=== PATIENT | male | born 1945 | race Caucasian/White ===

== ENCOUNTER 2021-02-10 11:20 | Emergency (ER) | payer MEDICARE, SELFPAY ==
--- NOTE | ~2021-02-10 | XR_ITS ---
XR chest 1V portable DATE: 02/10/2021 12:01 INDICATION: Weakness TECHNIQUE: Portable AP chest on 02/10/2021 at 1157 hours COMPARISON: None FINDINGS: 2 thoracic electrodes overlie the mid thoracic spinal canal. Normal heart size. No hilar or mediastinal enlargement. No pulmonary infiltrate or consolidation, ple ural effusion or pulmonary vascular congestion or pneumothorax is detected. There are bilateral Asif B-lines, likely due to chronic interstitial changes. Surgical clips, right upper quadrant, consistent with cholecystectomy. Osteopenia. IMPRESSION: Likely mild chronic interstitial changes in the lower lung zones No active cardiac pulmonary disease is evident Status post cholecystectomy Thoracic spinal canal electrodes Reviewed, dictated and finalized at location A. [employer]
[2021-02-10 11:27] VITALS: BP 99/57; PULSE 88; RESP 20; TEMP 37.2; O2SAT 95
--- NOTE | 2021-02-10 11:49 | ECG_ITS ---
Measurements Intervals [place] Rate: 85 P: 66 MS: 161 QRS: -34 QRSD: 77 T: 82 QT: 334 QTc: 399 Interpretive Statements SINUS RHYTHM WITH SINUS ARRHYTHMIA ATRIAL PREMATURE COMPLEX POSSIBLE LEFT ATRIAL ENLARGEMENT LEFT AXIS DEVIATION INCOMPLETE RIGHT BUNDLE BRANCH BLOCK DELAYED PRECORDIAL R/S TRANSITION LEFT VENTRICULAR HYPERTROPHY AND ST-T CHANGE BORDERLINE ECG Electronically Signed On 02-10-2021 15:09:22 [employer] by Alok Chino D.O.
--- NOTE | 2021-02-10 11:53 | ED.WEAKNESS ---
HPI - Weakness General Chief complaint: Weakness Stated complaint: weakness Time Seen by Provider: 02/10/21 11:35 Source: patient Mode of arrival: ambulatory Limitations: no limitations History of Present Illness HPI Narrative: Patient presents with general weakness, gradually getting worse over the last 7 days. Patient lives alone, not feeling well. Have long hours of sleep, have trouble to get off the bed or of the toilet because of the general weakness. 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 Patient does take medicine at home and he does not know why. Patient does not smoke or drink, fully vaccinated for COVID-19, never been to our hospital before. Patient usually go to [facility]. Denying any fever, chills, nausea, vomiting, abdominal pain or chest pain or shortness of breath or headache. Patient unable to eat lately because of the general weakness unable to manage to take care of himself. Related Data Allergies Allergy/AdvReac Type Severity Reaction Status Date / Time No Known Allergies Allergy Unverified 09/22/20 08:22 Review of Systems Review of Systems: CONSTITUTIONAL: Denies fever, chills, or sweats. EYES: Denies visual changes, redness, or discharge. ENT: Denies rhinorrhea, congestion, sore throat, or otalgia. CARDIOVASCULAR: Denies chest pain, palpitations, or edema. RESPIRATORY: Denies cough or dyspnea. GASTROINTESTINAL: Denies abdominal pain, nausea, vomiting, or diarrhea. GENITOURINARY: Denies dysuria or hematuria. SKIN: Denies rash or itching. MUSCULOSKELETAL: Denies back pain, joint pain, or myalgia. NEUROLOGIC: Denies headache, numbness, or weakness. PSYCHIATRIC: Denies anxiety or depression. Exam Narrative: General appearance: Well-developed, well-nourished, looks weak and ill Skin: Normal color Head: Normocephalic, nontraumatic Eyes: Clear conjunctiva ENT: Oropharynx normal, ears normal, nose normal Neck: Supple, nontender Chest and respiratory: Airway patent, no respiratory distress, no accessory muscle use Heart: Regular rate/rhythm Abdomen: Soft, nontender, no organomegaly, quiet bowel sounds Vascular: Normal peripheral pulses, normal capillary refill. 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 Differential diagnosis as below. Labs, chest x-ray, UA, IV fluid ordered. Work-up showed no significant findings to explain patient weakness. My understanding that patient lives alone, board, depressed. Does not do any physical activity. Not motivated to eat over the last 36 hours. All his symptoms are resolved after eating and having IV fluid in the emergency room. Patient was able to get out of bed using a cane and walker around the emergency room without security assistant or any complaint. Patient feels okay to go home, declined to be hospitalized for rehab or [facility] placement, patient granddaughter at the bedside who agreed with the plan.
[2021-02-10 12:19] LABS: Basophils Percent Auto 0.3 % (0.2-1.2); Eosinophils Absolute Auto 0.1 K/mm3 (0-0.3); Eosinophils Percent Auto 2.2 % (0-4.4); Hematocrit 33.6 % (42.0-52.0); Hemoglobin 10.9 g/dL (14.0-18.0); Immature Granulocyte Absolute 0.03 K/mm3 (0.00-0.031); Immature Granulocyte Percent A 0.5 % (0-0.5); Lymphocytes Absolute Auto 0.83 K/mm3 (0.9-3.2); Mean Corpuscular HGB Conc 32.4 g/dl (32-36); Mean Corpuscular Hemoglobin 29.7 pg (26-34); Mean Corpuscular Volume 91.6 fl (80-100); Mean Platelet Volume 8.8 fl (7.4-10.4); Monocytes Absolute Auto 0.7 K/mm3 (0.1-0.6); Monocytes Percent Auto 11.3 % (2.6-8.5); Neutrophils Absolute Auto 4.7 K/mm3 (1.3-6.7); Neutrophils Percent Auto 72.7 % (45.5-73.1); Platelet Count Result 202 k/mm3 (150-375); Red Blood Count 3.67 M/mm3 (4.6-6.20); Red Cell Distribution Width 12.8 % (11.5-14.5); White Blood Count 6.4 K/mm3 (4.5-10.0)
[2021-02-10] MEDS: SODIUM CHLORIDE 0.9% IV 1,000 ML 999 ML IV CONT (12:26)
[2021-02-10 12:31] LABS: Alanine Aminotransferase 30 U/L (4-50); Albumin Level 3.7 g/dL (3.5-5.1); Alkaline Phosphatase 238 U/L (38-126); Anion Gap 7 mmol/L (8-16); Aspartate Amino Transferase 51 U/L (17-59); Bilirubin,Total 0.8 mg/dL (0.2-1.3); Blood Urea Nitrogen 24 mg/dL (9-20); Calcium 8.6 mg/dL (8.4-10.2); Carbon Dioxide 27 mmol/L (22-30); Chloride 98 mmol/L (98-107); Estimated CRCL calculation 45 ml/min; Estimated Glomerular Filt Rate 54; Glucose 167 mg/dL (65-110); Lactic Acid Reflex 1.1 mmol/L (0.7-2.1); Lipase 92 U/L (23-300); Potassium 3.6 mmol/L (3.4-5.0); Sodium 132 mmol/L (137-145)
[2021-02-10 12:39] LABS: NT Pro B Type Natriuretic Pept 909 pg/mL (5-100)
[2021-02-10 12:40] LABS: INR 1.1
[2021-02-10 12:41] LABS: Partial Thromboplastin Time 31.7 SECONDS (22.3-36.8)
[2021-02-10 12:43] LABS: CRP 7.2 mg/dL (<1.0)
[2021-02-10 12:49] LABS: Troponin I < 0.012 ng/mL (0.000-0.034)
[2021-02-10 12:50] LABS: Creatine Kinase 220 U/L (55-170)
[2021-02-10 13:31] VITALS: BP 107/59; PULSE 72; RESP 14; O2SAT 99
[2021-02-10 14:40] LABS: Add Urine Microscopic? YES; Appearance Urine Cloudy (Clear); Bilirubin Urine Negative (Negative); Blood Urine Negative (Negative); Color Urine Amber (Yellow); Glucose Urine UA Negative (Negative); Hyaline Casts Urine 20-29 /lpf; Ketones Urine Trace mg/dL (Negative); Leukocyte Esterase Ur Negative LEU/UL (Negative); Mucus Urine Few /lpf; Nitrate Urine Negative (Negative); Protein Urine 1+ mg/dL (Negative); Specific Grav Ur 1.023 (1.001-1.035); Squamous Epithelial Cell Urine Rare /hpf (Few)
[2021-02-10 15:26] VITALS: BP 125/66; PULSE 72; RESP 14; O2SAT 98
[2021-02-10 15:40] LABS: Troponin I < 0.012 ng/mL (0.000-0.034)
== END 2021-02-10 15:28 | disposition home or self-care (01) ==
PROVIDERS: Emergency Provider Emergency Medicine; PCP Internal Medicine
DX: R53.1 Weakness (principal); I49.1 Atrial premature depolarization; R94.31 Abnormal electrocardiogram [ECG] [EKG]; I45.10 Unspecified right bundle-branch block; R91.8 Other nonspecific abnormal finding of lung field
CPT/HCPCS: 36415; 71045; 80053; 81001; 82550; 83605; 83690; 83880; 84484; 85025; 85610; 85730; 86140; 87040; 93005; 96360; 96361; 99284; J7030

== ENCOUNTER 2024-03-12 17:46 | Emergency (ER) | payer MEDICARE, SELFPAY ==
[2024-03-12 18:14] VITALS: BP 107/61; PULSE 69; RESP 16; TEMP 36.6; O2SAT 98
[2024-03-12 20:08] VITALS: BP 104/77; PULSE 61; RESP 20; TEMP 36.4; O2SAT 100
== END 2024-03-12 22:14 | disposition left against medical advice (07) ==
LOC: ANHED 21:51
PROVIDERS: PCP Internal Medicine
DX: R06.02 Shortness of breath (principal)
CPT/HCPCS: 99199

== ENCOUNTER 2024-07-25 15:44 | Outpatient (CLI) | payer MEDICARE, SELFPAY ==
--- NOTE | ~2024-07-25 | XR_ITS ---
[id number] Ordering provider: Jose Daniel Santos, History: . Radciulopathy . Comparison: None. FINDINGS: VERTEBRAL BODIES: Fusion at the level of C6 and C7. Normal height and alignment. No visible fracture or subluxation. The dens is intact. Degenerative changes of the spine. DISK SPACES: Narrowing of the disc C5-C6 and C6-C7. Multilevel facet joint disease. Multilevel uncove rtebral joint osteoarthritic changes. PARASPINOUS SOFT TISSUES: No prevertebral soft tissue swelling. IMPRESSION: No acute osseous abnormality cervical spine. Multilevel degenerative disc disease.. Reviewed, dictated and finalized at location A.
--- NOTE | ~2024-07-25 | XR_ITS ---
3 VIEWS LUMBAR SPINE Ordering provider: Jose Daniel Santos, History: . Radciulopathy . Comparison: None. FINDINGS: VERTEBRAL BODIES: No visible fracture or subluxation. Degenerative changes of the spine. DISK SPACES: Narrowing of the disc L3-L4 and L5-S1. SOFT TISSUES: Normal. Spinal stimulator is noted. IMPRESSION: No acute osseous abnormality lumbar spine. Multilevel degenerative disc disease. Reviewed, dictated and finalized at location A.
--- OUTSIDE RECORDS SUMMARY | 2024-07-25 15:53 | XMS_ITS | CONTINUITY OF CARE DOCUMENT ---
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 active Jose Arteaga MD Hypertriglyceridemia active Jose Delgadillo BACK PAIN, CHRONIC;ON NARCOTICS active Jose Arteaga MD Diastolic dysfunction active Jose Arteaga MD Shortness of breath completed - Jose Arteaga MD Long-term (current) use of other medications completed - Jose Arteaga MD Pre-procedural laboratory examination completed - Jose Arteaga MD Neuropathy active Jose Arteaga MD Microvascular angina active Jose Delgadillo Pulmonary hypertension active Jose Arteaga MD Tobacco use, quit active Jose Arteaga MD t oo emote to screen Exposure to SARS-associated coronavirus;had vaccine active Jose Arteaga MD Renal cyst active Jose Arteaga MD Screening active Jose Arteaga MD Hyperlipidemia;NEG CRP active Jose Arteaga MD DYSPEPSIA&OTHER SPEC DISORDE RS FUNCTION STOMACH;CHRONIC active Jose Arteaga MD LOW BLOOD PRESSURE active Jose Arteaga MD CAD;NEG ECHO, HOLTER AND NUC 07 completed - Nahomi Beasley SCRAP DROP ENGINEER CHEST PAIN active - Jose Arteaga MD SHORTNESS OF BREATH active - Jose Arteaga MD PALPITATIONS completed - Nahomi Beasley SCRAP DROP ENGINEER ENCOUNTERS Date Type Provider Location Encounter Diag nosis - In-person encounter Office Visit Jose Arteaga MD [facility] - In-person encounter Office Visit Jose Arteaga MD [facility] Pre-procedural laboratory examinationLong-term (current) use of other medicationsShortness of breath - In-person encounter Office Visit Jose Arteaga MD [facility] ScreeningMicrovascular anginaNeuropathy - In-person encounter Office Visit Jose Arteaga MD [facility] Renal cystDiastolic dysfunctionExposure to SARS-associated coronavirus;had vaccineTobacco use, quitPulmonary hypertension - In-person encounter Office Visit Jose Arteaga MD [facility] PALPITATIONSCAD;NEG ECHO, HOLTER AND NUC 07Hyperlipidemia;NEG CRP - In-person encounter Office Visit Jose Arteaga MD [facility] SHORTNESS OF BREATHCHEST PAINLOW BLOOD PRESSUREBACK PAIN, CHRONIC;ON NARCOTICSDYSPEPSIA&OTHER SPEC DISORDERS FUNCTION STOMACH;CHRONICHyperlipidemi a;NEG CRP VITAL SIGNS Date Observation Value Provider blood pressure, diastolic 61 mm[Hg] Ri adry [place] blood pressure, systolic 100 mm[Hg] Simon chong [place] blood pressure, cuff size regular Ri adry [place] oxygen saturation, oximetry 96 % Ginette [place] respiratory rate E&M 16 /min Kendra [place] pulse rate 66 /min Ginette thompson Body Mass Index (Ratio) 21.37 kg/m2 Nuno [place] weight in kilograms E&M 73.48 kg Nuno [place] weight E&M 162 [lb_av] Ginette thompson height E&M 73 [in_i] Ginette thompson height in centimeters E&M 185.42 cm Ace [place] Body Mass Index (Ratio) 21.90 kg/m2 Paul Arteaga MD blood pressure, cuff size large Tr trevin Lorenzo blood pressure, diastolic 50 mm[Hg] Tr trevin Lorenzo blood pressure, systolic 120 mm[Hg] Jorge Lorenzo oxygen saturation, oximetry 98 % Huseyin Lorenzo respiratory rate E&M 16 /min Huseyin Lorenzo pulse rate 68 /min Huseyin Lorenzo weight E&M 166 [lb_av] Huseyin Lorenzo height E&M 73 [in_i] Huseyin Lorenzo Body Mass Index (Ratio) 21.77 kg/m2 Paul Arteaga MD blood pressure, diastolic 60 mm[Hg] Li [facility] blood pressure, systolic 90 mm[Hg] Darline kLog blood pressure, cuff size regular Cy bhargavi Delgado blood pressure, diastolic 60 mm[Hg] Cy ntkate Delgado blood pressure, systolic 90 mm[Hg] Duyen tran Delgado oxygen saturation, oximetry 96 % Francisca Delgado respiratory rate E&M 16 /min Francisca Danny pulse rate 77 /min Francisca Missaelbel l weight E&M 165 [lb_av] Francisca Missaelbel l height E&M 73 [in_i] Francisca Campbel l Body Mass Index (Ratio) 21.77 kg/m2 Paul Arteaga MD blood pressure, diastolic 60 mm[Hg] Rh onda Yadira blood pressure, systolic 99 mm[Hg] Rho ndemile Yadira oxygen saturation, oximetry 96 % Lizbet Yadira pulse rate 82 /min Lizbet Yadira respiratory rate E&M 16 /min Lizbet Yadira weight E&M 165 [lb_av] Lizbet Yadira blood pressure, resting No Rhon da Yadira blood pressure, cuff size regular Rh ontessy Yadira height E&M 73 [in_i] Lizbet Yadira Body Mass Index (Ratio) 22.16 kg/m2 Paul Arteaga MD blood pressure, cuff size regular Cy bhargavi Danny blood pressure, diastolic 60 mm[Hg] Cy bhargavi Delgado blood pressure, systolic 104 mm[Hg] Duyen tran Delgado oxygen saturation, oximetry 96 % Francisca Delgado respiratory rate E&M 16 /min Francisca Delgado pulse rate 62 /min Francisca maria height E&M 73 [in_i] Francisca Canasbel crow weight E&M 168 [lb_av] Francisca Missaelbel l blood pressure, diastolic 66 mm[Hg] Hattie Castillo'Jm blood pressure, systolic 105 mm[Hg] Elizabeth soria O'Jm pulse rate 81 /min Nancy O'Jm oxygen saturation, oximetry 97 % Nancy O'Jm respiratory rate E&M 19 /min Nancy O'Jm weight E&M 150 [lb_av] Nancy O'Jm ALLERGIES Allergy Name Onset Date Reaction Criticality Status ZOCOR stomacah issues Low Criticality acti ve RESULTS Date Observation Value Provider Reference Range Interpretation Location 8 D-dimer quantitative mcg/mL 0.41 MG/L FEU [facility] 0.00-0.49 8 ferritin, serum 107 ng/mL [facility] 30-400 8 iron saturation percent, serum 26 % [facility] 15-55 8 iron, serum 86 ug/dL [facility] 38-169 8 iron binding capacity, unsaturated 247 ug/dL [facility] 359-021 3973/10/0 8 iron binding capacity, total 333 ug/dL [facility] 123-463 1605/09/2 3 c-reactive protein, quantitative, serum 0.78 mg/L [facility] 0.00-3.00 3 B-12, serum 1256 pg/mL [facility] 232-1245 High 3 pro brain natriuretic peptide 309 pg/mL [facility] 0-486 3 prothrombin time (patient) 9.8 s [facility] 9.1-12.0 3 international normalized ratio (INR) 0.9 [facility] 0.9-1.2 3 lipoprotein, beta, serum, point, quantitative, calculated 86 mg/dL [facility] 0-99 3 HDL cholesterol, serum 47 mg/dL [facility] >39 3 triglyceride, serum, random 234 mg/dL [facility] 0-149 High 3 cholesterol, serum 172 mg/dL [facility] 101-584 2109/09/2 3 calcium, serum 8.9 mg/dL [facility] 8.6-10.2 3 carbon dioxide, venous blood 27 mmol/L [facility] 20-29 3 chloride, serum 101 mmol/L [facility] 96-106 3 potassium, serum 4.1 mmol/L [facility] 3.5-5.2 3 sodium, serum 141 mmol/L [facility] 151-489 7479/09/2 3 urea nitrogen/creatinin e ratio, serum 15 [facility] 10-24 3 eGFR if 91 mL/min/{1. 73_m2} [facility] >59 3 eGFR if not 79 mL/min/{1. 73_m2} [facility] >59 3 creatinine, serum 0.93 mg/dL [facility] 0.76-1.27 3 urea nitrogen, blood 14 mg/dL [facility] 8-27 3 blood glucose, random 107 mg/dL [facility] 65-99 High 3 basophil count, absolute 0.0 x10E3/uL [facility] 0.0-0.2 3 Eosinophil Absolute Count 0.2 X10E3/UL [facility] 0.0-0.4 3 monocyte count, blood, automated 0.3 X10E3/UL [facility] 0.1-0.9 3 lymphocyte count, blood, automated 1.0 X10E3/UL [facility] 0.7-3.1 3 Absolute Neutrophils 3.4 X10E3/UL [facility] 1.4-7.0 3 basophils as percent of blood leukocytes 0 % [facility] Not Estab. 3 eosinophils as percent of blood leukocytes 3 % [facility] Not Estab. 3 monocytes as percent of blood leukocytes 7 % [facility] Not Estab. 3 lymphocytes as percent of blood leukocytes 20 % [facility] Not Estab. 3 neutrophils as percent of blood leukocytes 70 % [facility] Not Estab. 3 platelet count 242 X10E3/UL [facility] 177-276 6436/09/2 3 red blood cell distribution width 12.4 % [facility] 11.6-15.4 3 mean corpuscular hemoglobin concentration, RBC 32.4 G/DL [facility] 31.5-35.7 3 mean corpuscular hemoglobin, RBC 29.5 pg [facility] 26.6-33.0 3 mean corpuscular volume, RBC 91 fL [facility] 79-97 3 hematocrit, blood 39.8 % [facility] 37.5-51.0 3 hemoglobin, blood 12.9 g/dL [facility] 13.0-17.7 Low 3 erythrocyte (RBC) count 4.37 X10E6/UL [facility] 4.14-5.80 3 leukocyte count, blood 4.9 X10E3/UL [facility] 3.4-10.8 HISTORY OF MEDICATION USE Medication Status Instructions Dates Provider Indications Com ments Protonix 40 mg tablet,delayed release (DR/EC) active Take 1 tablet by mouth once a day Kristi Ruvalcaba Protonix 40 mg tablet,delayed release (DR/EC) completed - Kristi Ruvalcaba gabapentin 600 mg tablet completed Take 1 tablet by mouth four times a day - Jose Arteaga MD pantoprazole 40 mg tablet,delayed release (DR/EC) completed 1 tablet by mouth once a day - Jose Arteaga MD Repathemile Pushtronex 420 mg/3.5 mL wearable injector completed Inject 3.5 ml subcutaneously every four weeks - Jose Arteaga MD ezetimibe 10 mg tablet completed Take 1 tablet by mouth once a day - Jose Arteaga MD Nexletol 180 mg tablet completed Take 1 tablet by mouth once a day - Jose Arteaga MD Adult Low Dose Aspirin 81 mg tablet,delayed release (DR/EC) completed Take 1 tablet once a day - Jose Arteaga MD Vascepa 1 gram capsule completed Take 2 capsule by mouth twice a day - Jose Arteaga MD ezetimibe 10 mg tablet completed - Nahomi Beasley NP pantoprazole 40 mg tablet,delayed release (DR/EC) completed - Nahomi Ramos SCRAP DROP ENGINEER oxycodone 30 mg tablet active Nahomi Beasley NP lorazepam 0.5 mg tablet [facility] ibuprofen 800 mg tablet active as needed Jose Arteaga MD methocarbamol 750 mg tablet active as needed Jose Arteaga MD albuterol sulfate 90 mcg/actuation HFA aerosol inhaler active as needed Jose Arteaga MD methadone 10 mg tablet active Jose Arteaga MD gabapentin 600 mg tablet completed - Nahomi Beasley NP ASPIRIN 81 MG ORAL TABLET completed 1 tablet once a day - Jose Arteaga MD Lovaza 1 gram capsule completed 1 once a day - Jose Arteaga MD OXYCONTIN [id number] completed 1 tablet once a day - Lane Gonsalves RN SOCIAL HISTORY Date Observation Value Provider caffeine use, averag e drinks per day yes Ginette [place] passive cigarette sm venkat exposure yes Ginette [place] oral tobacco use per day vape Simon chong [place] chewing tobacco use Current Ginette Cuba smoking status Never smoker Ginette harrison social history E&M Marital Statu s: L tommy with family/friends E thnicity: Smoking History: P eitan has never smoked. Jose Arteaga MD social history reviewed E&M revi ewed - no changes required Jose Arteaga MD oral tobacco use per day vape Try oscar Lorenzo chewing tobacco use Current Huseyin Lorenzo passive cigarette sm venkat exposure yes Huseyin Lorenzo smoking status Never smoker Huseyin ng social history E&M Marital Statu s: L tommy with family/friends E thnicity: Smoking History: U nknown if patient has ever smoked. Jose Arteaga MD social history reviewed E&M revi ewed - no changes required Jose Arteaga MD caffeine use, averag e drinks per day yes Francisca Delgado smoking status Unknown if ever smoked Duyen tran Delgado quit smoking, stage quit Jose white MD social history E&M Marital Statu s: Crow sanders with family/friends E thnicity: Smoking History: U nknown if patient has ever smoked. Jose Arteaga MD social history reviewed E&M revi ewed - no changes required Jose Aretaga MD smoking status Unknown if ever smoked Osmel yasmin May caffeine use, averag e drinks per day yes Francisca Delgado smoking status Non-Smoker Francisca wolff social history E&M Marital Statu s: Crow sanders with family/friends E thnicity: Jose Arteaga MD smoking status Non-Smoker Lane Gonsalves RN social history reviewed E&M reviewed Lane Gonsalves RN caffeine use, averag e drinks per day yes [facility] alcohol use, average drinks per day none [facility] number of years as a smoker 10 years or m ore [facility] FUNCTIONAL STATUS Date Observation Value Provider HRA, CV Assess/Plan, Angina (inactive) Management Plan continue current therapy Jose Arteaga MD HRA, CV Assess/Plan, Angina (inactive) Management Plan continue current therapy Jose Arteaga MD HRA, CV Assess/Plan, Angina (inactive) Management Plan continue current therapy Jose Arteaga MD HRA, CV Assess/Plan, Angina (inactive) Management Plan schedule PCI Nahomi Beasley NP MENTAL STATUS Date Observation Value Provider assessment of judgme nt and insight E&M Alert and oriented to time, place and person. Mood and affect are normal. Lane Gonsalves RN INSURANCE PROVIDERS Payer name Policy type / Coverage type Shanae red republican ID [employer] MEDICARE SMARTFIT (PPO) Medicare 10 [id number] ADVANCE DIRECTIVES Name Date DISCUSSED - NO DECISION MADE TREATMENT PLAN Date Name Performer [id number],S, T he following medications were removed from the medication list: Ezetimibe 10 Mg Tablet (Ezetimibe) ..... Take 1 tablet by mouth once a day His updated medication list for this problem includes: Repatha Pushtronex 420 Mg/3.5 Ml Wearable Injector (Evolocumab) ..... Inject 3.5 ml subcutaneously every four weeks Jose Arteaga MD [id number],S, Jose baptiste MD [id number],S, n eg iron and dd and pft n eg belly ct and gall stone n eg vit d e ng b12 eng jeanine Jose Arteaga MD [id number],S, Jose baptiste MD [id number],S, Jose baptiste MD [id number],B, Jose baptiste MD [id number],S,mild to mod H melinda Arteaga MD [id number],S, 4 6 Jose Arteaga MD [id number],S, n ml pro and lvedop Jose Arteaga MD [id number],S, 2 0% and 30% RCA, WITH POS NUC Jose Arteaga MD [id number],B, Jose baptiste MD [id number],S, n eg b12 Jose Arteaga MD [id number],S,neg b12 Monique Arteaga MD [id number],S,T his patient?s angina is disabling and in my opinion is not readily amenable to surgical intervention by PTCA or cardiac bypass because the patient's condition is inoperable, or at high risk of operative complications or post-operative failure. T his patient?s angina is disabling and in my opinion is not readily amenable to surgical intervention by PTCA or cardiac bypass because the patient's coronary anatomy is not readily amenable to such procedures. Jose Arteaga MD [id number],S, Jose Serota [id number],S, Jose Serot a [id number],S, Jose Serot a [id number],S, Jose Serot a [id number],S, Jose Serot a [id number],S, Jose Serot a [id number],S, n ml pro and lvedop Jose Serota [id number],S, 2 0% and 30% RCA, WITH POS NUC Jose Serota [id number],S, 4 6 Jose Serota [id number],S, m ild to mod Jose Serota [id number],S,n eg iron and dd and pft n eg belly ct and gall stone n eg vit d e ng b12 eng jeanine Jose Serota [id number],C,mild to mod H arvey Serotemile MONREO [id number],C,46 Jose Ser rotational moulding operator [id number],S, Jose Serot a [id number],S, Jose Serot a [id number],S, Jose Serot a [id number],S,nml pro and l vedop Jose Serota [id number],S,n eg belly ct and gall stone n eg vit d e ng b12 eng jeanine Jose Serota [id number],S, Jose Serot a [id number],S,vascepa not c ovred Jose Serotemile MONROE [id number],S, 2 0% and 30% RCA, WITH POS NUC Jose Arteaga MD [id number],C,20% and 30% R CA, WITH POS NUC Jose Arteaga MD [id number],C,neg vit d Ambrose Arteaga MD [id number],S,on Protonix S александр Beasley SCRAP DROP ENGINEER [id number],S, Nahomi brooks SCRAP DROP ENGINEER [id number],S,stable Nahomi Beasley SCRAP DROP ENGINEER [id number],C,recheck lipid panel today Nahomi Beasley SCRAP DROP ENGINEER [id number],W,Plan for Card [facility]. Nahomi Beasley NP :38 Jose Arteaga MD :ef 63, neg pro and levedp Monique Arteaga MD Cardiology;: T he following medications were removed from the medication list: Ezetimibe 10 Mg Tablet (Ezetimibe) ..... Take 1 tablet by mouth once a day His updated medication list for this problem includes: Repatha Pushtronex 420 Mg/3.5 Ml Wearable Injector (Evolocumab) ..... Inject 3.5 ml subcutaneously every four weeks Jose Arteaga MD Cardiology; Jose Arteaga MD Cardiology;: n eg iron and dd and pft n eg belly ct and gall stone n eg vit d e ng b12 eng jeanine Jose Arteaga MD Cardiology; Jose Arteaga MD Cardiology; Jose Arteaga MD Cardiology; Jose Arteaga MD Cardiology;:mild to mod Jose white MD Cardiology;: 4 6 Jose Arteaga MD Cardiology;: n ml pro and lvedop Jose Arteaga MD Cardiology;: 2 0% and 30% RCA, WITH POS NUC Jose Arteaga MD Cardiology; Jose Arteaga MD Cardiology;: n eg b12 Jose Arteaga MD Cardiology follow up :neg b12 Mir angela Arteaga MD Cardiology follow up :This patient?s angina is disabling and in my opinion is not readily amenable to surgical intervention by PTCA or cardiac bypass because the patient's condition is inoperable, or at high risk of operative complications or post-operative failure. T his patient?s angina is disabling and in my opinion is not readily amenable to surgical intervention by PTCA or cardiac bypass because the patient's coronary anatomy is not readily amenable to such procedures. Jose Arteaga MD Cardiology follow up Jose chambers MD Cardiology follow up Jose chambers MD Cardiology follow up Jose chambers MD Cardiology follow up Jose chambers MD Cardiology follow up Jose chambers MD Cardiology follow up Jose chambers MD Cardiology follow up : n ml pro and lvedop Jose Arteaga MD Cardiology follow up : 2 0% and 30% RCA, WITH POS NUC Jose Arteaga MD Cardiology follow up : 4 6 Jose Arteaga MD Cardiology follow up : m ild to mod Jose Arteaga MD Cardiology follow up :neg iron and dd and pft n eg belly ct and gall stone n eg vit d e ng b12 eng jeanine Jose Arteaga MD Cardiology:mild to mod Jose corrales MD Cardiology:46 Jose Arteaga MD Cardiology Jose Arteaga MD Cardiology Jose Arteaga MD Cardiology Jose Arteaga MD Cardiology:nml pro and lvedop Mir angela Arteaga MD Cardiology:neg belly ct and gall stone n eg vit d e ng b12 eng jeanine Jose Arteaga MD Cardiology Jose Arteaga MD Cardiology:vascepa not covred Mir angela Arteaga MD Cardiology: 2 0% and 30% RCA, WITH POS NUC Jose Arteaga MD :20% and 30% RCA, WITH POS NUC H melinda Arteaga MD strigt left haret cath;first:neg vit d Jose Arteaga MD Cardiology follow up :on Protoni x Nahomi Ramos SCRAP DROP ENGINEER Cardiology follow up Nahomi Priteshanjum mccollum SCRAP DROP ENGINEER Cardiology follow up :stable She rogers Beasley SCRAP DROP ENGINEER Cardiology follow up :recheck li pid panel today Nahomi Ramos SCRAP DROP ENGINEER Cardiology follow up :Plan for C ardiac cath. Nahomi Ramos LOMELI follow up: H is updated medication list for this problem includes: Lovaza 1 Gm Caps ([id number]-mtpw ethyl esters) ..... Onne a day dispense as written Orders: S tress Test - Adenosine (78347) A MYLASE (243) Jose Arteaga MD follow up: O rders: G allbaladder Ultrasound (CPT-16724) C OMPREHENSIVE METABOLIC PANEL W/EGFR (66056) L IPID PANEL (7600) C BC (INCLUDES DIFF/PLT) (6399) T HYROID PANEL WITH TSH, 3RD GENERATION (7444) S tress Test - Adenosine (29211) A MYLASE (243) Jose Arteaga MD follow up: O rders: C omplete Echo (CPT-30638) A rterial Duplex Lower Extremity Bilateral (CPT-04495) E KG (CPT-54802) G allbaladder Ultrasound (CPT-80229) C OMPREHENSIVE METABOLIC PANEL W/EGFR (91411) L IPID PANEL (7600) C BC (INCLUDES DIFF/PLT) (6399) T HYROID PANEL WITH TSH, 3RD GENERATION (7444) S tress Test - Adenosine (91615) Jose Arteaga MD follow up: B P today: 105/66 Prior BP: / () Orders: C omplete Echo (CPT-81474) A rterial Duplex Lower Extremity Bilateral (CPT-72265) E KG (CPT-65475) G allbaladder Ultrasound (CPT-97377) C OMPREHENSIVE METABOLIC PANEL W/EGFR (32931) L IPID PANEL (7600) C BC (INCLUDES DIFF/PLT) (6399) T HYROID PANEL WITH TSH, 3RD GENERATION (7444) S tress Test - Adenosine (51132) His updated medication list for this problem includes: Aspirin 81 Mg Tabs (Aspirin) ..... One tab. daily Jose Arteaga MD follow up: B P today: 105/66 Prior BP: / () Orders: C omplete Echo (CPT-54912) A rterial Duplex Lower Extremity Bilateral (CPT-03938) E KG (CPT-58312) G allbaladder Ultrasound (CPT-68234) C OMPREHENSIVE METABOLIC PANEL W/EGFR (80932) L IPID PANEL (7600) C BC (INCLUDES DIFF/PLT) (6399) T HYROID PANEL WITH TSH, 3RD GENERATION (7444) S tress Test - Adenosine (56495) A MYLASE (243) His updated medication list for this problem includes: Lovaza 1 Gm Caps (Qrnkw-6-ulyu ethyl esters) ..... Onne a day dispense as written Aspirin 81 Mg Tabs (Aspirin) ..... One tab. daily Jose Arteaga MD follow up: B P today: 105/66 Prior BP: / () Orders: C omplete Echo (CPT-72129) A rterial Duplex Lower Extremity Bilateral (CPT-19215) G allbaladder Ultrasound (CPT-12636) C OMPREHENSIVE METABOLIC PANEL W/EGFR (39554) L IPID PANEL (7600) C BC (INCLUDES DIFF/PLT) (6399) T HYROID PANEL WITH TSH, 3RD GENERATION (7444) S tress Test - Adenosine (13244) A MYLASE (243) Jose Arteaga MD Date Name Complete Echo ECP - Medicare IRON AND TOTAL IRON BINDING CAPACITY FERRITIN D-DIMER, QUANTITATIV E Carotid Duplex Bilat eral Complete Echo Vitamin D, 25-Hydrox y VITAMIN B12/FOLATE, SERUM PANEL C-REACTIVE PROTEIN PROBNP, N TERMINAL LIPID PANEL PROTHROMBIN TIME WIT H INR CBC (INCLUDES DIFF/P LT) BASIC METABOLIC PANE L W/EGFR Cardiac Cath - Left - [facility] Stress Regadenoson AMYLASE Stress Test - Adenos ine THYROID PANEL WITH T SH, 3RD GENERATION CBC (INCLUDES DIFF/P LT) LIPID PANEL COMPREHENSIVE METABO LIC PANEL W/EGFR Gallbaladder Ultraso und Arterial Duplex Lowe r Extremity Bilateral Complete Echo HISTORY OF PROCEDURES Procedure Date Procedure Name Provider Procedure Notes S tatus EKG Jose Arteaga MD complete d EKG Jose Arteaga MD complete d EKG Jose Arteaga MD complete d
--- OUTSIDE RECORDS SUMMARY | 2024-07-25 15:53 | XMS_ITS | Clinical Summary ---
Author Organization [facility] Address [address] [place] [address] Care Team Providers Care Collections Officer Name Role Phone Tom Mart MD Primary Care Provider [phone] Ricarda Peterson MD Unavailable Julian Yates MD Unavailable Allergies No known active allergies Medications gabapentin (NEURONTIN) 400 mg capsuleIndicati ons:Neuropathic Pain Take 600 mg by mouth 4 (four) times a day Active pantoprazole DR (PROTONIX) 40 mg EC tabletIndicatio ns:Treatment of Non-Bleeding Gastric Disorder Take 40 mg by mouth every morning Active ibuprofen (ADVIL,MOTRIN) 800 mg tablet Take 800 mg by mouth every 8 (eight) hours as needed for pain 0 Active melatonin 10 mg capsuleIndicati ons:SLEEP Take 1 capsule by mouth nightly Active LORazepam (ATIVAN) 0.5 mg tabletIndicatio ns:SLEEP Take 1 mg by mouth nightly 0 Active methadone (DOLOPHINE) 10 mg tabletIndicatio ns:severe chronic pain requiring long-term opioid treatment Take 10 mg by mouth 2 (two) times a day Indications: severe chronic pain requiring long-term opioid treatment 0 Active methocarbamoL (ROBAXIN) 750 mg tablet Take 750 mg by mouth NOT TAKING 0 Active gemfibroziL (LOPID) 600 mg tabletIndicatio ns:hypertriglyc eridemia Take 600 mg by mouth every morning Active oxyCODONE (ROXICODONE) 30 mg immediate release tabletIndicatio ns:Pain Take 30 mg by mouth every 4 (four) hours as needed for pain Active omega 7-ghx-ohn-fish oil 300 mg (120 mg- 180mg)-1,000 mg capsule,delayed release(DR/EC)I ndications:SUPP LEMENT Take 1 capsule by mouth nightly Active UNABLE TO FINDIndications :HEALTH Take 500 each by mouth nightly Med Name: CJ HUNTER MUSHROOMS Active ASHLANDONA ROOT EXTRACT ORALIndications :SUPPLEMENT Take 450 mg by mouth nightly Active TURMERIC ORALIndications :FOR JOINTS Take 750 mg by mouth nightly Active garlic 1,000 mg capsuleIndicati ons:HEALTH Take 1,000 mg by mouth every morning Active magnesium oxide (MAG-OX) 250 mg (150.8 mg elemental) tabletIndicatio ns:hypomagnesem ia Take 250 mg by mouth every morning Active UNABLE TO FINDIndications :supplement Take 600 each by mouth nightly Med Name: Nitric Oxide Sanguenol Active cholecalciferol (VITAMIN D-3) 45667 unit capsuleIndicati ons:Prevention of Vitamin D Deficiency Take 10,000 Units by mouth every morning Active coenzyme Q10 100 mg capsuleIndicati ons:supplement Take 100 mg by mouth every morning Active HERBAL DRUGS ORAL Take 1 capsule by mouth every morning MERISTEM Active UNABLE TO FINDIndications :FOR MEMORY Take 1 each by mouth every morning Med Name: CEREBRA Active vitamin A-vitamin C-vit E-min (Vision) tabletIndicatio ns:Vitamin Deficiency Prevention Take 1 tablet by mouth every morning Active oxyCODONE (ROXICODONE) 5 mg immediate release tabletIndicatio ns:Pain Take 1 tablet (5 mg total) by mouth every 4 (four) hours as needed for pain Take 1-2 tablets every 4 hours for breakthrough pain after surgery 10 tablet 3 Active gabapentin (NEURONTIN) 600 mg tablet 3 Active atorvastatin (LIPITOR) 10 mg tablet 3 Active Active Problems Problem Noted Date Diagnosed Date Basal cell carcinoma (BCC) of skin of left ear 0 05/06/2022 Overview (05/06/2022): Added automatically from request for surgery [id number] Basal cell carcinoma (BCC) of face 08/23/2016 Skin neoplasm 07/07/2016 Seborrheic eczema 07/07/2016 Keratosis, senilis 07/07/2016 Surgical History Surgery Date Site/Laterality Comments INSERTION / PLACEMENT / REVISION NEUROSTIMULATOR 03/27/2002 - 03/26/2003 SPINALCORD STIMULATOR PROSTATE BIOPSY 03/27/2002 - 03/26/2003 HERNIA REPAIR 03/27/1985 - 03/26/1986 LUMBAR DISC SURGERY 03/27/1985 - 03/26/1986 fusion Medical History Medical History Date Comments Arthritis Depression Dizziness HL (hearing loss) Family History Medical History Relation Name Comments Cancer Brother Diabetes Father Cancer Mother Anesthesia problems Neg Hx Relation Name Status Comments Brother Father Mother Social History Tobacco Use Types Packs/Day Years Used Date Smoking Tobacco: Every Day Cigarettes Last attempted to quit: 1979 Vaping Smokeless Tobacco: Never Tobacco Cessation:Ready to Q uit: Not Asked; Counseling Given: Not Answered AUDIT-C Answer Date Recorded Q1: How often do you have a drink containing alcohol? Never 06/02/2022 Q2: How many drinks containi ng alcohol do you have on a typical day when you are drinking? Patient does not drink Q3: How often do you have si x or more drinks on one occasion? Never 06/02/2022 Personal Safety Answer Date Recorded Getting School Help Needed Denies 05/16 Sex and Gender Information Value Date Recorded Sex Assigned at Not on file Legal Sex Male 9:23 AM CERTIFIED LEGAL INVESTIGATOR Gender Identity Not on file Sexual Orientation Not on file Obstetrics History Last Filed Vital Signs Vital Sign Reading Time Taken Comments Blood Pressure 96/60 06/02/2022 4:40 PM CERTIFIED LEGAL INVESTIGATOR Pulse 86 06/02/2022 4:40 PM CERTIFIED LEGAL INVESTIGATOR Temperature 36 C (96.8 F) 06/02/2022 1:31 PM CERTIFIED LEGAL INVESTIGATOR Respiratory Rate 14 06/02/2022 4:40 PM CERTIFIED LEGAL INVESTIGATOR Oxygen Saturation 98% 06/02/2022 4:40 PM CERTIFIED LEGAL INVESTIGATOR Inhaled Oxygen Concentration - - Weight 74 kg (163 lb 3.2 oz) 06/14/2022 1:34 PM CDT Height 185.4 cm (6' 1 ) 05/12/2022 1:25 PM CERTIFIED LEGAL INVESTIGATOR Body Mass Index 21.53 05/12/2022 1:25 PM CERTIFIED LEGAL INVESTIGATOR Plan of Treatment Health Maintenance Due Date Last Done Comments Depression Screening 1945 DTaP/Tdap/Td Vaccine (1 - Tdap) 11/30/1954 Hepatitis B Screening 11/30/1961 Zoster Vaccine (1 of 2) 11/30/1993 Well Visit 65+ 11/30/2008 Pneumococcal vaccine 65+ (2 of 2 - PCV) 02/02/2021 02/03/2020 Fall Risk Assessment 06/03/2023 06/02/2022 Covid-19 Vaccine (4 - 2023-2 5 season) 2023 03/31/2021, 06/17/2020, 05/20/2020 Influenza Vaccine (Season Ended) 2024 01/06/2021, 02/03/2020, 03/09/2019, Additional history exists Medical Devices Implanted Type Area Senior Relationship Manager Device Identifier Shelf Expiration Date Model / Serial / Lot Spinal Cord Stimulator Spinal Cord Stimulator Back Insurance [facility] MEDICARE ADVANTAGE [facility] MEDICARE Address: [address] [address] [facility] MEDICARE ADVANTAGE [facility] MEDICARE Address: [facility] [address] [place] [address] Care Teams Collections Officer Relationship Specialty Start Date End Date Tom Mart MD PCP - General 07/15/16 Ricarda Peterson MD Consulting Physician Internal Medicine 05/03/22 Julian Yates MD [address] [place] [address] Referring Physician Otolaryngology 05/07/22
--- OUTSIDE RECORDS SUMMARY | 2024-07-25 15:53 | XMS_ITS | Continuity of Care Document ---
Author Organization [facility] Address [address] [place] [address] [address] [place] [address] Phone Care Team Providers Care Sql Ssrs Developer Name Role Phone Luo OD, Serge Unavailable Unavailable Procedures Procedure Date Eye Exam & Treatment Refraction Counseling For Antioxidant Supplements A Advance Directives Directive Yes / No Effective Date File Name No Information Encounters Encounter Description Practice Location Reason(s) For Visit Diagnoses Date Provider Providers Copied on Encounter [facility], [address] [place] [address] [address], [place], [place], [id number], [place] tel:[phone] [facility] [place] No Information [address] Luo OD Serge. [address] [facility] [address] , [address], [place], [address], [place]. tel:[phone] Family History Family Member Type Diagnosis Age At Onset No Information Payers Payer name Insurance type Covered republican ID Authoriza tion(s) Medicare [facility] [id number] Social History Type Description Quantity Date Captured Comments Sex Male Smoking Status No Information Chief Complaint And Reason For Visit No Information Reason For Referral Reason For Referral No Information History Of Present Illness Encounter Date Complaint History Of Prese nt Illness No Information Functional Status Date Functional Assessmen t No Information Instructions Date Instruction Additional Infor mation No Information Assessments Type Assessment Date No Information Patient Care Teams Name Effective Dates (start - stop) Status Members No Information
--- OUTSIDE RECORDS SUMMARY | 2024-07-25 15:53 | XMS_ITS | Referral Summary ---
Author Organization [facility] Address [address] [place] [address] Care Team Providers Care Fashion Journalist Name Role Phone Tom Mart MD Primary Care Provider [phone] Ricarda Peterson MD Unavailable Julian Yates MD [...] hours as needed for pain Active omega 2-swa-afn-fish oil 300 mg (120 mg- 180mg)-1,000 mg [...] Nitric Oxide Sanguenol Active cholecalciferol (VITAMIN D-3) 49443 unit capsuleIndicati ons:Prevention of Vitamin D Deficiency [...] (05/06/2022): Added automatically from request for surgery [id number] Basal cell carcinoma (BCC) of face 08/23/2016 Skin neoplasm 07/07/2016 Seborrheic eczema 07/07/2016 Keratosis, senilis 07/07/2016 Social History Tobacco Use Types Packs/Day Years [...] on file Legal Sex Male 9:23 AM TRAIN MASTER Gender Identity Not on file Sexual Orientation Not on file Last Filed Vital Signs Vital Sign Reading Time Taken Comments Blood Pressure 96/60 06/02/2022 4:40 PM TRAIN MASTER Pulse 86 06/02/2022 4:40 PM TRAIN MASTER Temperature 36 C (96.8 F) 06/02/2022 1:31 PM TRAIN MASTER Respiratory Rate 14 06/02/2022 4:40 PM TRAIN MASTER Oxygen Saturation 98% 06/02/2022 4:40 PM TRAIN MASTER Inhaled Oxygen Concentration - - Weight 74 kg (163 lb 3.2 oz) 06/14/2022 1:34 PM CDT Height 185.4 cm (6' 1 ) 05/12/2022 1:25 PM TRAIN MASTER Body Mass Index 21.53 05/12/2022 1:25 PM TRAIN MASTER Plan of Treatment Not on file Medical Devices Implanted Type Area Split Leather Mosser Device Identifier Shelf Expiration Date Model / Serial / Lot Spinal Cord Stimulator Spinal Cord Stimulator Back Insurance [facility] MEDICARE ADVANTAGE [facility] MEDICARE ADVANTAGE Care Teams Fashion Journalist Relationship Specialty Start Date End Date Tom Mart MD PCP - General 07/15/16 Ricarda Peterson MD Consulting Physician Internal Medicine 05/03/22 Julian Yates MD [address] [facility] [place] [address] Referring Physician Otolaryngology 05/07/22
--- OUTSIDE RECORDS SUMMARY | 2024-07-25 15:53 | XMS_ITS | Continuity of Care Document ---
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 Location Location Details Encounter Type Encounter Number Reason For Visit Attending Provider ADM Date DC Date Status Disposition Source [facility] Outpatient Encounter [id number]
--- OUTSIDE RECORDS SUMMARY | 2024-07-25 15:53 | XMS_ITS ---
Author Organization [facility] Address [address] [place] [address] Care Team Providers Care Catering Server Name Role Phone Tom Mart MD Primary Care Provider Ricarda Peterson MD Unavailable Julian Yates MD Unavailable Active Problems Problem Noted Date Diagnosed Date Basal cell carcinoma (BCC) of skin of left ear 0 05/06/2022 Overview (05/06/2022): Added automatically from request for surgery [id number] Basal cell carcinoma (BCC) of face 08/23/2016 Skin neoplasm 07/07/2016 Seborrheic eczema 07/07/2016 Keratosis, senilis 07/07/2016 Current Treatment and Therapy Plans No current plan information found. Past Treatment and Therapy Plans No past plan information found. Lifetime Dose Tracking * Chemical Lifetime Dose Automatic Entry Manual Entr y DLP 370 mGycm 370 mGycm 0 mGycm
--- OUTSIDE RECORDS SUMMARY | 2024-07-25 15:53 | XMS_ITS | Clinical Summary ---
Author Organization [facility] Address [facility] [place] [address] Care Team Providers Care Nurse Assistant Name Role Phone Unavailable Primary Care Provider Unavailabl e Social History Tobacco Use Types Packs/Day Years Used Date Smoking Tobacco: Never Assessed Sex and Gender Information Value Date Recorded Sex Assigned at Not on file Legal Sex Male 6:11 PM CDT Gender Identity Not on file Sexual Orientation Not on file Plan of Treatment Health Maintenance Due Date Last Done Comments DTaP, Tdap and Td Vaccines ( 1 - Tdap) 11/30/1962 Pneumococcal Vaccine: 50+ Ye ars (1 of 1 - PCV) 11/30/1993 Zoster Vaccines (1 of 2) 11/30/1993 RSV Immunization or 60+ Years (1 - 1-dose 75+ series) 11/30/2018 COVID-19 Vaccine ( - 2023-2 5 season) 2023 Meningococcal B Vaccine Aged Out No l onger eligible based on patient's age to complete this topic Meningococcal Vaccine Aged Out No jose d jean eligible based on patient's age to complete this topic RSV Immunizations Under 20 Months Aged Out No longer eligible based on patient's age to complete this topic
--- OUTSIDE RECORDS SUMMARY | 2024-07-25 15:53 | XMS_ITS | Data Portability ---
Author Organization [facility] Address [address] [place] [address] Care Team Providers Care Jackscrew Man Name Role Phone NORMA MART Primary Care Provider [phone] Assessment Encounter Date Assessment Date Assessment LastModified by Organization Details LastModified Time 09/27/2023 09/27/2023 explained to Maxi and family that he is on several medications that can mess with his memory nonetheless he is going to need to be seen by a neurologist he needs a CBC CMP T3-T4 TSH B12 folic acid RPR urinary drug screen neurology appointment see me in 4-[address] head with and without contrast as I do not believe he is MRI compatible because of the device in his back [email or web address] Not available 11/05/2023 16:14:40 10/25/2023 10/25/2023 he has actually gained a few lb for his GERD pantoprazole we will refill that we will get him set up with Neurology because of his memory issues we may need to have Psychiatry involved as well. Discussed with his family member in conjunction with the patient today. Referral to neurology Not available 10/27/2023 20:16:07 11/22/2023 11/22/2023 I think he needs to see Neurology and Psychiatry discussed with him in his daughter today there maybe some dementia but he is on medications that can impair his short term memory as well. There are guns in the house this was discussed with the patient and with the daughter the patient is agreeable to surrender all those the daughter for safe keeping . I will get RPR ESR CRP start donepezil 5 mg daily side effects discussed see me in 2 months and refer to neuro and Psychiatry GERD is stable anxiety appears to be stable to [email or web address] Not available 12/02/2023 14:17:55 01/24/2024 01/24/2024 I would like for him to try the Atrovent nasal spray for a good 3-4 weeks before we decide on efficacy. Repeat echocardiogram for mitral valve regurgitation to see where we are. I do not want to order a transesophageal echo we will see what the surface echo shows 1st. Ophthalmology evaluation for his eyes. Dermatology evaluation for his ongoing skin issues. Continue current medication for his anxiety and GERD. Follow up with me in 3 months. We will continue medications for his cognitive impairment. He has voluntarily agreed to not drive at previous appointment [email or web address] Not available 01/24/2024 21:58:14 04/23/2024 04/23/2024 in with his daughter today. Plan eating healthy food care instruction PFTs chest x-ray Singulair 10 mg a day for the rhinitis Prevnar 20 chest x-ray. Had large cardiac workup before that was negative may need to see them again follow up 3 months [email or web address] Not available 04/23/2024 21:12:10 Plan of Treatment Reminders Order Date Submit Date Provider Last Modified By Organization Details Last Modified Time Details Appointments ANY 15 2024 03:00P Claude Mart MD Not available Not available Not available Lab RPR (rapid plasma reagin), serum 2023 024 YOHAN Walker, [address], [place], [address], 12/30/2023 10:14:09 ESR (erythroc yte sedimenta tion rate), blood 2023 024 YOHAN Walker, [address], [place], [address], 12/30/2023 10:14:08 C reactive protein, QN, serum or plasma 2023 024 YOHAN Walker, [address], [place], [address], 12/30/2023 10:14:11 CBC w/ auto diff 2023 024 YOHAN Walker, [address], [place], [address], 09/28/2023 15:08:45 CMP, serum or plasma 2023 024 [facility], [address], [place], [address], 09/28/2023 15:08:43 TSH + free T4, serum 2023 024 [facility], [address], [place], [address], 09/28/2023 15:08:43 T3, free, serum or plasma 2023 024 [facility], [address], [place], [address], 09/28/2023 15:08:45 vitamin B12 + folate, serum or blood 2023 024 [facility], [address], [place], [address], 09/28/2023 15:08:44 drug screen, urine 2023 024 [facility], [address], [place], [address], 07/04/2024 13:44:29 Referral dermatolo gist referral 2023 024 [place], [address], [address], [place], [address], 07/03/2024 17:03:31 ophthalmo logist referral 2023 024 YOHAN [facility], [address], [place], [address], 04/05/2024 14:39:[address] referral 2023 024 CHRISSY Machado MD, [address], [address], [address], [place], [address], 01/08/2024 15:05:56 Procedures None recorded. Surgeries None recorded. Imaging PFT, complete - PFT with DLCO 2024 025 [facility], [address], [place], [address], 07/16/2024 11:40:32 XR, chest 2024 025 [facility] (Outpatient Orders), [address] [place], [address], 07/23/2024 15:06:43 US, echocardi ogram, transthor acic, complete, w/ color flow 2023 024 [facility], [address], [address], [place], [address], 04/22/2024 16:27:36 CT, head + brain, w/wo contrast - Please call mobile number to schedule. auth # [id number] 2 exps 03/30/[address] Salas. 2023 024 [facility] ([facility] Sched[facility]), [address] [place], [address], 10/20/2023 19:12:41 Medication Orders Singulair 10 mg tablet [address] , [address], [place], [place], [id number], 04/23/2024 18:31:59 ipratropi um bromide 21 mcg (0.03 %) nasal spray [email or web address] , [address], [place], [place], [id number], 01/24/2024 16:52:58 donepezil 5 mg tablet 2023 024 [email or web address] [facility], [address] [place] [address] , [address], [place], [place], [id number], 01/24/2024 16:08:25 pantopraz ole 40 mg tablet,de layed release 2023 024 [email or web address] [facility], [address] [place] [address] , [address], [place], [place], [id number], 04/11/2024 12:08:16 Patient TargetsNo targets recorded. Patient Instructions Encounter Date Encounter Id Patient Instructions Last Modified By Organization Details Last Modified Time 10/25/2023 [id number] eating healthy foods: care instructions [email or web address] Not available 10/25/2023 17:50:07 04/23/2024 [id number] eating healthy foods: care instructions [email or web address] Not available 04/23/2024 18:31:59 Reason for Referral Neurologist Referral for Mem ory impairment Referring Physician: Norma Mart, Internal Medicine, Encounter Date: 09/27/2023 Maxillofacial Pathology Referral for Pain of bilateral eyes Referring Physician: Norma Mart, Internal Medicine, Encounter Date: 01/24/2024 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 Referring Physician: Norma Mart, Internal Medicine, Encounter Date: 01/24/2024 Results Created Date Observation Date Name Description Value Unit Range Abnormal Flag Note LastModifiedBy Organization Detail LastModifiedTime 09/27/1909/28/2023 TSH+F REE T4 TSH 1.530 uIU/m L 0.450- 4.500 Not Available [facility] ([facility]) [address], [place], [address], 09/28/2023 15:08:43 09/27/1909/28/2023 TSH+F REE T4 T4,free(dire ct) 1.39 NG/dL 0.82-1 .77 Not Available [facility] ([facility]) [address], [place], [address], 09/28/2023 15:08:43 09/27/19 24 09/28/2023 COMP. METAB OLIC PANEL (14) glucose 102 mg/dL 70-99 above high normal Not Available [facility] ([facility]) [address] [place], [address], 09/28/2023 15:08:43 09/27/19 24 09/28/2023 COMP. METAB OLIC PANEL (14) BUN 18 mg/dL 8-27 Not Available [facility] ([facility]) [address] [place], [address], 09/28/2023 15:08:43 09/27/19 24 09/28/2023 COMP. METAB OLIC PANEL (14) creatinine 1.03 mg/dL 0.76-1 .27 Not Available [facility] ([facility]) [address] [place], [address], 09/28/2023 15:08:43 09/27/19 24 09/28/2023 COMP. METAB OLIC PANEL (14) eGFR 74 mL/mi n/1.7 3 >59 Not Available [facility] ([facility]) [address] [place], [address], 09/28/2023 15:08:43 09/27/19 24 09/28/2023 COMP. METAB OLIC PANEL (14) BUN/creatini ne ratio 17 10-24 Not Available [facility] ([facility]) [address] [place], [address], 09/28/2023 15:08:43 09/27/19 24 09/28/2023 COMP. METAB OLIC PANEL (14) sodium 140 mmol/ L 134-14 4 Not Available [facility] ([facility]) [address] [place], [address], 09/28/2023 15:08:43 09/27/19 24 09/28/2023 COMP. METAB OLIC PANEL (14) potassium 4.7 mmol/ L 3.5-5. 2 Not Available [facility] ([facility]) [address] [place], [address], 09/28/2023 15:08:43 09/27/19 24 09/28/2023 COMP. METAB OLIC PANEL (14) chloride 100 mmol/ L 96-106 Not Available [facility] ([facility]) [address] [place], [address], 09/28/2023 15:08:43 09/27/19 24 09/28/2023 COMP. METAB OLIC PANEL (14) carbon dioxide, total 23 mmol/ L 20-29 Not Available [facility] ([facility]) [address], [place], [address], 09/28/2023 15:08:43 09/27/19 24 09/28/2023 COMP. METAB OLIC PANEL (14) calcium 9.8 mg/dL 8.6-10 .2 Not Available [facility] ([facility]) [address], [place], [address], 09/28/2023 15:08:43 09/27/19 24 09/28/2023 COMP. METAB OLIC PANEL (14) protein, total 7.3 g/dL 6.0-8. 5 Not Available [facility] ([facility]) [address], [place], [address], 09/28/2023 15:08:43 09/27/19 24 09/28/2023 COMP. METAB OLIC PANEL (14) albumin 4.5 g/dL 3.8-4. 8 Not Available [facility] ([facility]) [address] [place], [address], 09/28/2023 15:08:43 09/27/19 24 09/28/2023 COMP. METAB OLIC PANEL (14) globulin, total 2.8 g/dL 1.5-4. 5 Not Available [facility] ([facility]) [address] [place], [address], 09/28/2023 15:08:43 09/27/19 24 09/28/2023 COMP. METAB OLIC PANEL (14) bilirubin, total 0.9 mg/dL 0.0-1. 2 Not Available [facility] ([facility]) [address] [place], [address], 09/28/2023 15:08:43 09/27/19 24 09/28/2023 COMP. METAB OLIC PANEL (14) alkaline phosphatase 119 IU/L 44-121 Not Available [facility]) [address] [place], [address], 09/28/2023 15:08:43 09/27/19 24 09/28/2023 COMP. METAB OLIC PANEL (14) AST (SGOT) 20 IU/L 0-40 Not Available [facility] ([facility]) [address] [place], [address], 09/28/2023 15:08:43 09/27/19 24 09/28/2023 COMP. METAB OLIC PANEL (14) ALT (SGPT) 12 IU/L 0-44 Not Available [facility] ([facility]) [address] [place], [address], 09/28/2023 15:08:43 09/27/19 24 09/28/2023 VITAM IN B12 AND FOLAT E vitamin B12 1309 pg/mL 232-12 45 above high normal Not Available [facility] ([facility]) [address] [place], [address], 09/28/2023 15:08:44 09/27/19 24 09/28/2023 VITAM IN B12 AND FOLAT E folate (folic acid), serum 11.1 NG/mL >3.0 A serum folat e toshia ntrat ion of less than 3.1 ng/mL is consi dered to repre sent clini marina defic iency . Not Available [facility] ([facility]) [address], [place], [address], 09/28/2023 15:08:44 09/27/19 24 09/28/2023 CBC WITH DIFFE RENTI AL/PL ATELE T WBC 5.0 x10e3 /uL 3.4-10 .8 Not Available [facility] ([facility]) [address], [place], [address], 09/28/2023 15:08:45 09/27/19 24 09/28/2023 CBC WITH DIFFE RENTI AL/PL ATELE T RBC 4.93 x10e6 /uL 4.14-5 .80 Not Available [facility] ([facility]) [address], [place], [address], 09/28/2023 15:08:45 09/27/19 24 09/28/2023 CBC WITH DIFFE RENTI AL/PL ATELE T hemoglobin 14.5 g/dL 13.0-1 7.7 Not Available [facility] ([facility]) [address], [place], [address], 09/28/2023 15:08:45 09/27/19 24 09/28/2023 CBC WITH DIFFE RENTI AL/PL ATELE T hematocrit 44.2 % 37.5-5 1.0 Not Available [facility] ([facility]) [address], [place], [address], 09/28/2023 15:08:45 09/27/19 24 09/28/2023 CBC WITH DIFFE RENTI AL/PL ATELE T MCV 90 fL 79-97 Not Available [facility] ([facility]) [address], [place], [address], 09/28/2023 15:08:45 09/27/19 24 09/28/2023 CBC WITH DIFFE RENTI AL/PL ATELE T MCH 29.4 pg 26.6-3 3.0 Not Available [facility] ([facility]) [address], [place], [address], 09/28/2023 15:08:45 09/27/19 24 09/28/2023 CBC WITH DIFFE RENTI AL/PL ATELE T MCHC 32.8 g/dL 31.5-3 5.7 Not Available [facility] ([facility]) [address], [place], [address], 09/28/2023 15:08:45 09/27/19 24 09/28/2023 CBC WITH DIFFE RENTI AL/PL ATELE T RDW 12.4 % 11.6-1 5.4 Not Available [facility] ([facility]) [address], [place], [address], 09/28/2023 15:08:45 09/27/19 24 09/28/2023 CBC WITH DIFFE RENTI AL/PL ATELE T platelets 297 x10e3 /uL 150-45 0 Not Available [facility] ([facility]) [address], [place], [address], 09/28/2023 15:08:45 09/27/19 24 09/28/2023 CBC WITH DIFFE RENTI AL/PL ATELE T neutrophils 79 % notest ab. Not Available [facility] ([facility]) [address], [place], [address], 09/28/2023 15:08:45 09/27/19 24 09/28/2023 CBC WITH DIFFE RENTI AL/PL ATELE T lymphs 13 % notest ab. Not Available [facility] ([facility]) [address] [place], [address], 09/28/2023 15:08:45 09/27/19 24 09/28/2023 CBC WITH DIFFE RENTI AL/PL ATELE T monocytes 6 % notest ab. Not Available [facility] ([facility]) [address], [place], [address], 09/28/2023 15:08:45 09/27/19 24 09/28/2023 CBC WITH DIFFE RENTI AL/PL ATELE T eos 2 % notest ab. Not Available [facility] ([facility]) [address], [place], [address], 09/28/2023 15:08:45 09/27/19 24 09/28/2023 CBC WITH DIFFE RENTI AL/PL ATELE T basos 0 % notest ab. Not Available [facility] ([facility]) [address], [place], [address], 09/28/2023 15:08:45 09/27/19 24 09/28/2023 CBC WITH DIFFE RENTI AL/PL ATELE T neutrophils (absolute) 3.9 x10e3 /uL 1.4-7. 0 Not Available [facility] ([facility]) [address], [place], [address], 09/28/2023 15:08:45 09/27/19 24 09/28/2023 CBC WITH DIFFE RENTI AL/PL ATELE T lymphs (absolute) 0.6 x10e3 /uL 0.7-3. 1 below low normal Not Available [facility] ([facility]) [address], [place], [address], 09/28/2023 15:08:45 09/27/19 24 09/28/2023 CBC WITH DIFFE RENTI AL/PL ATELE T monocytes(ab solute) 0.3 x10e3 /uL 0.1-0. 9 Not Available [facility] ([facility]) [address], [place], [address], 09/28/2023 15:08:45 09/27/19 24 09/28/2023 CBC WITH DIFFE RENTI AL/PL ATELE T eos (absolute) 0.1 x10e3 /uL 0.0-0. 4 Not Available [facility] ([facility]) [address] [place], [address], 09/28/2023 15:08:45 09/27/19 24 09/28/2023 CBC WITH DIFFE RENTI AL/PL ATELE T baso (absolute) 0.0 x10e3 /uL 0.0-0. 2 Not Available [facility] ([facility]) [address], [place], [address], 09/28/2023 15:08:45 09/27/19 24 09/28/2023 CBC WITH DIFFE RENTI AL/PL ATELE T immature granulocytes 0 % notest ab. Not Available [facility] ([facility]) [address], [place], [address], 09/28/2023 15:08:45 09/27/19 24 09/28/2023 CBC WITH DIFFE RENTI AL/PL ATELE T immature grans (abs) 0.0 x10e3 /uL 0.0-0. 1 Not Available [facility] ([facility]) [address] [place], [address], 09/28/2023 15:08:45 09/27/19 24 09/28/2023 TRIIO DOTHY KAYLYN E (T3), FREE triiodothyro nine (T3), free 2.9 pg/mL 2.0-4. 4 Not Available [facility] ([facility]) [address] [place], [address], 09/28/2023 15:08:45 12/29/19 24 12/30/2023 SEDIM ENTAT ION RATE- ERNESTINEE RGREN sedimentatio n rate-nikita latisha 8 mm/HR 0-30 Not Available [facility] ([facility]) [address] [place], [address], 12/30/2023 10:14:08 12/29/19 24 12/30/2023 RPR RPR NON REACTI VE nonrea ctive Not Available [facility] ([facility]) [address], [place], [address], 12/30/2023 10:14:09 12/29/19 24 12/30/2023 C-USMAN CTIVE PROTE IN, QUANT C-reactive protein, quant 3 mg/L 0-10 Not Available [facility] ([facility]) [address], [place], [address], 12/30/2023 10:14:10 10/20/19 24 10/20/2023 CT, head + brain , w/wo contr ast No observ ation record ed. [facility] [address] [place], [address], 10/25/2023 23:17:43 04/22/19 25 04/19/2024 US, echoc ardio gram, trans thora cic, compl ete, w/ color flow No observ ation record ed. [facility] [address], [place], [address], 04/23/2024 14:05:55 Result Notes None recorded. Problems Name Problem SNOMED Code Status Onset Date Resolution Date Notes Provider Name and Address Organization Details Recorded Time Memory impairment 945672892 Active 2023 SERAFIN [place], [place] - [facility] 4 16:50:53 Headache 81625763 Active 2023 Risa Rodriguez [place] null, [place] - [facility] 4 16:50:54 Gastroesophage al reflux disease without esophagitis 560985903 Active 2023 SERAFIN [place], [place] - [facility] 4 17:06:12 Problem Notes None recorded. Procedures Surgical History Date Name Laterality Status Provider Name and Address Organization Details Recorded Time Back Surgery completed SERAFIN Mccann 08/09/2023 15:43:57 Hernia Repair completed SERAFIN MccannF 08/09/2023 15:44:02 Prostate Biopsy completed Tia Orellana MA [facility] 08/09/2023 15:44:06 Imaging Results Imaging Date Name Status LastModified by Organiz ation Details LastModified Time 10/20/2023 CT, head + brain, w/wo contrast completed [facility] [address], [place], [address], 10/25/2023 23:17:43 04/19/2024 US, echocardiogra m, transthoracic , complete, w/ color flow completed [facility] [address], [place], [address], 04/23/2024 14:05:55 Procedure Notes None recorded. Medical Equipment None Reported. Allergies No known drug allergies Medications Name Sig Start Date Stop Date Status Note LastModified by Organization Details LastModified Time Singulair 10 mg tablet Take 1 tablet(s) every day by oral route. 2024 active Not Available Not Available Not Avai lable donepezil 5 mg tablet Take 1 tablet every day by oral route. 01/23 completed Not Available Not Available Not Available methadone 10 mg tablet active Not Available Not Available Not Available donepezil 10 mg tablet active Not Available Not Available Not Available lorazepam 0.5 mg tablet TAKE 1 TABLET BY MOUTH TWICE A DAY NEEDED MUST LAST 30 DAYS 2024 active Not Available Not Available Not Avai lable gabapentin 800 mg tablet active Not Available Not Available Not Available pantoprazol e 40 mg tablet,joleen yed release Take 1 tablet every day by oral route. 04/11 completed N&V per dtr Not Available Not Available Not Available omeprazole 20 mg capsule,del ayed release Take 1 capsule every day by oral route. 2024 active Not Available Not Available Not Avai lable oxycodone 30 mg tablet active Not Available Not Available Not Available fluticasone propionate 50 mcg/actuati on nasal spray,suspe nsion 2 sprays each nostril daily 2024 active Not Available Not Available Not Avai lable sertraline 50 mg tablet Take 1 tablet(s) every day by oral route. 2024 active Not Available Not Available Not Avai lable ipratropium bromide 21 mcg (0.03 %) nasal spray Comfrey 2 sprays every day by intranasa l route. 2023 active Not Available Not Available Not Avai lable memantine 5 mg tablet Take 1 tablet twice a day by oral route. active Not Available Not Available No t Available Vitals Date Recorded Body weight Body mass index (BMI) Body height Heart rate Oxygen saturation Oxygen saturation in Arterial blood by Pulse oximetry Systolic blood pressure Diastolic blood pressure Provider Name and Address Organization Details Last Updated DateTime 4 05740.6 4 g 20.7 kg/m2 185.42 cm 80 /min 98 % 98 % 107 mm[Hg] 71 mm[Hg] Joanna Yoon MA [facility] 4 15:48:28 Date Recorded Body height Body mass index (BMI) Body weight Heart rate Oxygen saturation Oxygen saturation in Arterial blood by Pulse oximetry Systolic blood pressure Diastolic blood pressure Provider Name and Address Organization Details Last Updated DateTime 4 185.42 cm 21.4 kg/m2 85604.0 4 g 61 /min 97 % 97 % 110 mm[Hg] 62 mm[Hg] Dara Mcgowan MA [facility] 4 16:33:20 Date Recorded Body height Body mass index (BMI) Body weight Heart rate Oxygen saturation Oxygen saturation in Arterial blood by Pulse oximetry Systolic blood pressure Diastolic blood pressure Provider Name and Address Organization Details Last Updated DateTime 4 185.42 cm 20.7 kg/m2 17644.3 6 g 74 /min 97 % 97 % 116 mm[Hg] 64 mm[Hg] Dara Mcgowan MA [facility] 4 16:51:41 Date Recorded Body height Body mass index (BMI) Body weight Heart rate Oxygen saturation Oxygen saturation in Arterial blood by Pulse oximetry Systolic blood pressure Diastolic blood pressure Provider Name and Address Organization Details Last Updated DateTime 4 185.42 cm 20.4 kg/m2 63368.4 6 g 90 /min 97 % 97 % 110 mm[Hg] 70 mm[Hg] Gracia Tubbs MA [facility] 4 16:07:56 Date Recorded Body height Body mass index (BMI) Body weight Heart rate Oxygen saturation Oxygen saturation in Arterial blood by Pulse oximetry Systolic blood pressure Diastolic blood pressure Provider Name and Address Organization Details Last Updated DateTime 185.42 cm 19.5 kg/m2 13181.0 3 g 60 /min 97 % 97 % 124 mm[Hg] 62 mm[Hg] Dara Mcgowan [place] - [facility] 16:42:11 Social History Question Answer Notes LastModified by Organizat ion Details LastModified Time Tobacco Smoking Status Former Smoker Tia Orellana [place] null, [place] - [facility] 08/09/2023 15:46:28 Do You Have An Advance Directive? No Medical POA Information not available 09/27/2023 What Is Your Level Of Alcohol Consumption? None Information not available 08/09/2023 Are You Blind Or Do You Have Difficulty Seeing? No Information not available 08/09/2023 What Is Your Level Of Caffeine Consumption? Moderate Information not available 09/27/2023 In The 14 Days Before Symptom Onset, Have You Had Close Contact With A Laboratory-confir med COVID-19 While That Case Was Ill? No Information not available 10/25/2023 In The 14 Days Before Symptom Onset, Have You Had Close Contact With A Person Who Is Under Investigation For COVID-19 While That Person Was Ill? No Information not available 10/25/2023 Have You Been To An Area Known To Be High Risk For COVID-19? No Information not available 10/25/2023 Are You Currently Employed? No Information not available 10/25/2023 Are You Deaf Or Do You Have Serious Difficulty Hearing? No Information not available 08/09/2023 What Type Of Diet Are You Following? REGULAR Information not available 10/25/2023 Are There Any Guns Present In Your Home? No Information not available 10/25/2023 What Was The Date Of Your Most Recent Tobacco Screening? 04/23/2024 Information not available 04/23/2024 What Is Your Relationship Status? Information not available 08/09/2023 Do You Use Your Seat Belt Or Car Seat Routinely? Yes Information not available 08/09/2023 Do You Have Smoke And Carbon Monoxide Detectors In Your Home? Yes Information not available 10/25/2023 How Much Tobacco Do You Smoke? 1 PPD Information not available 08/09/2023 Do You Feel Stressed (tense, Restless, Nervous, Or Anxious, Or Unable To Sleep At Night)? [id number] Information not available 08/09/2023 Do You Use Any Illicit Or Recreational Drugs? No Information not available 09/27/2023 Do You Use Sunscreen Routinely? Yes Information not available 10/25/2023 Has Tobacco Cessation Counseling Been Provided? No Information not available 09/27/2023 How Many Years Have You Smoked Tobacco? 20 Information not available 08/09/2023 Do You Or Have You Ever Used Any Other Forms Of Tobacco Or Nicotine? No Information not available 09/27/2023 Sex: Male Functional Status Question Answer Note LastModified by Organization D etails LastModified Time Are you able to care for yourself? Yes Information n ot available 08/09/2023 What is your exercise level? None Information not available 10/25/2023 Mental Status None recorded. Family History Relationship Description Onset Age of this Age Resolved Age Notes LastModified by Organization Details LastModified Time Mother Malignant tumor of breast [email or web address] Not available 2023 15:45:24 Mother Heart disease apaytonma Not available 2023 15:45:29 Notes:No family history yadav ge, me/rma Medical History Condition Response Coronary Artery Disease N Other N High Blood Pressure N Atrial Fibrillation N Kidney or Bladder Problems N Thyroid Problems N GI Problems N Depression N COPD N Blood Clots N Skin Problems N Anemia N Heart Attack ([place]) N Anxiety Disorder N Diabetes N Muscle, Joint, or Bone Problems N Seizures/Epilepsy N Acid Reflux (GERD) Y Cancer N Stroke N Asthma N Allergies N High Cholesterol N Hepatitis N Liver Disease N Headaches Y Heart Failure N Osteoporosis N Immunizations Vaccine Type Date Status Note Provider Nam e and Address Organization Details Recorded Time Influenza, high-dose, quadrivalent, PF completed BrasSERAFIN [place], [place] - [facility] 09/27/2023 15:31:14 Influenza, high-dose, quadrivalent, PF 0 completed SERAFIN [place], [place] [facility] 09/27/2023 15:31:14 COVID-19, mRNA, LNP-S, PF, 100 mcg/0.5mL dose or 50 mcg/0.25mL dose 2 completed SERAFIN [place] [facility] 09/27/2023 15:31:14 COVID-19, mRNA, LNP-S, PF, 100 mcg/0.5mL dose or 50 mcg/0.25mL dose 1 completed SERAFIN [place] [facility] 09/27/2023 15:31:14 COVID-19, mRNA, LNP-S, PF, 100 mcg/0.5mL dose or 50 mcg/0.25mL dose 1 [place] SERAFIN [place] [facility] 09/27/2023 15:31:14 pneumococcal polysaccharide PPV23 0 [place] SERAFIN [place] [facility] 09/27/2023 15:31:14 Influenza, high-dose, trivalent, PF 8 completed SERAFIN [place] [facility] 09/27/2023 15:31:14 Influenza, high-dose, trivalent, PF 8 [place]AFIN [place] [facility] 09/27/2023 15:31:14 Influenza, high-dose, trivalent, PF 7 [place]AFIN [place] [facility] 09/27/2023 15:31:14 Influenza, high-dose, trivalent, PF 9 [place]AF[place] [facility] 09/27/2023 15:31:14 Influenza, split virus, trivalent, preservative 3 completed SERAFIN [place] [facility] 09/27/2023 15:31:14 Influenza, split virus, trivalent, PF 4 completed Joanna Yoon [place] null, [place] [facility] 09/27/2023 15:31:14 Influenza, high-dose, trivalent, PF 4 completed Norma Mart MD Attn: Accounting,[address] [facility], [place], [address], [place] [facility] 01/24/2024 21:55:05 Pneumococcal conjugate PCV20, polysaccharide [id number] conjugate, adjuvant, PF 5 completed Norma Mart MD Attn: Accounting,[address] [facility], [place], [address], [place] [facility] 04/23/2024 21:10:05 Past Encounters Encounter ID Performer Location Encounter Start Date Encounter Closed Date Diagnosis/Indication Diagnosis SNOMED-CT Code Diagnosis ICD10 Code Diagnosis Note [id number] Norma Mart MD [facility] (Adult Med) [address] [place] [id number] 09/27/2023 15:23:02 09/27/2023 17:03:34 Memory impairment 097914963 R41.3 Headache 46752324 R51.9 [id number] Norma Mart MD [facility] (Adult Med) [address] [place] [address] [id number] 10/25/2023 16:18:45 10/25/2023 17:07:55 Underweight 958023566 R63.6 Memory impairment 744440 006 R41.3 Gastroesop hageal reflux disease without esophagitis 115203124 K21.9 [id number] Norma Mart MD [facility] (Adult Med) [address] [place] [address] [id number] 0 11/22/2023 16:20:13 11/22/2023 17:49:56 Memory impairment 145087188 R41.3 Gastroesop hageal reflux disease without esophagitis 350508049 K21.9 [id number] MD [facility] (Adult Med) [address] [place] [id number] 0 01/24/2024 15:52:58 01/24/2024 16:53:51 Body mass index 20-24 - normal 934424469 Z68.20 Rhinitis 17805858 J00 Mitral barber ve regurgitation 02030542 I34.0 Pain of bi lateral eyes 8443720378 76469 H57.13 Administra tion of influenza vaccine 95428296 Z23 Basal cell carcinoma of skin 475992983 C44.91 [id number] Norma Mart MD [facility] (Adult Med) [address] [place] [address] [id number] 0 04/23/2024 16:13:24 04/23/2024 17:36:50 Underweight 170128554 R63.6 Dyspnea 961660418 R06.00 Administra tion of pneumococcal vaccine 25091888 Z23 Gastroesop hageal reflux disease without esophagitis 699452920 K21.9 Memory impairment 899250 006 R41.3 Health Concerns Section Related Observation LastModified by Organization Detai ls LastModified Time None Recorded Concern Status LastModified by Organization Details LastModified Time None Recorded Advance Directives Directive N: Medical POA Payers Encounter Date Sequence Insurance Name Policy Number Policy Mehta Covered Member ID Mehta Member ID Guarantor Name 09/27/2023 1 [facility] [id number] Maxi Elie Gum [id number] Maxi Gum 09/27/2023 1 [employer] (MEDICARE REPLACEMENT/ ADVANTAGE - HMO) [id number] Maxi Delgadillo Gum [id number] Maxi Gum 10/25/2023 1 [employer] (MEDICARE REPLACEMENT/ ADVANTAGE - HMO) [id number] L Maxi Delgadillo Gum [id number] Maxi Gum 11/22/2023 1 [employer] (MEDICARE REPLACEMENT/ ADVANTAGE - HMO) [id number] Maxi Delgadillo Gum [id number] Maxi Gum 01/24/2024 1 [employer] (MEDICARE REPLACEMENT/ ADVANTAGE - HMO) [id number] L Maxi Delgadillo Gum [id number] Maxi Gum 04/23/2024 1 [employer] (MEDICARE REPLACEMENT/ ADVANTAGE - HMO) [id number] L Maxi Delgadillo Gum [id number] Maxi Gum Notes Date Note Type Note Provider Name and Address Organization Details Recorded Time 09/27/2023 text/html Comes in with family today he has had some dull headaches in the past but family says that he is having some memory impairment anxiety has been somewhat high of blurred vision or double vision. GERD has been stable Norma Mart MD Attn: Accounting,[address], [place], [address], [place] [facility] 11/05/2023 16:15:07 10/25/2023 text/html follow up of mem ory CT scan was unremarkable GERD flared up a little bit chronic pain about the same Norma Mart MD Attn: Accounting,[address], [place], [address], [place] [facility] 10/27/2023 20:16:23 11/22/2023 text/html patient is in office with daughter she thinks he has a little bit more forgetful he says that he does recognize that there probably is some slippage of memory. Norma Mart MD Attn: Accounting,[address] [facility], [place], [address], [facility] - [facility] 12/02/2023 14:18:11 01/24/2024 text/html 1. Rhinitis he started the Atrovent just a few days ago nasal spray he has not noticed a big improvement yet. 2. Mitral valve regurgitation thinks he is a little bit more short of breath than he was several months ago but no chest pain no pressure and chest no peripheral edema. 3. He has been having some problems with some pain in his eyes bilaterally and burning when he uses artificial tears. vision has remained unaffected 4. 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 5. Memory disorder they have not nail the diagnosis down yet he is going to be seeing a neuro psychologist for advanced testing his neurologist is arranging for all of this. 6. His GERD has been doing fine. 7. Chronic pain stable. Eight anxiety stable on current medications. There was no SI or HI he is in with his daughter today Norma Mart MD Attn: Accounting,[address], [place], [address], [place] [facility] 01/24/2024 21:58:53 04/23/2024 text/html he has been experiencing some shortness of breath no chest pain or chest tightness with this a few years back maybe 5 or 6 large workup at that time was unrevealing feeling maybe has a little bit of rhinitis. With regards to the dyspnea no hemoptysis maybe little bit dry cough no peripheral edema no PND no. Anxiety stable neuropathy really bothers him quite a bit despite the fact that he is on pain medication. Memory disorder being followed by Neurology they stopped donepezil secondary to nausea placed him on memantine GERD stable on omeprazole has chronic rhinitis with little help with qaae-pgk-nwnseys meds and nasal sprays Norma Mart MD Attn: Accounting,[address] [place], [address], [facility] - [facility] 04/23/2024 21:12:32
== END 2024-07-25 15:45 | disposition home or self-care (01) ==
PROVIDERS: PCP Internal Medicine; Visit Provider Pain Medicine Interventional Pain Medicine
DX: M50.322 Other cervical disc degeneration at C5-C6 level (principal); M50.323 Other cervical disc degeneration at C6-C7 level
CPT/HCPCS: 72040; 72100

== ENCOUNTER 2024-08-01 15:10 | Outpatient (CLI) | payer MEDICARE, SELFPAY ==
--- OUTSIDE RECORDS SUMMARY | 2024-08-01 14:59 | XMS_ITS | Clinical Summary ---
Author Organization [facility] Address [address] [place] [address] Care Team Providers Care Rn Forensic Name Role Phone Tom Mart MD Primary Care Provider [phone] Ricarda Peterson MD Unavailable Julian Yates MD [...] hours as needed for pain Active omega 0-uia-piu-fish oil 300 mg (120 mg- 180mg)-1,000 mg [...] Nitric Oxide Sanguenol Active cholecalciferol (VITAMIN D-3) 76115 unit capsuleIndicati ons:Prevention of Vitamin D Deficiency [...] (05/06/2022): Added automatically from request for surgery [id number] Basal cell carcinoma (BCC) of face 08/23/2016 [...] on file 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 Gender Identity Not on file Sexual Orientation Not on file Obstetrics History Last Filed Vital Signs Vital Sign Reading Time Taken Comments Blood Pressure 96/60 06/02/2022 4:40 PM GOLD AND SILVER ASSAYER Pulse 86 06/02/2022 4:40 PM GOLD AND SILVER ASSAYER Temperature 36 C (96.8 F) 06/02/2022 1:31 PM GOLD AND SILVER ASSAYER Respiratory Rate 14 06/02/2022 4:40 PM GOLD AND SILVER ASSAYER Oxygen Saturation 98% 06/02/2022 4:40 PM GOLD AND SILVER ASSAYER Inhaled Oxygen Concentration - - Weight 74 kg (163 lb 3.2 oz) 06/14/2022 1:34 PM CDT Height 185.4 cm (6' 1 ) 05/12/2022 1:25 PM GOLD AND SILVER ASSAYER Body Mass Index 21.53 05/12/2022 1:25 PM GOLD AND SILVER ASSAYER Plan of Treatment Health Maintenance Due Date [...] history exists Medical Devices Implanted Type Area Bunch Breaker Device Identifier Shelf Expiration Date Model / Serial / Lot Spinal Cord Stimulator Spinal Cord Stimulator Back Insurance [employer] [address] Care Teams Rn Forensic Relationship Specialty Start Date End Date Tom Mart MD PCP - General 07/15/16 Ricarda Peterson MD Consulting Physician Internal Medicine 05/03/22 Julian Yates MD [address] [place] [address] Referring Physician Otolaryngology 05/07/22
--- OUTSIDE RECORDS SUMMARY | 2024-08-01 15:00 | XMS_ITS | Continuity of Care Document ---
Author Organization [facility] Address [address] [place] [address] [address] [place] [address] Phone Care Team Providers Care Adult Protective Caseworker Name Role Phone Luo OD, Serge Unavailable Unavailable Procedures Procedure Date Eye Exam & Treatment Refraction Counseling For Antioxidant Supplements A Advance Directives Directive Yes / No Effective Date File Name No Information Encounters Encounter Description Practice Location Reason(s) For Visit Diagnoses Date Provider Providers Copied on Encounter [facility], [address] [place] [address] [address], [place], [place], [id number], [place] tel:[phone] Information [address] Luo OD Serge. [address] [facility] [address] , [address], [place], [address], [place]. tel:[phone] Family History Family Member Type Diagnosis Age At Onset No Information Payers Payer name Insurance type Covered green party ID Authoriza tion(s) Medicare [facility] [id number] Social History Type Description Quantity Date Captured [...]
--- OUTSIDE RECORDS SUMMARY | 2024-08-01 15:00 | XMS_ITS | Referral Summary ---
Author Organization [facility] Address [address] [place] [address] Care Team Providers Care Turfgrass Management Professor Name Role Phone Tom Mart MD Primary Care Provider [phone] Ricarda Peterson MD Unavailable Julian Yates MD [...] hours as needed for pain Active omega 1-wwb-bxw-fish oil 300 mg (120 mg- 180mg)-1,000 mg [...] Nitric Oxide Sanguenol Active cholecalciferol (VITAMIN D-3) 67555 unit capsuleIndicati ons:Prevention of Vitamin D Deficiency [...] (05/06/2022): Added automatically from request for surgery [id number] Basal cell carcinoma (BCC) of face 08/23/2016 [...] on file Legal 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 Gender Identity Not on file Sexual Orientation Not on file Last Filed Vital Signs Vital Sign Reading Time Taken Comments Blood Pressure 96/60 06/02/2022 4:40 PM WET MIX OPERATOR Pulse 86 06/02/2022 4:40 PM WET MIX OPERATOR Temperature 36 C (96.8 F) 06/02/2022 1:31 PM WET MIX OPERATOR Respiratory Rate 14 06/02/2022 4:40 PM WET MIX OPERATOR Oxygen Saturation 98% 06/02/2022 4:40 PM WET MIX OPERATOR Inhaled Oxygen Concentration - - Weight 74 kg (163 lb 3.2 oz) 06/14/2022 1:34 PM CDT Height 185.4 cm (6' 1 ) 05/12/2022 1:25 PM WET MIX OPERATOR Body Mass Index 21.53 05/12/2022 1:25 PM WET MIX OPERATOR Plan of Treatment Not on file Medical Devices Implanted Type Area Continuous Towel Roller Device Identifier Shelf Expiration Date Model / Serial / Lot Spinal Cord Stimulator Spinal Cord Stimulator Back Insurance [facility] MEDICARE ADVANTAGE [facility] Address: [address] [address] [place] [address] [facility] MEDICARE ADVANTAGE [facility] Address: [address] [address] [place] [address] Care Teams Turfgrass Management Professor Relationship Specialty Start Date End Date Tom Mart MD PCP - General 07/15/16 Ricarda Peterson MD Consulting Physician Internal Medicine 05/03/22 Julian Yates MD [address] [facility] [place] [address] Referring Physician Otolaryngology 05/07/22
--- OUTSIDE RECORDS SUMMARY | 2024-08-01 15:00 | XMS_ITS | Continuity of Care Document ---
Author Name [facility] Organization [facility] Care Team Providers Care Charging Manipulator Name Role Phone [facility] Unavailable Unavailable Encounters [...] ADM Date DC Date Status Disposition Source [facility] Out[facility] Encounter [id number] 05[facility]14 [facility] En[facility] [id number] 07[facility] [id number] [facility]
--- OUTSIDE RECORDS SUMMARY | 2024-08-01 15:00 | XMS_ITS ---
Author Organization [facility] Address [address] [place] [address] Care Team Providers Care Gravel Weigher Name Role Phone Tom Mart MD Primary Care Provider [phone] Ricarda Peterson MD Unavailable Julian aYtes MD Unavailable Active Problems Problem Noted Date Diagnosed Date Basal cell carcinoma (BCC) of skin of left ear 0 05/06/2022 Overview (05/06/2022): Added automatically from request for surgery [id number] Basal cell carcinoma (BCC) of face 08/23/2016 Skin neoplasm 07/07/2016 Seborrheic eczema 07/07/2016 Keratosis, senilis 07/07/2016 Current Treatment and Therapy Plans No current plan information found. Past Treatment and Therapy Plans No past plan information found. Lifetime Dose Tracking * Chemical Lifetime Dose Automatic Entry Manual Entr y DLP 370 mGycm 370 mGycm 0 mGycm
--- OUTSIDE RECORDS SUMMARY | 2024-08-01 15:00 | XMS_ITS | Clinical Summary ---
Author Organization [facility] Address [facility] [place] [address] Care Team Providers Care Transferrer Name Role Phone Unavailable Primary Care Provider [...]
--- OUTSIDE RECORDS SUMMARY | 2024-08-01 15:00 | XMS_ITS | Data Portability ---
Author Organization [facility] Address [address] [place] [address] Care Team Providers Care Substitute Teacher Name Role Phone NORMA MART Primary Care Provider Assessment Encounter Date Assessment Date Assessment LastModified [...] because of the device in his back [email or web address] Not available 11/05/2023 16:14:40 10/25/2023 10/25/2023 he [...] stable anxiety appears to be stable to [email or web address] Not available 12/02/2023 14:17:55 01/24/2024 01/24/2024 I [...] agreed to not drive at previous appointment [email or web address] Not available 01/24/2024 21:58:14 04/23/2024 04/23/2024 in with his daughter today. Plan eating healthy food care instruction PFTs chest x-ray Singulair 10 mg a day for the rhinitis Prevnar 20 chest x-ray. Had large cardiac workup before that was negative may need to see them again follow up 3 months [email or web address] Not available 04/23/2024 21:12:10 Plan of Treatment Reminders Order Date Submit Date Provider Last Modified By Organization Details Last Modified Time Details Appointments ANY 15 2024 03:00P Claude Mart MD Not available Not available Not available Lab RPR (rapid plasma reagin), serum 2023 024 YOHAN aWlker, [address], [place], [address], 12/30/2023 10:14:09 ESR (erythroc yte sedimenta tion rate), blood 2023 024 YOHAN Walker, [address], [place], [address], 12/30/2023 10:14:08 C reactive protein, QN, serum or plasma 2023 024 YOHAN Walker, [address], [place], [address], 12/30/2023 10:14:11 CBC w/ auto diff 2023 024 YOHAN Walker, [address], [place], [address], 09/28/2023 15:08:45 CMP, serum or plasma [address] [facility], [address], [place], [address], 09/28/2023 15:08:43 TSH + free T4, serum [address] [facility], [address], [place], [address], 09/28/2023 15:08:43 T3, free, serum or plasma [address] [facility], [address], [place], [address], 09/28/2023 15:08:45 vitamin B12 + folate, serum or blood [address] [facility], [address], [place], [address], 09/28/2023 15:08:44 drug screen, urine 2023 024 [facility], [address], [place], [address], 07/04/2024 13:44:29 Referral dermatolo gist referral 2023 024 [place], [address], [address], [place], [address], 07/03/2024 17:03:31 ophthalmo logist referral 2023 024 YOHAN [facility], [address], [place], [address], 04/05/2024 14:39:[address] referral 2023 024 CHRISSY Machado MD, [address], [address], [address], [place], [address], 01/08/2024 15:05:56 Procedures None recorded. Surgeries None recorded. Imaging PFT, complete - PFT with DLCO 2024 025 [facility], [address], [place], [address], 07/16/2024 11:40:32 XR, chest 2024 025 [facility] (Outpatient Orders), [address] [place], [address], 07/23/2024 15:06:43 US, echocardi ogram, transthor acic, complete, w/ color flow 2023 024 [facility], [address] [facility], [address], [place], [address], 04/22/2024 16:27:36 CT, head + brain, w/wo contrast - Please call mobile number to schedule. auth # [id number] 2 exps 03/30/[address] Salas. 2023 024 [facility] [[email or web address] (One Call Scheduling), [address] [place], [address], 10/20/2023 19:12:41 Medication Orders Singulair 10 mg tablet [address] , [address], [place], [place], [id number], 04/23/2024 18:31:59 ipratropi um bromide 21 mcg (0.03 %) nasal spray [email or web address] , [address], [place], [place], [id number], 01/24/2024 16:52:58 donepezil 5 mg tablet 2023 024 gwardma [facility], [address] [place] [address] , [address], [place], [place], [id number], 01/24/2024 16:08:25 pantopraz ole 40 mg tablet,de layed release 2023 024 [email or web address] [facility], [address] [place] [address] , [address], [place], [place], [id number], 04/11/2024 12:08:16 Patient TargetsNo targets recorded. Patient Instructions Encounter Date Encounter Id Patient Instructions Last Modified By Organization Details Last Modified Time 10/25/2023 [id number] eating healthy foods: care instructions [email or web address] Not available 10/25/2023 17:50:07 04/23/2024 [id number] eating healthy foods: care instructions [email or web address] Not available 04/23/2024 18:31:59 Reason for Referral Neurologist Referral for Mem ory impairment Referring Physician: Norma Mart, Internal Medicine, Encounter Date: 09/27/2023 Chiller Hand Referral for Pain of bilateral eyes Referring Physician: Norma Mart, Internal Medicine, Encounter Date: 01/24/2024 Chiropractic Assistant 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 Referring Physician: Norma Mart, Internal Medicine, Encounter Date: 01/24/2024 Results Created Date Observation Date Name Description Value Unit Range Abnormal Flag Note LastModifiedBy Organization Detail LastModifiedTime 09/27/1909/28/2023 TSH+F REE T4 TSH 1.530 uIU/m L 0.450- 4.500 Not Available [facility] ([facility]) [address] [facility], [place], [address], 09/28/2023 15:08:43 09/27/1909/28/2023 TSH+F REE T4 T4,free(dire ct) 1.39 NG/dL 0.82-1 .77 Not Available [facility] ([facility]) [address] [facility], [place], [address], 09/28/2023 15:08:43 09/27/19 24 09/28/2023 COMP. METAB OLIC PANEL (14) glucose 102 mg/dL 70-99 above high normal Not Available [facility] ([facility]) [address] [place], [address], 09/28/2023 15:08:43 09/27/19 24 09/28/2023 COMP. METAB OLIC PANEL (14) BUN 18 mg/dL 8-27 Not Available [facility] ([facility]) [address] [place], [address], 09/28/2023 15:08:43 09/27/19 24 09/28/2023 COMP. METAB OLIC PANEL (14) creatinine 1.03 mg/dL 0.76-1 .27 Not Available [facility] ([facility]) [address] [place], [address], 09/28/2023 15:08:43 09/27/19 24 09/28/2023 COMP. METAB OLIC PANEL (14) eGFR 74 mL/mi n/1.7 3 >59 Not Available [facility] ([facility]) [address] [place], [address], 09/28/2023 15:08:43 09/27/19 24 09/28/2023 COMP. METAB OLIC PANEL (14) BUN/creatini ne ratio 17 10-24 Not Available [facility] ([facility]) [address] [place], [address], 09/28/2023 15:08:43 09/27/19 24 09/28/2023 COMP. METAB OLIC PANEL (14) sodium 140 mmol/ L 134-14 4 Not Available [facility] ([facility]) [address] [place], [address], 09/28/2023 15:08:43 09/27/19 24 09/28/2023 COMP. METAB OLIC PANEL (14) potassium 4.7 mmol/ L 3.5-5. 2 Not Available [facility] ([facility]) [address] [facility] [place], [address], 09/28/2023 15:08:43 09/27/19 24 09/28/2023 COMP. METAB OLIC PANEL (14) chloride 100 mmol/ L 96-106 Not Available [facility] ([facility]) [address] [facility] [place], [address], 09/28/2023 15:08:43 09/27/19 24 09/28/2023 COMP. METAB OLIC PANEL (14) carbon dioxide, total 23 mmol/ L 20-29 Not Available [facility] ([facility]) [address] [facility], [place], [address], 09/28/2023 15:08:43 09/27/19 24 09/28/2023 COMP. METAB OLIC PANEL (14) calcium 9.8 mg/dL 8.6-10 .2 Not Available [facility] ([facility]) [address] [facility], [place], [address], 09/28/2023 15:08:43 09/27/19 24 09/28/2023 COMP. METAB OLIC PANEL (14) protein, total 7.3 g/dL 6.0-8. 5 Not Available [facility] ([facility]) [address] [facility], [place], [address], 09/28/2023 15:08:43 09/27/19 24 09/28/2023 COMP. METAB OLIC PANEL (14) albumin 4.5 g/dL 3.8-4. 8 Not Available [facility] ([facility]) [address] [place], [address], 09/28/2023 15:08:43 09/27/19 24 09/28/2023 COMP. METAB OLIC PANEL (14) globulin, total 2.8 g/dL 1.5-4. 5 Not Available [facility] ([facility]) [address] [facility] [place], [address], 09/28/2023 15:08:43 09/27/19 24 09/28/2023 COMP. METAB OLIC PANEL (14) bilirubin, total 0.9 mg/dL 0.0-1. 2 Not Available [facility] ([facility]) [address] [facility] [place], [address], 09/28/2023 15:08:43 09/27/19 24 09/28/2023 COMP. METAB OLIC PANEL (14) alkaline phosphatase 119 IU/L 44-121 Not Available [facility] ([facility]) [address] [facility] [place], [address], 09/28/2023 15:08:43 09/27/19 24 09/28/2023 COMP. METAB OLIC PANEL (14) AST (SGOT) 20 IU/L 0-40 Not Available [facility] ([facility]) [address] [facility] [place], [address], 09/28/2023 15:08:43 09/27/19 24 09/28/2023 COMP. METAB OLIC PANEL (14) ALT (SGPT) 12 IU/L 0-44 Not Available [facility] ([facility]) [address] [facility] [place], [address], 09/28/2023 15:08:43 09/27/19 24 09/28/2023 VITAM IN B12 AND FOLAT E vitamin B12 1309 pg/mL 232-12 45 above high normal Not Available [facility] ([facility]) [address] [facility] [place], [address], 09/28/2023 15:08:44 09/27/19 24 09/28/2023 VITAM IN B12 AND FOLAT E folate (folic acid), serum 11.1 NG/mL >3.0 A serum folat e tohsia ntrat ion of less than 3.1 ng/mL is consi dered to repre sent clini marina defic iency . Not Available [facility] ([facility]) [address] [facility], [place], [address], 09/28/2023 15:08:44 09/27/19 24 09/28/2023 CBC WITH DIFFE RENTI AL/PL ATELE T WBC 5.0 x10e3 /uL 3.4-10 .8 Not Available [facility] ([facility]) [address] [facility], [place], [address], 09/28/2023 15:08:45 09/27/19 24 09/28/2023 CBC WITH DIFFE RENTI AL/PL ATELE T RBC 4.93 x10e6 /uL 4.14-5 .80 Not Available [facility] ([facility]) [address] [facility], [place], [address], 09/28/2023 15:08:45 09/27/19 24 09/28/2023 CBC WITH DIFFE RENTI AL/PL ATELE T hemoglobin 14.5 g/dL 13.0-1 7.7 Not Available [facility] ([facility]) [address] [facility], [place], [address], 09/28/2023 15:08:45 09/27/19 24 09/28/2023 CBC WITH DIFFE RENTI AL/PL ATELE T hematocrit 44.2 % 37.5-5 1.0 Not Available [facility] ([facility]) [address] [facility], [place], [address], 09/28/2023 15:08:45 09/27/19 24 09/28/2023 CBC WITH DIFFE RENTI AL/PL ATELE T MCV 90 fL 79-97 Not Available [facility] ([facility]) [address] [facility], [place], [address], 09/28/2023 15:08:45 09/27/19 24 09/28/2023 CBC WITH DIFFE RENTI AL/PL ATELE T MCH 29.4 pg 26.6-3 3.0 Not Available [facility] ([facility]) [address] [facility], [place], [address], 09/28/2023 15:08:45 09/27/19 24 09/28/2023 CBC WITH DIFFE RENTI AL/PL ATELE T MCHC 32.8 g/dL 31.5-3 5.7 Not Available [facility] ([facility]) [address] [facility], [place], [address], 09/28/2023 15:08:45 09/27/19 24 09/28/2023 CBC WITH DIFFE RENTI AL/PL ATELE T RDW 12.4 % 11.6-1 5.4 Not Available [facility] ([facility]) [address] [facility], [place], [address], 09/28/2023 15:08:45 09/27/19 24 09/28/2023 CBC WITH DIFFE RENTI AL/PL ATELE T platelets 297 x10e3 /uL 150-45 0 Not Available [facility] ([facility]) [address] [facility], [place], [address], 09/28/2023 15:08:45 09/27/19 24 09/28/2023 CBC WITH DIFFE RENTI AL/PL ATELE T neutrophils 79 % notest ab. Not Available [facility] ([facility]) [address] [facility], [place], [address], 09/28/2023 15:08:45 09/27/19 24 09/28/2023 CBC WITH DIFFE RENTI AL/PL ATELE T lymphs 13 % notest ab. Not Available [facility] ([facility]) [address] [place], [address], 09/28/2023 15:08:45 09/27/19 24 09/28/2023 CBC WITH DIFFE RENTI AL/PL ATELE T monocytes 6 % notest ab. Not Available [facility] ([facility]) [address] [facility], [place], [address], 09/28/2023 15:08:45 09/27/19 24 09/28/2023 CBC WITH DIFFE RENTI AL/PL ATELE T eos 2 % notest ab. Not Available [facility] ([facility]) [address] [facility], [place], [address], 09/28/2023 15:08:45 09/27/19 24 09/28/2023 CBC WITH DIFFE RENTI AL/PL ATELE T basos 0 % notest ab. Not Available [facility] ([facility]) [address] [facility], [place], [address], 09/28/2023 15:08:45 09/27/19 24 09/28/2023 CBC WITH DIFFE RENTI AL/PL ATELE T neutrophils (absolute) 3.9 x10e3 /uL 1.4-7. 0 Not Available [facility] ([facility]) [address] [facility], [place], [address], 09/28/2023 15:08:45 09/27/19 24 09/28/2023 CBC WITH DIFFE RENTI AL/PL ATELE T lymphs (absolute) 0.6 x10e3 /uL 0.7-3. 1 below low normal Not Available [facility] ([facility]) [address] [facility], [place], [address], 09/28/2023 15:08:45 09/27/19 24 09/28/2023 CBC WITH DIFFE RENTI AL/PL ATELE T monocytes(ab solute) 0.3 x10e3 /uL 0.1-0. 9 Not Available [facility] ([facility]) [address] [facility], [place], [address], 09/28/2023 15:08:45 09/27/19 24 09/28/2023 CBC WITH DIFFE RENTI AL/PL ATELE T eos (absolute) 0.1 x10e3 /uL 0.0-0. 4 Not Available [facility] ([facility]) [address] [place], [address], 09/28/2023 15:08:45 09/27/19 24 09/28/2023 CBC WITH DIFFE RENTI AL/PL ATELE T baso (absolute) 0.0 x10e3 /uL 0.0-0. 2 Not Available [facility] ([facility]) [address] [facility], [place], [address], 09/28/2023 15:08:45 09/27/19 24 09/28/2023 CBC WITH DIFFE RENTI AL/PL ATELE T immature granulocytes 0 % notest ab. Not Available [facility] ([facility]) [address] [facility], [place], [address], 09/28/2023 15:08:45 09/27/19 24 09/28/2023 CBC WITH DIFFE RENTI AL/PL ATELE T immature grans (abs) 0.0 x10e3 /uL 0.0-0. 1 Not Available [facility] ([facility]) [address] [place], [address], 09/28/2023 15:08:45 09/27/19 24 09/28/2023 TRIIO DOTHY KAYLYN E (T3), FREE triiodothyro nine (T3), free 2.9 pg/mL 2.0-4. 4 Not Available [facility] ([facility]) [address] [place], [address], 09/28/2023 15:08:45 12/29/19 24 12/30/2023 SEDIM ENTAT ION RATE- ERNESTINEE RGREN sedimentatio n rate-nikita latisha 8 mm/HR 0-30 Not Available [facility] ([facility]) [address] [place], [address], 12/30/2023 10:14:08 12/29/19 24 12/30/2023 RPR RPR NON REACTI VE nonrea ctive Not Available [facility] ([facility]) [address] [facility], [place], [address], 12/30/2023 10:14:09 12/29/19 24 12/30/2023 C-USMAN CTIVE PROTE IN, QUANT C-reactive protein, quant 3 mg/L 0-10 Not Available [facility] ([facility]) [address] [facility], [place], [address], 12/30/2023 10:14:10 10/20/19 24 10/20/2023 CT, head + brain , w/wo contr ast No observ ation record ed. [facility] [address] [place], [address], 10/25/2023 23:17:43 04/22/19 25 04/19/2024 US, echoc ardio gram, trans thora cic, compl ete, w/ color flow No observ ation record ed. [facility] [address], [place], [address], 04/23/2024 14:05:55 07/27/19 25 07/25/2024 XR, cervi marina spine No observ ation record ed. [address], [place], [address], 07/31/2024 16:42:09 07/27/19 25 07/25/2024 XR, lumba r spine No observ ation record ed. [place] [id number] [facility] [address], [place], [address], 07/31/2024 16:42:09 Result Notes None recorded. Problems Name Problem SNOMED Code Status Onset Date Resolution Date Notes Provider Name and Address Organization Details Recorded Time Memory impairment 957636122 Active 2023 Risa Rodriguez MA [facility], [place] - [facility] 16:50:53 Headache 28629598 Active 2023 Risa Rodriguez MA null, [facility] 16:50:54 Gastroesophage al reflux disease without esophagitis 208942465 Active 2023 Risa Rodriguez MA null, [facility] 17:06:12 Problem Notes None recorded. Procedures Surgical History Date Name Laterality Status Provider Name and Address Organization Details Recorded Time Back Surgery completed Tia Orellana MA [facility] 08/09/2023 15:43:57 Hernia Repair completed Tia Orellana MA [facility] 08/09/2023 15:44:02 Prostate Biopsy completed Tia Orellana MA [facility] 08/09/2023 15:44:06 Imaging Results Imaging Date Name Status LastModified by Organiz ation Details LastModified Time 10/20/2023 CT, head + brain, w/wo contrast completed [facility] [address] [place], [address], 10/25/2023 23:17:43 04/19/2024 US, echocardiogra m, transthoracic , complete, w/ color flow completed [facility] [address], [place], [address], 04/23/2024 14:05:55 07/25/2024 XR, cervical spine active [address], [address], 07/31/2024 16:42:09 07/25/2024 XR, lumbar spine active [address], [address], 07/31/2024 16:42:09 Procedure Notes None recorded. Medical Equipment None Reported. Allergies No known drug allergies Medications Name Sig Start Date Stop Date Status Note LastModified by Organization Details LastModified Time Singulair 10 mg tablet Take 1 tablet(s) every day by oral route. 2024 active Not Available Not Available Not [facility] donepezil 5 mg tablet Take 1 tablet [...] bromide 21 mcg (0.03 %) nasal spray [place] 2 sprays every day by intranasa l [...] Address Organization Details Last Updated DateTime 4 13272.6 4 g 20.7 kg/m2 185.42 cm 80 /min 98 % 98 % 107 mm[Hg] 71 mm[Hg] Joanna Yoon MA [place] - [facility] 4 15:48:28 Date Recorded Body height Body mass index (BMI) Body weight Heart rate Oxygen saturation Oxygen saturation in Arterial blood by Pulse oximetry Systolic blood pressure Diastolic blood pressure Provider Name and Address Organization Details Last Updated DateTime 4 185.42 cm 21.4 kg/m2 52718.0 4 g 61 /min 97 % 97 % 110 mm[Hg] 62 mm[Hg] Dara Mcgowan MA [facility] 4 16:33:20 Date Recorded Body height Body mass index (BMI) Body weight Heart rate Oxygen saturation Oxygen saturation in Arterial blood by Pulse oximetry Systolic blood pressure Diastolic blood pressure Provider Name and Address Organization Details Last Updated DateTime 4 185.42 cm 20.7 kg/m2 95399.3 6 g 74 /min 97 % 97 % 116 mm[Hg] 64 mm[Hg] Dara Mcgowan MA [facility] 4 16:51:41 Date Recorded Body height Body mass index (BMI) Body weight Heart rate Oxygen saturation Oxygen saturation in Arterial blood by Pulse oximetry Systolic blood pressure Diastolic blood pressure Provider Name and Address Organization Details Last Updated DateTime 4 185.42 cm 20.4 kg/m2 49928.4 6 g 90 /min 97 % 97 % 110 mm[Hg] 70 mm[Hg] Gracia Tubbs MA [facility] 4 16:07:56 Date Recorded Body height Body mass index (BMI) Body weight Heart rate Oxygen saturation Oxygen saturation in Arterial blood by Pulse oximetry Systolic blood pressure Diastolic blood pressure Provider Name and Address Organization Details Last Updated DateTime 5 185.42 cm 19.5 kg/m2 32122.0 3 g 60 /min 97 % 97 % 124 mm[Hg] 62 mm[Hg] Dara Mcgowan MA [facility] 5 16:42:11 Social History Question Answer Notes LastModified by Organizat ion Details LastModified Time Tobacco Smoking Status Former Smoker Tia Orellana MA [facility] 08/09/2023 15:46:28 Do You Have An Advance [...] Anxious, Or Unable To Sleep At Night)? [id number] Information not available 08/09/2023 Do You Use [...] Response Coronary Artery Disease N Other N Atrial Fibrillation N High Blood Pressure N Thyroid Problems N Kidney or Bladder Problems N Depression N COPD N Blood Clots N GI Problems N Skin Problems N Anemia N Heart Attack ([place]) N Diabetes N Anxiety Disorder N Muscle, Joint, or Bone Problems N Seizures/Epilepsy N Acid Reflux (GERD) Y Cancer N Stroke N Allergies N Asthma N High Cholesterol N Hepatitis N Liver Disease N Headaches Y Osteoporosis N Heart Failure N Immunizations Vaccine Type Date Status Note Provider Nam e and Address Organization Details Recorded Time Influenza, high-dose, quadrivalent, PF 1 completed SERAFIN [place], [place] - [facility] [...] or 50 mcg/0.25mL dose 1 completed SERAFIN [place], [place] [facility] 09/27/2023 15:31:14 pneumococcal polysaccharide PPV23 0 completed SERAFIN [place] [facility] 09/27/2023 15:31:14 Influenza, high-dose, trivalent, PF 8 completed Joanna Yoon [place] null, [place] [facility] 09/27/2023 15:31:14 Influenza, high-dose, trivalent, PF 8 completed Joanna Y[place], [place] [facility] 09/27/2023 15:31:14 Influenza, high-dose, trivalent, PF 7 completed Joanna [place] [facility] 09/27/2023 15:31:14 Influenza, high-dose, trivalent, PF 9 completed Joanna Car SERAFIN [place] [facility] 09/27/2023 15:31:14 Influenza, split virus, trivalent, preservative 3 completed Felicityisacc Car SERAFIN smart, [place] [facility] 09/27/2023 15:31:14 Influenza, split virus, trivalent, PF 4 completed Joanna Y[place], [place] [facility] 09/27/2023 15:31:14 Influenza, high-dose, trivalent, PF 4 completed Norma Mart MD Attn: Accounting,[address] [place], [address], [facility] - [facility] 01/24/2024 21:55:05 Pneumococcal conjugate PCV20, polysaccharide [id number] conjugate, adjuvant, PF 5 completed Norma Mart MD Attn: Accounting[address] [place], [address], [place] [facility] 04/23/2024 21:10:05 Past Encounters Encounter ID Performer Location Encounter Start Date Encounter Closed Date Diagnosis/Indication Diagnosis SNOMED-CT Code Diagnosis ICD10 Code Diagnosis Note [id number] Norma Mart MD [facility] (Adult Med) [address] [place] [phone] 09/27/2023 15:23:02 09/27/2023 17:03:34 Memory impairment 683803997 R41.3 Headache 83673909 R51.9 [id number] Norma Mart MD [facility] (Adult Med) [address] [place] [phone] 10/25/2023 16:18:45 10/25/2023 17:07:55 Underweight 335301904 R63.6 Memory impairment 419152 006 R41.3 Gastroesop hageal reflux disease without esophagitis 480063265 K21.9 [id number] Norma Mart MD [facility] (Adult Med) [address] [place] [phone] 11/22/2023 16:20:13 11/22/2023 17:49:56 Memory impairment 378509339 R41.3 Gastroesop hageal reflux disease without esophagitis 567942371 K21.9 [id number] Norma Mart MD [facility] (Adult Med) [address] [place] [address] [phone] 01/24/2024 15:52:58 01/24/2024 16:53:51 Body mass index 20-24 - normal 521046469 Z68.20 Rhinitis 02745883 J00 Mitral barber ve regurgitation 61977026 I34.0 Pain of bi lateral eyes 1545233581 20033 H57.13 Administra tion of influenza vaccine 19466787 Z23 Basal cell carcinoma of skin 141279951 C44.91 [id number] Norma Mart MD [facility] (Adult Med) [address] [place] [phone] 04/23/2024 16:13:24 04/23/2024 17:36:50 Underweight 636249518 R63.6 Dyspnea 718672052 R06.00 Administra tion of pneumococcal vaccine 36274222 Z23 Gastroesop hageal reflux disease without esophagitis 455172193 K21.9 Memory impairment 711505 006 R41.3 Health Concerns Section Related Observation LastModified by Organization Detai ls LastModified Time None Recorded Concern Status LastModified by Organization Details LastModified Time None Recorded Advance Directives Directive N: Medical POA Payers Encounter Date Sequence Insurance Name Policy Number Policy Mehta Covered Member ID Mehta Member ID Guarantor Name 09/27/2023 1 [facility] [id number] Maxi Allred [id number] Maxi Gum 09/27/2023 1 [employer] - PRIME (MEDICARE REPLACEMENT/ ADVANTAGE - HMO) [id number] Maxi D Gum [id number] Maxi Gum 10/25/2023 1 [employer] - PRIME (MEDICARE REPLACEMENT/ ADVANTAGE - HMO) [id number] Maxi D Gum [id number] Maxi Gum 11/22/2023 1 [employer] - PRIME (MEDICARE REPLACEMENT/ ADVANTAGE - HMO) [id number] Maxi D Gum [id number] Maxi Gum 01/24/2024 1 [employer] - PRIME (MEDICARE REPLACEMENT/ ADVANTAGE - HMO) [id number] Maxi D Gum [id number] Maxi Gum 04/23/2024 1 [employer] - PRIME (MEDICARE REPLACEMENT/ ADVANTAGE - HMO) [id number] Maxi D Gum [id number] Maxi Gum Notes Date Note Type Note Provider Name and Address Organization Details Recorded Time 09/27/2023 text/html Comes in with family today he has had some dull headaches in the past but family says that he is having some memory impairment anxiety has been somewhat high of blurred vision or double vision. GERD has been stable Norma Mart MD Attn: Accounting,[address] [facility], [place], [address], [facility] 11/05/2023 16:15:07 10/25/2023 text/html follow up of mem ory CT scan was unremarkable GERD flared up a little bit chronic pain about the same Norma Mart MD Attn: Accounting, [address] [facility], [place], [address], [facility] 10/27/2023 20:16:23 11/22/2023 text/html patient is in office with daughter she thinks he has a little bit more forgetful he says that he does recognize that there probably is some slippage of memory. Norma Mart MD Attn: Accounting,[address] [facility], [place], [address], [facility] 12/02/2023 14:18:11 01/24/2024 text/html 1. 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
--- OUTSIDE RECORDS SUMMARY | 2024-08-01 15:01 | XMS_ITS ---
Author Name [facility] [place] Organization [facility] [place] [facility] [place] Address [address] [place] [address] Support Name Relationship Address Phone MAYUR MALAVE Emergency Contact Unknown Insurance Providers: All historical and current Section Date Range: From patient's date of to the date document was created. This section includes the names of all active insurance providers for the patient. Insurance Provider Type of Coverage Plan Name Start of Policy Coverage End of Policy Coverage Group Number Member ID Insurance Provider's Telephone Number Policy Mehta's Name Patient's Relationship to Policy Mehta [employer] MCR (WNR) MEDICARE ADVANTAGE MCR (WNR) Dec 26, 2023 [id number] PATIENT Selected Encounter This section includes the information on record at [place] for the Encounter. Date/Time Encounter Type Encounter Description Reason Pro vider Source August 01, 2024 01:14 PM Outpatient Encounter ADMIN PAT ACTIVTIES (MASNONCT) IHE Encounter Template Text not used by [place] Encounter Notes: All associated encounter notes This section contains the clinical notes associated to the Encounter. Date/Time Encounter Note(s) Provider Source August 01, 2024 01:14 PM PRIMARY CARE LETTE RS: LOCAL TITLE: PC NEW PATIENT NO CONTACT LETTER STL STANDARD TITLE: PRIMARY CARE LETTERS DATE OF NOTE: AUGUST 01, 2024@13:14 ENTRY DATE: AUGUST 01, 2024@13:14:06 AUTHOR: VALENTIN BUTTERFIELD COSIGNER: URGENCY: STATUS: COMPLETED [facility] [address] [place] [address] AUGUST 01, 2024 SHILA RIVERA [address] [facility] [place], [place] [address] Dear Shila Rivera, Thank you for your interest in establishing care with a Primary Care Provider at the [facility]. Your Primary Care Provider is the clinical leader of your Patient Aligned Care Team (PACT). Your PACT Team manages and coordinates your comprehensive health care services. Primary Care includes, but is not limited to: diagnosis and management of acute and chronic health conditions, health promotion, disease prevention, overall care management, post-deployment care, and patient and caregiver education. If you would like more information, please visit [email or web address] We have been unsuccessful in our attempts to contact you to schedule your initial appointment. Based on your current residence, the clinic recommended for your [facility] needs [facility] [address] [place] [address] We are happy to accommodate your request with another clinic, if needed. Please call to schedule your initial appointment. Thank you for your service, and we look forward to hearing from you. Sincerely, VALENTIN BUTTERFIELD LEAD SEARCH ENGINE MARKETING SPECIALIST SHILA RIVERA [facility]
--- OUTSIDE RECORDS SUMMARY | 2024-08-01 15:13 | XMS_ITS | Continuity of Care Document ---
Author Organization [facility] Address [address] [place] [address] [address] [place] [address] Phone Care Team Providers Care Solid Waste Engineer Name Role Phone Luo OD, Serge Unavailable Unavailable Procedures Procedure Date Eye Exam & Treatment Refraction Counseling For Antioxidant Supplements A Advance Directives Directive Yes / No Effective Date File Name No Information Encounters Encounter Description Practice Location Reason(s) For Visit Diagnoses Date Provider Providers Copied on Encounter [facility], [address] [place] [address] [address], [place], [place], [id number], [place] tel:[phone] [facility] [place] No Information [address] Luo OD Serge. [address] [facility] [place] , [address], [place], [address], [place]. tel:[phone] Family History Family Member Type Diagnosis Age At Onset No Information Payers Payer name Insurance type Covered democrat ID Authoriza tion(s) Medicare [facility] [id number] Social History Type Description Quantity Date Captured [...]
--- OUTSIDE RECORDS SUMMARY | 2024-08-01 15:13 | XMS_ITS | Continuity of Care Document ---
Author Name [facility] Organization [facility] Care Team Providers Care Homicide Detective Name Role Phone [facility]OD-[facility] Unavailable Unavailable Encounters [...] Date DC Date Status Disposition Source [facility] Outpatient Encounter [id number] 05/14 [facility] Outpatient Encounter [id number] 07/30 [facility] Outpatient Encounter [id number] 08/01 [facility]
--- OUTSIDE RECORDS SUMMARY | 2024-08-01 15:13 | XMS_ITS | CONTINUITY OF CARE DOCUMENT ---
Author Name azeem gann Address Unknown Organization [facility] Address [address] [place] [address] [address] [place] [address] Phone [phone] Care Team Providers Care Hoof Trimmer Name Role Phone Jenni MONROE, Jose Unavailable ZAY AGUIRRE MD Unavailable NORMA HYMAN MD Unavailable PROBLEMS Condition Status Date Provider Notes CAD;NEG CAROTID active Jose Arteaga MD Hypertriglyceridemia active Jose Delgadillo PALPITATIONS completed - Nahomi Beasley NP SHORTNESS OF BREATH active - Jose Arteaga MD CHEST PAIN active - Jose Arteaga MD CAD;NEG ECHO, HOLTER AND NUC 07 completed - Nahomi Beasley NP LOW BLOOD PRESSURE active Jose Arteaga MD BACK PAIN, CHRONIC;ON NARCOTICS active Jose Arteaga MD DYSPEPSIA&OTHER SPEC DISORDE RS FUNCTION STOMACH;CHRONIC active Jose Arteaga MD Hyperlipidemia;NEG CRP active Jose Arteaga MD Screening active Jose Arteaga MD Renal cyst active Jose Arteaga MD Diastolic dysfunction active Jose Arteaga MD Exposure to SARS-associated coronavirus;had vaccine active Jose Arteaga MD Tobacco use, quit active Jose Arteaga MD t oo emote to screen Pulmonary hypertension active Jose Arteaga MD Microvascular angina active Jose Delgadillo Neuropathy active Jose Arteaga MD Pre-procedural laboratory examination completed - Jose Arteaga MD Long-term (current) use of other medications completed - Jose Arteaga MD Shortness of breath completed - Jose Arteaga MD ENCOUNTERS Date Type Provider Location Encounter Diag nosis - In-person encounter Office Visit Jose Arteaga MD [facility] - In-person encounter Office Visit Jose Arteaga MD [facility] Pre-procedural laboratory examinationLong-term (current) use of other medicationsShortness of breath - In-person encounter Office Visit Jose Arteaga MD [facility] ScreeningMicrovascular anginaNeuropathy - In-person encounter Office Visit Jose Arteaga MD [facility] Renal cystDiastolic dysfunctionExposure to SARS-associated coronavirus;had vaccineTobacco use, quitPulmonary hypertension - In-person encounter Office Visit Jose Arteaga MD [facility] PALPITATIONSCAD;NEG ECHO, HOLTER AND NUC 07Hyperlipidemia;NEG CRP - In-person encounter Office Visit Jose Arteaga MD [facility] SHORTNESS OF BREATHCHEST PAINLOW BLOOD PRESSUREBACK [...] Huseyin Lorenzo respiratory rate E&M 16 /min Husyein Lorenzo pulse rate 68 /min Huseyin Lorenzo [...] Francisca maria height E&M 73 [in_i] Francisca Caansbel crow weight E&M 168 [lb_av] Francisca Missaelbel [...] iron binding capacity, unsaturated 247 ug/dL [employer] 406-219 4170/10/0 8 iron binding capacity, total 333 ug/dL [employer] 108-529 3538/09/2 3 c-reactive protein, quantitative, serum 0.78 mg/L [...] High 3 cholesterol, serum 172 mg/dL [facility] [phone]/09/2 3 calcium, serum 8.9 mg/dL [facility] 8.6-10.2 3 carbon dioxide, venous blood 27 mmol/L [employer] 20-29 3 chloride, serum 101 mmol/L [employer] 96-106 3 potassium, serum 4.1 mmol/L [employer] 3.5-5.2 3 sodium, serum 141 mmol/L [employer] 078-788 2532/09/2 3 urea nitrogen/creatinin e ratio, serum 15 [...] Estab. 3 platelet count 242 X10E3/UL [employer] 524-675 3662/09/2 3 red blood cell distribution width 12.4 [...] tablet,delayed release (DR/EC) completed - Nahomi Ramos THERAPEUTIC SUPPORT STAFF oxycodone 30 mg tablet active Nahomi Beasley NP lorazepam 0.5 mg tablet [facility] ibuprofen 800 mg tablet active as [...] a day - Jose Arteaga MD OXYCONTIN [id number] completed 1 tablet once a day - [...] - no changes required Jose Arteaga MD smoking status Unknown if ever smoked [...] Policy type / Coverage type Shanae red libertarian ID AETNA MEDICARE SMARTFIT (PPO) Medicare 10 [id number] ADVANCE DIRECTIVES Name Date DISCUSSED - NO DECISION MADE TREATMENT PLAN Date Name Performer [id number],S, T he following medications were removed from the medication list: Ezetimibe 10 Mg Tablet (Ezetimibe) ..... Take 1 tablet by mouth once a day His updated medication list for this problem includes: Repatha Pushtronex 420 Mg/3.5 Ml Wearable Injector (Evolocumab) ..... Inject 3.5 ml subcutaneously every four weeks Jose Arteaga MD [id number],S, Jose baptiste MD [id number],S, n eg iron and dd and pft n eg belly ct and gall stone n eg vit d e ng b12 eng jeanine Jose Arteaga MD [id number],S, Jose baptiste MD [id number],S, Jose baptiste MD [id number],B, Jose baptiste MD [id number],S,mild to mod H melinda Arteaga MD [id number],S, 4 6 Jose Arteaga MD [id number],S, n ml pro and lvedop Jose Arteaga MD [id number],S, 2 0% and 30% RCA, WITH POS NUC Jose Arteaga MD [id number],B, Jose baptiste MD [id number],S, n eg b12 Jose Arteaga MD [id number],S,neg b12 Monique Arteaga MD [id number],S,T his patient?s angina is disabling and in [...] is not readily amenable to such procedures. Jsoe Arteaga MD [id number],S, Jose Serota [id number],S, Jose Serot a [id number],S, Jose Serot a [id number],S, Jose Serot a [id number],S, Jose Serot a [id number],S, Jose Serot a [id number],S, n ml pro and lvedop Jose Serota [id number],S, 2 0% and 30% RCA, WITH POS NUC Jose Serota [id number],S, 4 6 Jose Serota [id number],S, m ild to mod Jose Serota [id number],S,n eg iron and dd and pft n eg belly ct and gall stone n eg vit d e ng b12 eng jeanine Jose Serota [id number],C,mild to mod H arvey Serotemile MONROE [id number],C,46 Jose Ser brick and tile making machine operator [id number],S, Jose Serot a [id number],S, Jose Serot a [id number],S, Jose Serot a [id number],S,nml pro and l vedop Jose Serota [id number],S,n eg belly ct and gall stone n eg vit d e ng b12 eng jeanine Jose Serota [id number],S, Jose Serot a [id number],S,vascepa not c ovred Jose Serotemile MONROE [id number],S, 2 0% and 30% RCA, WITH POS NUC Jose Arteaga MD [id number],C,20% and 30% R CA, WITH POS NUC Jose Arteaga MD [id number],C,neg vit d Ambrose Arteaga MD [id number],S,on Protonix S александр Beasley THERAPEUTIC SUPPORT STAFF [id number],S, Nahomi brooks THERAPEUTIC SUPPORT STAFF [id number],S,stable Nahomi Beasley THERAPEUTIC SUPPORT STAFF [id number],C,recheck lipid panel today Nahomi Beasley THERAPEUTIC SUPPORT STAFF [id number],W,Plan for Card [facility]. Nahomi Beasley NP :38 Jose Arteaga MD [...] follow up :on Protoni x Nahomi Ramos THERAPEUTIC SUPPORT STAFF Cardiology follow up Nahomi Priteshanjum mccollum THERAPEUTIC SUPPORT STAFF Cardiology follow up :stable She rogers Beasley THERAPEUTIC SUPPORT STAFF Cardiology follow up :recheck li pid panel today Nahomi Ramos THERAPEUTIC SUPPORT STAFF Cardiology follow up :Plan for C ardiac cath. Nahomi Ramos LOMELI follow up: H is updated medication list for this problem includes: Lovaza 1 Gm Caps (Ponvb-1-pbva ethyl esters) ..... Onne a day dispense as written Orders: S tress Test - Adenosine (69304) A MYLASE (243) Jose Arteaga MD follow up: O rders: G allbaladder Ultrasound (CPT-90797) C OMPREHENSIVE METABOLIC PANEL W/EGFR (09878) L IPID PANEL (7600) C BC (INCLUDES DIFF/PLT) (6399) T HYROID PANEL WITH TSH, 3RD GENERATION (7444) S tress Test - Adenosine (22250) A MYLASE (243) Jose Arteaga MD follow up: O rders: C omplete Echo (CPT-48627) A rterial Duplex Lower Extremity Bilateral (CPT-61460) E KG (CPT-17183) G allbaladder Ultrasound (CPT-68412) C OMPREHENSIVE METABOLIC PANEL W/EGFR (84480) L IPID PANEL (7600) C BC (INCLUDES DIFF/PLT) (6399) T HYROID PANEL WITH TSH, 3RD GENERATION (7444) S tress Test - Adenosine (29192) Jose Arteaga MD follow up: B P today: 105/66 Prior BP: / () Orders: C omplete Echo (CPT-19818) A rterial Duplex Lower Extremity Bilateral (CPT-72180) E KG (CPT-12914) G allbaladder Ultrasound (CPT-60444) C OMPREHENSIVE METABOLIC PANEL W/EGFR (54679) L IPID PANEL (7600) C BC (INCLUDES DIFF/PLT) (6399) T HYROID PANEL WITH TSH, 3RD GENERATION (7444) S tress Test - Adenosine (02933) His updated medication list for this problem includes: Aspirin 81 Mg Tabs (Aspirin) ..... One tab. daily Jose Arteaga MD follow up: B P today: 105/66 Prior BP: / () Orders: C omplete Echo (CPT-08047) A rterial Duplex Lower Extremity Bilateral (CPT-44704) E KG (CPT-16055) G allbaladder Ultrasound (CPT-25533) C OMPREHENSIVE METABOLIC PANEL W/EGFR (14069) L IPID PANEL (7600) C BC (INCLUDES DIFF/PLT) (6399) T HYROID PANEL WITH TSH, 3RD GENERATION (7444) S tress Test - Adenosine (86767) A MYLASE (243) His updated medication list for this problem includes: Lovaza 1 Gm Caps (Wuywt-2-atyx ethyl esters) ..... Onne a day dispense as written Aspirin 81 Mg Tabs (Aspirin) ..... One tab. daily Joes Arteaga MD follow up: B P today: 105/66 Prior BP: / () Orders: C omplete Echo (CPT-85809) A rterial Duplex Lower Extremity Bilateral (CPT-01643) G allbaladder Ultrasound (CPT-03846) C OMPREHENSIVE METABOLIC PANEL W/EGFR (19574) L IPID PANEL (7600) C BC (INCLUDES DIFF/PLT) (6399) T HYROID PANEL WITH TSH, 3RD GENERATION (7444) S tress Test - Adenosine (17508) A MYLASE (243) Jose Arteaga MD Date [...]
--- NOTE | 2024-08-01 16:09 | WPDPFTINT ---
PFT Procedure Performed PFT Procedure Performed Plethysmography (Lung Vol) Diffusing Cap (DLCO) Flow Vol Loop Spirometry w/o Bronchodil PFT Interpretation This is a pulmonary function test with spirometry, plethysmography and diffusing capacity. The test was performed and results interpreted in accordance with the 2019 and 2005 ATS/ERS Task Force guidelines respectively using the Global Lung Function Initiative-2012 reference equations. Patient demonstrated good effort and cooperation. Reproducibility criteria were met. The quality of the spirometry maneuver was Grade A. Findings: Spirometry: The contour the inspiratory and expiratory flow tracing are normal. The FVC is 4.06 L, 97% predicted. The FEV1 is 2.87 L, 93% predicted. The FEV1: FVC ratio 71%. Plethysmography: The total lung capacity 7.62 L, 102% predicted. The functional residual capacity is 4.96 L, 122% predicted. The residual volume is 3.33 L, 120% predicted. Diffusing capacity: The diffusing capacity unadjusted for hemoglobin and carboxyhemoglobin is 16.3, 66% predicted. The diffusing capacity adjusted for alveolar volume is 2.88, 82% predicted. Impression: The spirometry is normal without evidence of an obstructive abnormality. The lung volumes are normal. The diffusing capacity unadjusted for hemoglobin and carboxyhemoglobin is mildly decreased and normalizes when adjusted for alveolar volume. There are no prior studies for comparison
== END 2024-08-01 15:11 | disposition home or self-care (01) ==
PROVIDERS: PCP Internal Medicine; Visit Provider Internal Medicine
DX: R60.0 Localized edema (principal)
CPT/HCPCS: 94375; 94726; 94729

== ENCOUNTER 2024-08-22 16:00 | Outpatient (CLI) | payer MEDICARE, SELFPAY ==
--- NOTE | ~2024-08-22 | XR_ITS ---
CHEST RADIOGRAPH, PA AND LATERAL CLINICAL HISTORY: Dyspnea . COMPARISON: 02/10/2021 TECHNIQUE: PA and lateral views of the chest. FINDINGS Dorsal column stimulator device is noted. The remainder of the cardiomediastinal silhouette is otherwise unremarkable. Anterior lucency detected bilaterally, a finding of uncertain clinical significance. The lungs are otherwise clear. IMPRESSION: No focal infiltrate or effusion. Reviewed, dictated and finalized at location A.
--- OUTSIDE RECORDS SUMMARY | 2024-08-22 16:04 | XMS_ITS | Referral Summary ---
Author Organization [facility] Address [address] [place] [address] Care Team Providers Care Pathology Secretary Name Role Phone Tom Mart MD Primary Care Provider [phone] Ricarda Peterson MD Unavailable Julian Yates MD [...] hours as needed for pain Active omega 7-ali-ahp-fish oil 300 mg (120 mg- 180mg)-1,000 mg [...] Nitric Oxide Sanguenol Active cholecalciferol (VITAMIN D-3) 10684 unit capsuleIndicati ons:Prevention of Vitamin D Deficiency [...] (05/06/2022): Added automatically from request for surgery [id number] Basal cell carcinoma (BCC) of face 08/23/2016 [...] on file Legal Sex Male 9:23 AM CHEMICAL MANAGER Gender Identity Not on file Sexual Orientation Not on file Last Filed Vital Signs Vital Sign Reading Time Taken Comments Blood Pressure 96/60 06/02/2022 4:40 PM CHEMICAL MANAGER Pulse 86 06/02/2022 4:40 PM CHEMICAL MANAGER Temperature 36 C (96.8 F) 06/02/2022 1:31 PM CHEMICAL MANAGER Respiratory Rate 14 06/02/2022 4:40 PM CHEMICAL MANAGER Oxygen Saturation 98% 06/02/2022 4:40 PM CHEMICAL MANAGER Inhaled Oxygen Concentration - - Weight 74 kg (163 lb 3.2 oz) 06/14/2022 1:34 PM CDT Height 185.4 cm (6' 1) 05/12/2022 1:25 PM CHEMICAL MANAGER Body Mass Index 21.53 05/12/2022 1:25 PM CHEMICAL MANAGER Plan of Treatment Not on file Medical Devices Implanted Type Area Cardio Clinician Device Identifier Shelf Expiration Date Model / Serial / Lot Spinal Cord Stimulator Spinal Cord Stimulator Back Insurance [facility] MEDICARE ADVANTAGE [facility] Address: [address] [address] [place] [address] [facility] MEDICARE ADVANTAGE [facility] Address: [address] [address] [place] [address] Care Teams Pathology Secretary Relationship Specialty Start Date End Date Tom Mart MD PCP - General 07/15/16 Ricarda Peterson MD Consulting Physician Internal Medicine 05/03/22 Julian Yates MD Referring Physician Otolaryngology 05/07/22
--- OUTSIDE RECORDS SUMMARY | 2024-08-22 16:04 | XMS_ITS | Encounter Summary ---
Author Name [facility] [place] [facility] [place] Address [address] [place] [address] Support Name Relationship Address Phone MAYUR MALAVE [...] MEDICARE ADVANTAGE MCR (WNR) Dec 26, 2023 [id number] PATIENT Selected Encounter This section includes the information on record at [place] for the Encounter. Date/Time Encounter Type Encounter Description Reason Provider Source August 22, 2024 01:06 PM PH1 ASSMT&MGMT NQHP TELEPHONE/MAGNO TALBOT ICD-10-CM Z65.9 Problem related to unspecified psychosocial circumstances DONN GAVIRIA Dafne Encounter Template Text not used by [place] Assessments - Encounter Diagnoses This section includes the primary and secondary diagnoses documented for the Encounter. Date/Time Primary/Secondary Diagnosis Diagnosis Name Provider Source August 22, 2024 01:06 PM PRIMARY Problem related to unspecified psychosocial circumstances [facility] Plan of Treatment: Future Appointments (+ 6 months) and Future Tests (+/- 45 days) The Plan of Treatment section includes future care activities for the patient from all [place] treatmentfacilities. This section includes future appointments and future orders which are active, pending or scheduled. Future Appointments This section includes appointments that were scheduled to occur 6 months from the date of the Encounter, up to a maximum of 20 appointments. The data comes from all [place] treatment facilities. Appointment Date/Time Appointment Type Appointme nt Facility Name Sep 11, 2024 01:00 PM AMBULATORY - MEDICINE [facility]
--- OUTSIDE RECORDS SUMMARY | 2024-08-22 16:04 | XMS_ITS | Continuity of Care Document ---
Author Name [facility] Organization [facility] Care Team Providers Care Head Of Music Name Role Phone [facility] Unavailable Unavailable Problems Combined list of problems from Department of [facility] and [facility] facilities. It does not include entries that were removed or entered in error. Problem Status Onset Date Problem Type Date of Resolution Comments Source Diagnosis: ICD-10-CM Z65.9 Problem related to unspecified psychosocial circumstances Active Diagnosis [facility] Encounters Combined list of: 1) Encounters from [facility] facilities going backup to the last 18 months, not all [place] inpatient encounters are included; 2) Encounters from the [facility] facilities going backup to 280 months. Location Location Details Encounter Type Encounter Number Reason For Visit Attending Provider ADM Date DC Date Status Disposition Source [facility] Outpatient Encounter [id number] 05/14 [facility] Outpatient Encounter [id number] 07/30 [facility] Outpatient Encounter [id number] 08/01 [facility] Outpatient [facility]counter [id number] 08/15 [facility] PH1 ASSMT&MGMT NQHP 21-30 [id number] Diagnos is: ICD-10- CM Z65.9 Problem related to unspeci fied psychos ocial circums JOSE Jha 08/22 [facility] Plan of Care List of future care activities from [facility] facilities. Additional future care activities may be listed in the Assessment and Plan section. Date/Time Care Activity Care Activity Detail Rosettai seema 09/11/2024 AMBULATORY - MEDICINE AMBULATORY - MEDICI [facility]
--- OUTSIDE RECORDS SUMMARY | 2024-08-22 16:04 | XMS_ITS | Continuity of Care Document ---
Author Organization [facility] Address [address] [place] [address] [address] [place] [address] Phone Care Team Providers Care Motor Vehicle Technician Name Role Phone Luo OD, Serge Unavailable Unavailable Procedures Procedure Date Eye Exam & Treatment Refraction Counseling For Antioxidant Supplements A Advance Directives Directive Yes / No Effective Date File Name No Information Encounters Encounter Description Practice Location Reason(s) For Visit Diagnoses Date Provider Providers Copied on Encounter [facility], [address] [place] [address] [address], [place], [place], [id number], [place] tel:[phone] [facility] [place] No Information [address] Luo OD Serge. [address] [facility] [place] , [address], [place], [address], [place]. tel:[phone] Family History Family Member Type Diagnosis Age At Onset No Information Payers Payer name Insurance type Covered libertarian ID Authoriza tion(s) Medicare [facility] [id number] Social History Type Description Quantity Date Captured [...]
--- OUTSIDE RECORDS SUMMARY | 2024-08-22 16:04 | XMS_ITS | Data Portability ---
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 Discussed with his family member in conjunction with the patient today. Referral to neurology elizabeth Not available 10/27/2023 20:16:07 11/22/2023 11/22/2023 I [...] stable anxiety appears to be stable to elizabeth Not available 12/02/2023 14:17:55 01/24/2024 01/24/2024 I [...] agreed to not drive at previous appointment [email or web address] Not available 01/24/2024 21:58:14 04/23/2024 04/23/2024 in with his daughter today. Plan eating healthy food care instruction PFTs chest x-ray Singulair 10 mg a day for the rhinitis Prevnar 20 chest x-ray. Had large cardiac workup before that was negative may need to see them again follow up 3 months Not available 04/23/2024 21:12:10 08/14/2024 08/14/2024 For his rhinitis we will try to add some Flonase he continues to follow up with pain management I will obtain blood work I will see him in 2 months I am trying to get records from Neurology and Psychiatry I did speak with his daughter Gisela during the visit and I asked her to bring up to Neurology that if they felt he might be a candidate for some of the newer dementia drugs [email or web address] Not available 08/14/2024 21:25:33 Plan of Treatment Reminders Order Date Submit Date Provider Last Modified By Organization Details Last Modified Time Details Appointments ANY 15 2024 03:00P Claude Mart MD Not available Not available Not available Lab PSA, total, serum or plasma 2024 025 [email or web address] [facility], [address], [place], [address], 08/14/2024 17:59:44 urinalysi s, complete 2024 025 [email or web address] [facility], [address], [place], [address], 08/14/2024 17:59:44 JOVANI (antinucl ear antibodie s) screen, ifa, serum 2024 025 [email or web address] [facility], [address], [place], [address], 08/14/2024 17:59:44 CMP, serum or plasma 2024 025 [email or web address] [facility], [address], [place], [address], 08/14/2024 17:59:44 CBC w/ auto diff 2024 025 [facility], [address], [place], [address], 08/14/2024 17:59:44 TSH + free T4, serum 2024 025 [facility], [address], [place], [address], 08/14/2024 17:59:44 T3, free, serum or plasma 2024 025 [email or web address] Walker, [address], [place], [address], 08/14/2024 17:59:44 cortisol, serum or plasma 2024 025 [email or web address] [facility], [address], [place], [address], 08/14/2024 17:59:44 RPR (rapid plasma reagin), serum 2023 024 [email or web address] Walker, [address], [place], [address], 12/30/2023 10:14:09 ESR (erythroc yte sedimenta tion rate), blood 2023 024 YOHAN Walker, [address], [place], [address], 12/30/2023 10:14:08 C reactive protein, QN, serum or plasma 2023 024 YOHAN Walker, [address], [place], [address], 12/30/2023 10:14:11 Referral dermatolo gist referral [id number] [place], [address], [place], [address], 07/03/2024 17:03:31 ophthalmo logist referral 2023 [facility], [address] , [place], [address], 04/05/2024 14:39:18 Procedures None recorded. Surgeries None recorded. Imaging PFT, complete - PFT with DLCO 2024 [facility], [address], [place], [address], 08/01/2024 17:14:35 XR, chest [address] (Imaging), [address] [facility] [address], [place], [address], 08/21/2024 17:11:09 US, echocardi ogram, transthor acic, complete, w/ color flow 2023 [facility], [address], [address], [place], [address], 04/22/2024 16:27:36 Medication Orders Flonase Allergy Relief 50 mcg/actua tion nasal spray,tanya pension [address], [address] [place] [address] , [address], [place], [place], [id number], 08/14/2024 17:59:44 Singulair 10 mg tablet [address], [address] [place] [address] , [address], [place], [place], [id number], 04/23/2024 18:31:59 ipratropi um bromide 21 mcg (0.03 %) nasal spray 2023 024 [facility], [address] [place] [address] , [address], [place], [place], [id number], 01/24/2024 16:52:58 donepezil 5 mg tablet 2023 024 [email or web address] [facility], [address] [place] [address] , [address], [place], [place], [id number], 01/24/2024 16:08:25 pantopraz ole 40 mg tablet,de layed release 2023 024 [email or web address] [facility], [address] [place] [address] , [address], [place], [place], [id number], 04/11/2024 12:08:16 Patient TargetsNo targets recorded. Patient Instructions Encounter Date Encounter Id Patient Instructions Last Modified By Organization Details Last Modified Time 10/25/2023 [id number] eating healthy foods: care instructions [email or web address] Not available 10/25/2023 17:50:07 04/23/2024 [id number] eating healthy foods: care instructions [email or web address] Not available 04/23/2024 18:31:59 08/14/2024 [id number] eating healthy foods: care instructions [email or web address] Not available 08/14/2024 17:59:44 Reason for Referral Branch Specialist Referral for Pain of bilateral eyes Referring Physician: Norma Mart, Internal Medicine, Encounter Date: 01/24/2024 Campus Rep 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 Referring Physician: Norma Mart, Internal Medicine, Encounter Date: 01/24/2024 Results Created Date Observation Date Name Description Value Unit Range Abnormal Flag Note LastModifiedBy Organization Detail LastModifiedTime 09/27/19 24 09/28/2023 TSH+F REE T4 TSH 1.530 uIU/m L 0.450- 4.500 Not Available [facility] ([facility]) [address] [facility], [place], [address], 09/28/2023 15:08:43 09/27/19 24 09/28/2023 TSH+F REE T4 T4,free(dire ct) 1.39 NG/dL 0.82-1 .77 Not Available [facility] ([facility]) [address] [facility], [place], [address], 09/28/2023 15:08:43 09/27/19 24 09/28/2023 COMP. METAB OLIC PANEL (14) glucose 102 mg/dL 70-99 above high normal Not Available [facility] ([facility]) [address] [facility], [place], [address], 09/28/2023 15:08:43 09/27/19 24 09/28/2023 COMP. METAB OLIC PANEL (14) BUN 18 mg/dL 8-27 Not Available [facility] ([facility]) [address] [place], [address], 09/28/2023 15:08:43 09/27/19 24 09/28/2023 COMP. METAB OLIC PANEL (14) creatinine 1.03 mg/dL 0.76-1 .27 Not Available [facility] ([facility]) [address] [place], [address], 09/28/2023 15:08:43 09/27/19 24 09/28/2023 COMP. METAB OLIC PANEL (14) eGFR 74 mL/mi n/1.7 3 >59 Not Available [facility] ([facility]) [address] [place], [address], 09/28/2023 15:08:43 09/27/19 24 09/28/2023 COMP. METAB OLIC PANEL (14) BUN/creatini ne ratio 17 10-24 Not Available [facility] ([facility]) [address] [place], [address], 09/28/2023 15:08:43 09/27/19 24 09/28/2023 COMP. METAB OLIC PANEL (14) sodium 140 mmol/ L 134-14 4 Not Available [facility] ([facility]) [address] [facility] [place], [address], 09/28/2023 15:08:43 09/27/19 24 09/28/2023 COMP. METAB OLIC PANEL (14) potassium 4.7 mmol/ L 3.5-5. 2 Not Available [facility] ([facility]) [address] [facility] [place], [address], 09/28/2023 15:08:43 09/27/19 24 09/28/2023 COMP. METAB OLIC PANEL (14) chloride 100 mmol/ L 96-106 Not Available [facility] ([facility]) [address] [facility], [place], [address], 09/28/2023 15:08:43 09/27/19 24 09/28/2023 COMP. METAB OLIC PANEL (14) carbon dioxide, total 23 mmol/ L 20-29 Not Available [facility] ([facility]) [address] [facility] [place], [address], 09/28/2023 15:08:43 09/27/19 24 09/28/2023 COMP. METAB OLIC PANEL (14) calcium 9.8 mg/dL 8.6-10 .2 Not Available [facility] ([facility]) [address] [facility] [place], [address], 09/28/2023 15:08:43 09/27/19 24 09/28/2023 COMP. METAB OLIC PANEL (14) protein, total 7.3 g/dL 6.0-8. 5 Not Available [facility] ([facility]) [address] [facility] [place], [address], 09/28/2023 15:08:43 09/27/19 24 09/28/2023 COMP. METAB OLIC PANEL (14) albumin 4.5 g/dL 3.8-4. 8 Not Available [facility] ([facility]) [address], [address], 09/28/2023 15:08:43 09/27/19 24 09/28/2023 COMP. METAB OLIC PANEL (14) globulin, total 2.8 g/dL 1.5-4. 5 Not Available [facility] ([facility]) [address], [address], 09/28/2023 15:08:43 09/27/19 24 09/28/2023 COMP. METAB OLIC PANEL (14) bilirubin, total 0.9 mg/dL 0.0-1. 2 Not Available [facility] ([facility]) [address] [place], [address], 09/28/2023 15:08:43 09/27/19 24 09/28/2023 COMP. METAB OLIC PANEL (14) alkaline phosphatase 119 IU/L 44-121 Not Available [facility]) [address] [place], [address], 09/28/2023 15:08:43 09/27/19 24 09/28/2023 COMP. METAB OLIC PANEL (14) AST (SGOT) 20 IU/L 0-40 Not Available [facility] ([facility]) [address] [facility] [place], [address], 09/28/2023 15:08:43 09/27/19 24 09/28/2023 COMP. METAB OLIC PANEL (14) ALT (SGPT) 12 IU/L 0-44 Not Available [facility] ([facility]) [address] [facility] [place], [address], 09/28/2023 15:08:43 09/27/19 24 09/28/2023 VITAM IN B12 AND FOLAT E vitamin B12 1309 pg/mL 232-12 45 above high normal Not Available [facility] ([facility]) [address] [facility] [place], [address], 09/28/2023 15:08:44 09/27/19 24 09/28/2023 VITAM IN B12 AND FOLAT E folate (folic acid), serum 11.1 NG/mL >3.0 A serum folat e toshia ntrat ion of less than 3.1 ng/mL is consi dered to repre sent clini marina defic iency . Not Available [facility] ([facility]) [address] [facility], [place], [address], 09/28/2023 15:08:44 09/27/19 24 09/28/2023 CBC WITH DIFFE RENTI AL/PL ATELE T WBC 5.0 x10e3 /uL 3.4-10 .8 Not Available [facility] ([facility]) [address] [facility], [place], [address], 09/28/2023 15:08:45 09/27/19 24 09/28/2023 CBC WITH DIFFE RENTI AL/PL ATELE T RBC 4.93 x10e6 /uL 4.14-5 .80 Not Available [facility] ([facility]) [address] [facility], [place], [address], 09/28/2023 15:08:45 09/27/19 24 09/28/2023 CBC WITH DIFFE RENTI AL/PL ATELE T hemoglobin 14.5 g/dL 13.0-1 7.7 Not Available [facility] ([facility]) [address] [facility], [place], [address], 09/28/2023 15:08:45 09/27/19 24 09/28/2023 CBC WITH DIFFE RENTI AL/PL ATELE T hematocrit 44.2 % 37.5-5 1.0 Not Available [facility] ([facility]) [address] [facility], [place], [address], 09/28/2023 15:08:45 09/27/19 24 09/28/2023 CBC WITH DIFFE RENTI AL/PL ATELE T MCV 90 fL 79-97 Not Available [facility] ([facility]) [address] [facility], [place], [address], 09/28/2023 15:08:45 09/27/19 24 09/28/2023 CBC WITH DIFFE RENTI AL/PL ATELE T MCH 29.4 pg 26.6-3 3.0 Not Available [facility] ([facility]) [address] [facility], [place], [address], 09/28/2023 15:08:45 09/27/19 24 09/28/2023 CBC WITH DIFFE RENTI AL/PL ATELE T MCHC 32.8 g/dL 31.5-3 5.7 Not Available [facility] ([facility]) [address] [facility], [place], [address], 09/28/2023 15:08:45 09/27/19 24 09/28/2023 CBC WITH DIFFE RENTI AL/PL ATELE T RDW 12.4 % 11.6-1 5.4 Not Available [facility] ([facility]) [address] [facility], [place], [address], 09/28/2023 15:08:45 09/27/19 24 09/28/2023 CBC WITH DIFFE RENTI AL/PL ATELE T platelets 297 x10e3 /uL 150-45 0 Not Available [facility] ([facility]) [address] [facility], [place], [address], 09/28/2023 15:08:45 09/27/19 24 09/28/2023 CBC WITH DIFFE RENTI AL/PL ATELE T neutrophils 79 % notest ab. Not Available [facility] ([facility]) [address] [facility], [place], [address], 09/28/2023 15:08:45 09/27/19 24 09/28/2023 CBC WITH DIFFE RENTI AL/PL ATELE T lymphs 13 % notest ab. Not Available [facility] ([facility]) [address] [facility], [place], [address], 09/28/2023 15:08:45 09/27/19 24 09/28/2023 CBC WITH DIFFE RENTI AL/PL ATELE T monocytes 6 % notest ab. Not Available [facility] ([facility]) [address] [facility], [place], [address], 09/28/2023 15:08:45 09/27/19 24 09/28/2023 CBC WITH DIFFE RENTI AL/PL ATELE T eos 2 % notest ab. Not Available [facility] ([facility]) [address] [facility], [place], [address], 09/28/2023 15:08:45 09/27/19 24 09/28/2023 CBC WITH DIFFE RENTI AL/PL ATELE T basos 0 % notest ab. Not Available [facility] ([facility]) [address] [facility], [place], [address], 09/28/2023 15:08:45 09/27/19 24 09/28/2023 CBC WITH DIFFE RENTI AL/PL ATELE T neutrophils (absolute) 3.9 x10e3 /uL 1.4-7. 0 Not Available [facility] ([facility]) [address] [facility], [place], [address], 09/28/2023 15:08:45 09/27/19 24 09/28/2023 CBC WITH DIFFE RENTI AL/PL ATELE T lymphs (absolute) 0.6 x10e3 /uL 0.7-3. 1 below low normal Not Available [facility] ([facility]) [address] [facility], [place], [address], 09/28/2023 15:08:45 09/27/19 24 09/28/2023 CBC WITH DIFFE RENTI AL/PL ATELE T monocytes(ab solute) 0.3 x10e3 /uL 0.1-0. 9 Not Available [facility] ([facility]) [address] [place], [address], 09/28/2023 15:08:45 09/27/19 24 09/28/2023 CBC WITH DIFFE RENTI AL/PL ATELE T eos (absolute) 0.1 x10e3 /uL 0.0-0. 4 Not Available [facility] ([facility]) [address] [facility], [place], [address], 09/28/2023 15:08:45 09/27/19 24 09/28/2023 CBC WITH DIFFE RENTI AL/PL ATELE T baso (absolute) 0.0 x10e3 /uL 0.0-0. 2 Not Available [facility] ([facility]) [address] [facility], [place], [address], 09/28/2023 15:08:45 09/27/19 24 09/28/2023 CBC WITH DIFFE RENTI AL/PL ATELE T immature granulocytes 0 % notest ab. Not Available [facility] ([facility]) [address] [facility], [place], [address], 09/28/2023 15:08:45 09/27/19 24 09/28/2023 CBC WITH DIFFE RENTI AL/PL ATELE T immature grans (abs) 0.0 x10e3 /uL 0.0-0. 1 Not Available [facility] ([facility]) [address] [place], [address], 09/28/2023 15:08:45 09/27/19 24 09/28/2023 TRIIO DOTHY KAYLYN E (T3), FREE triiodothyro nine (T3), free 2.9 pg/mL 2.0-4. 4 Not Available [facility] ([facility]) [address] [place], [address], 09/28/2023 15:08:45 12/29/19 24 12/30/2023 SEDIM ENTAT ION RATE- WESTE RGREN sedimentatio n rate-westerg latisha 8 mm/HR 0-30 Not Available [facility] ([facility]) [address] [facility], [place], [address], 12/30/2023 10:14:08 12/29/19 24 12/30/2023 RPR RPR NON REACTI VE nonrea ctive Not Available [facility] ([facility]) [address] [facility], [place], [address], 12/30/2023 10:14:09 12/29/19 24 12/30/2023 C-USMAN CTIVE PROTE IN, QUANT C-reactive protein, quant 3 mg/L 0-10 Not Available [facility] ([facility]) [address] [facility], [place], [address], 12/30/2023 10:14:10 10/20/19 24 10/20/2023 CT, head + brain , w/wo contr ast No observ ation record ed. [facility] [address] [place], [address], 10/25/2023 23:17:43 04/22/19 25 04/19/2024 US, echoc ardio gram, trans thora cic, compl ete, w/ color flow No observ ation record ed. [facility] [address], [place], [address], 04/23/2024 14:05:55 07/27/19 25 07/25/2024 XR, cervi marina spine No observ ation record ed. [email or web address] [facility] [address] [facility] [address] [place] [address], [address], 08/06/2024 22:40:34 07/27/19 25 07/25/2024 XR, lumba r spine No observ ation record ed. [address] [facility] [address], [place], [address], 08/06/2024 22:40:35 08/02/19 25 08/01/2024 PFT, compl ete No observ ation record ed. [facility] [address], [place], [address], 08/06/2024 22:40:35 Result Notes None recorded. Problems Name Problem SNOMED Code Status Onset Date Resolution Date Notes Provider Name and Address Organization Details Recorded Time Memory impairment 958506890 Active 2023 Risa Rodriguez MA null, [place] - [facility] 4 16:50:53 Headache 64690189 Active 2023 SERAFIN Tracy, [facility] 4 16:50:54 Gastroesophage al reflux disease without esophagitis 531210035 Active 2023 Risa Rodriguez MA null, [facility] 4 17:06:12 Weight decreased 661181634 Active 2024 SERAFIN Tracy, [facility] 5 17:31:50 Screening for malignant neoplasm of prostate Active 2024 SERAFIN Tracy, [facility] 5 17:31:51 Problem Notes None recorded. Procedures Surgical History Date Name Laterality Status Provider Name and Address Organization Details Recorded Time Back Surgery completed Tia Orellana MA [facility] 08/09/2023 15:43:57 Hernia Repair completed Tia Orellana MA [facility] 08/09/2023 15:44:02 Prostate Biopsy completed Tia Orellana MA [facility] 08/09/2023 15:44:06 Imaging Results None recorded. Procedure Notes None recorded. Medical Equipment None [...] active Not Available Not Available Not Available sertraline 50 mg tablet Take 1 tablet(s) every day by oral route. 2024 active Not Available Not Available Not Avai lable ipratropium bromide 21 mcg (0.03 %) nasal spray [place] 2 sprays every day by intranasa l route. 2023 active Not Available Not Available Not Avai lable memantine 5 mg tablet Take 1 tablet twice a day by oral route. active Not Available Not Available No t Available Flonase Allergy Relief 50 mcg/actuati on nasal spray,suspe nsion 2 sprays each nostril daily 2024 active Not Available Not Available Not Avai lable Vitals Date Recorded Body height Body mass index (BMI) Body weight Heart rate Oxygen saturation Oxygen saturation in Arterial blood by Pulse oximetry Systolic blood pressure Diastolic blood pressure Provider Name and Address Organization Details Last Updated DateTime 5 185.42 cm 19.5 kg/m2 82066.0 3 g 60 /min 97 % 97 % 124 mm[Hg] 62 mm[Hg] Dara Mcgowan [place] - [facility] 5 16:42:11 Date Recorded Body height Body mass index (BMI) Body weight Heart rate Oxygen saturation Oxygen saturation in Arterial blood by Pulse oximetry Systolic blood pressure Diastolic blood pressure Provider Name and Address Organization Details Last Updated DateTime 5 185.42 cm 18.2 kg/m2 44164.1 1 g 82 /min 98 % 98 % 114 mm[Hg] 62 mm[Hg] Dara Mcgowan [place] - [facility] 5 16:34:12 Date Recorded Body height Body mass index (BMI) Body weight Heart rate Oxygen saturation Oxygen saturation in Arterial blood by Pulse oximetry Systolic blood pressure Diastolic blood pressure Provider Name and Address Organization Details Last Updated DateTime 4 185.42 cm 21.4 kg/m2 38643.0 4 g 61 /min 97 % 97 % 110 mm[Hg] 62 mm[Hg] Dara Mcgowan MA [facility] 4 16:33:20 Date Recorded Body height Body mass index (BMI) Body weight Heart rate Oxygen saturation Oxygen saturation in Arterial blood by Pulse oximetry Systolic blood pressure Diastolic blood pressure Provider Name and Address Organization Details Last Updated DateTime 4 185.42 cm 20.7 kg/m2 67495.3 6 g 74 /min 97 % 97 % 116 mm[Hg] 64 mm[Hg] Dara Mcgowan MA [facility] 4 16:51:41 Date Recorded Body height Body mass index (BMI) Body weight Heart rate Oxygen saturation Oxygen saturation in Arterial blood by Pulse oximetry Systolic blood pressure Diastolic blood pressure Provider Name and Address Organization Details Last Updated DateTime 4 185.42 cm 20.4 kg/m2 24543.4 6 g 90 /min 97 % 97 % 110 mm[Hg] 70 mm[Hg] Gracia Tubbs MA [facility] 4 16:07:56 Social History Question Answer Notes LastModified by Organizat ion Details LastModified Time Tobacco Smoking Status Former Smoker Tia Orellana MA [facility] 08/09/2023 15:46:28 Do You Have An Advance Directive? No Medical POA Information not available 09/27/2023 Are You Blind Or Do You Have [...] Date Of Your Most Recent Tobacco Screening? 08/14/2024 Information not available 08/14/2024 What Is Your Relationship Status? Information not available 08/09/2023 Do You Use Your Seat Belt Or Car Seat Routinely? Yes Information not available 08/09/2023 Do You Have Smoke And Carbon Monoxide Detectors In Your Home? Yes Information not available 10/25/2023 How Much Tobacco Do You Smoke? 1 PPD Information not available 08/09/2023 Do You Use Sunscreen Routinely? Yes Information not available 10/25/2023 Has Tobacco Cessation Counseling Been Provided? No Information not available 09/27/2023 How Many Years Have You Smoked Tobacco? 20 Information not available 08/09/2023 Sex: Male Functional Status Question Answer Note LastModified by Organizat ion Details LastModified Time Do you use any illicit or recreational drugs? No Information not available 09/27/2023 Do you or have you ever used any other forms of tobacco or nicotine? No Information not available 09/27/2023 What is your level of alcohol consumption? None Information not available 08/09/2023 Are you currently employed? No Information not available 10/25/2023 Are you able to care for yourself? Yes Information not available 08/09/2023 What is your exercise level? None Information not available 10/25/2023 Mental Status Question Answer Note LastModified by Organization D etails LastModified Time Do you feel stressed (tense, restless, nervous, or anxious, or unable to sleep at night)? [id number] Information not available 08/09/2023 Family History Relationship Description Onset Age of [...] Skin Problems N Anemia N Heart Attack ([place]) N Anxiety Disorder N Diabetes N Muscle, [...] [facility] 09/27/2023 15:31:14 pneumococcal polysaccharide PPV23 0 SERAFIN Araya, [place] - [facility] 09/27/2023 15:31:14 Influenza, high-dose, trivalent, PF 8 completed Joanna Yoon [place] null, [place] - [facility] 09/27/2023 15:31:14 Influenza, high-dose, trivalent, PF 8 completed [place] [facility] 09/27/2023 15:31:14 Influenza, high-dose, trivalent, PF 7 completed [place] [facility] 09/27/2023 15:31:14 Influenza, high-dose, trivalent, PF 9 completed Joanna [place] [facility] 09/27/2023 15:31:14 Influenza, split virus, trivalent, preservative 3 completed Joanna Y[place], [place] [facility] 09/27/2023 15:31:14 Influenza, split virus, trivalent, PF 4 completed Joanna Yoon [place] null, [place] - [facility] 09/27/2023 15:31:14 Influenza, high-dose, trivalent, PF 4 completed Norma Mart MD Attn: Accounting,[address] [place], [address], [facility] - [facility] 01/24/2024 21:55:05 Pneumococcal conjugate PCV20, polysaccharide TPT083 conjugate, adjuvant, PF 5 completed Norma Mart MD Attn: Accounting,[address] [place], [address], [facility] - [facility] 04/23/2024 21:10:05 Past Encounters Encounter ID Performer Location Encounter Start Date Encounter Closed Date Diagnosis/Indication Diagnosis SNOMED-CT Code Diagnosis ICD10 Code Diagnosis Note [id number] MD Charline Peng (Adult Med) [address] [place] [phone] 09/27/2023 15:23:02 09/27/2023 17:03:34 Memory impairment 173139551 R41.3 Headache 99877238 R51.9 [id number] MD Charline Peng (Adult Med) [address] [place] [phone] 10/25/2023 16:18:45 10/25/2023 17:07:55 Underweight 731069832 R63.6 Memory impairment 789319 006 R41.3 Gastroesop hageal reflux disease without esophagitis 426145981 K21.9 [id number] MD Charline Peng (Adult Med) [address] [place] [phone] 11/22/2023 16:20:13 11/22/2023 17:49:56 Memory impairment 480401767 R41.3 Gastroesop hageal reflux disease without esophagitis 303308092 K21.9 [id number] MD Charline Peng (Adult Med) [address] [place] [address] [phone] 01/24/2024 15:52:58 01/24/2024 16:53:51 Body mass index 20-24 - normal 308557204 Z68.20 Rhinitis 27223991 J00 Mitral barber ve regurgitation 37497053 I34.0 Pain of bi lateral eyes 6637832314 23302 H57.13 Administra tion of influenza vaccine 30228667 Z23 Basal cell carcinoma of skin 164974794 C44.91 [id number] MD Charline Peng (Adult Med) [address] [place] [address] [id number] 04/23/2024 16:13:24 04/23/2024 17:36:50 Underweight 050399152 R63.6 Dyspnea 951027946 R06.00 Administra tion of pneumococcal vaccine 84714504 Z23 Gastroesop hageal reflux disease without esophagitis 667532185 K21.9 Memory impairment 772033 006 R41.3 [id number] MD Charline Peng (Adult Med) [address] [place] [phone] 08/14/2024 15:57:55 08/14/2024 17:30:20 Underweight 973636087 R63.6 Z68.1 Weight decreased 9196761 01 R63.4 Screening for malignant neoplasm of prostate 807466538 Z12.5 Fatigue 38312702 R53.83 Chronic rhinitis 0742038 6 J31.0 Gastroesop hageal reflux disease without esophagitis 151882570 K21.9 Health Concerns Section Related Observation LastModified by Organization Detai ls LastModified Time None Recorded Concern Status LastModified by Organization Details LastModified Time None Recorded Advance Directives Directive N: Medical POA Payers Encounter Date Sequence Insurance Name Policy Number Policy Mehta Covered Member ID Mehta Member ID Guarantor Name 10/25/2023 1 [employer] (MEDICARE REPLACEMENT/A DVANTAGE - HMO) [id number] Maxi D Gum [id number] Maxi Gum 11/22/2023 1 [employer] (MEDICARE REPLACEMENT/A DVANTAGE - HMO) [id number] Maxi D Gum [id number] Maxi Gum 01/24/2024 1 [employer] (MEDICARE REPLACEMENT/A DVANTAGE - HMO) [id number] Maxi D Gum [id number] Maxi Gum 04/23/2024 1 [employer] (MEDICARE REPLACEMENT/A DVANTAGE - HMO) [id number] Maxi D Gum [id number] Maxi Gum 08/14/2024 1 [facility] (MEDICARE REPLACEMENT/A DVANTAGE - HMO) [id number] Maxi D Gum [id number] Maxi Gum Notes Date Note Type Note Provider Name and Address Organization Details Recorded Time 10/25/2023 text/html follow up of [facility] CT scan was unremarkable GERD flared up a little bit chronic pain about the same Norma Mart MD Attn: [address]ing[address] [place], [address], [facility] 10/27/2023 20:16:23 11/22/2023 text/html patient is in office with daughter she thinks he has a little bit more forgetful he says that he does recognize that there probably is some slippage of memory. Norma Mart MD Attn: [address] [place], [address], [facility] 12/02/2023 14:18:11 01/24/2024 text/html 1. 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 and [...] his daughter today Norma Mart MD Attn: Accounting[address] [place], [address], [facility] 01/24/2024 21:58:53 04/23/2024 text/html he has been [...] has chronic rhinitis with little help with lwty-xjq-kmwhxqw meds and nasal sprays Norma Mart MD Attn: [address]ing[address] , [place], [address], [facility] 04/23/2024 21:12:32 08/14/2024 text/html Comes in for fol low up of his medical problems continues to lose weight without any abdominal pain just never good appetite continues to have the chronic rhinitis would like to try something to help with that without anything suggestion of infection he has fatigue that is nonspecific he is brought in by his daughter Gisela. He has been treated for anxiety and dementia and GERD which at this time appears to be stable but with they are working with Neurology and Psychiatry with the patient as well Norma Mart MD Attn: [address]ing[address] [facility], [place], [address], [facility] 08/14/2024 21:26:07
--- OUTSIDE RECORDS SUMMARY | 2024-08-22 16:04 | XMS_ITS | Clinical Summary ---
Author Organization [facility] Address [address] [place] [address] Care Team Providers Care Hplc Chemist Name Role Phone Tom Mart MD Primary Care Provider [phone] Ricarda Peterson MD Unavailable Julian Yates MD [...] hours as needed for pain Active omega 0-znl-xyg-fish oil 300 mg (120 mg- 180mg)-1,000 mg [...] Nitric Oxide Sanguenol Active cholecalciferol (VITAMIN D-3) 60383 unit capsuleIndicati ons:Prevention of Vitamin D Deficiency [...] (05/06/2022): Added automatically from request for surgery [id number] Basal cell carcinoma (BCC) of face 08/23/2016 [...] on file 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 Gender Identity Not on file Sexual Orientation Not on file Obstetrics History Last Filed Vital Signs Vital Sign Reading Time Taken Comments Blood Pressure 96/60 06/02/2022 4:40 PM DESIGN LEADER Pulse 86 06/02/2022 4:40 PM DESIGN LEADER Temperature 36 C (96.8 F) 06/02/2022 1:31 PM DESIGN LEADER Respiratory Rate 14 06/02/2022 4:40 PM DESIGN LEADER Oxygen Saturation 98% 06/02/2022 4:40 PM DESIGN LEADER Inhaled Oxygen Concentration - - Weight 74 kg (163 lb 3.2 oz) 06/14/2022 1:34 PM CDT Height 185.4 cm (6' 1) 05/12/2022 1:25 PM DESIGN LEADER Body Mass Index 21.53 05/12/2022 1:25 PM DESIGN LEADER Plan of Treatment Health Maintenance Due Date [...] history exists Medical Devices Implanted Type Area Geological Drafter Device Identifier Shelf Expiration Date Model / Serial / Lot Spinal Cord Stimulator Spinal Cord Stimulator Back Insurance [facility] MEDICARE ADVANTAGE [facility] MEDICARE Address: [address] [address] [facility] MEDICARE ADVANTAGE [facility] MEDICARE Address: [facility] [address] [place] [address] Care Teams Hplc Chemist Relationship Specialty Start Date End Date Tom Mart MD PCP - General 07/15/16 Ricarda Peterson MD Consulting Physician Internal Medicine 05/03/22 Julian Yates MD Referring Physician Otolaryngology 05/07/22
--- OUTSIDE RECORDS SUMMARY | 2024-08-22 16:04 | XMS_ITS ---
Author Organization [facility] Address [address] [place] [address] Care Team Providers Care Market Developer Name Role Phone Tom Mart MD Primary Care Provider Ricarda Peterson MD Unavailable Julian Yates MD Unavailable Active Problems Problem Noted Date Diagnosed Date Basal cell carcinoma (BCC) of skin of left ear 0 05/06/2022 Overview (05/06/2022): Added automatically from request for surgery [id number] Basal cell carcinoma (BCC) of face 08/23/2016 Skin neoplasm 07/07/2016 Seborrheic eczema 07/07/2016 Keratosis, senilis 07/07/2016 Current Treatment and Therapy Plans No current plan information found. Past Treatment and Therapy Plans No past plan information found. Lifetime Dose Tracking * Chemical Lifetime Dose Automatic Entry Manual Entr y DLP 370 mGycm 370 mGycm 0 mGycm
== END 2024-08-22 16:01 | disposition home or self-care (01) ==
PROVIDERS: PCP Internal Medicine; Visit Provider Internal Medicine
DX: R06.00 Dyspnea, unspecified (principal)
CPT/HCPCS: 71046

== ENCOUNTER 2024-08-29 05:52 | Emergency (ER) | payer MEDICARE, SELFPAY ==
--- NOTE | ~2024-08-29 | XR_ITS ---
Supine and upright views of the abdomen Clinical history: Constipation Findings: Bowel gas pattern is nonspecific. Moderate stool present. No evidence for obstruction or fr ee air. No abnormal mass lesion or calcification is seen. Probable old, healed fracture deformity of the intertrochanteric region of the left femur. Neurostimulator device present. Impression: Moderate stool burden. Reviewed, dictated and finalized at [facility]. Impression: Moderate stool burden.
[2024-08-29 05:55] VITALS: BP 112/68; PULSE 94; RESP 17; TEMP 37; O2SAT 97
[2024-08-29 05:56] VITALS: BP 112/68; O2SAT 100
[2024-08-29 06:01] VITALS: BP 107/63; O2SAT 100
--- OUTSIDE RECORDS SUMMARY | 2024-08-29 06:03 | XMS_ITS | Continuity of Care Document ---
Author Name [facility] Organization [facility] Care Team Providers Care Community Recreation Programmer Name Role Phone [facility] Unavailable Unavailable Problems Combined list of problems from Department of Defense and Veterans Affairs facilities. It does not include entries that were removed or entered in error. Problem Status Onset Date Problem Type Date of Resolution Comments Source Diagnosis: ICD-10-CM Z65.9 Problem related to unspecified psychosocial circumstances Active Diagnosis [facility] Immunizations Combined list of available immunizations from the Department of Defense and Veterans Affairs facilities. Immunization Series Date Given Administered By Site Reaction Lot Number CVX Code Drug Extension Forester Status Comments Source INFLUENZA, UNSPECIFIED FORMULATION 2024 88 complet ed HISTORICA L INFORMATI ON - FROM PATIENT'S RECALL, Daughter states that received [facility] Encounters Combined list of: 1) Encounters from Department of Veterans Affairs facilities going backup to the last 18 months, not all [place] inpatient encounters are included; 2) Encounters from the Department of [facility] facilities going backup to 280 months. Location Location Details Encounter Type Encounter Number Reason For Visit Attending Provider ADM Date DC Date Status Disposition Source [facility] Outpatient Encounter [id number] 03/27 [facility] Outpatient Encounter [id number] 05/14 [facility] Outpatient Encounter [id number] 07/30 [facility] Outpatient [facility]counter [id number] 08/01 [facility] Outpatient Encounter [id number] 08/15 [facility] PH1 ASSMT&MGMT NQHP 21-30 [id number] Diagnos is: ICD-10- CM Z65.9 Problem related to unspeci fied psychos ocial circums amaurices JOSE GAVIRIA A L 08/22 [facility] PH1 ASSMT&MGMT NQHP 11-20 [id number] Diagnos is: ICD-10- CM Z65.9 Problem related to unspeci fied psychos ocial circums tanJOSE Lagos A L 08/23 [facility] Outpatient Encounter [id number] JOSE GAVIRIA A L 08/23 [facility] Outpatient Encounter [id number] ALIREZA,NID [place] 08/28 [facility] Social History Combined list of available smoking, tobacco, and other social history from Department of Defense and Veterans Affairs facilities. Social History Type Response Date Comment Sourc e Tobacco smoking status NHIS VA-TOBACCO USE FORMER CIGARETTES 08/28/2024 [facility] History of tobacco use VA-TOBACCO USE EVERY DAY OTHER TYPE 08/28/2024 [facility] Plan of Care List of future care activities from Department of [facility] Affairs facilities. Additional future care activities may be listed in the Assessment and Plan section. Date/Time Care Activity Care Activity Detail Facili ty 09/02/2024 AMBULATORY - MEDICINE AMBULATORY - MEDICI [facility]
--- OUTSIDE RECORDS SUMMARY | 2024-08-29 06:03 | XMS_ITS | Encounter Summary ---
Author Name [facility] Organization [facility] Address [address] [place] [address] Support Name Relationship Address Phone MAYUR BARROW Emergency Contact Unknown Insurance Providers: All historical [...] MEDICARE ADVANTAGE MCR (WNR) Dec 26, 2023 [id number] PATIENT Selected Encounter This section includes the information on record at [place] for the Encounter. Date/Time Encounter Type Encounter Description Reason Provider Source Aug 28, 2024 09:36 AM Outpatient Encounter TELEPHONE PRIMARY CARE MADDIE DEL RIO Encounter Template Text not used by [place] Plan of Treatment: Future Appointments (+ 6 months) and Future Tests (+/- 45 days) The Plan of Treatment section includes future care activities for the patient from all [place] treatmentfacilities. This section includes future appointments and future orders which are active, pending or scheduled. Future Appointments This section includes appointments that were scheduled to occur 6 months from the date of the Encounter, up to a maximum of 20 appointments. The data comes from all [place] treatment facilities. Appointment Date/Time Appointment Type Appointme nt Facility Name Sep 02, 2024 01:45 PM AMBULATORY - MEDICINE [facility] Sep 11, 2024 01:00 PM AMBULATORY - MEDICINE [facility] Sep 18, 2024 01:00 PM AMBULATORY - MEDICINE [facility] Active, Pending, and Scheduled Orders This section includes a listing of several types of active, pending, and scheduled orders, including clinic medications orders, diagnostic test orders, procedure orders and consult orders; where the start date of the order is 45 days before the date of the Encounter or 45 days after the date of theEncounter. The data comes from all [facility]. Test Date/Time Test Type Test Details Facility Name Sep 02, 2024 12:00 AM Laboratory - Chemistry Order [id number] BLOOD [facility] Sep 02, 2024 12:00 AM Laboratory - Chemistry Order CBC BLOOD [facility] Sep 02, 2024 12:00 AM Laboratory - Chemistry Order COMPREHENSIVE METABOLIC PANEL GREEN LI/HEP BLD/PLAS PLASMA [facility] Sep 02, 2024 12:00 AM Laboratory - Chemistry Order LIPID PANEL (STL) GREEN LI/HEP BLD/PLAS PLASMA [facility] Sep 02, 2024 12:00 AM Laboratory - Chemistry Order MICRAL/CREAT PROFILE (STL) URINE YELLOW [facility] Sep 02, 2024 12:00 AM Laboratory - Chemistry Order LIPID PANEL (STL) GREEN LI/HEP BLD/PLAS PLASMA [facility] Sep 02, 2024 12:00 AM Laboratory - Chemistry Order TSH (MA-PB) GOLD/RED SST SERUM [facility] Social History: Smoking Status (Most current) and Tobacco Use (All prior to encounter date) This section includes the most current, and the historical, smoking and tobacco- related health factors from the [place] facility where the Encounter took place. Current Smoking Status This section includes the most current smoking, or tobacco-related health factor, from the [place] facility where the Encounter took place. Date/Time Current Smoking Status Comment Facil ity Aug 28, 2024 09:36 AM VA-TOBACCO USE FOR BRITTANY CIGARETTES [facility] Tobacco Use History This section includes a history of the smoking, or tobacco-related health factors, that were collected on or before the date of the Encounter. The data comes from the [place] facility where the Encounter took place. Date/Time Smoking Status/Tobacco Use Comment F acility Aug 28, 2024 09:36 AM VA-TOBACCO USE [facility] DAY OTHER TYPE [facility] Aug 28, 2024 09:36 AM VA-TOBACCO USE FOR BRITTANY CIGARETTES [facility] Encounter Notes: All associated encounter notes This section contains the clinical notes associated to the Encounter. Date/Time Encounter Note(s) Provider Source Aug 28, 2024 01:08 PM ADDENDUM: LOCAL TITLE: Addendum STANDARD TITLE: ADDENDUM DATE OF NOTE: AUG 28, 2024@13:08:15 ENTRY DATE: AUG 28, 2024@13:08:17 AUTHOR: KRYSTAL BRICE EXP COSIGNER: URGENCY: STATUS: COMPLETED Daughter agreed to intake appt 09/02 @ 130pm. RTC placed. /es/ Krystal Brice, PharmD CLINICAL DURABILITY TECHNICIAN Signed: 08/28/2024 13:14 Receipt Acknowledged By: 08/28/2024 15:59 /es/ ELIEZER MIX ADVANCED SCREENER OPERATOR === --- Original Document --- 08/28/24 V15 PACT TELEPHONE CONTACT NOTE STL: Patient/Other contacted: If other, name: Karthik Barrow [phone] Patient Identifiers : Full Name Date of Appointment Reminder: Outbound call to patient to remind of upcoming: Provider in-person with Dr Del Rio Appointment is scheduled for: Aug@13:00 Appointment type: In-person, instructed to: Write down any questions you may have to discuss with your provider at your appointment. Bring any forms or non-VA records if needed. Arrive 15 mins early to check-in allowing time for traffic and parking. Take your medicine as you normally would that morning, and bring all your medicine with you to the appointment: this includes any purchased over the counter that you are using. Clinical reminders: Applicable nurse reminders due at the time of this encounter will be completed at the end of note. Encouraged to contact PC Team with questions/concerns or if need to reschedule/cancel appointment. Provided/reviewed the nurse advice line (ext [phone]) for medical needs after hours. Contact understanding verified by teach back: Yes Total time spent on phone: 10 minutes Influenza Immunization - L,N,P,PH,U: The patient has received the seasonal influenza vaccine for the current season at another location. Documented: INFLUENZA, UNSPECIFIED FORMULATION Historical Date Administered: 2024 Exact date unknown Information Source: FROM PATIENT'S RECALL Comment: Daughter states that received Learning Assessment: - * This patient's learning ABILITIES, BARRIERS to learning, CULTURAL and SCIENTOLOGY beliefs, and learning PREFERENCES were assessed. Following are findings of note: Patient reads well. Comment: with glasses Patient has the following hearing/auditory barrier(s) to consider when teaching: Hard of hearing. Patient has the following speech barrier to consider when teaching: No speech barrier identified. LANGUAGE Patient reports that Spanish is preferred language for healthcare. Patient reports learning preference is to refer to handouts. Patient reports learning preference is attending one-to-one or group demonstrations. Patient reports learning preference is looking at pictures or viewing videos. Alcohol Use Screen (AUDIT-C) - V: Alcohol Screen: SCREEN FOR ALCOHOL (AUDIT-C) An alcohol screening test (AUDIT-C) was negative (score=0). 1. How often did you have a drink containing alcohol in the past year? Consider a drink to be a 12 ounce can or bottle of regular beer, 8 ounces of malt liquor, a 5 ounce glass of table wine, or a 1.5 ounce shot of liquor (like scotch, gin, or vodka). Never 2. How many drinks containing alcohol did you have on a typical day when you were drinking in the past year? Response not required due to responses to other questions. 3. How often did you have six or more drinks on one occasion in the past year? Response not required due to responses to other questions. VVC DIGITAL DIVIDE CAPABILITY REMINDER: Patient is interested in [facility] Health Care appointments. VVC requirements have been communicated to the [place]. The confirms understanding of those requirements and indicates the following VVC needs: has completed previous VVC appointments and confirms they are STILL VVC CAPABLE. Future VVC appointments can be scheduled. 'S RIGHT TO DECLINE STATEMENT understands they have the right to decline the use of Telehealth Technology at any time without adverse affects on their continued access to healthcare. Daughter states that the takes numerous medications. She states has no known drug allergies. Wants to establish care as will be needing assistance in the home Tobacco Use Screening - AT,DE,L,M,N,P,PH,PS,RT,S, U: The patient is a former cigarette smoker. Quit smoking GREATER THAN OR EQUAL to 15 years. The patient uses other type(s) of tobacco every day. Other Tobacco Type(s) used: Electronic Nicotine Delivery System (ENDS) (e.g., e-cigarettes/vape pens) Daughter states has vaped for past 8 or 9 years. /patsy MCKEE LPN LICENSED PRACTICAL NURSE Signed: 08/28/2024 09:55 08/28/2024 ADDENDUM STATUS: COMPLETED Dr Del Rio requests that pharmacist speak to (daughter)to verify medications prior to his visit with her on 09/11/24 at 1300. Pharmacist notified. /patsy MCKEE LPN LICENSED PRACTICAL NURSE Signed: 08/28/2024 10:03 Receipt Acknowledged By: 08/28/2024 13:08 /patsy Brice PharmD CLINICAL DURABILITY TECHNICIAN KRYSTAL BRICE [facility] Aug 28, 2024 10:01 AM ADDENDUM: LOCAL TITLE: Addendum STANDARD TITLE: ADDENDUM DATE OF NOTE: AUG 28, 2024@10:01:49 ENTRY DATE: AUG 28, 2024@10:01:50 AUTHOR: EWA MCKEE EXP COSIGNER: URGENCY: STATUS: COMPLETED Dr Del Rio requests that pharmacist speak to (daughter)to verify medications prior to his visit with her on 09/11/24 at 1300. Pharmacist notified. /patsy MCKEE LPN LICENSED PRACTICAL NURSE Signed: 08/28/2024 10:03 Receipt Acknowledged By: 08/28/2024 13:08 /patsy Brice PharmD CLINICAL DURABILITY TECHNICIAN === --- Original Document --- 08/28/24 V15 PACT TELEPHONE CONTACT NOTE STL: Patient/Other contacted: If other, name: Daughter Mayur Barrow [phone] Patient Identifiers : Full Name Date of Appointment Reminder: Outbound call to patient to remind of upcoming: Provider in-person with Dr Del Rio Appointment is scheduled for: Aug@13:00 Appointment type: In-person, instructed to: Write down any questions you may have to discuss with your provider at your appointment. Bring any forms or non-VA records if needed. Arrive 15 mins early to check-in allowing time for traffic and parking. Take your medicine as you normally would that morning, and bring all your medicine with you to the appointment: this includes any purchased over the counter that you are using. Clinical reminders: Applicable nurse reminders due at the time of this encounter will be completed at the end of note. Encouraged to contact PC Team with questions/concerns or if need to reschedule/cancel appointment. Provided/reviewed the nurse advice line (ext [phone]) for medical needs after hours. Contact understanding verified by teach back: Yes Total time spent on phone: 10 minutes Influenza Immunization - L,N,P,PH,U: The patient has received the seasonal influenza vaccine for the current season at another location. Documented: INFLUENZA, UNSPECIFIED FORMULATION Historical Date Administered: 2024 Exact date unknown Information Source: FROM PATIENT'S RECALL Comment: Daughter states that received Learning Assessment: - * This patient's learning ABILITIES, BARRIERS to learning, CULTURAL and SCIENTOLOGY beliefs, and learning PREFERENCES were assessed. Following are findings of note: Patient reads well. Comment: with glasses Patient has the following hearing/auditory barrier(s) to consider when teaching: Hard of hearing. Patient has the following speech barrier to consider when teaching: No speech barrier identified. LANGUAGE Patient reports that Spanish is preferred language for healthcare. Patient reports learning preference is to refer to handouts. Patient reports learning preference is attending one-to-one or group demonstrations. Patient reports learning preference is looking at pictures or viewing videos. Alcohol Use Screen (AUDIT-C) - V: Alcohol Screen: SCREEN FOR ALCOHOL (AUDIT-C) An alcohol screening test (AUDIT-C) was negative (score=0). 1. How often did you have a drink containing alcohol in the past year? Consider a drink to be a 12 ounce can or bottle of regular beer, 8 ounces of malt liquor, a 5 ounce glass of table wine, or a 1.5 ounce shot of liquor (like scotch, gin, or vodka). Never 2. How many drinks containing alcohol did you have on a typical day when you were drinking in the past year? Response not required due to responses to other questions. 3. How often did you have six or more drinks on one occasion in the past year? Response not required due to responses to other questions. VVC DIGITAL DIVIDE CAPABILITY REMINDER: Patient is interested in [facility] Health Care appointments. VVC requirements have been communicated to the [place]. The [place] confirms understanding of those requirements and indicates the following VVC needs: [place] has completed previous [facility] appointments and confirms they are STILL VVC CAPABLE. Future [facility] appointments can be scheduled. 'S RIGHT TO DECLINE STATEMENT understands they have the right to decline the use of Telehealth Technology at any time without adverse affects on their continued access to healthcare. Daughter states that the takes numerous medications. She states has no known drug allergies. Wants to establish care as will be needing assistance in the home Tobacco Use Screening - AT,DE,L,M,N,P,PH,PS,RT,S, U: The patient is a former cigarette smoker. Quit smoking GREATER THAN OR EQUAL to 15 years. The patient uses other type(s) of tobacco every day. Other Tobacco Type(s) used: Electronic Nicotine Delivery System (ENDS) (e.g., e-cigarettes/vape pens) Daughter states has vaped for past 8 or 9 years. /loc/ EWA MCKEE LPN LICENSED PRACTICAL NURSE Signed: 08/28/2024 09:55 08/28/2024 ADDENDUM STATUS: UNSIGNED You may not VIEW this UNSIGNED Addendum. EWA MCKEE [facility] Aug 28, 2024 09:36 AM NURSING NOTE: LOCAL TITLE: V15 PACT TELEPHONE CONTACT NOTE ST STANDARD TITLE: NURSING NOTE DATE OF NOTE: AUG 28, 2024@09:36 ENTRY DATE: AUG 28, 2024@09:36:17 AUTHOR: EWA MCKEE EXP COSIGNER: URGENCY: STATUS: COMPLETED V15 PACT TELEPHONE CONTACT NOTE STL Has ADDENDA Patient/Other contacted: If other, name: Daughter Mayur Barrow [phone] Patient Identifiers : Full Name Date of Appointment Reminder: Outbound call to patient to remind of upcoming: Provider in-person with Dr Del Rio Appointment is scheduled for: Aug@13:00 Appointment type: In-person, instructed to: Write down any questions you may have to discuss with your provider at your appointment. Bring any forms or non-VA records if needed. Arrive 15 mins early to check-in allowing time for traffic and parking. Take your medicine as you normally would that morning, and bring all your medicine with you to the appointment: this includes any purchased over the counter that you are using. Clinical reminders: Applicable nurse reminders due at the time of this encounter will be completed at the end of note. Encouraged to contact PC Team with questions/concerns or if need to reschedule/cancel appointment. Provided/reviewed the nurse advice line (ext [phone]) for medical needs after hours. Contact understanding verified by teach back: Yes Total time spent on phone: 10 minutes Influenza Immunization - L,N,P,PH,U: The patient has received the seasonal influenza vaccine for the current season at another location. Documented: INFLUENZA, UNSPECIFIED FORMULATION Historical Date Administered: 2024 Exact date unknown Information Source: FROM PATIENT'S RECALL Comment: Daughter states that received Learning Assessment: - * This patient's learning ABILITIES, BARRIERS to learning, CULTURAL and SCIENTOLOGY beliefs, and learning PREFERENCES were assessed. Following are findings of note: Patient reads well. Comment: with glasses Patient has the following hearing/auditory barrier(s) to consider when teaching: Hard of hearing. Patient has the following speech barrier to consider when teaching: No speech barrier identified. LANGUAGE Patient reports that Spanish is preferred language for healthcare. Patient reports learning preference is to refer to handouts. Patient reports learning preference is attending one-to-one or group demonstrations. Patient reports learning preference is looking at pictures or viewing videos. Alcohol Use Screen (AUDIT-C) - V: Alcohol Screen: SCREEN FOR ALCOHOL (AUDIT-C) An alcohol screening test (AUDIT-C) was negative (score=0). 1. How often did you have a drink containing alcohol in the past year? Consider a drink to be a 12 ounce can or bottle of regular beer, 8 ounces of malt liquor, a 5 ounce glass of table wine, or a 1.5 ounce shot of liquor (like scotch, gin, or vodka). Never 2. How many drinks containing alcohol did you have on a typical day when you were drinking in the past year? Response not required due to responses to other questions. 3. How often did you have six or more drinks on one occasion in the past year? Response not required due to responses to other questions. VVC DIGITAL DIVIDE CAPABILITY REMINDER: Patient is interested in [facility]VC Health Care appointments. VVC requirements have been communicated to the . The [place] confirms understanding of those requirements and indicates the following VVC needs: has completed previous VVC appointments and confirms they are STILL VVC CAPABLE. Future VVC appointments can be scheduled. 'S RIGHT TO DECLINE STATEMENT [place] understands they have the right to decline the use of Telehealth Technology at any time without adverse affects on their continued access to healthcare. Daughter states that the takes numerous medications. She states has no known drug allergies. Wants to establish care as will be needing assistance in the home Tobacco Use Screening - AT,DE,L,M,N,P,PH,PS,RT,S, U: The patient is a former cigarette smoker. Quit smoking GREATER THAN OR EQUAL to 15 years. The patient uses other type(s) of tobacco every day. Other Tobacco Type(s) used: Electronic Nicotine Delivery System (ENDS) (e.g., e-cigarettes/vape pens) Daughter states has vaped for past 8 or 9 years. /patsy MCKEE LPN LICENSED PRACTICAL NURSE Signed: 08/28/2024 09:55 08/28/2024 ADDENDUM STATUS: COMPLETED Dr Del Rio requests that pharmacist speak to (daughter)to verify medications prior to his visit with her on 09/11/24 at 1300. Pharmacist notified. /patsy MCKEE LPN LICENSED PRACTICAL NURSE Signed: 08/28/2024 10:03 Receipt Acknowledged By: 08/28/2024 13:08 /loc/ Krystal Brice PharmD CLINICAL DURABILITY TECHNICIAN 08/28/2024 ADDENDUM STATUS: COMPLETED Daughter agreed to intake appt 09/02 @ 130pm. RTC placed. /patsy Brice PharmD CLINICAL DURABILITY TECHNICIAN Signed: 08/28/2024 13:14 Receipt Acknowledged By: * AWAITING SIGNATURE * ELIEZER MIX LEIGH A [facility]
--- OUTSIDE RECORDS SUMMARY | 2024-08-29 06:03 | XMS_ITS | Continuity of Care Document ---
Author Organization [facility] Address [address] [place] [address] [address] [place] [address] Phone Care Team Providers Care Sr. Vendor Management Associate Name Role Phone Luo OD, Serge Unavailable Unavailable Procedures Procedure Date Eye Exam & Treatment Refraction Counseling For Antioxidant Supplements A Advance Directives Directive Yes / No Effective Date File Name No Information Encounters Encounter Description Practice Location Reason(s) For Visit Diagnoses Date Provider Providers Copied on Encounter [facility], [address] [place] [address] [address], [place], [place], [id number], [place] tel:[phone] [facility] [place] No Information [address] Luo OD Serge. [address] [facility] [place] , [address], [place], [address], [place]. tel:[phone] Family History Family Member Type Diagnosis Age At Onset No Information Payers Payer name Insurance type Covered alliance party ID Authoriza tion(s) Medicare [facility] [id number] Social History Type Description Quantity Date Captured [...]
--- OUTSIDE RECORDS SUMMARY | 2024-08-29 06:03 | XMS_ITS | CONTINUITY OF CARE DOCUMENT ---
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 Name Role Phone Jenni MONROE, Jose Unavailable ZAY AGUIRRE MD Unavailable [phone] NORMA HYMAN MD Unavailable PROBLEMS Condition Status [...] In-person encounter Office Visit Jose Arteaga MD [facility] - In-person encounter Office Visit Jose Arteaga MD [facility] Pre-procedural laboratory examinationLong-term (current) use of other medicationsShortness of breath - In-person encounter Office Visit Jose Arteaga MD [facility] ScreeningMicrovascular anginaNeuropathy - In-person encounter Office Visit Jose Arteaga MD [facility] Renal cystDiastolic dysfunctionExposure to SARS-associated coronavirus;had vaccineTobacco use, quitPulmonary hypertension - In-person encounter Office Visit Jose Arteaga MD [facility] PALPITATIONSCAD;NEG ECHO, HOLTER AND NUC 07Hyperlipidemia;NEG CRP - In-person encounter Office Visit Jose Arteaga MD [facility] SHORTNESS OF BREATHCHEST PAINLOW BLOOD PRESSUREBACK [...] Lorenzo blood pressure, systolic 120 mm[Hg] Jorge Lornezo oxygen saturation, oximetry 98 % Huseyin Lorenzo [...] iron binding capacity, unsaturated 247 ug/dL [facility] 029-617 7767/10/0 8 iron binding capacity, total 333 ug/dL [facility] 509-120 8828/09/2 3 c-reactive protein, quantitative, serum 0.78 mg/L [...] High 3 cholesterol, serum 172 mg/dL [facility] 060-089 3806/09/2 3 calcium, serum 8.9 mg/dL [facility] 8.6-10.2 3 carbon dioxide, venous blood 27 mmol/L [facility] 20-29 3 chloride, serum 101 mmol/L [facility] 96-106 3 potassium, serum 4.1 mmol/L [facility] 3.5-5.2 3 sodium, serum 141 mmol/L [facility] 721-718 0623/09/2 3 urea nitrogen/creatinin e ratio, serum 15 [...] Estab. 3 platelet count 242 X10E3/UL [facility] 562-934 9615/09/2 3 red blood cell distribution width 12.4 [...] tablet,delayed release (DR/EC) completed - Nahomi Ramos LEAVE MANAGER oxycodone 30 mg tablet active Nahomi Beasley NP lorazepam 0.5 mg tablet [facility] ibuprofen 800 mg tablet active as [...] a day - Jose Arteaga MD OXYCONTIN [id number] completed 1 tablet once a day - [...] ID [employer] MEDICARE SMARTFIT (PPO) Medicare 10 [id number] ADVANCE DIRECTIVES Name Date DISCUSSED - NO DECISION MADE TREATMENT PLAN Date Name Performer [id number],S, T he following medications were removed from the medication list: Ezetimibe 10 Mg Tablet (Ezetimibe) ..... Take 1 tablet by mouth once a day His updated medication list for this problem includes: Repatha Pushtronex 420 Mg/3.5 Ml Wearable Injector (Evolocumab) ..... Inject 3.5 ml subcutaneously every four weeks Jose Arteaga MD [id number],S, Jose baptiste MD [id number],S, n eg iron and dd and pft n eg belly ct and gall stone n eg vit d e ng b12 eng jeanine Jose Arteaga MD [id number],S, Jose baptiste MD [id number],S, Jose baptiste MD [id number],B, Jose baptiste MD [id number],S,mild to mod H melinda Arteaga MD [id number],S, 4 6 Jose Arteaga MD [id number],S, n ml pro and lvedop Jose Arteaga MD [id number],S, 2 0% and 30% RCA, WITH POS NUC Jose Arteaga MD [id number],B, Jose baptiste MD [id number],S, n eg b12 Jose Arteaga MD [id number],S,neg b12 Monique Arteaga MD [id number],S,T his patient?s angina is disabling and in [...] amenable to such procedures. Jose Arteaga MD [id number],S, Jose Serota [id number],S, Jose Serot a [id number],S, Jose Serot a [id number],S, Jose Serot a [id number],S, Jose Serot a [id number],S, Jose Serot a [id number],S, n ml pro and lvedop Jose Serota [id number],S, 2 0% and 30% RCA, WITH POS NUC Jose Serota [id number],S, 4 6 Jose Serota [id number],S, m ild to mod Jose Serota [id number],S,n eg iron and dd and pft n eg belly ct and gall stone n eg vit d e ng b12 eng jeanine Jose Serota [id number],C,mild to mod H arvey Serotemile MONROE [id number],C,46 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 [id number],S, Jose Serot a [id number],S, Jose Serot a [id number],S, Jose Serot a [id number],S,nml pro and l vedop Jose Serota [id number],S,n eg belly ct and gall stone n eg vit d e ng b12 eng jeanine Jose Serota [id number],S, Jose Serot a [id number],S,vascepa not c ovred Jose Serotemile MONROE [id number],S, 2 0% and 30% RCA, WITH POS NUC Jose Arteaga MD [id number],C,20% and 30% R CA, WITH POS NUC Jose Arteaga MD [id number],C,neg vit d Ambrose Arteaga MD [id number],S,on Protonix S александр Beasley LEAVE MANAGER [id number],S, Nahomi brooks LEAVE MANAGER [id number],S,stable Nahomi Beasley LEAVE MANAGER [id number],C,recheck lipid panel today Nahomi Beasley LEAVE MANAGER [id number],W,Plan for Card [facility]. Nahomi Beasley NP :38 Jose Arteaga MD [...] follow up :on Protoni x Nahomi Ramos LEAVE MANAGER Cardiology follow up Nahomi Priteshanjum mccollum LEAVE MANAGER Cardiology follow up :stable She rogers Beasley LEAVE MANAGER Cardiology follow up :recheck li pid panel today Nahomi Ramos LEAVE MANAGER Cardiology follow up :Plan for C ardiac cath. Nahomi Ramos LOMELI follow up: H is updated medication list for this problem includes: Lovaza 1 Gm Caps (Duuly-7-tftb ethyl esters) ..... Onne a day dispense as written Orders: S tress Test - Adenosine (29324) A MYLASE (243) Jose Arteaga MD follow up: O rders: G allbaladder Ultrasound (CPT-44167) C OMPREHENSIVE METABOLIC PANEL W/EGFR (63411) L IPID PANEL (7600) C BC (INCLUDES DIFF/PLT) (6399) T HYROID PANEL WITH TSH, 3RD GENERATION (7444) S tress Test - Adenosine (81728) A MYLASE (243) Jose Arteaga MD follow up: O rders: C omplete Echo (CPT-63307) A rterial Duplex Lower Extremity Bilateral (CPT-75864) E KG (CPT-75722) G allbaladder Ultrasound (CPT-45158) C OMPREHENSIVE METABOLIC PANEL W/EGFR (75897) L IPID PANEL (7600) C BC (INCLUDES DIFF/PLT) (6399) T HYROID PANEL WITH TSH, 3RD GENERATION (7444) S tress Test - Adenosine (23402) Jose Arteaga MD follow up: B P today: 105/66 Prior BP: / () Orders: C omplete Echo (CPT-55924) A rterial Duplex Lower Extremity Bilateral (CPT-78813) E KG (CPT-57241) G allbaladder Ultrasound (CPT-48595) C OMPREHENSIVE METABOLIC PANEL W/EGFR (94766) L IPID PANEL (7600) C BC (INCLUDES DIFF/PLT) (6399) T HYROID PANEL WITH TSH, 3RD GENERATION (7444) S tress Test - Adenosine (84652) His updated medication list for this problem includes: Aspirin 81 Mg Tabs (Aspirin) ..... One tab. daily Jose Arteaga MD follow up: B P today: 105/66 Prior BP: / () Orders: C omplete Echo (CPT-80829) A rterial Duplex Lower Extremity Bilateral (CPT-78770) E KG (CPT-88994) G allbaladder Ultrasound (CPT-85189) C OMPREHENSIVE METABOLIC PANEL W/EGFR (90463) L IPID PANEL (7600) C BC (INCLUDES DIFF/PLT) (6399) T HYROID PANEL WITH TSH, 3RD GENERATION (7444) S tress Test - Adenosine (39186) A MYLASE (243) His updated medication list for this problem includes: Lovaza 1 Gm Caps (Qezni-2-saqg ethyl esters) ..... Onne a day dispense as written Aspirin 81 Mg Tabs (Aspirin) ..... One tab. daily Jose Arteaga MD follow up: B P today: 105/66 Prior BP: / () Orders: C omplete Echo (CPT-72020) A rterial Duplex Lower Extremity Bilateral (CPT-00076) G allbaladder Ultrasound (CPT-64977) C OMPREHENSIVE METABOLIC PANEL W/EGFR (97611) L IPID PANEL (7600) C BC (INCLUDES DIFF/PLT) (6399) T HYROID PANEL WITH TSH, 3RD GENERATION (7444) S tress Test - Adenosine (81578) A MYLASE (243) Jose Arteaga MD Date [...]
--- OUTSIDE RECORDS SUMMARY | 2024-08-29 06:03 | XMS_ITS | Data Portability ---
Author Organization [facility] Address [address] [facility] [place] [address] Care Team Providers Care Body Design Checker Name Role Phone NORMA MART Primary Care [...] agreed to not drive at previous appointment Not available 01/24/2024 21:58:14 04/23/2024 04/23/2024 in with his daughter today. Plan eating healthy food care instruction PFTs chest x-ray Singulair 10 mg a day for the rhinitis Prevnar 20 chest x-ray. Had large cardiac workup before that was negative may need to see them again follow up 3 months [email or web address] Not available 04/23/2024 21:12:10 08/14/2024 08/14/2024 For [...] for some of the newer dementia drugs [email or web address] Not available 08/14/2024 21:25:33 Plan of Treatment Reminders Order Date Submit Date Provider Last Modified By Organization Details Last Modified Time Details Appointments ANY 15 2024 03:00P Claude Mart MD Not available Not available Not available Lab PSA, total, serum or plasma 2024 025 [facility], [address], [place], [address], 08/26/2024 15:10:17 urinalysi s, complete 2024 025 [facility], [address], [place], [address], 08/26/2024 15:10:14 JOVANI (antinucl ear antibodie s) screen, ifa, serum 2024 025 [facility], [address], [place], [address], 08/26/2024 15:10:11 CMP, serum or plasma 2024 025 [facility] Annmarie, [address], [place], [address], 08/26/2024 15:10:13 CBC w/ auto diff 2024 025 YOHAN Walker, [address], [place], [address], 08/26/2024 15:10:16 TSH + free T4, serum 2024 025 YOHAN Walker, [address], [place], [address], 08/26/2024 15:10:12 T3, free, serum or plasma 2024 025 YOHAN Walker, [address], [place], [address], 08/26/2024 15:10:18 cortisol, serum or plasma 2024 025 YOHAN Walker, [address], [place], [address], 08/26/2024 15:10:15 RPR (rapid plasma reagin), serum 2023 024 YOHAN Walker, [address], [place], [address], 12/30/2023 10:14:09 ESR (erythroc yte sedimenta tion rate), blood 2023 024 YOHAN Walker, [address], [place], [address], 12/30/2023 10:14:08 C reactive protein, QN, serum or plasma 2023 024 YOHAN Walker, [address], [place], [address], 12/30/2023 10:14:11 Referral dermatolo gist referral 2023 024 [place], [address], [address], [place], [address], 07/03/2024 17:03:31 ophthalmo logist referral 2023 [facility], [address], [place], [address], 04/05/2024 14:39:18 Procedures None recorded. Surgeries None recorded. Imaging PFT, complete - PFT with DLCO 2024 [facility], [address] [place] [address] [address], [place], [address], 08/01/2024 17:14:35 XR, chest 2024 [facility] ([facility]), [address] [place] [address] [address], [place], [address], 08/23/2024 16:53:06 US, martha ogram, transthor acic, complete, w/ color flow 2023 [facility], [address], [address], [place], [address], 04/22/2024 16:27:36 Medication Orders Flonase Allergy Relief 50 mcg/actua tion nasal spray,tanya pension [email or web address] , [address], [place], [place], [id number], 08/14/2024 17:59:44 Singulair 10 mg tablet [email or web address] , [address], [place], [place], [id number], 04/23/2024 18:31:59 ipratropi um bromide 21 mcg (0.03 %) nasal spray 2023 [email or web address] , [address], [place], [place], [id number], 01/24/2024 16:52:58 donepezil 5 mg tablet 2023 024 brock [facility], [address] [place] [address] , [address], [place], [place], [id number], 01/24/2024 16:08:25 pantopraz ole 40 mg tablet,de layed release 2023 024 [email or web address] [facility], [address] [place] [address] , [address], [place], [place], [id number], 04/11/2024 12:08:16 Patient TargetsNo targets recorded. 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 Referring Physician: Norma Mart, Internal Medicine, Encounter Date: 01/24/2024 Results Created Date Observation Date Name Description Value Unit Range Abnormal Flag Note LastModifiedBy Organization Detail LastModifiedTime 09/27/1909/28/2023 TSH+F REE T4 TSH 1.530 uIU/m L 0.450- 4.500 Not Available [facility] ([facility]) [address] [facility], [place], [address], 09/28/2023 15:08:43 09/27/1909/2709/28/2023 TSH+F REE T4 T4,free(dire ct) 1.39 NG/dL 0.82-1 .77 Not Available [facility] ([facility]) [address] [place], [address], 09/28/2023 15:08:43 09/27/19 24 09/28/2023 COMP. METAB OLIC PANEL (14) glucose 102 mg/dL 70-99 above high normal Not Available [facility] ([facility]) [address] [place], [address], 09/28/2023 15:08:43 09/27/19 24 09/28/2023 COMP. METAB OLIC PANEL (14) BUN 18 mg/dL 8-27 Not Available [facility] ([facility]) [address] [place], [address], 09/28/2023 15:08:43 09/27/19 24 09/28/2023 COMP. METAB OLIC PANEL (14) creatinine 1.03 mg/dL 0.76-1 .27 Not Available [facility] ([facility]) [address] [place], [address], 09/28/2023 15:08:43 09/27/19 24 09/28/2023 COMP. METAB OLIC PANEL (14) eGFR 74 mL/mi n/1.7 3 >59 Not Available [facility] ([facility]) [address] [place], [address], 09/28/2023 15:08:43 09/27/19 24 09/28/2023 COMP. METAB OLIC PANEL (14) BUN/creatini ne ratio 17 10-24 Not Available [facility] ([facility]) [address] [place], [address], 09/28/2023 15:08:43 09/27/19 24 09/28/2023 COMP. METAB OLIC PANEL (14) sodium 140 mmol/ L 134-14 4 Not Available [facility] ([facility]) [address] [place], [address], 09/28/2023 15:08:43 09/27/19 24 09/28/2023 COMP. METAB OLIC PANEL (14) potassium 4.7 mmol/ L 3.5-5. 2 Not Available [facility] ([facility]) [address] [place], [address], 09/28/2023 15:08:43 09/27/19 24 09/28/2023 COMP. METAB OLIC PANEL (14) chloride 100 mmol/ L 96-106 Not Available [facility] ([facility] [address] [facility] [place], [address], 09/28/2023 15:08:43 09/27/19 24 09/28/2023 COMP. METAB OLIC PANEL (14) carbon dioxide, total 23 mmol/ L 20-29 Not Available [facility] ([facility]) [address] [facility] [place], [address], 09/28/2023 15:08:43 09/27/19 24 09/28/2023 COMP. METAB OLIC PANEL (14) calcium 9.8 mg/dL 8.6-10 .2 Not Available [facility] ([facility]) [address] [facility] [place], [address], 09/28/2023 15:08:43 09/27/19 24 09/28/2023 COMP. METAB OLIC PANEL (14) protein, total 7.3 g/dL 6.0-8. 5 Not Available [facility] ([facility]) [address] [facility] [place], [address], 09/28/2023 15:08:43 09/27/19 24 09/28/2023 COMP. METAB OLIC PANEL (14) albumin 4.5 g/dL 3.8-4. 8 Not Available [facility] ([facility]) [address] [facility] [place], [address], 09/28/2023 15:08:43 09/27/19 24 09/28/2023 COMP. METAB OLIC PANEL (14) globulin, total 2.8 g/dL 1.5-4. 5 Not Available [facility] ([facility]) [address] [facility] [place], [address], 09/28/2023 15:08:43 09/27/19 24 09/28/2023 COMP. METAB OLIC PANEL (14) bilirubin, total 0.9 mg/dL 0.0-1. 2 Not Available [facility] ([facility]) [address] [facility] [place], [address], 09/28/2023 15:08:43 09/27/19 24 09/28/2023 COMP. METAB OLIC PANEL (14) alkaline phosphatase 119 IU/L 44-121 Not Available [facility] ([facility]) [address] [facility] [place], [address], 09/28/2023 15:08:43 09/27/19 24 09/28/2023 COMP. METAB OLIC PANEL (14) AST (SGOT) 20 IU/L 0-40 Not Available [facility] ([facility]) [address] [facility] [place], [address], 09/28/2023 15:08:43 09/27/19 24 09/28/2023 COMP. METAB OLIC PANEL (14) ALT (SGPT) 12 IU/L 0-44 Not Available [facility] ([facility]) [address] [facility] [place], [address], 09/28/2023 15:08:43 09/27/19 24 09/28/2023 VITAM IN B12 AND FOLAT E vitamin B12 1309 pg/mL 232-12 45 above high normal Not Available [facility] ([facility]) [address] [facility] [place], [address], 09/28/2023 15:08:44 09/27/19 24 09/28/2023 VITAM IN B12 AND FOLAT E folate (folic acid), serum 11.1 NG/mL >3.0 A serum folat e toshia ntrat ion of less than 3.1 ng/mL is consi dered to repre sent clini marina defic iency . Not Available [facility] ([facility]) [address] [facility], [place], [address], 09/28/2023 15:08:44 09/27/19 24 09/28/2023 CBC WITH DIFFE RENTI AL/PL ATELE T WBC 5.0 x10e3 /uL 3.4-10 .8 Not Available [facility] ([facility]) [address] [facility], [place], [address], 09/28/2023 15:08:45 09/27/19 24 09/28/2023 CBC WITH DIFFE RENTI AL/PL ATELE T RBC 4.93 x10e6 /uL 4.14-5 .80 Not Available [facility] ([facility]) [address] [facility], [place], [address], 09/28/2023 15:08:45 09/27/19 24 09/28/2023 CBC WITH DIFFE RENTI AL/PL ATELE T hemoglobin 14.5 g/dL 13.0-1 7.7 Not Available [facility] ([facility]) [address] [facility], [place], [address], 09/28/2023 15:08:45 09/27/19 24 09/28/2023 CBC WITH DIFFE RENTI AL/PL ATELE T hematocrit 44.2 % 37.5-5 1.0 Not Available [facility] ([facility]) [address] [facility], [place], [address], 09/28/2023 15:08:45 09/27/19 24 09/28/2023 CBC WITH DIFFE RENTI AL/PL ATELE T MCV 90 fL 79-97 Not Available [facility] ([facility]) [address] [facility], [place], [address], 09/28/2023 15:08:45 09/27/19 24 09/28/2023 CBC WITH DIFFE RENTI AL/PL ATELE T MCH 29.4 pg 26.6-3 3.0 Not Available [facility] ([facility]) [address] [facility], [place], [address], 09/28/2023 15:08:45 09/27/19 24 09/28/2023 CBC WITH DIFFE RENTI AL/PL ATELE T MCHC 32.8 g/dL 31.5-3 5.7 Not Available [facility] ([facility]) [address] [facility], [place], [address], 09/28/2023 15:08:45 09/27/19 24 09/28/2023 CBC WITH DIFFE RENTI AL/PL ATELE T RDW 12.4 % 11.6-1 5.4 Not Available [facility] ([facility]) [address] [facility], [place], [address], 09/28/2023 15:08:45 09/27/19 24 09/28/2023 CBC WITH DIFFE RENTI AL/PL ATELE T platelets 297 x10e3 /uL 150-45 0 Not Available [facility] ([facility]) [address] [place], [address], 09/28/2023 15:08:45 09/27/19 24 09/28/2023 CBC WITH DIFFE RENTI AL/PL ATELE T neutrophils 79 % notest ab. Not Available [facility] ([facility]) [address] [place], [address], 09/28/2023 15:08:45 09/27/19 24 09/28/2023 CBC WITH DIFFE RENTI AL/PL ATELE T lymphs 13 % notest ab. Not Available [facility] ([facility]) [address] [facility], [address], 09/28/2023 15:08:45 09/27/19 24 09/28/2023 CBC WITH DIFFE RENTI AL/PL ATELE T monocytes 6 % notest ab. Not Available [facility] ([facility]) [address] [facility], [place], [address], 09/28/2023 15:08:45 09/27/19 24 09/28/2023 CBC WITH DIFFE RENTI AL/PL ATELE T eos 2 % notest ab. Not Available [facility] ([facility]) [address] [facility], [place], [address], 09/28/2023 15:08:45 09/27/19 24 09/28/2023 CBC WITH DIFFE RENTI AL/PL ATELE T basos 0 % notest ab. Not Available [facility] ([facility]) [address] [facility], [place], [address], 09/28/2023 15:08:45 09/27/19 24 09/28/2023 CBC WITH DIFFE RENTI AL/PL ATELE T neutrophils (absolute) 3.9 x10e3 /uL 1.4-7. 0 Not Available [facility] ([facility]) [address] [facility], [place], [address], 09/28/2023 15:08:45 09/27/19 24 09/28/2023 CBC WITH DIFFE RENTI AL/PL ATELE T lymphs (absolute) 0.6 x10e3 /uL 0.7-3. 1 below low normal Not Available [facility] ([facility]) [address] [facility], [place], [address], 09/28/2023 15:08:45 09/27/19 24 09/28/2023 CBC WITH DIFFE RENTI AL/PL ATELE T monocytes(ab solute) 0.3 x10e3 /uL 0.1-0. 9 Not Available [facility] ([facility]) [address] [place], [address], 09/28/2023 15:08:45 09/27/19 24 09/28/2023 CBC WITH DIFFE RENTI AL/PL ATELE T eos (absolute) 0.1 x10e3 /uL 0.0-0. 4 Not Available [facility] ([facility]) [address] [facility], [place], [address], 09/28/2023 15:08:45 09/27/19 24 09/28/2023 CBC WITH DIFFE RENTI AL/PL ATELE T baso (absolute) 0.0 x10e3 /uL 0.0-0. 2 Not Available [facility] ([facility]) [address] [facility], [place], [address], 09/28/2023 15:08:45 09/27/19 24 09/28/2023 CBC WITH DIFFE RENTI AL/PL ATELE T immature granulocytes 0 % notest ab. Not Available [facility] ([facility]) [address] [facility], [place], [address], 09/28/2023 15:08:45 09/27/19 24 09/28/2023 CBC WITH DIFFE RENTI AL/PL ATELE T immature grans (abs) 0.0 x10e3 /uL 0.0-0. 1 Not Available [facility] ([facility]) [address] [place], [address], 09/28/2023 15:08:45 09/27/19 24 09/28/2023 TRIIO DOTHY KAYLYN E (T3), FREE triiodothyro nine (T3), free 2.9 pg/mL 2.0-4. 4 Not Available [facility] ([facility]) [address] [place], [address], 09/28/2023 15:08:45 12/29/19 24 12/30/2023 SEDIM ENTAT ION RATE- WESTE RGREN sedimentatio n rate-westerg latisha 8 mm/HR 0-30 Not Available [facility] ([facility]) [address] [facility], [place], [address], 12/30/2023 10:14:08 12/29/19 24 12/30/2023 RPR RPR NON REACTI VE nonrea ctive Not Available [facility] ([facility]) [address] [facility], [place], [address], 12/30/2023 10:14:09 12/29/19 24 12/30/2023 C-USMAN CTIVE PROTE IN, QUANT C-reactive protein, quant 3 mg/L 0-10 Not Available [facility] ([facility]) [address] [facility], [place], [address], 12/30/2023 10:14:10 08/23/19 25 08/23/2024 SPECI MEN STATU S REPOR T specimen status report TNP Test not perfo rmed. No urine speci men recei raúl. TEST: [id number] Urina lysis , Compl ete Not Available [facility] ([facility]) [address] [facility], [place], [address], 08/26/2024 15:10:10 08/23/19 25 08/26/2024 JOVANI BY IFA RFX TITER /SANDHYA POLLY JOVANI by ifa rfx titer/patter n NEGATI VE Negat zain <1:80 Borde rline 1:80 Posit zain >1:80 ICAP nomen clatu re: AC-0 For more infor matio n about Hep-2 cell patte rns use ANApa ttern s.org , the offic ial websi te for the Inter natio nal Conse nsus on Antin uclea r Antib jason (JOVANI) Patte rns (ICAP ). Not Available [facility] ([facility]) [address] [facility], [place], [address], 08/26/2024 15:10:11 08/23/19 08/23/2024 TSH+F REE T4 TSH 1.770 uIU/m L 0.450- 4.500 Not Available [facility] ([facility]) [address] [place], [address], 08/26/2024 15:10:12 08/23/19 25 08/23/2024 TSH+F REE T4 T4,free(dire ct) 1.19 NG/dL 0.82-1 .77 Not Available [facility] ([facility]) [address] [place], [address], 08/26/2024 15:10:12 08/23/1908/23/2024 COMP. METAB OLIC PANEL (14) glucose 164 mg/dL 70-99 above high normal Not Available [facility] ([facility]) [address] [place], [address], 08/26/2024 15:10:13 08/23/19 25 08/23/2024 COMP. METAB OLIC PANEL (14) BUN 16 mg/dL 8-27 Not Available [facility] ([facility]) [address] [place], [address], 08/26/2024 15:10:13 08/23/19 25 08/23/2024 COMP. METAB OLIC PANEL (14) creatinine 1.04 mg/dL 0.76-1 .27 Not Available [facility] ([facility]) [address] [place], [address], 08/26/2024 15:10:13 08/23/19 25 08/23/2024 COMP. METAB OLIC PANEL (14) eGFR 73 mL/mi n/1.7 3 >59 Not Available [facility] ([facility]) [address] [place], [address], 08/26/2024 15:10:13 08/23/19 25 08/23/2024 COMP. METAB OLIC PANEL (14) BUN/creatini ne ratio 15 10-24 Not Available [facility] ([facility]) [address] [facility], [place], [address], 08/26/2024 15:10:13 08/23/19 25 08/23/2024 COMP. METAB OLIC PANEL (14) sodium 140 mmol/ L 134-14 4 Not Available [facility] ([facility]) [address] [facility], [place], [address], 08/26/2024 15:10:13 08/23/19 25 08/23/2024 COMP. METAB OLIC PANEL (14) potassium 4.0 mmol/ L 3.5-5. 2 Not Available [facility] ([facility]) [address] [facility] [place], [address], 08/26/2024 15:10:13 08/23/19 25 08/23/2024 COMP. METAB OLIC PANEL (14) chloride 100 mmol/ L 96-106 Not Available [facility] ([facility]) [address] [facility], [place], [address], 08/26/2024 15:10:13 08/23/19 25 08/23/2024 COMP. METAB OLIC PANEL (14) carbon dioxide, total 24 mmol/ L 20- Not Available [facility] ([facility]) [address] [facility] [place], [address], 08/26/2024 15:10:13 08/23/19 25 08/23/2024 COMP. METAB OLIC PANEL (14) calcium 9.6 mg/dL 8.6-10 .2 Not Available [facility] ([facility]) [address] [facility] [place], [address], 08/26/2024 15:10:13 08/23/19 25 08/23/2024 COMP. METAB OLIC PANEL (14) protein, total 6.4 g/dL 6.0-8. 5 Not Available [facility] ([facility]) [address] [facility], [place], [address], 08/26/2024 15:10:13 08/23/19 25 08/23/2024 COMP. METAB OLIC PANEL (14) albumin 4.1 g/dL 3.8-4. 8 Not Available [facility] ([facility]) [address] [facility], [place], [address], 08/26/2024 15:10:13 08/23/19 25 08/23/2024 COMP. METAB OLIC PANEL (14) globulin, total 2.3 g/dL 1.5-4. 5 Not Available [facility] ([facility]) [address] [facility], [place], [address], 08/26/2024 15:10:13 08/23/19 25 08/23/2024 COMP. METAB OLIC PANEL (14) bilirubin, total 1.0 mg/dL 0.0-1. 2 Not Available [facility] ([facility]) [address] [facility], [place], [address], 08/26/2024 15:10:13 08/23/19 25 08/23/2024 COMP. METAB OLIC PANEL (14) alkaline phosphatase 101 IU/L 44-121 Not Available [facility] ([facility]) [address] [facility], [place], [address], 08/26/2024 15:10:13 08/23/19 25 08/23/2024 COMP. METAB OLIC PANEL (14) AST (SGOT) 19 IU/L 0-40 Not Available [facility] ([facility]) [address] [facility], [place], [address], 08/26/2024 15:10:13 08/23/19 25 08/23/2024 COMP. METAB OLIC PANEL (14) ALT (SGPT) 10 IU/L 0-44 Not Available [facility] ([facility]) [address] [facility], [place], [address], 08/26/2024 15:10:13 08/23/19 25 08/23/2024 URINA LYSIS , COMPL ETE specific gravity - Test not perfo rmed. No urine speci men recei raúl. Not Available [facility] ([facility]) [address] [facility] [place], [address], 08/26/2024 15:10:14 08/23/19 25 08/23/2024 URINA LYSIS , COMPL ETE pH - Test not perfo rmed Not Available [facility] ([facility]) [address] [facility] [place], [address], 08/26/2024 15:10:14 08/23/19 25 08/23/2024 URINA LYSIS , COMPL ETE protein - Test not perfo rmed Not Available [facility] ([facility]) [address] [place], [address], 08/26/2024 15:10:14 08/23/19 25 08/23/2024 URINA LYSIS , COMPL ETE glucose - Test not perfo rmed Not Available [facility] ([facility]) [address] [place], [address], 08/26/2024 15:10:14 08/23/19 25 08/23/2024 URINA LYSIS , COMPL ETE ketones - Test not perfo rmed Not Available [facility] ([facility]) [address] [place], [address], 08/26/2024 15:10:14 08/23/19 25 08/23/2024 CORTI ADELFO cortisol 19.6 ug/dL 6.2-19 .4 above high normal Pleas e Note: The refer ence inter barber and elizabeth ing for this test is for an AM colle ction . If this is a PM colle ction pleas e use: Corti adelfo PM: 2.3-1 1.9 Not Available [facility] ([facility]) [address] [place], [address], 08/26/2024 15:10:15 08/23/19 25 08/23/2024 CBC WITH DIFFE RENTI AL/PL ATELE T WBC 4.4 x10e3 /uL 3.4-10 .8 Not Available [facility] ([facility]) [address] [facility], [place], [address], 08/26/2024 15:10:16 08/23/19 25 08/23/2024 CBC WITH DIFFE RENTI AL/PL ATELE T RBC 4.20 x10e6 /uL 4.14-5 .80 Not Available [facility] ([facility]) [address] [facility], [place], [address], 08/26/2024 15:10:16 08/23/19 25 08/23/2024 CBC WITH DIFFE RENTI AL/PL ATELE T hemoglobin 12.4 g/dL 13.0-1 7.7 below low normal Not Available [facility] ([facility]) [address] [facility], [place], [address], 08/26/2024 15:10:16 08/23/19 25 08/23/2024 CBC WITH DIFFE RENTI AL/PL ATELE T hematocrit 39.4 % 37.5-5 1.0 Not Available [facility] ([facility]) [address] [facility], [place], [address], 08/26/2024 15:10:16 08/23/19 25 08/23/2024 CBC WITH DIFFE RENTI AL/PL ATELE T MCV 94 fL 79-97 Not Available [facility] ([facility]) [address] [facility], [place], [address], 08/26/2024 15:10:16 08/23/19 25 08/23/2024 CBC WITH DIFFE RENTI AL/PL ATELE T MCH 29.5 pg 26.6-3 3.0 Not Available [facility] ([facility]) [address] [place], [address], 08/26/2024 15:10:16 08/23/19 25 08/23/2024 CBC WITH DIFFE RENTI AL/PL ATELE T MCHC 31.5 g/dL 31.5-3 5.7 Not Available [facility] ([facility]) [address] [facility], [place], [address], 08/26/2024 15:10:16 08/23/19 25 08/23/2024 CBC WITH DIFFE RENTI AL/PL ATELE T RDW 12.7 % 11.6-1 5.4 Not Available [facility] ([facility]) [address] [facility], [place], [address], 08/26/2024 15:10:16 08/23/19 25 08/23/2024 CBC WITH DIFFE RENTI AL/PL ATELE T platelets 246 x10e3 /uL 150-45 0 Not Available [facility] ([facility]) [address] [facility], [place], [address], 08/26/2024 15:10:16 08/23/19 25 08/23/2024 CBC WITH DIFFE RENTI AL/PL ATELE T neutrophils 76 % notest ab. Not Available [facility] ([facility]) [address] [facility], [place], [address], 08/26/2024 15:10:16 08/23/19 25 08/23/2024 CBC WITH DIFFE RENTI AL/PL ATELE T lymphs 16 % notest ab. Not Available [facility] ([facility]) [address] [facility], [place], [address], 08/26/2024 15:10:16 08/23/19 25 08/23/2024 CBC WITH DIFFE RENTI AL/PL ATELE T monocytes 6 % notest ab. Not Available [facility] ([facility]) [address] [facility], [place], [address], 08/26/2024 15:10:16 08/23/19 25 08/23/2024 CBC WITH DIFFE RENTI AL/PL ATELE T eos 2 % notest ab. Not Available [facility] ([facility]) [address] [place], [address], 08/26/2024 15:10:16 08/23/19 25 08/23/2024 CBC WITH DIFFE RENTI AL/PL ATELE T basos 0 % notest ab. Not Available [facility] ([facility]) [address] [place], [address], 08/26/2024 15:10:16 08/23/19 25 08/23/2024 CBC WITH DIFFE RENTI AL/PL ATELE T neutrophils (absolute) 3.3 x10e3 /uL 1.4-7. 0 Not Available [facility] ([facility]) [address] [place], [address], 08/26/2024 15:10:16 08/23/19 25 08/23/2024 CBC WITH DIFFE RENTI AL/PL ATELE T lymphs (absolute) 0.7 x10e3 /uL 0.7-3. 1 Not Available [facility] ([facility]) [address] [place], [address], 08/26/2024 15:10:16 08/23/19 25 08/23/2024 CBC WITH DIFFE RENTI AL/PL ATELE T monocytes(ab solute) 0.3 x10e3 /uL 0.1-0. 9 Not Available [facility] ([facility]) [address] [place], [address], 08/26/2024 15:10:16 08/23/1908/23/2024 CBC WITH DIFFE RENTI AL/PL ATELE T eos (absolute) 0.1 x10e3 /uL 0.0-0. 4 Not Available [facility] ([facility]) [address] [place], [address], 08/26/2024 15:10:16 08/23/19 25 08/23/2024 CBC WITH DIFFE RENTI AL/PL ATELE T baso (absolute) 0.0 x10e3 /uL 0.0-0. 2 Not Available [facility] ([facility]) [address] [facility], [place], [address], 08/26/2024 15:10:16 08/23/19 25 08/23/2024 CBC WITH DIFFE RENTI AL/PL ATELE T immature granulocytes 0 % notest ab. Not Available [facility] ([facility]) [address] [facility], [place], [address], 08/26/2024 15:10:16 08/23/19 25 08/23/2024 CBC WITH DIFFE RENTI AL/PL ATELE T immature grans (abs) 0.0 x10e3 /uL 0.0-0. 1 Not Available [facility] ([facility]) [address] [facility], [place], [address], 08/26/2024 15:10:16 08/23/19 25 08/23/2024 PROST ATE-S PECIF IC AG prostate specific Ag 3.5 NG/mL 0.0-4. 0 Linsey ECLIA metho dolog y. Accor ding to the Ameri can Urolo gical Assoc iatio n, Serum PSA shoul d decre ase and remai n at undet ectab le level s after radic al prost atect whit. The AUA defin es bioch emica l recur rence as an initi al PSA value 0.2 ng/mL or great er follo wed by a subse quent confi rmato ry PSA value 0.2 ng/mL or great er. Value s obtai anabella with diffe rent assay metho ds or kits canno t be used inter mcclendon eably . Resul ts canno t be inter prete d as absol bebe evide nce of the prese nce or absen ce of [facility] disea se. Not Available [facility] ([facility]) [address] [facility], [place], [address], 08/26/2024 15:10:17 08/23/19 25 08/23/2024 TRIIO DOTHY KAYLYN E (T3), FREE triiodothyro nine (T3), free 2.6 pg/mL 2.0-4. 4 Not Available [facility] ([facility]) [address] [facility], [place], [address], 08/26/2024 15:10:18 10/20/19 24 10/20/2023 CT, head + brain , w/wo contr ast No observ ation record ed. [place] [address] [facility], [place], [address], 10/25/2023 23:17:43 04/22/19 25 04/19/2024 US, echoc ardio gram, trans thora cic, compl ete, w/ color flow No observ ation record ed. [facility] [address] , [place], [address], 04/23/2024 14:05:55 07/27/19 25 07/25/2024 XR, cervi marina spine No observ ation record ed. [address], [address], 08/06/2024 22:40:34 07/27/19 25 07/25/2024 XR, lumba r spine No observ ation record ed. [address], [address], 08/06/2024 22:40:35 08/02/19 25 08/01/2024 PFT, compl ete No observ ation record ed. [address], [address], 08/06/2024 22:40:35 08/23/19 25 08/22/2024 XR, chest No observ ation record ed. [address], [address], 08/23/2024 16:53:10 Result Notes None recorded. Problems Name Problem SNOMED Code Status Onset Date Resolution Date Notes Provider Name and Address Organization Details Recorded Time Memory impairment 581264902 Active 2023 SEARFIN Tracy, [place] - [facility] 4 16:50:53 Headache 83842659 Active 2023 SERAFIN Tracy, [facility] 4 16:50:54 Gastroesophage al reflux disease without esophagitis 809146320 Active 2023 SERAFIN Tracy, [facility] 4 17:06:12 Weight decreased 094616492 Active 2024 SERAFIN Tracy, [facility] 5 17:31:50 Screening for malignant neoplasm of prostate Active 2024 SERAFIN Tracy, [facility] 5 17:31:51 Problem Notes None recorded. Procedures Surgical History Date Name Laterality Status Provider Name and Address Organization Details Recorded Time Back Surgery completed Tia Orellana MA [facility] 08/09/2023 15:43:57 Hernia Repair completed Tia Orellana MA [facility] 08/09/2023 15:44:02 Prostate Biopsy completed Tia Orellana MA [facility] 08/09/2023 15:44:06 Imaging Results None recorded. [...] bromide 21 mcg (0.03 %) nasal spray Marmaduke 2 sprays every day by intranasa l [...] Updated DateTime 5 185.42 cm 19.5 kg/m2 25980.0 3 g 60 /min 97 % 97 % 124 mm[Hg] 62 mm[Hg] Dara Mcgowan [place] - [facility] 5 16:42:11 Date Recorded Body height Body mass index (BMI) Body weight Heart rate Oxygen saturation Oxygen saturation in Arterial blood by Pulse oximetry Systolic blood pressure Diastolic blood pressure Provider Name and Address Organization Details Last Updated DateTime 5 185.42 cm 18.2 kg/m2 71401.1 1 g 82 /min 98 % 98 % 114 mm[Hg] 62 mm[Hg] Dara Mcgowan [place] [facility] 5 16:34:12 Date Recorded Body height Body mass index (BMI) Body weight Heart rate Oxygen saturation Oxygen saturation in Arterial blood by Pulse oximetry Systolic blood pressure Diastolic blood pressure Provider Name and Address Organization Details Last Updated DateTime 4 185.42 cm 21.4 kg/m2 29653.0 4 g 61 /min 97 % 97 % 110 mm[Hg] 62 mm[Hg] Dara Mcgowan MA [facility] 4 16:33:20 Date Recorded Body height Body mass index (BMI) Body weight Heart rate Oxygen saturation Oxygen saturation in Arterial blood by Pulse oximetry Systolic blood pressure Diastolic blood pressure Provider Name and Address Organization Details Last Updated DateTime 4 185.42 cm 20.7 kg/m2 32447.3 6 g 74 /min 97 % 97 % 116 mm[Hg] 64 mm[Hg] Dara Mcgowan MA [facility] 4 16:51:41 Date Recorded Body height Body mass index (BMI) Body weight Heart rate Oxygen saturation Oxygen saturation in Arterial blood by Pulse oximetry Systolic blood pressure Diastolic blood pressure Provider Name and Address Organization Details Last Updated DateTime 4 185.42 cm 20.4 kg/m2 01569.4 6 g 90 /min 97 % 97 % 110 mm[Hg] 70 mm[Hg] Gracia Tubbs MA [facility] 4 16:07:56 Social History Question Answer Notes LastModified by Organizat ion Details LastModified Time Tobacco Smoking Status Former Smoker Tia Orellana MA [facility] 08/09/2023 15:46:28 Do You Have An [...] anxious, or unable to sleep at night)? [id number] Information not available 08/09/2023 Family History Relationship Description Onset Age of this Age Resolved Age Notes LastModified by Organization Details LastModified Time Mother Malignant tumor of breast [email or web address] Not available 2023 15:45:24 Mother Heart disease [email or web address] Not available 2023 15:45:29 Notes:No family history yadav ge, me/rma Medical History Condition Response Coronary Artery Disease N Other N High Blood Pressure N Atrial Fibrillation N Thyroid Problems N Kidney or Bladder Problems N Blood Clots N COPD N Depression N GI Problems N Skin Problems N Anemia N Heart Attack ([place]) N Anxiety Disorder N Diabetes N Muscle, [...] preservative 3 completed Joanna Yoon [place] null, [place] [facility] 09/27/2023 15:31:14 Influenza, split virus, trivalent, PF 4 completed Joanna [place], [place] [facility] 09/27/2023 15:31:14 Influenza, high-dose, trivalent, PF 4 completed Norma Mart MD Attn: Accounting[address] [place], [address], [place] [facility] 01/24/2024 21:55:05 Pneumococcal conjugate PCV20, polysaccharide DFZ066 conjugate, adjuvant, PF 5 completed Norma Mart MD Attn: Accounting[address] [place], [address], [place] [facility] 04/23/2024 21:10:05 Past Encounters Encounter ID Performer Location Encounter Start Date Encounter Closed Date Diagnosis/Indication Diagnosis SNOMED-CT Code Diagnosis ICD10 Code Diagnosis Note [id number] MD Charline Peng (Adult Med) [address] [place] [phone] 09/27/2023 15:23:02 09/27/2023 17:03:34 Memory impairment 475312692 R41.3 Headache 11176715 R51.9 [id number] MD Charline Peng (Adult Med) [address] [place] [phone] 10/25/2023 16:18:45 10/25/2023 17:07:55 Underweight 785604679 R63.6 Memory impairment 383214 006 R41.3 Gastroesop hageal reflux disease without esophagitis 218797630 K21.9 [id number] Norma Mart MD [facility] (Adult Med) [address] [place] [id number] 11/22/2023 16:20:13 11/22/2023 17:49:56 Memory impairment 008781043 R41.3 Gastroesop hageal reflux disease without esophagitis 924235932 K21.9 [id number] Norma Mart MD [facility] (Adult Med) [address] [place] [id number] 01/24/2024 15:52:58 01/24/2024 16:53:51 Body mass index 20-24 - normal 930076073 Z68.20 Rhinitis 39953319 J00 Mitral barber ve regurgitation 82927866 I34.0 Pain of bi lateral eyes 9766360977 87199 H57.13 Administra tion of influenza vaccine 54571274 Z23 Basal cell carcinoma of skin 878462586 C44.91 [id number] Norma Mart MD [facility] (Adult Med) [address] [place] [id number] 04/23/2024 16:13:24 04/23/2024 17:36:50 Underweight 060199501 R63.6 Dyspnea 431746647 R06.00 Administra tion of pneumococcal vaccine 09314121 Z23 Gastroesop hageal reflux disease without esophagitis 200805807 K21.9 Memory impairment 549951 006 R41.3 [id number] Norma aMrt MD [facility] (Adult Med) [address] [place] [id number] 08/14/2024 15:57:55 08/14/2024 17:30:20 Underweight 119934538 R63.6 Z68.1 Weight decreased 2118534 01 R63.4 Screening for malignant neoplasm of prostate 211082502 Z12.5 Fatigue 05782109 R53.83 Chronic rhinitis 1289929 6 J31.0 Gastroesop hageal reflux disease without esophagitis 504466449 K21.9 Health Concerns Section Related Observation LastModified by Organization Detai ls LastModified Time None Recorded Concern Status LastModified by Organization Details LastModified Time None Recorded Advance Directives Directive N: Medical POA Payers Encounter Date Sequence Insurance Name Policy Number Policy Mehta Covered Member ID Mehta Member ID Guarantor Name 10/25/2023 1 [employer] (MEDICARE REPLACEMENT/A DVANTAGE - HMO) [id number] Maxi D Gum [id number] Maxi Gum 11/22/2023 1 [employer] (MEDICARE REPLACEMENT/A DVANTAGE - HMO) [id number] Maxi D Gum [id number] Maxi Gum 01/24/2024 1 [employer] (MEDICARE REPLACEMENT/A DVANTAGE - HMO) [id number] Maxi D Gum [id number] Maxi Gum 04/23/2024 1 [employer] (MEDICARE REPLACEMENT/A DVANTAGE - HMO) [id number] Maxi D Gum [id number] Maxi Gum 08/14/2024 1 [facility] (MEDICARE REPLACEMENT/A DVANTAGE - HMO) [id number] Maxi D Gum [id number] Maxi Gum Notes Date Note Type Note Provider Name and Address Organization Details Recorded Time 10/25/2023 text/html follow up of [facility] CT scan was unremarkable GERD flared up a little bit chronic pain about the same Norma Mart MD Attn: Accounting[address] [place], [address], [facility] 10/27/2023 20:16:23 11/22/2023 text/html patient is in office with daughter she thinks he has a little bit more forgetful he says that he does recognize that there probably is some slippage of memory. 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
--- NOTE | 2024-08-29 06:04 | ED_ITS ---
HPI - General Adult General Chief complaint: Unspecified Stated complaint: Constipation x 6D Time Seen by Provider: 08/29/24 05:55 History of Present Illness HPI narrative: 78-year-old male with a history of sciatica presenting to the emergency depart with constipation for last 6 days. Patient states he has been using some herbal remedies but no actual stool softener medications. He states he has been using his oxycodone chronic pain medications for sciatica pain and feeling like he is not going to the bathroom as much. He tried to get himself and med home without any significant relief of stool. No abdominal bloating or distention. No nausea or vomiting. No abdominal pain or tenderness. He states he is having some rectal pressure. Denies any bleeding. No chest pain, shortness a breath, fever, chills, pelvic pain, urinary issues, weakness. Related Data Home Medications ?Medication ?Instructions ?Recorded ?Confirmed ?Last Taken ?Type atorvastatin 10 mg tablet 10 mg PO 04/05/22 04/14/22 Unknown History gabapentin 600 mg tablet 600 mg PO 04/05/22 04/14/22 Unknown History ibuprofen 800 mg tablet 800 mg PO 04/05/22 04/14/22 Unknown History lorazepam 0.5 mg tablet 0.5 mg PO 04/05/22 04/14/22 Unknown History methadone 10 mg tablet 10 mg PO 04/05/22 04/14/22 Unknown History oxycodone 30 mg tablet 30 mg PO 04/05/22 04/14/22 Unknown History pantoprazole 40 mg tablet,delayed tablet PO 04/05/22 04/14/22 Unknown History release Allergies Allergy/AdvReac Type Severity Reaction Status Date / Time No Known Allergies Allergy Unverified 03/12/24 17:49 Review of Systems Review of Systems: As reviewed above in HPI [facility] Family History Family History Father Diabetes mellitus Mother Cancer Social History Social History Smoking status: Never smoker Tobacco type: e-cigarettes/vaping Alcohol intake: never Substance use: never Lack of Transportation: No Lack of Food: Never True Current Housing: I Have Housing Concerned About Future Housing: No Difficulty Paying Gas/Electric Bills: No Difficulty Paying for Meds: No Currently Unemployed: No Education: High School Diploma/GED Difficulty w/ Childcare or Family Care: No Living arrangements: with family Occupation/Education: retired Gender identity (if verbalized by the patient): Male Exam Narrative: GENERAL: [Well-appearing, well-nourished, and in no acute distress.] HEAD: [Normocephalic, atraumatic.] EYES: [PERRLA and EOMI.] ENT: Nares clear, no rhinorrhea or epistaxis. Mucous membranes moist. NECK: Supple. CHEST: [Clear to auscultation. No respiratory distress.] HEART: [Regular rate and rhythm]. No murmur heard. [Normal peripheral pulses.] ABDOMEN: [Soft, nondistended], [nontender], [No rigidity or guarding] EXTREMITIES: Normal range of motion. [No edema.] SKIN: Warm, dry, no rash. NEURO: [No focal deficits]. Alert and oriented [x3.] PSYCH: [Normal mood and affect.] Course Vital Signs Vital signs: Vital Signs Temperature 37.0 C 08/29/24 05:55 Pulse Rate 94 08/29/24 05:55 Respiratory Rate 17 08/29/24 05:55 Blood Pressure 112/68 08/29/24 05:55 Pulse Oximetry 97 08/29/24 05:55 Oxygen Delivery Room Air 08/29/24 05:55 Temperature 37.0 C 08/29/24 05:55 Pulse Rate 94 08/29/24 05:55 Respiratory Rate 17 08/29/24 05:55 Blood Pressure 112/68 08/29/24 05:55 Pulse Oximetry 97 08/29/24 05:55 Oxygen Delivery Room Air 08/29/24 05:55 Medical Decision Making [facility] Narrative Medical decision making narrative: 78-year-old male with history of sciatica presenting with 6 days of constipation after using his chronic pain medications at home including oxycodone 30 mg. Patient states that he has tried some herbal remedies but no stool softeners or any other medications to try and have a bowel movement. He did attempt an enema at home by himself unsuccessfully. He has no abdominal distension, bloating, lack of appetite, nausea, vomiting, fever, chills. He has a soft nontender nondistended abdomen normal vital signs. Patient likely has some obstipation from his chronic opiate use that he has has been taking more of recently secondary to a sciatica flare. He has reassuring findings on his examination which point away from intra-abdominal process such as a small bowel obstruction. Will attempt conservative management with MiraLax and magnesium citrate here as well as a x-ray to see if there is any obvious bowel dilation or other suspicions findings needing further workup. Patient provided medications here in the emergency department. His x-ray shows moderate stool burden but no signs of obstruction or free air. Given his reassuring examination, no nauseousness and tolerating oral intake and soft abdomen I believe we can safely discharge him with a regimen for stool softeners to take in addition to follow-up instructions and return precautions. I discussed this plan with the patient and the family members at bedside and they were very comfortable with the idea of several prescription medications to try and help his bowels and there were given strict return precautions to follow in case he has any new or developing/worsening symptoms. Patient safely discharged home at this time with prescription sent to his pharmacy. Medical Records Medical records reviewed: Yes I reviewed the external patient's medical records. Vital Signs Vital Signs: Vital Signs Temperature 37.0 C 08/29/24 05:55 Pulse Rate 94 08/29/24 05:55 Respiratory Rate 17 08/29/24 05:55 Blood Pressure 112/68 08/29/24 05:55 Pulse Oximetry 97 08/29/24 05:55 Oxygen Delivery Room Air 08/29/24 05:55 Temperature 37.0 C 08/29/24 05:55 Pulse Rate 94 08/29/24 05:55 Respiratory Rate 17 08/29/24 05:55 Blood Pressure 112/68 08/29/24 05:55 Pulse Oximetry 97 08/29/24 05:55 Oxygen Delivery Room Air 08/29/24 05:55 Imaging Data Attestation: I personally reviewed and interpreted this imaging study as follows: My impression: Impressions Abdomen X-Ray 08/29/24 06:40 Impression: Moderate stool burden. Discharge Plan Discharge Clinical Impression: Constipation due to opioid therapy Patient Disposition: Home Condition: Stable Instructions: Antibiotic Form, Polyethylene Glycol 3350 (By mouth), Constipation (DC), High Fiber Diet (ED) Additional Instructions: Your x-ray was reassuring and we can send you home with several medications to try to move your bowels along. Most beneficial will be to go down on your dose of opiate medications as this is causing the constipation symptoms. Maintain a high-fiber diet and take the prescription medications. Return if not able tolerate oral intake, nauseous and vomiting, worsening pain, abdominal bloating, any other concerns. Patient Language: Citizen Of [place] Prescriptions: New magnesium citrate Solution 150 ml PO BID PRN (Reason: constipation) Qty: 296 0RF polyethylene glycol 3350 [Miralax] 17 gram powder in packet 17 g PO BID Qty: 30 0RF Rx Instructions: Dissolve in 8 oz of water, do not dilute any further as this will make the medication less effective. senna 8.6 mg capsule 8.6 mg PO HS PRN (Reason: constipation) Qty: 30 0RF No Action oxycodone 30 mg tablet 30 mg PO lorazepam 0.5 mg tablet 0.5 mg PO methadone 10 mg tablet 10 mg PO pantoprazole 40 mg tablet,delayed release (DR/EC) PO atorvastatin 10 mg tablet 10 mg PO gabapentin 600 mg tablet 600 mg PO ibuprofen 800 mg tablet 800 mg PO Follow-up/Referrals: Barron,MD Tom [Primary Care Provider] - Time of Disposition: 06:52
[2024-08-29] MEDS: polyethylene glycoL 3350 17 GM POWD.PACK PO (06:29)
[2024-08-29] MEDS: MAGNESIUM CITRATE 300 ML BTL PO (06:29)
[2024-08-29 07:10] VITALS: BP 98/57; PULSE 76; RESP 18; TEMP 36.6; O2SAT 100
[2024-08-29 07:11] VITALS: BP 98/57; O2SAT 100
== END 2024-08-29 09:40 | disposition home or self-care (01) ==
PROVIDERS: Emergency Provider Student in an Organized Health Care Education/Training Program; PCP Internal Medicine
DX: K59.03 Drug induced constipation (principal); T40.2X5A Adverse effect of other opioids, initial encounter; M54.30 Sciatica, unspecified side; Z79.899 Other long term (current) drug therapy
CPT/HCPCS: 74018; 99283; A9270

== ENCOUNTER 2024-10-16 13:49 | Outpatient (CLI) | payer MEDICARE, SELFPAY ==
--- NOTE | ~2024-10-16 | CT_ITS ---
CLINICAL INDICATION: Shortness of breath and constipation COMPARISON: None. TECHNIQUE: An enhanced CT of the chest, abdomen and pelvis was performed utilizing multislice spiral technique reconstructed at 5 mm slice thickness. Coronal and sagittal reconstructions were performed . This CT examination was performed utilizing dose reduction techniques. DLP: 322 mGy-cm FINDINGS/OBSERVATIONS: Lun x 12 mm indeterminate focus of increased attenuation is identified within the right lung base , with adjacent atelectasis possibly representing round atelectasis (sequelae of prior pleural effusi ons). The remainder of the lungs are otherwise clear. The heart is of normal size, without pericardial effusion. Mediastinum: No pathologically enlarged or morphologically suspicious lymph nodes are identified within the medias tinum, bilateral axilla, within the soft tissues of the anterior chest wall. Soft tissues of the chest: Unremarkable. The thyroid gland is heterogeneous, a nonspecific finding. Bones of the chest: No acute fracture. No lytic or blastic lesions are identified. Liver: The liver enhances homogeneously and is not enlarged. Gallbladder and biliary system: The gallbladder is surgically absent. Compensatory bile duct dilatation is identified. Pancreas: The pancreas enhances homogeneously, without ductal dilatation. Spleen: 13 mm well-circumscribed focus of fluid attenuation within the medial body of the spleen. The remainder of the spleen otherwise enhances homogeneously and is not enlarged. Kidneys: Innumerable rounded foci of fluid attenuation within the right kidney. The remainder of the bilateral kidneys otherwise enhance symmetrically without hydronephrosis or abilio l calculi. Adrenal glands: Unremarkable. Gastrointestinal tract: Mural thickening with surrounding inflammatory changes identified within the rectum, findings suggest ing proctitis. Fecal stasis within the colon. No evidence of a bowel obstruction. Appendix: The appendix is not definitively visualized. However, no pericecal inflammatory change is identified suggest the presence of acute appendicitis. Vasculature: Trace calcified atherosclerotic disease is present. No aneurysmal dilatation. Lymph nodes: Scattered nonpathologically enlarged lymph nodes within the root of the mesentery and deep in the pel vis. Pelvic structures: The bladder is minimally distended and otherwise unremarkable. The prostate gland is not enlarged. Body wall and musculoskeletal: Small fat-containing umbilical hernia. Age-appropriate degenerative disease within the thoracic and lumbosacral spines. No acute compression fracture. IMPRESSION: Mural thickening and surrounding inflammatory change within the rectum, findings suggesting proctitis . Fecal stasis within the remainder of the colon. Remainder of the examination is otherwise unremarkable. Reviewed, dictated and finalized at location A. IMPRESSION: Mural thickening and surrounding inflammatory change within the rectum, finding s suggesting proctitis. Fecal stasis within the remainder of the colon. Remainder of the examination is otherwise unremarkable.
--- OUTSIDE RECORDS SUMMARY | 2024-10-16 13:52 | XMS_ITS | Continuity of Care Document ---
Author Organization [facility] Address [address] [place] [address] [address] [place] [address] Phone Care Team Providers Care Scheduler Conveyor Name Role Phone Luo OD, Serge Unavailable Unavailable Procedures Procedure Date Eye Exam & Treatment Refraction Counseling For Antioxidant Supplements A Advance Directives Directive Yes / No Effective Date File Name No Information Encounters Encounter Description Practice Location Reason(s) For Visit Diagnoses Date Provider Providers Copied on Encounter [facility], [address] [place] [address] [address], [place], [place], [id number], [place] tel:[phone] [facility] [place] No Information 1201 0 Luo OD Serge. [address] [facility] [place] , [address], [place], [address], [place]. tel:[phone] Family History Family Member Type Diagnosis Age At Onset No Information Payers Payer name Insurance type Covered alliance party ID Authoriza tion(s) Medicare [facility] [id number] Social History Type Description Quantity Date Captured [...]
--- OUTSIDE RECORDS SUMMARY | 2024-10-16 13:52 | XMS_ITS | Encounter Summary ---
Author Name [facility] [place] [facility] [place] Organization [facility] [place] [facility] [place] Address [address] [place] [address] Care Team Providers Care Auto Clutch Specialist Name Role Phone MADDIE DEL RIO Primary Care Provider Unavailabl e Insurance Providers: All historical and current Section [...] Name Patient's Relationship to Policy Mehta HUMANA [facility] (WNR) MEDICARE ADVANTAGE [facility] (WNR) Dec 26, 2023 [id number] PATIENT Selected Encounter This section includes the information on record at [place] for the Encounter. Date/Time Encounter Type Encounter Description Reason Provider Source Sep 11, 2024 01:00 PM OFFICE O/P NEW MOD 45 MIN PRIMARY CARE/MEDICINE ICD-10-CM G62.9 Polyneuropathy, unspecified MADDIE DEL RIO IHDafne Encounter Template Text not used by [facility] Assessments - Encounter Diagnoses This section includes the primary and secondary diagnoses documented for the Encounter. Date/Time Primary/Secondary Diagnosis Diagnosis Name Provider Source Sep 11, 2024 03:48 PM PRIMARY Polyneuropathy, unspecified MADDIE DEL RIO [facility] Sep 11, 2024 03:48 PM SECONDARY Athscl heart disease of [place] coronary artery w[facility] Sep 11, 2024 03:48 PM SECONDARY Contact with and exposure to other hazardous substances [facility] Sep 11, 2024 03:48 PM SECONDARY Gastro-esophageal reflux disease without esophagitis [facility] Sep 11, 2024 03:48 PM SECONDARY Hyperlipidemia, unspecified [facility] Sep 11, 2024 03:48 PM SECONDARY Low back pain, unspecified [facility] Sep 11, 2024 03:48 PM SECONDARY Pulmonary hypertension, unspecified [facility] Sep 11, 2024 03:48 PM SECONDARY Pure hyperglyceridemia [facility] Plan of Treatment: Future Appointments (+ 6 months) and Future Tests (+/- 45 days) The Plan of Treatment section includes future care activities for the patient from all [facility]. This section includes future appointments and future orders which are active, pending or scheduled. Future Appointments This section includes appointments that were scheduled to occur 6 months from the date of the Encounter, up to a maximum of 20 appointments. The data comes from all [facility]. Appointment Date/Time Appointment Type Appointme nt Facility Name Sep 18, 2024 01:00 PM AMBULATORY - MEDICINE [facility] Sep 25, 2024 01:00 PM AMBULATORY - MEDICINE [facility] Oct 23, 2024 01:00 PM AMBULATORY - [facility] Active, Pending, and Scheduled Orders This section includes a listing of several types of active, pending, and scheduled orders, including clinic medications orders, diagnostic test orders, procedure orders and consult orders; where the start date of the order is 45 days before the date of the Encounter or 45 days after the date of theEncounter. The data comes from all [facility]. Test Date/Time Test Type Test Details Facility Name Sep 02, 2024 12:00 AM Laboratory - Chemistry Order [id number] BLOOD [facility] Sep 02, 2024 12:00 AM Laboratory - Chemistry Order CBC BLOOD [facility] Sep 02, 2024 12:00 AM Laboratory - Chemistry Order COMPREHENSIVE METABOLIC PANEL GREEN LI/HEP BLD/PLAS PLASMA [facility] Sep 02, 2024 12:00 AM Laboratory - Chemistry Order LIPID PANEL (STL) GREEN LI/HEP BLD/PLAS PLASMA SP [facility] Sep 02, 2024 12:00 AM Laboratory - Chemistry Order MICRAL/CREAT PROFILE (STL) URINE YELLOW [facility] Sep 02, 2024 12:00 AM Laboratory - Chemistry Order LIPID PANEL (STL) GREEN LI/HEP BLD/PLAS PLASMA [facility] Sep 02, 2024 12:00 AM Laboratory - Chemistry Order TSH (MA-PB) GOLD/RED SST SERUM [facility] Sep 30, 2024 08:34 AM Consult Order CSP [facility] CENTRALIZED ELIGIBILITY AND APPEALS TEAM OUTPT Cons Barrel Assembler's Choice [facility] Vital Signs: All taken on the encounter date This section contains inpatient and outpatient Vital Signs collected on the date of the Encounter. Date/Time Temperature Pulse Blood Pressure Respiratory Rate SP02 Pain Height Weight Body Mass Index Source Sep 11, 2024 01:09 PM 97.6 F 74 /min 88/51 mm[Hg] 16 /min 97 % 7 72 in 72 lb 10 [facility] Advance Directives: All historical and current Section Date Range: From patient's date of to the date document was created. This section includes ALL of a patient's completed or amended [place] Advance and Rescinded Directives. The entries below indicate that a directive exists for the patient, but an actual copy is not included with this document. The data comes from all [place] facilities. Date Advance Directives Provider Source Oct 10, 2024 ADVANCE DIRECTIVE YURIY LOZOYA R [facility] Encounter Notes: All associated encounter notes This section contains the clinical notes associated to the Encounter. Date/Time Encounter Note(s) Provider Source Sep 11, 2024 01:55 PM PRIMARY CARE INITIAL EVALUATION NOTE: LOCAL TITLE: PRIMARY CARE PROVIDER NEW VISIT STL STANDARD TITLE: PRIMARY CARE INITIAL EVALUATION NOTE DATE OF NOTE: SEP 11, 2024@13:55 ENTRY DATE: SEP 11, 2024@13:55:24 AUTHOR: MADDIE DEL RIO EXP COSIGNER: URGENCY: STATUS: COMPLETED Patient is: new pt is accompanied by his daughter Chief Complaint / Hx of present illness multiple medical issues - sees pvt physicians primarily needs help at home c/o chr constipation - worse recently , fatigue , weakness , sob was [facility] - labs and abd - pelvic ct , cxr nad poor appetite - has lost 30 lbs in 6-8 mths Outside providers: pcp lead housekeeper neurologist Review of Systems:see PHI Past Medical History: 1) Neuropathy 2) CAD - Coronary Artery Disease (SCT [id number]) 3) Pulmonary hypertension 4) Hypertriglyceridemia 5) Hyperlipidemia (SCT [id number]) 6) Gastroesophageal reflux disease 7) Low back pain 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 History: NA G P post menopausal/LMP: Last PAP: History of abn PAP: HRT hx: History of familial breast/licensed prosthetist cancer: Hx of hysterectomy: Past Surgical History: reviewed Family History: reviewed Outpatient Medications: Active Outpatient Medications (including Supplies): Active Non-VA Medications Status 1) Non-VA IBUPROFEN 800MG TAB 800MG BY MOUTH THREE TIMES A DAY ACTIVE NEEDED Indication: FOR PAIN 2) Non-VA LORAZEPAM 0.5MG TAB 0.5MG BY MOUTH TWICE A DAY ACTIVE 3) Non-VA MEMANTINE HCL 5MG TAB 5MG BY MOUTH TWICE A DAY ACTIVE Indication: FOR ALZHEIMER DISEASE 4) Non-VA METHADONE HCL 5MG TAB 10MG BY MOUTH THREE TIMES A DAY ACTIVE Indication: FOR PAIN 5) Non-VA METHOCARBAMOL 750MG TAB 1 TABLET BY MOUTH ONCE A DAY ACTIVE NEEDED 6) Non-VA MONTELUKAST NA 10MG TAB 10MG BY MOUTH EVERY EVENING ACTIVE 7) Non-VA OXYCODONE HCL 15MG TAB 30MG BY MOUTH 5 TIMES A DAY ACTIVE Indication: FOR CHRONIC PAIN 8) Non-VA PANTOPRAZOLE NA 40MG EC TAB 40MG BY MOUTH EVERY ACTIVE MORNING BEFORE A MEAL Indication: FOR GASTROESOPHAGEAL REFLUX DISEASE 9) Non-VA SERTRALINE HCL (ZOLOFT) 50MG TAB 50MG BY MOUTH EVERY ACTIVE MORNING Indication: FOR DEPRESSION Allergies: Patient has answered NKA Objective: Physical Exam: VSD - Detailed Vitals Date Vital Measurement Qualifiers 09/11/2024 13:09 Temp F (C) 97.6 (36.4) Pulse 74 Respir 16 BP 88/51 Ht in (cm) 72 (182.88) Stated Wt lbs (kg)[BMI] 72 (32.66)[10] Actual Pain 7 POx (L/Min)(%) 97 General: Alert and oriented. NAD.frail ,emaciated looking , elderly , very pleasant WM Head: Atraumatic. Normocephalic. Eyes: Conjunctiva clear. Nasal: Normal mucosa without discharge. Mouth/Throat: Oral mucosa is pink and moist. Neck: Supple. Cardiovascular: Regular rate and rhythm. No murmurs or extra heart sounds appreciated on auscultation. Respiratory: Breathing is nonlabored on room air. Lungs are clear to auscultation bilaterally. Abdomen: Abdomen is soft, nontender, and non-distended. Extremities: No edema. Neurologic: CN II-XII grossly intact. No focal deficits. LAST CBC/DIFF DONE WITHIN 8 WEEKS: No data available No recent lipid panel PSA PC STL No data available for: PROST. SPECIFIC AG.(PB-STL) No data available for: CREATININE UREA NITROGEN GLUCOSE SODIUM POTASSIUM CHLORIDE CARBON DIOXIDE CALCIUM PROTEIN ALBUMIN TOTAL BILIRUBIN ALKALINE PHOSPHATASE AST/SGOT ALT/SGPT EGFR (CKD-EPI 2020) No data available No data available for: COLONOSCOPY CONSULT REPORT STL SLT - Lab Tests Selected No data available for: HGA1C Assessment/ plan: 78 year old frail WM [facility] with hx of chronic pain from peripheral neuropathy on heavy dose opiates , chr constipation - worse recently , cad , hyperlipidemia , depression , wt loss pt has several civilian specialists and pcp as listed -desires home help - will alert SW to contact pts daughter - # as listed -was admitted to [facility] - labs and abd - pelvic ct , cxr nad poor appetite - has lost 30 lbs in 6-8 mths -advised to take miralax and colace regularly - consult to [facility] to contact pt --alerting RD to contact pt records from pvt lead housekeeper with normal sismibi scan in 2020 cardiology note from 04/07/21 rtc vvc in 4-6 mths Toxic Exposure Screening Follow-Up - NS,P: Exposure Concern(s): 09/11/2024 Agent Guild - Toxic Exposure Concern Follow-up Question(s): 09/11/2024 No Questions - Toxic Exposure Concern [place]/caregiver has health or medical question related to their self-reported environmental exposure (VAMSHI). Question: peripheral neuropathy The following connections were provided to the [place]/caregiver: Environmental Health Registry No connections needed at this time ALERTING VIRGIE DE LEON to contact pt /loc/ MADDIE DEL RIO STAFF PHYSICIAN Signed: 09/13/2024 12:18 Receipt Acknowledged By: 09/13/2024 13:16 /loc/ SHAHANA SHUKLA CLINICAL LABORATORY ASSISTANT 09/13/2024 14:34 /loc/ GRAZYNA CALHOUN RD, MADDIE BELTRE [facility] Sep 11, 2024 01:13 PM NURSING NOTE: LOCAL TITLE: V15 PACT FACE TO FACE NOTE STL STANDARD TITLE: NURSING NOTE DATE OF NOTE: SEP 11, 2024@13:13 ENTRY DATE: SEP 11, 2024@13:13:26 AUTHOR: EWA MCKEE COSIGNER: URGENCY: STATUS: COMPLETED Provider Visit: Patient Identifiers : Full Name Date of Reason for visit: New Patient Do you have a history of any of the following? (check all that apply): Heart disease, Respiratory condition(s), Cancer, Other:skin cancer left ear and forehead, GERD, neuropathy, back pain Surgeries (type(s) and date(s)): back surgery, spinal nerve stimulator, prostate removal Have you been seen by a physician, VA or private, in the last year? Yes Name and contact information for provider: [facility] Have you been hospitalized or seen in an ER in the last year? Yes What hospital(s) or ERs and approximate date(s)? [facility] Records request sent: Have you had a colonoscopy previously? Yes What location and approximate date(s)? [facility] few years ago Records request sent: Have you had a PAP smear previously? N/A Have you had a Mammogram previously? No Mode of Arrival: Assistive Device: cane Allergy Review: ALLERGIES/ADVERSE REACTIONS - NONE FOUND Allergy list reviewed and remains current. Recent Vital Signs: Temperature: 97.6 F [36.4 C] (09/11/2024 13:09) Pulse: 74 (09/11/2024 13:09) Respiration: 16 (09/11/2024 13:09) B/P: 88/51 (09/11/2024 13:09) Pain: 7 (09/11/2024 13:09) Wt: 72 lb [32.66 kg] (09/11/2024 13:09) Ht: 72 in [182.9 cm] (09/11/2024 13:09) BMI: 9.8 POX: 97% (09/11/2024 13:09) Blood sugar glucometer reading: na PERSONAL HEALTH INVENTORY Notes: No data available for PHI note titles PERSONAL HEALTH INVENTORY - MAP: No data available for PHI MAP What matters most to you in your life right now? [place]'s Response: family and cat WHOLE HEALTH SHARED GOALS: PERSONAL HEALTH PLAN - SHARED GOALS: No data available for: Php Shared Goals SHARED GOALS constipation relief Would you like to discuss any personal problem, family problem, alcohol use, drug use, or a mental or emotional illness? No Contact provided Primary Care phone number and encouraged to call if any questions or concerns. Review that after hours nurse line [phone] and emergency room are available 17/10 for patient use. Contact verbalized good understanding. MST Screening - V: Patient denies experiencing sexual trauma (MST). Depression Screening - V: Perform PHQ-2 A PHQ-2 screen was performed. The score was 2 which is a negative screen for depression. Over the past two weeks, how often have you been bothered by the following problems? 1. Little interest or pleasure in doing things Several days 2. Feeling down, depressed, or hopeless Several days Suicide Screen - V: C-SSRS Screening [place] Suicide Severity Rating Scale (C-SSRS) screener 1. Over the past month, have you wished you were or wished you could go to sleep and not wake up? No 2. Over the past month, have you had any actual thoughts of killing yourself? No 3. Over the past month, have you been thinking about how you might do this? Response not required due to responses to other questions. 4. Over the past month, have you had these thoughts and had some intention of acting on them? Response not required due to responses to other questions. 5. Over the past month, have you started to work out or worked out the details of how to kill yourself? Response not required due to responses to other questions. 6. If yes, at any time in the past month did you intend to carry out this plan? Response not required due to responses to other questions. 7. In your lifetime, have you ever done anything, started to do anything, or prepared to do anything to end your life (for example, collected pills, obtained a gun, gave away valuables, went to the roof but didn't jump)? No 8. If YES, was this within the past 3 months? Response not required due to responses to other questions. PTSD Screening - V: PC-PTSD-5 A PTSD screening test (PC-PTSD-5) was negative (score=0). Sometimes things happen to people that are unusually or especially frightening, horrible or traumatic. For example: A serious accident or fire a physical or sexual assault or abuse An earthquake or flood A war Seeing someone be killed or seriously injured Having a loved one through homicide or suicide 1. Have you ever experienced this kind of event? NO 2. Had nightmares about the event(s) or thought about the event(s) when you did not want to? Response not required due to responses to other questions. 3. Tried hard not to think about the event(s) or went out of your way to avoid situations that reminded you of the event(s)? Response not required due to responses to other questions. 4. Been constantly on guard, watchful, or easily startled? Response not required due to responses to other questions. 5. [place] numb or detached from people, activities, or your surroundings? Response not required due to responses to other questions. 6. [place] guilty or unable to stop blaming yourself or others for the event(s) or any problems the event(s) may have caused? Response not required due to responses to other questions. Toxic Exposure Screening - CP,DI,L,NS,P,PH,S,U: The [place]/caregiver was asked if they believe the experienced any toxic exposure(s), such as Airborne Hazards and Open Burn Pit, [place] War related exposures, Agent Guild, Radiation, contaminated water at [employer] or other such exposures, while serving in the Armed Forces. /caregiver believes the was exposed to the following while serving in the Armed Forces: Agent Guild: [place]/caregiver was made aware of educational resources that includes information on the Registry Program, presumptive conditions and how to file a claim. Printed information was offered and provided if desired. No questions at this time [place]/caregiver was informed of local points of contact. Contact information for local resources: [facility] Registry Exam Program: [phone] Eligibility: [phone] LUIS [id number] [facility] [id number] [facility] Registry Exam Program: [phone] INDRA Navigator: [id number] Environmental Health Coordinator: [id number] [facility] Registry Exam Program: [phone] [id number] Eligibility: [phone] [id number] Toxic Exposure Screening Follow-Up reminder is needed. Name of person notified: Dr Del Rio Sexual Orientation - CP,L,N,P,PH,PS,S,U: The patient thinks of their sexual orientation as: Straight or Heterosexual Homelessness/Food Insecurity Screen - DI,L,N,P,PH,PS,S,U: In the past 2 months, have you been living in stable housing that you own, rent, or stay in as part of a household? Yes - Living in stable housing. Are you worried or concerned that in the next 2 months you may NOT have stable housing that you own, rent, or stay in as part of a household? No - Not worried about housing near future The reports the following: Within the past 12 months, you worried whether your food would run out before you got money to buy more. Never true Within the past 12 months, the food you bought just didn't last and you didn't have money to get more. Never true Frail/Elderly Screen: ADL Screen - [place] Index of [place] in Activities of Daily Living Bathing: (3 Points) Receives no assistance (gets in and out of tub by self, if tub is usual means of bathing) Dressing: (3 Points) Gets clothes and gets completely dressed without assistance. Toileting: (3 Points) Goes to toilet room, cleans self, and arranges clothes without assistance (may use object for support such as cane, walker, or wheelchair, and may manage own night bedpan or commode, emptying same next morning) Transferring: (2 Points) Moves in and out of bed with assistance. Continence: (2 Points) Has occasional accidents or urination or bowels Feeding: (3 Points) Feeds self without assistance Total Score: 16 Points 18 = High (patient independent) 6 = Low (patient very dependent) IADL Screen - [place] Instrumental Activities of Daily Living Scale Ability to use telephone: (1 point) Operates Telephone on own initiative; looks up and dials numbers. Shopping: (0 points) Needs to be accompanied on any shopping trip. Food preparation: (0 points) Heats and serves prepared meals, or prepares meals but does not maintain adequate diet. Housekeeping: (0 points) Does not participate in any housekeeping tasks. Laundry: (0 points) All laundry must be done by others. Mode of transportation: (0 points) Travel limited to taxi or automobile with assistance of another. Responsibility for own medications: (0 points) Takes responsibility if medication is prepared in advance in separate dosages. Ability to handle finances: (0 points) Incapable of handling money. Total score: 1 point 8 = High function, independent 0 = Low function, dependent Falls Screen: Two or more falls within the last 12 months. Incontinence Screen: No incontinence. COVID-19 Immunization-L,N,P,PH,U: Refused Moderna Monovalent COVID-19 vaccine Immunization: COVID-19 (MODERNA), MRNA, LNP-S, PF, 50 MCG/0.5 ML (AGES 12+ YEARS) Refusal Reason: PATIENT DECISION Patient refuses all immunization(s) in the COVID-19 group Date Documented: 09/11/24 13:36 Herpes Zoster (Shingles) Vaccine - L,N,P,PH,U: The patient declines to receive the recommended dose of zoster (shingles) vaccine. Immunization: ZOSTER RECOMBINANT Refusal Reason: PATIENT DECISION Patient refuses all immunization(s) in the ZOSTER group Comment: will check records and see if has received Date Documented: 09/11/24 13:50 Pneumococcal Conjugate Vaccine (PCV15/PCV20/PCV21) - L,N,P,PH,U: Refuses PCV vaccine Immunization: PNEUMOCOCCAL CONJUGATE, UNSPECIFIED FORMULATION Refusal Reason: PATIENT DECISION Patient refuses all immunization(s) in the PneumoPCV group Comment: will check records and see if has received Date Documented: 09/11/24 13:50 Tdap Immunization - L,N,P,PH,U: The patient declines to receive the recommended dose of Tdap vaccine. Immunization: TDAP Refusal Reason: PATIENT DECISION Patient refuses all immunization(s) in the TDAP group Comment: will check records and see if he has received Date Documented: 09/11/24 13:51 [place] and his daughter given [employer] catalog for review. They are aware will receive a call to discuss whole [employer]. [place] has balance issues, chronic pain, and weight loss from not eating. Whole health assistant tennis coach notified. /loc/ EWA MCKEE LPN LICENSED PRACTICAL NURSE Signed: 09/11/2024 13:53 Receipt Acknowledged By: * AWAITING SIGNATURE * MASSIMO DIA LEIGH A [facility]
--- OUTSIDE RECORDS SUMMARY | 2024-10-16 13:52 | XMS_ITS ---
Author Organization [facility] Address [address] [place] [address] Care Team Providers Care Rotor Blade Installer Name Role Phone Tom Mart MD Primary Care Provider Ricarda Peterson MD Unavailable Julian Yates MD Unavailable Active Problems Problem Noted Date Diagnosed Date Basal cell carcinoma (BCC) of skin of left ear 0 05/06/2022 Overview (05/06/2022): Added automatically from request for surgery [id number] Basal cell carcinoma (BCC) of face 08/23/2016 Skin neoplasm 07/07/2016 Seborrheic eczema 07/07/2016 Keratosis, senilis 07/07/2016 Current Treatment and Therapy Plans No current plan information found. Past Treatment and Therapy Plans No past plan information found. Lifetime Dose Tracking * Chemical Lifetime Dose Automatic Entry Manual Entr y DLP 370 mGycm 370 mGycm 0 mGycm
--- OUTSIDE RECORDS SUMMARY | 2024-10-16 13:52 | XMS_ITS | Referral Summary ---
Author Organization [facility] Address [address] [place] [id number] Care Team Providers Care Scoop Operator Name Role Phone Tom Mart MD Primary Care Provider [phone] Ricarda Peterson MD Unavailable Julian Yates MD [...] hours as needed for pain Active omega 6-jay-rks-fish oil 300 mg (120 mg- 180mg)-1,000 mg [...] Nitric Oxide Sanguenol Active cholecalciferol (VITAMIN D-3) 67485 unit capsuleIndicati ons:Prevention of Vitamin D Deficiency [...] (05/06/2022): Added automatically from request for surgery [id number] Basal cell carcinoma (BCC) of face 08/23/2016 [...] on file Legal Sex Male 9:23 AM PLANNING CONSULTANT Gender Identity Not on file Sexual Orientation Not on file Last Filed Vital Signs Vital Sign Reading Time Taken Comments Blood Pressure 96/60 06/02/2022 4:40 PM PLANNING CONSULTANT Pulse 86 06/02/2022 4:40 PM PLANNING CONSULTANT Temperature 36 C (96.8 F) 06/02/2022 1:31 PM PLANNING CONSULTANT Respiratory Rate 14 06/02/2022 4:40 PM PLANNING CONSULTANT Oxygen Saturation 98% 06/02/2022 4:40 PM PLANNING CONSULTANT Inhaled Oxygen Concentration - - Weight 74 kg (163 lb 3.2 oz) 06/14/2022 1:34 PM CDT Height 185.4 cm (6' 1) 05/12/2022 1:25 PM PLANNING CONSULTANT Body Mass Index 21.53 05/12/2022 1:25 PM PLANNING CONSULTANT Plan of Treatment Not on file Medical Devices Implanted Type Area International Marketing Specialist Device Identifier Shelf Expiration Date Model / Serial / Lot Spinal Cord Stimulator Spinal Cord Stimulator Back Insurance [facility] MEDICARE ADVANTAGE [facility] MEDICARE ADVANTAGE Care Teams Scoop Operator Relationship Specialty Start Date End Date Tom Mart MD PCP - General 07/15/16 Rciarda Peterson MD Consulting Physician Internal Medicine 05/03/22 Julian Yates MD Referring Physician Otolaryngology 05/07/22
--- OUTSIDE RECORDS SUMMARY | 2024-10-16 13:52 | XMS_ITS | Clinical Summary ---
Author Organization [facility] Address [address] [place] [id number] Care Team Providers Care Leaf Sorter Name Role Phone Tom Mart MD Primary Care Provider [phone] Ricarda Peterson MD Unavailable Julian Yaets MD Unavailable Allergies No known active allergies [...] hours as needed for pain Active omega 7-vyc-pyb-fish oil 300 mg (120 mg- 180mg)-1,000 mg [...] Nitric Oxide Sanguenol Active cholecalciferol (VITAMIN D-3) 95049 unit capsuleIndicati ons:Prevention of Vitamin D Deficiency [...] (05/06/2022): Added automatically from request for surgery [id number] Basal cell carcinoma (BCC) of face 08/23/2016 [...] on file Legal Sex Male 9:23 AM FINAL [employer] Gender Identity Not on file Sexual Orientation Not on file Obstetrics History Last Filed Vital Signs Vital Sign Reading Time Taken Comments Blood Pressure 96/60 06/02/2022 4:40 PM [employer] Pulse 86 06/02/2022 4:40 PM [employer] Temperature 36 C (96.8 F) 06/02/2022 1:31 PM [employer]AL [employer]ER Respiratory Rate 14 06/02/2022 4:40 PM [employer]AL [employer]ER Oxygen Saturation 98% 06/02/2022 4:40 PM FINAL [employer]ER Inhaled Oxygen Concentration - - Weight 74 kg (163 lb 3.2 oz) 06/14/2022 1:34 PM CDT Height 185.4 cm (6' 1) 05/12/2022 1:25 PM [employer] Body Mass Index 21.53 05/12/2022 1:25 PM [employer] Plan of Treatment Health Maintenance Due Date Last Done Comments Depression Screening 1945 DTaP/Tdap/Td Vaccine (1 - Tdap) 11/30/1954 Hepatitis B Screening 11/30/1961 Zoster Vaccine (1 of 2) 11/30/1993 Well Visit 65+ 11/30/2008 Pneumococcal vaccine 65+ (2 of 2 - PCV) 02/02/2021 02/03/2020 Fall Risk Assessment 06/03/2023 06/02/2022 Covid-19 Vaccine (4 - 2023-2 5 season) 2023 03/31/2021, 06/17/2020, 05/20/2020 Influenza Vaccine (#1) 2024 , 02/03/2020, 03/09/2019, Additional history exists Medical Devices Implanted Type Area 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 MEDICARE Address: [id number] [place] [address] [facility] MEDICARE ADVANTAGE [facility] MEDICARE Address: [facility] [address] [place] [address] Care Teams Leaf Sorter Relationship Specialty Start Date End Date Tom Mart MD PCP - General 07/15/16 Ricarda Peterson MD Consulting Physician Internal Medicine 05/03/22 Julian Yates MD Referring Physician Otolaryngology 05/07/22
--- OUTSIDE RECORDS SUMMARY | 2024-10-16 13:53 | XMS_ITS | Encounter Summary ---
Author Name [facility] Address [address] [facility], [place] [address] Care Team Providers Care Trouble Locator Test Desk Name Role Phone MADDIE LAY Primary Care Provider Unavailabl e Insurance Providers: [...] Name Patient's Relationship to Policy Mehta [employer] [facility] (WNR) MEDICARE ADVANTAGE [facility] (WNR) Dec 26, 2023 [id number] PATIENT Selected Encounter This section includes the information on record at [place] for the Encounter. Date/Time Encounter Type Encounter Description Reason Pro vider Source August 01, 2024 01:14 PM Outpatient Encounter ADMIN PAT ACTIVTIES (MASNONCT) IHE Encounter Template Text not used by [place] Plan of Treatment: Future Appointments (+ 6 months) and Future Tests (+/- 45 days) The Plan of Treatment section includes future care activities for the patient from all [facility] treatmentfacilities. This section includes future appointments and future orders which are active, pending or scheduled. Future Appointments This section includes appointments that were scheduled to occur 6 months from the date of the Encounter, up to a maximum of 20 appointments. The data comes from all [facility]. Appointment Date/Time Appointment Type Appointme nt Facility Name Sep 02, 2024 01:30 PM AMBULATORY - MEDICINE [facility] Sep 11, 2024 01:00 PM AMBULATORY - MEDICINE [facility] Sep 18, 2024 01:00 PM AMBULATORY - MEDICINE [facility] Sep 25, 2024 01:00 PM AMBULATORY - MEDICINE [facility] Oct 23, 2024 01:00 PM AMBULATORY - [facility] Active, Pending, and Scheduled Orders This section includes a listing of several types of active, pending, and scheduled orders, including clinic medications orders, diagnostic test orders, procedure orders and consult orders; where the start date of the order is 45 days before the date of the Encounter or 45 days after the date of theEncounter. The data comes from all [facility]. Test Date/Time Test Type Test Details Facility Name Sep 02, 2024 12:00 AM Laboratory - Chemistry Order [id number] BLOOD [facility] Sep 02, 2024 12:00 AM Laboratory - Chemistry Order CBC BLOOD [facility] Sep 02, 2024 12:00 AM Laboratory - Chemistry Order COMPREHENSIVE METABOLIC PANEL GREEN LI/HEP BLD/PLAS PLASMA [facility] Sep 02, 2024 12:00 AM Laboratory - Chemistry Order LIPID PANEL (STL) GREEN LI/HEP BLD/PLAS PLASMA [facility] Sep 02, 2024 12:00 AM Laboratory - Chemistry Order MICRAL/CREAT PROFILE (STL) URINE YELLOW [facility] Sep 02, 2024 12:00 AM Laboratory - Chemistry Order LIPID PANEL (STL) GREEN LI/HEP BLD/PLAS PLASMA [facility] Sep 02, 2024 12:00 AM Laboratory - Chemistry Order TSH (MA-PB) GOLD/RED SST SERUM [facility] Advance Directives: All historical and current Section Date Range: From patient's date of to the date document was created. This section includes ALL of a patient's completed or amended VA Advance and Rescinded Directives. The entries below indicate that a directive exists for the patient, but an actual copy is not included with this document. The data comes from all [facility]. Date Advance Directives Provider Source Oct 10, 2024 ADVANCE DIRECTIVE YURIY LOZOYA [facility] Encounter Notes: All associated encounter notes This section contains the clinical notes associated to the Encounter. Date/Time Encounter Note(s) Provider Source August 01, 2024 01:14 PM PRIMARY CARE MYRNA RS: REJI TITLE: PC NEW PATIENT NO CONTACT LETTER STL STANDARD TITLE: PRIMARY CARE LETTERS DATE OF NOTE: AUGUST 01, 2024@13:14 ENTRY DATE: AUGUST 01, 2024@13:14:06 AUTHOR: VALENTIN BUTTERFIELD COSIGNER: URGENCY: STATUS: COMPLETED [facility] [address] [place] [address] AUGUST 01, 2024 SHILA RIVERA [address] [place] [address] [place] [address] Dear Shila Rivera, Thank you for your interest in establishing care with a Primary Care Provider at the [facility]. Your Primary Care Provider is the clinical [...] you would like more information, please visit [email or web address] We have been unsuccessful in our attempts to contact you to schedule your initial appointment. Based on your current residence, the clinic recommended for your primary care needs is: [address] [address] We are happy to accommodate your request with another clinic, if needed. Please call to schedule your initial appointment. Thank you for your service, and we look forward to hearing from you. Sincerely, VALENTIN BUTTERFIELD [employer] SHILA RIVERA [facility]
--- OUTSIDE RECORDS SUMMARY | 2024-10-16 13:53 | XMS_ITS | Data Portability ---
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 Plan eating healthy food care instruction PFTs chest x-ray Singulair 10 mg a day for the rhinitis Prevnar 20 chest x-ray. Had large cardiac workup before that was negative may need to see them again follow up 3 months [email or web address] Not available 04/23/2024 21:12:10 08/14/2024 08/14/2024 For [...] for some of the newer dementia drugs [email or web address] Not available 08/14/2024 21:25:33 Plan of Treatment Reminders Order Date Submit Date Provider Last Modified By Organization Details Last Modified Time Details Appointments ANY 15 2024 03:15P Claude Mart MD Not available Not available Not available Lab PSA, total, serum or plasma 2024 025 [facility], [address], [place], [address], 08/26/2024 15:10:17 urinalysi s, complete 2024 025 [facility], [address], [place], [address], 08/26/2024 15:10:14 JOVANI (antinucl ear antibodie s) screen, ifa, serum 2024 025 [facility], [address], [place], [address], 08/26/2024 15:10:11 CMP, serum or plasma 2024 025 [facility], [address], [place], [address], 08/26/2024 15:10:13 CBC w/ auto diff 2024 025 [facility], [address], [place], [address], 08/26/2024 15:10:16 TSH + free T4, serum 2024 025 [facility], [address], [place], [address], 08/26/2024 15:10:12 T3, free, serum or plasma 2024 025 [facility], [address], [place], [address], 08/26/2024 15:10:18 cortisol, serum or plasma 2024 025 [facility], [address], [place], [address], 08/26/2024 15:10:15 RPR (rapid plasma reagin), serum 2023 024 YOHAN [facility], [address], [place], [address], 12/30/2023 10:14:09 ESR (erythroc yte sedimenta tion rate), blood 2023 024 [facility], [address], [place], [address], 12/30/2023 10:14:08 C reactive protein, QN, serum or plasma 2023 024 [facility], [address], [place], [address], 12/30/2023 10:14:11 Referral dermatolo gist referral 2023 024 [place], [address], [address], [place], [address], 07/03/2024 17:03:31 ophthalmo logist referral 2023 024 YOHAN [facility], [address], [place], [address], 04/05/2024 14:39:18 Procedures None recorded. Surgeries None recorded. Imaging PFT, complete - PFT with DLCO 2024 [facility], [facility] [address], [place], [address], 08/01/2024 17:14:35 XR, chest 2024 025 [facility] ([facility]), [address] [facility] [address], [place], [address], 08/23/2024 16:53:06 US, echocardi ogram, transthor acic, complete, w/ color flow [address] [facility], [address], [address], [place], [address], 04/22/2024 16:27:36 Medication Orders Flonase Allergy Relief 50 mcg/actua tion nasal spray,tanya pension 2024 025 [facility], [address] [place] [address] , [address], [place], [place], [id number], 10/09/2024 16:28:03 Singulair 10 mg tablet [email or web address], [place], [place], [id number], 04/23/2024 18:31:59 ipratropi um bromide 21 mcg (0.03 %) nasal spray 2023 024 elizabeth [facility], [address] [place] [address] [address], [place], [place], [id number], 01/24/2024 16:52:58 donepezil 5 mg tablet 2023 024 brock [facility], [address] [place] [address] , [address], [place], [place], [id number], 01/24/2024 16:08:25 Patient TargetsNo targets recorded. 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 Referring Physician: Norma Mart, Internal Medicine, Encounter Date: 01/24/2024 Results Created Date Observation Date Name Description Value Unit Range Abnormal Flag Note LastModifiedBy Organization Detail LastModifiedTime 12/29/1912/30/2023 SEDIM ENTAT ION RATE- WESTE RGREN sedimentatio n rate-westerg latisha 8 mm/HR 0-30 Not Available [facility] ([facility]) [address] [place], [address], 12/30/2023 10:14:08 12/29/19 24 12/30/2023 RPR RPR NON REACTI VE nonrea ctive Not Available [facility] ([facility]) [address] [place], [address], 12/30/2023 10:14:09 12/29/19 24 12/30/2023 C-USMAN CTIVE PROTE IN, QUANT C-reactive protein, quant 3 mg/L 0-10 Not Available [facility] ([facility]) [address] [place], [address], 12/30/2023 10:14:10 08/23/19 25 08/23/2024 SPECI MEN STATU S REPOR T specimen status report TNP Test not perfo rmed. No urine speci men recei raúl. TEST: 63100 2 Urina lysis , Compl ete Not Available [facility] ([facility]) [address] [place], [address], 08/26/2024 15:10:10 08/23/19 25 08/26/2024 JOVANI BY IFA RFX TITER /SANDHYA POLLY JOVANI by ifa rfx titer/patter n NEGATI VE Negat zain <1:80 Borde rline 1:80 Posit zain >1:80 ICAP nomen clatu re: AC-0 For more infor vikash n about Hep-2 cell patte rns use ANApa ttern s.org , the offic ial viola te for the Inter natio nal Conse nsus on Antin uclea r Antib jason (JOVANI) Patte rns ([facility] ). Not Available [facility] ([facility]) [address] [facility], [place], [address], 08/26/2024 15:10:11 08/23/19 25 08/23/2024 TSH+F REE T4 TSH 1.770 uIU/m L 0.450- 4.500 Not Available [facility] ([facility]) [address] [place], [address], 08/26/2024 15:10:12 08/23/19 25 08/23/2024 TSH+F REE T4 T4,free(dire ct) 1.19 NG/dL 0.82-1 .77 Not Available [facility] ([facility]) [address] [place], [address], 08/26/2024 15:10:12 08/23/19 25 08/23/2024 COMP. METAB OLIC PANEL (14) glucose 164 mg/dL 70-99 above high normal Not Available [facility] ([facility]) [address] [place], [address], 08/26/2024 15:10:13 08/23/19 25 08/23/2024 COMP. METAB OLIC PANEL (14) BUN 16 mg/dL 8-27 Not Available [facility] ([facility]) [address] [place], [address], 08/26/2024 15:10:13 08/23/19 25 08/23/2024 COMP. METAB OLIC PANEL (14) creatinine 1.04 mg/dL 0.76-1 .27 Not Available [facility] ([facility]) [address] [place], [address], 08/26/2024 15:10:13 08/23/19 25 08/23/2024 COMP. METAB OLIC PANEL (14) eGFR 73 mL/mi n/1.7 3 >59 Not Available [facility] ([facility]) [address] [place], [address], 08/26/2024 15:10:13 08/23/19 25 08/23/2024 COMP. METAB OLIC PANEL (14) BUN/creatini ne ratio 15 10-24 Not Available [facility] ([facility]) [address] [place], [address], 08/26/2024 15:10:13 08/23/19 25 08/23/2024 COMP. METAB OLIC PANEL (14) sodium 140 mmol/ L 134-14 4 Not Available [facility] ([facility]) [address] [place], [address], 08/26/2024 15:10:13 08/23/19 25 08/23/2024 COMP. METAB OLIC PANEL (14) potassium 4.0 mmol/ L 3.5-5. 2 Not Available [facility] ([facility]) [address] [place], [address], 08/26/2024 15:10:13 08/23/19 25 08/23/2024 COMP. METAB OLIC PANEL (14) chloride 100 mmol/ L 96-106 Not Available [facility] ([facility]) [address] [facility], [place], [address], 08/26/2024 15:10:13 08/23/19 25 08/23/2024 COMP. METAB OLIC PANEL (14) carbon dioxide, total 24 mmol/ L Not Available [facility] ([facility]) [address] [facility], [place], [address], 08/26/2024 15:10:13 08/23/19 25 08/23/2024 COMP. METAB OLIC PANEL (14) calcium 9.6 mg/dL 8.6-10 .2 Not Available [facility] ([facility]) [address] [facility], [place], [address], 08/26/2024 15:10:13 08/23/19 25 08/23/2024 COMP. METAB OLIC PANEL (14) protein, total 6.4 g/dL 6.0-8. 5 Not Available [facility] ([facility]) [address] [facility], [place], [address], 08/26/2024 15:10:13 08/23/19 25 08/23/2024 COMP. METAB OLIC PANEL (14) albumin 4.1 g/dL 3.8-4. 8 Not Available [facility] ([facility]) [address] [place], [address], 08/26/2024 15:10:13 08/23/19 25 08/23/2024 COMP. METAB OLIC PANEL (14) globulin, total 2.3 g/dL 1.5-4. 5 Not Available [facility] ([facility]) [address] [place], [address], 08/26/2024 15:10:13 08/23/19 25 08/23/2024 COMP. METAB OLIC PANEL (14) bilirubin, total 1.0 mg/dL 0.0-1. 2 Not Available [facility] ([facility]) [address] [place], [address], 08/26/2024 15:10:13 08/23/19 25 08/23/2024 COMP. METAB OLIC PANEL (14) alkaline phosphatase 101 IU/L 44-121 Not Available [facility] ([facility]) [address] [place], [address], 08/26/2024 15:10:13 08/23/19 25 08/23/2024 COMP. METAB OLIC PANEL (14) AST (SGOT) 19 IU/L 0-40 Not Available [facility] ([facility]) [address] [place], [address], 08/26/2024 15:10:13 08/23/19 25 08/23/2024 COMP. METAB OLIC PANEL (14) ALT (SGPT) 10 IU/L 0-44 Not Available [facility] ([facility]) [address] [place], [address], 08/26/2024 15:10:13 08/23/19 25 08/23/2024 URINA LYSIS , COMPL ETE specific gravity - Test not perfo rmed. No urine speci men recei raúl. Not Available [facility] ([facility]) [address] [place], [address], 08/26/2024 15:10:14 08/23/19 25 08/23/2024 URINA LYSIS , COMPL ETE pH - Test not perfo rmed Not Available [facility] ([facility]) [address] [place], [address], 08/26/2024 15:10:14 08/23/19 25 08/23/2024 URINA LYSIS , COMPL ETE protein - Test not perfo rmed Not Available [facility] ([facility]) [address] [place], [address], 08/26/2024 15:10:14 08/23/19 25 08/23/2024 URINA LYSIS , COMPL ETE glucose - Test not perfo rmed Not Available [facility] ([facility]) [address] [place], [address], 08/26/2024 15:10:14 08/23/19 25 08/23/2024 URINA LYSIS , COMPL ETE ketones - Test not perfo rmed Not Available [facility] ([facility]) [address] [place], [address], 08/26/2024 15:10:14 08/23/19 25 08/23/2024 CORTI ADELFO cortisol 19.6 ug/dL 6.2-19 .4 above high normal Pleas e Note: The refer ence inter barber and elizabeth ing for this test is for an AM colle ction . If this is a PM colle ction pleas e use: Corti adelfo PM: 2.3-1 1.9 Not Available [facility] ([facility]) [address] [place], [address], 08/26/2024 15:10:15 08/23/19 25 08/23/2024 CBC WITH DIFFE RENTI AL/PL ATELE T WBC 4.4 x10e3 /uL 3.4-10 .8 Not Available [facility] ([facility]) [address] [place], [address], 08/26/2024 15:10:16 08/23/19 25 08/23/2024 CBC WITH DIFFE RENTI AL/PL ATELE T RBC 4.20 x10e6 /uL 4.14-5 .80 Not Available [facility] ([facility]) [address] [place], [address], 08/26/2024 15:10:16 08/23/19 25 08/23/2024 CBC WITH DIFFE RENTI AL/PL ATELE T hemoglobin 12.4 g/dL 13.0-1 7.7 below low normal Not Available [facility] ([facility]) [address] [place], [address], 08/26/2024 15:10:16 08/23/19 25 08/23/2024 CBC WITH DIFFE RENTI AL/PL ATELE T hematocrit 39.4 % 37.5-5 1.0 Not Available [facility] ([facility]) [address] [facility], [place], [address], 08/26/2024 15:10:16 08/23/19 25 08/23/2024 CBC WITH DIFFE RENTI AL/PL ATELE T MCV 94 fL 79-97 Not Available [facility] ([facility]) [address] [facility], [place], [address], 08/26/2024 15:10:16 08/23/19 25 08/23/2024 CBC WITH DIFFE RENTI AL/PL ATELE T MCH 29.5 pg 26.6-3 3.0 Not Available [facility] ([facility]) [address] [facility], [place], [address], 08/26/2024 15:10:16 08/23/19 25 08/23/2024 CBC WITH DIFFE RENTI AL/PL ATELE T MCHC 31.5 g/dL 31.5-3 5.7 Not Available [facility] ([facility]) [address] [facility], [place], [address], 08/26/2024 15:10:16 08/23/19 25 08/23/2024 CBC WITH DIFFE RENTI AL/PL ATELE T RDW 12.7 % 11.6-1 5.4 Not Available [facility] ([facility]) [address] [facility], [place], [address], 08/26/2024 15:10:16 08/23/19 25 08/23/2024 CBC WITH DIFFE RENTI AL/PL ATELE T platelets 246 x10e3 /uL 150-45 0 Not Available [facility] ([facility]) [address] [facility], [place], [address], 08/26/2024 15:10:16 08/23/19 25 08/23/2024 CBC WITH DIFFE RENTI AL/PL ATELE T neutrophils 76 % notest ab. Not Available [facility] ([facility]) [address] [facility], [place], [address], 08/26/2024 15:10:16 08/23/19 25 08/23/2024 CBC WITH DIFFE RENTI AL/PL ATELE T lymphs 16 % notest ab. Not Available [facility] ([facility]) [address] [facility], [place], [address], 08/26/2024 15:10:16 08/23/1908/23/2024 CBC WITH DIFFE RENTI AL/PL ATELE T monocytes 6 % notest ab. Not Available [facility] ([facility]) [address] [facility], [place], [address], 08/26/2024 15:10:16 08/23/19 25 08/23/2024 CBC WITH DIFFE RENTI AL/PL ATELE T eos 2 % notest ab. Not Available [facility] ([facility]) [address] [facility], [place], [address], 08/26/2024 15:10:16 08/23/19 25 08/23/2024 CBC WITH DIFFE RENTI AL/PL ATELE T basos 0 % notest ab. Not Available [facility] ([facility]) [address] [facility], [place], [address], 08/26/2024 15:10:16 08/23/19 25 08/23/2024 CBC WITH DIFFE RENTI AL/PL ATELE T neutrophils (absolute) 3.3 x10e3 /uL 1.4-7. 0 Not Available [facility] ([facility]) [address] [facility], [place], [address], 08/26/2024 15:10:16 08/23/19 25 08/23/2024 CBC WITH DIFFE RENTI AL/PL ATELE T lymphs (absolute) 0.7 x10e3 /uL 0.7-3. 1 Not Available [facility] ([facility]) [address] [place], [address], 08/26/2024 15:10:16 08/23/19 25 08/23/2024 CBC WITH DIFFE RENTI AL/PL ATELE T monocytes(ab solute) 0.3 x10e3 /uL 0.1-0. 9 Not Available [facility] ([facility]) [address] [facility], [place], [address], 08/26/2024 15:10:16 08/23/19 25 08/23/2024 CBC WITH DIFFE RENTI AL/PL ATELE T eos (absolute) 0.1 x10e3 /uL 0.0-0. 4 Not Available [facility] ([facility]) [address] [facility], [place], [address], 08/26/2024 15:10:16 08/23/19 25 08/23/2024 CBC WITH DIFFE RENTI AL/PL ATELE T baso (absolute) 0.0 x10e3 /uL 0.0-0. 2 Not Available [facility] ([facility]) [address] [place], [address], 08/26/2024 15:10:16 08/23/19 25 08/23/2024 CBC WITH DIFFE RENTI AL/PL ATELE T immature granulocytes 0 % notest ab. Not Available [facility] ([facility]) [address] [place], [address], 08/26/2024 15:10:16 08/23/19 25 08/23/2024 CBC WITH DIFFE RENTI AL/PL ATELE T immature grans (abs) 0.0 x10e3 /uL 0.0-0. 1 Not Available [facility] ([facility]) [address] [place], [address], 08/26/2024 15:10:16 08/23/19 25 08/23/2024 PROST ATE-S [...] t be inter prete d as absol tanana evide nce of the prese nce or absen ce of clary bertrand se. Not Available [facility] ([facility]) [address] [facility], [place], [address], 08/26/2024 15:10:17 08/23/19 25 08/23/2024 TRIIO DOTHY KAYLYN E (T3), FREE triiodothyro nine (T3), free 2.6 pg/mL 2.0-4. 4 Not Available [facility] ([facility]) [address] [facility], [place], [address], 08/26/2024 15:10:18 04/22/19 25 04/19/2024 US, echoc ardio gram, trans thora cic, compl ete, w/ color flow No observ ation record ed. [facility] [address], [place], [address], 04/23/2024 14:05:55 07/27/19 25 07/25/2024 XR, cervi marina spine No observ ation record ed. [address], [place], [address], 08/06/2024 22:40:34 07/27/19 25 07/25/2024 XR, lumba r spine No observ ation record ed. [address], [place], [address], 08/06/2024 22:40:35 08/02/19 25 08/01/2024 PFT, compl ete No observ ation record ed. [address], [place], [address], 08/06/2024 22:40:35 08/23/19 25 08/22/2024 XR, chest No observ ation record ed. [address], [place], [address], 08/30/2024 12:20:13 08/30/19 25 08/29/2024 XR, abdom en No observ ation record ed. [address], [place], [address], 08/30/2024 09:07:15 Result Notes None recorded. Problems Name Problem SNOMED Code Status Onset Date Resolution Date Notes Provider Name and Address Organization Details Recorded Time Memory impairment 715789575 Active 2023 Risa Rodriguez [place] null, [place] - [facility] 4 16:50:53 Headache 33520540 Active 2023 Risa [place] [facility] 4 16:50:54 Gastroesophage al reflux disease without esophagitis 386707300 Active 2023 Risa Rodriguez [place], [place] [facility] 4 17:06:12 Weight decreased 639397269 Active 2024 SERAFIN Tracy, [place] - [facility] 5 17:31:50 Screening for malignant neoplasm of prostate Active 2024 Risa Rodriguez [place], [place] [facility] 5 17:31:51 Problem Notes None recorded. Procedures Surgical History Date Name Laterality Status Provider Name and Address Organization Details Recorded Time Back Surgery completed Tia Reyna, [place] - [facility] 08/09/2023 15:43:57 Hernia Repair completed Tia Orellana MA [facility] 08/09/2023 15:44:02 Prostate Biopsy completed Tia Orellana MA [facility] 08/09/2023 15:44:06 Imaging Results None recorded. Procedure Notes None recorded. Medical Equipment None Reported. Allergies No known drug allergies Medications Name Sig Start Date Stop Date Status Note LastModified by Organization Details LastModified Time donepezil 5 mg tablet Take 1 tablet every day by oral route. 01/23 completed Not Available Not Available Not Available methadone 10 mg tablet active Not Available Not Available Not Available donepezil 10 mg tablet 10/09 completed Not Available Not Available Not Available lorazepam 0.5 mg tablet TAKE 1 TABLET BY MOUTH TWICE A DAY NEEDED MUST LAST 30 DAYS 2024 active Not Available Not Available Not Avai lable gabapentin 800 mg tablet 10/09 completed Not Available Not Available Not Available pantoprazol e 40 mg tablet,ojleen yed release Take 1 tablet every day by oral route. 04/11 completed N&V per dtr Not Available Not Available Not Available omeprazole 20 mg capsule,del ayed release Take 1 capsule every day by oral route. 2024 active Not Available Not Available Not Avai lable montelukast 10 mg tablet TAKE 1 TABLET DAILY BY ORAL ROUTE 2024 active Not Available Not Available Not Avai lable oxycodone 30 mg tablet active Not Available Not Available Not Available sertraline 50 mg tablet Take 1 tablet(s) every day by oral route. 2024 active Not Available Not Available Not Avai lable ipratropium bromide 21 mcg (0.03 %) nasal spray [place] 2 sprays every day by intranasa l route. 2023 active Not Available Not Available Not Avai lable memantine 5 mg tablet Take 1 tablet twice a day by oral route. active Not Available Not Available No t Available Flonase Allergy Relief 50 mcg/actuati on nasal spray,suspe nsion 2 sprays each nostril daily 10/09 completed Not Available Not Available Not Available Vitals Date Recorded Body height Body mass index (BMI) Body weight Heart rate Oxygen saturation Oxygen saturation in Arterial blood by Pulse oximetry Systolic And Diastolic Provider Name and Address Organization Details Last Updated DateTime 5 185.42 cm 19.5 kg/m2 38137.0 3 g 60 /min 97 % 97 % 124/62 mm[Hg] Dara Mcgowan MA [facility] 5 16:42:11 Date Recorded Body height Body mass index (BMI) Body weight Heart rate Oxygen saturation Oxygen saturation in Arterial blood by Pulse oximetry Systolic And Diastolic Provider Name and Address Organization Details Last Updated DateTime 5 185.42 cm 18.2 kg/m2 48100.1 1 g 82 /min 98 % 98 % 114/62 mm[Hg] Dara Mcgowan MA [facility] 5 16:34:12 Date Recorded Heart rate Oxygen saturation Oxygen saturation in Arterial blood by Pulse oximetry Heart rate Oxygen saturation Oxygen saturation in Arterial blood by Pulse oximetry Heart rate Oxygen saturation Oxygen saturation in Arterial blood by Pulse oximetry Systolic And Diastolic Systolic And Diastolic Systolic And Diastolic Provider Name and Address Organization Details Last Updated DateTime 5 58 /min 98 % 98 % 82 /min 97 % 97 % 64 /min 97 % 97 % 124/68 mm[Hg] 80/56 mm[Hg] 80/52 mm[Hg] Dara Mcgowan MA [facility] 5 17:05:46 Date Recorded Body height Body mass index (BMI) Body weight Heart rate Oxygen saturation Oxygen saturation in Arterial blood by Pulse oximetry Systolic And Diastolic Provider Name and Address Organization Details Last Updated DateTime 5 185.42 cm 17.3 kg/m2 80684.9 6 g 73 /min 97 % 97 % 72/50 mm[Hg] Gracia Tubbs MA [facility] 5 16:21:32 Date Recorded Body height Body mass index (BMI) Body weight Heart rate Oxygen saturation Oxygen saturation in Arterial blood by Pulse oximetry Systolic And Diastolic Provider Name and Address Organization Details Last Updated DateTime 4 185.42 cm 20.7 kg/m2 29360.3 6 g 74 /min 97 % 97 % 116/64 mm[Hg] Dara Mcgowan MA [facility] 4 16:51:41 Date Recorded Body height Body mass index (BMI) Body weight Heart rate Oxygen saturation Oxygen saturation in Arterial blood by Pulse oximetry Systolic And Diastolic Provider Name and Address Organization Details Last Updated DateTime 4 185.42 cm 20.4 kg/m2 49171.4 6 g 90 /min 97 % 97 % 110/70 mm[Hg] Gracia Tubbs MA [facility] 4 16:07:56 Social History Question Answer Notes LastModified by Organizat ion Details LastModified Time Tobacco Smoking Status Former Smoker Tia Orellana MA null, [place] - [facility] 08/09/2023 15:46:28 Do You Have [...] Date Of Your Most Recent Tobacco Screening? 10/09/2024 [email or web address] Information not available 10/09/2024 What Is Your Relationship Status? Information not [...] anxious, or unable to sleep at night)? [id number] Information not available 08/09/2023 Family History Relationship [...] N Anemia N Heart Attack ([place]) N Diabetes N Anxiety Disorder N Muscle, Joint, or Bone Problems N Seizures/Epilepsy N Acid Reflux (GERD) Y Cancer N Stroke N Allergies N Asthma N High Cholesterol N Hepatitis N Liver Disease N Headaches Y Osteoporosis N Heart Failure N Immunizations Vaccine Type Date Status Note Provider Nam e and Address Organization Details Recorded Time Influenza, high-dose, quadrivalent, PF 1 completed Joanna Y[place], [place] [facility] 09/27/2023 15:31:14 Influenza, high-dose, quadrivalent, PF 0 completed Joanna [place] [facility] 09/27/2023 15:31:14 COVID-19, mRNA, LNP-S, PF, 100 mcg/0.5mL dose or 50 mcg/0.25mL dose 2 completed Joanna [place] [facility] 09/27/2023 15:31:14 COVID-19, mRNA, LNP-S, PF, 100 mcg/0.5mL dose or 50 mcg/0.25mL dose 1 completed SERAFIN Becker, [place] - [facility] 09/27/2023 15:31:14 COVID-19, mRNA, LNP-S, PF, 100 mcg/0.5mL dose or 50 mcg/0.25mL dose 1 completed Joanna Yoon [place] null, [place] - [facility] 09/27/2023 15:31:14 pneumococcal polysaccharide PPV23 0 completed Joanna Y[place] null, [place] - [...] PF 4 completed Joanna Yoon MA null, [place] - [facility] 09/27/2023 15:31:14 Influenza, high-dose, trivalent, PF 4 completed Norma Mart MD Attn: Accounting,[address] [facility], [place], [address], [facility] - [facility] 01/24/2024 21:55:05 Pneumococcal conjugate PCV20, polysaccharide [id number] conjugate, adjuvant, PF 5 completed Norma Mart MD Attn: Accounting,[address] [facility], [place], [address], [facility] - [facility] 04/23/2024 21:10:05 Past Encounters Encounter ID Performer Location Encounter Start Date Encounter Closed Date Diagnosis/Indication Diagnosis SNOMED-CT Code Diagnosis ICD10 Code Diagnosis Note [id number] Norma Mart MD [facility] (Adult [facility]) [address] [place] [address] [phone] 09/27/2023 15:23:02 09/27/2023 17:03:34 Memory impairment 558720265 R41.3 Headache 41905384 R51.9 [id number] [facility] [address] [place] [address] [phone] 10/25/2023 16:18:45 10/25/2023 17:07:55 Underweight 738019565 R63.6 Memory impairment 603147 006 R41.3 Gastroesop hageal reflux disease without esophagitis 326910989 K21.9 [id number] MD Charline Peng (Adult Med) [address] [place] [address] [phone] 11/22/2023 16:20:13 11/22/2023 17:49:56 Memory impairment 873919919 R41.3 Gastroesop hageal reflux disease without esophagitis 716581123 K21.9 [id number] [facility] [address] [place] [address] [phone] 01/24/2024 15:52:58 01/24/2024 16:53:51 Body mass index 20-24 - normal 643912681 Z68.20 Rhinitis 41482767 J00 Mitral barber ve regurgitation 00215039 I34.0 Pain of bi lateral eyes 5188352937 31703 H57.13 Administra tion of influenza vaccine 64316609 Z23 Basal cell carcinoma of skin 290347149 C44.91 [id number] Norma Mart MD [facility] (Adult Med) [address] [place] [address] [phone] 04/23/2024 16:13:24 04/23/2024 17:36:50 Underweight 932733412 R63.6 Dyspnea 144135192 R06.00 Administra tion of pneumococcal vaccine 19479617 Z23 Gastroesop hageal reflux disease without esophagitis 378361593 K21.9 Memory impairment 739348 006 R41.3 [id number] Norma Mart MD [facility] (Adult Med) [address] [place] [address] [phone] 08/14/2024 15:57:55 08/14/2024 17:30:20 Underweight 952229440 R63.6 Z68.1 Weight decreased 1412147 01 R63.4 Screening for malignant neoplasm of prostate 238401903 Z12.5 Fatigue 31666808 R53.83 Chronic rhinitis 1695495 6 J31.0 Gastroesop hageal reflux disease without esophagitis 119281336 K21.9 [id number] Norma Mart MD [facility] (Adult Med) [address] [place] [address] [phone] 10/09/2024 15:54:59 10/09/2024 17:19:12 Body mass index less than 20 284237551 Z68.1 Underweight 183017950 R6 3.6 Health Concerns Section Related Observation LastModified by Organization Detai ls LastModified Time None Recorded Concern Status LastModified by Organization Details LastModified Time None Recorded Advance Directives Directive N: Medical POA Payers Insurance Date Sequence Insurance Name Policy Number Policy Mehta Covered Member ID Mehta Member ID Guarantor Name 10/09/2024 1 [employer] (MEDICARE REPLACEMENT/ ADVANTAGE - HMO) [id number] Maxi Allred [id number] Maxi Allred 10/09/2024 1 [facility] [id number] Maxi Allred [id number] Maxi Allred 10/09/2024 1 [facility] (MEDICARE REPLACEMENT/ ADVANTAGE - HMO) [id number] Maxi Allred [id number] Maxi Allred Notes Date Note Type Note Provider Name and Address Organization Details Recorded Time 11/22/2023 text/html patient is in office with daughter she thinks he has a little bit more forgetful he says that he does recognize that there probably is some slippage of memory. 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
--- OUTSIDE RECORDS SUMMARY | 2024-10-16 13:53 | XMS_ITS | Encounter Summary ---
Author Name [facility] [place] [place] [facility] [place] [place] Address [address] [place] [address] Care Team Providers Care Breakfast Server Name Role Phone MADDIE LAY Primary Care [...] Name Patient's Relationship to Policy Mehta [employer] [facility] (WNR) MEDICARE ADVANTAGE [facility] (WNR) Dec 26, 2023 [id number] PATIENT Selected Encounter This section includes the information on [place] at [place] for the Encounter. Date/Time Encounter Type Encounter Description Reason Provider Source Sep 25, 2024 01:00 PM PROGRAM INTAKE ASSESSMENT CAREGIVER SUPPORT PROGRAM ICD-10-CM Z74.1 Need for assistance with personal care DEIRDRE WASSERMAN Encounter Template Text not used by [place] Assessments - Encounter Diagnoses This section includes the primary and secondary diagnoses documented for the Encounter. Date/Time Primary/Secondary Diagnosis Diagnosis Name Provider Source Sep 25, 2024 03:43 PM PRIMARY Need for assistance with personal care DEIRDRE WASSERMAN [facility] Plan of Treatment: Future Appointments (+ 6 months) and Future Tests (+/- 45 days) The Plan of Treatment section includes future care activities for the [facility] from [facility] [place] [facility] This section includes future appointments and future orders which are active, pending or scheduled. Future Appointments This section includes appointments that were scheduled to occur 6 months from the date of the Encounter, up to a maximum of 20 appointments. The data comes from all [facility]. Appointment Date/Time Appointment Type Appointme nt Facility Name Oct 23, 2024 01:00 PM [facility] NONE [facility] Active, Pending, and Scheduled Orders This section includes a listing of several types of active, pending, and scheduled orders, including clinic medications orders, diagnostic test orders, procedure orders and consult orders; where the start date of the order is 45 days before the date of the Encounter or 45 days after the date of theEncounter. The data comes from all [facility]. Test Date/Time Test Type Test Details Facility Name Sep 02, 2024 12:00 AM Laboratory - Chemistry Order [id number] BLOOD [facility] Sep 02, 2024 12:00 AM Laboratory - Chemistry Order CBC BLOOD [facility] Sep 02, 2024 12:00 AM Laboratory - Chemistry Order COMPREHENSIVE METABOLIC PANEL GREEN LI/HEP BLD/PLAS PLASMA [facility] Sep 02, 2024 12:00 AM Laboratory - Chemistry Order LIPID PANEL (STL) GREEN LI/HEP BLD/PLAS PLASMA [facility] Sep 02, 2024 12:00 AM Laboratory - Chemistry Order MICRAL/CREAT PROFILE (STL) URINE YELLOW [facility] Sep 02, 2024 12:00 AM Laboratory - Chemistry Order LIPID PANEL (STL) GREEN LI/HEP BLD/PLAS PLASMA [facility] Sep 02, 2024 12:00 AM Laboratory - Chemistry Order TSH (MA-PB) GOLD/RED SST SERUM [facility] Sep 30, 2024 08:34 AM Consult Order CSP PCAFC CENTRALIZED ELIGIBILITY AND APPEALS TEAM OUTPT Cons Balance Wheel Screw Hole Tapper's Choice [facility] Social History: Smoking Status (Most current) and Tobacco Use (All prior to encounter date) This section includes the most current, and the historical, smoking and tobacco- related health factors from the [place] facility where the Encounter took place. Current Smoking Status This section includes the most current smoking, or tobacco-related health factor, from the [place] facility where the Encounter took place. Date/Time Current Smoking Status Comment Facil ity Aug 28, 2024 09:36 AM VA-TOBACCO USE FOR BRITTANY CIGARETTES [facility] Tobacco Use History This section includes a history of the smoking, or tobacco-related health factors, that were collected on or before the date of the Encounter. The data comes from the [place] facility where the Encounter took place. Date/Time Smoking Status/Tobacco Use Comment F acility Aug 28, 2024 09:36 AM VA-TOBACCO USE ROSEMARY RY DAY OTHER TYPE [facility] Aug 28, 2024 09:36 AM VA-TOBACCO USE FOR BRITTANY CIGARETTES [facility] Advance Directives: All historical and current Section Date Range: From patient's date of to the date document was created. This section includes ALL of a patient's completed or amended [place] Advance and Rescinded Directives. The entries below indicate that a directive exists for the patient, but an actual copy is not included with this document. The data comes from all [place] facilities. Date Advance Directives Provider Source Oct 10, 2024 ADVANCE DIRECTIVE YURIY LOZOYA [facility] Encounter Notes: All associated encounter notes This section contains the clinical notes associated to the Encounter. Date/Time Encounter Note(s) Provider Source Sep 25, 2024 01:05 PM CAREGIVER CERTIFIC ATE: LOCAL TITLE: CSP [facility] FUNCTIONAL ASSESSMENT INSTRUMENT STANDARD TITLE: CAREGIVER CERTIFICATE DATE OF NOTE: SEP 25, 2024@13:05 ENTRY DATE: SEP 25, 2024@13:05:53 AUTHOR: DEIRDRE WASSERMANIGNER: URGENCY: STATUS: COMPLETED FUNCTIONAL ASSESSMENT INSTRUMENT The Program of Comprehensive Assistance for Family Caregivers (PCAFC) provides services and additional benefits to approved and designated Family Caregivers of eligible Veterans or service members who are in need of personal care services for a minimum of six continuous months based on any one of the following: - An inability to perform one or more activities of daily living; - A need for supervision or protection based on symptoms or residuals of neurological or other impairment or injury; or - A need for regular or extensive instruction or supervision without which the ability of the to function in daily life would be seriously impaired. Assessment of the need for personal care services is just one piece of the overall application process. The Functional Assessment Instrument (VFAI) captures the or slot service specialist's functional needs, as they relate to the requirements for PCAFC. The assessment should only be used with Veterans or service members who have applied to or are participating in PCAFC and a consult has been placed for this assessment by Caregiver Support Program Staff. The author completing this assessment must be in compliance with all required Caregiver Support Program and VA trainings. Method of contact: Telehealth/ VA Video Connect Modality of Care: Video Telehealth Patient Contact Details: Best contact number for backup/emergency communication with patient: Patient Location/Surroundings During Visit: Patient location during visit: [address] [place] [address] Others present for visit with patient's consent: Name: Gisela Barrow Patient confirms location is safe and private for visit. Telehealth Disclosure: Visit conducted by synchronous telehealth. Patient verbal consent obtained. Location/emergency number confirmed. Environment surveyed and all participants identified. Virtual conference room locked. VFAI: PART A EATING (1) Eating: Independent Defined as: The ability to use suitable utensils to bring food and/or liquid to the mouth and swallow food and/or liquid once the meal is placed before the person. Comments/additional information: Reviewed CPRS records, did not find relevant documentation to support or refute reported information. GROOMING (2a) Oral hygiene: Independent Defined as: The ability to use suitable items to clean teeth. [Dentures (if applicable): the ability to insert and remove dentures into and from the mouth, and manage denture soaking and rinsing with use of equipment.] (2b) Wash upper body: Independent Defined as: The ability to wash, rinse, and dry the face, hands, chest, and arms while sitting in a chair or bed. Comments/additional information: [place] confirms that he has full upper and lower dentures. [place] confirms independence with removing/inserting dentures. confirms independence with cleaning, rinsing and soaking dentures. [place] gets hair cuts at local shop. confirms that he self manages facial hair with use of electric razor. confirms independence with washing, rinsing and drying his upper body. Reviewed CPRS records, did not find relevant documentation to support or refute reported information. BATHING (3) Shower/bathe self: Independent Defined as: The ability to bathe self, including washing, rinsing, and drying self. Does not include transferring in/out of tub/shower. Comments/additional information: reports that he showers once or twice a week and wipes off in between showers with bath wipes. reports that he has walk in shower with built in shower seat and grab bars, reports that he sometimes sit while showering. confirms ability to wash, rinse and dry his groin and legs. [place] reports that he does not bend to h feet, CG reports that experiences lightheadedness with bending down. [place] reports that he just allows water ro run over his feet. Reviewed CPRS records, did not find relevant documentation to support or refute reported information. DRESSING AND UNDRESSING (4a) Upper body dressing: Independent Defined as: The ability to dress and undress above the waist, including fasteners (if applicable). (4b) Lower body dressing: Person requires assistance only sometimes Defined as: The ability to dress and undress below the waist, including fasteners; does not include footwear. (4c) Putting on/taking off footwear: Person requires assistance only sometimes Defined as: The ability to put on and take off socks and shoes, or other footwear that is appropriate for safe mobility, including fasteners (if applicable). Comments/additional information: reports that he gets dressed in bedroom while sitting on bed. confirms independence with donning/doffing shirts. reports that he wears pull on tshirts. and CG reports that sometimes, not each time, requires hands on assistance to don/doff underwear and pants. CG reports that sometimes experiences difficulty with threading feet/legs in pants (heavier pants), reports that sometimes veterans feet will get stuck if he is bending over/down too long he gets lightheaded, CG reports that d/t this he may require hands on assistance with pants and underwear about 2 to 3 times a week. Reports that generally wears pajama pants while home and is able to manage to don/doff pajama pants. CG and reports that requires hands on assistance sometimes, not each time to don/doff socks and shoes. Reports that if veterans is sitting in chair or laying in bed he is able to bend his leg up to don/doff items. Reports that if bends over/down too long he experiences lightheadedness and off balance. reports that he wears slip on shoes/slippers around the house and away from home and confirms ability to don/doff independently. Reviewed CPRS records, did not find relevant documentation to support or refute reported information. TOILETING (5) Toileting hygiene: Independent Defined as: The ability to maintain perineal/menstrual hygiene and adjust clothes before and after voiding or having a bowel movement. If managing an ostomy, include wiping the opening but not managing equipment. Comments/additional information: [place] reports that he sometimes experience difficulty reaching around to wipe d/t lightheadeness with bending/leaning forward. Reviewed CPRS records, did not find relevant documentation to support or refute reported information. PROSTHETICS (6) Prosthetics (Use of Assistive Devices): Not applicable - does not use prosthetics or assistive devices Defined as: The ability to adjust special prosthetic or orthopedic appliances. The adjustment of appliances that any person (with or without a disability) would need assistance with should not be scored (for example, supports, belts, lacing at back, etc.). Comments/additional information: n/a MOBILITY (POSITIONING/TRANSFERS) (7a) Roll left and right: Person does not usually do this activity Defined as: The ability to roll from lying on back to left and right side, and return to lying on back. (7b) Sit to lying: Independent Defined as: The ability to move from sitting on side of bed to lying flat on the bed. (7c) Lying to sitting on side of bed: Independent Defined as: The ability to move from lying on the back to sitting on the side of the bed with feet flat on the floor and with no back support. (7d) Sit to stand: Person requires assistance only sometimes Defined as: The ability to come to a standing position from sitting in a chair, wheelchair, or on the side of the bed. (7e) Chair/bmw-xa-whtan transfer: Person requires assistance only sometimes Defined as: The ability to transfer to and from a bed to a chair (or wheelchair). (7f) Toilet transfer: Independent Defined as: The ability to get on and off a toilet or commode. Comments/additional information: [place] reports that when in bed, he is only on his back. [place] reports that he does not roll left/right but confirms that if wanted to reposition left/right he has ability. confirms independence with moving from sit to lying position and lying to sitting position independently. confirms ability to stand up from bed independently, reports that he has to stand slowly and wait a while after he sits up on side of bed before standing. reports requiring hands on assistance sometimes, not each time. to move from sit to stand positions if seat is too low or if he is experiencing weakness. reports using chair arms and furniture for support and stability to stand. reports that he has raised toilet seat (4 inch) and that he is able to get on/off toilet independently with use of sink/vanity for support to stand. [place] reports that sometimes he requires hands on assistance to transfer in/out of shower d/t dizziness. Reviewed CPRS records, did not find relevant documentation to support or refute reported information. MOBILITY (WALKING, MANUAL WHEELCHAIR, MOTORIZED WHEELCHAIR/SCOOTER) (8) Mobility: Person walks WALKING (9a) Walk 10 feet: Person requires assistance only sometimes Defined as: Once standing, the ability to walk at least 10 feet in a room, corridor, or similar space. (9b) Walk 50 feet with two turns: Supervision or touching assistance Defined as: Once standing, the ability to walk at least 50 feet and make two turns. (9c) Walk 150 feet: Person does not usually do this activity Defined as: Once standing, the ability to walk at least 150 feet in a corridor or similar space. (9d) Walk 10 feet on uneven surfaces: Supervision or touching assistance Defined as: The ability to walk 10 feet on uneven or sloping surfaces (indoor or outdoor) such as turf or gravel. (9e) 1 step (curb): Independent Defined as: The ability to go up and down a curb and/or up and down one step. (9f) 4 steps: Independent Defined as: The ability to go up and down four steps with or without a rail. (9g) 12 steps: Independent Defined as: The ability to go up and down 12 steps with or without a rail. (9h) Picking up object: Person does not usually do this activity Defined as: The ability to bend/stoop from a standing position to pickle processor a small object, such as a spoon, from the floor. (9i) Walk indoors: Person requires assistance only sometimes Defined as: The ability to walk from room to room, around furniture and other obstacles. (9j) Carry something in both hands: Person does not usually do this activity Defined as: The ability to carry something in both hands while walking indoors (i.e., several dishes, light laundry basket, tray with food). (9k) Walk for 15 minutes: Person does not usually do this activity Defined as: The ability to walk without stopping or resting (i.e., through a department store, supermarket). (9l) Walk across a street: Person does not usually do this activity Defined as: The ability to cross a street before light turns red. Comments/additional information: reports limitations with mobility and ambulation r/t neuropathy, states My pain is so bad in my feet, I can barely stand. reports ambulating with cane. [place] confirms ability to ambulate up to 10ft and throughout home with use of cane and with supervision/touching assistance sometimes, not each time. NEG reports having to provide stand by assist or holding on to veterans elbow for support. [place] reports that he does walk down driveway to mailbox but SCG reports that sometimes becomes breathless with walk. confirms ability to go up down 1 step or curb. [place] and SCG reports that for further distances than 50ft has electric scooter that he will use. [place] lives in ranch style home with basement. reports using front entry to enter/exit home. [place] reports that there are 2 steps, by sidewalk from driveway to front door, confirms ability to go up/down both steps independently. [facility] reports that there are 12 steps to basement. reports rarely going in basement but confirms ability to go up/down basement steps with use of rail for support independently. Reviewed CPRS records, did not find relevant documentation to support or refute reported information. VFAI: PART B MEDICATION MANAGEMENT (1a) Does the person take any medication(s)? Yes (1b) Does the person need assistance with medication management? Needs medication set-up Comments/additional information: [facility] reports that she sets medications up in weekly pill box and distributes them to at due times. reports that he forgets to take medications and sometimes takes too many. has dementia diagnosis. [facility] reports that provider submites refills SELF-PRESERVATION AND SUPERVISION (2) Does the person have the judgment and physical ability to cope, make appropriate decisions and take action in a changing environment or a potentially harmful situation? Minimal (verbal/physical prompts for preservation) (3) Is this person at risk of self-neglect? Yes Details: Gets lost, [facility] reports that has lost alot of weight, reports that he does not like food, dementia (4) Person has the following risk factors: Behaviors that pose a threat of harm to self or others Dehydration or malnutrition Impairment of orientation, memory, reasoning, and/or judgment Inability to manage medications or to seek medical treatment that may threaten health or safety (5) Is this person at risk of neglect, abuse, or exploitation by another person? No (6) What type of support does the person need in the home to remain safe, such as assistance or supervision with activities that require remembering, decision-making, or judgment? Sometimes the person can be left alone for an hour or two. (7) What type of support does the person need away from home to remain safe, such as assistance or supervision with activities that require remembering, decision-making, or judgment? Someone always needs to be with the person to help with remembering, decision making or judgment when away from home. Comments/additional information: [place] and Secondary Family Caregiver Applicant Gisela Barrow both actively participated in [facility] appt. SCG sitting in chair and sitting behind her in recliner but upper body fully visible. alert and oriented to person, place and time. [place] appeared calm and pleasant and responded to questions appropriately. [place] able to stay on topic and recall information. [place] appeared clean and dressed appropriate, hair cut neck length, facial hair groomed sitting inn recliner and wearing a black tshirt. and SCG reports concerns with veterans memory and/or cognition. [place] has diagnosis of dementia. SCG reports getting lost with driving, reports that he got lost last week. [place] reports that he only drives if/when necessary. SCG reports that rarely drives, reports that he drives about once a month alone and that he has full access to a vehicle. SCG reports that she and PCG are trying to figure out a plan r/t veterans driving. SCG reports that has left stove on, has left water running and reports that he forgets things after she tells him and will ask again 20 minutes later. Reports that they write notes for reminders. SCG reports that short term memory is mainly affected. Reports requiring reminders and cues for initiation and completion of ADL'S. When presented with questions r/t potentially harmful situations, responded appropriately with minimal cues. RN asked what [place] would do if he was alone at home and he accidentally cut himself and saw the blood spurting out of his arm. Veterans response, Look for my phone and call 911, grab a towel out of the closet and wrap it up. RN asked questions related to a call from someone claiming to be from with a refund for him and requesting his bank information to get him the refund. Veterans response, Hang up. Confirms no information will be provided. [facility] reports that veterans paypal account was hacked and scammed. [place] confirms that he has his won cell phone and confirms ability to operate basic functions independently. has life alert necklace and confirms that he keeps it on at all times. CG confirms veterans ability to stay home alone for 1 to 2 hrs and confirms that should always have someone with him when traveling away from home to assist with remembering, decision making and judgement. SCG reports that PCG manages finances and bills. SCG reports that PCG schedules,manages and keeps track of appts. SCG reports that she and PCG alternate driving to appts and sitting in on appts. SCG reports that both PCG and communicates with providers. SCG reports that she does all grocery shopping, cooking,cleaning, laundry and housework. [place] confirms ability to operate microwave to warm foods and confirms ability to make a sandwich. CPRS review; PRIMARY CARE PROVIDER NEW VISIT STL DATE OF NOTE: SEP 11, 2024 General: Alert and oriented. NAD.frail ,emaciated looking , elderly , very pleasant WM PROTECTION (8a) Delusions/Hallucinations: Person engages in markedly inappropriate behavior that affects his/her/their daily functioning and social interactions. Behavior characterized by a radical change in personality and a distorted or diminished sense of reality. No (9a) Agitation: Person has a tendency, or would without an intervention, to suddenly or quickly become upset or violent. No (10a) Impulsivity: Person has a propensity, or would without an intervention, for sudden or spontaneous decisions or actions. No (11a) Wandering: Person will, or would without an intervention, leave an area or group without telling others or depart from the supervision of others unexpectedly, resulting in increased vulnerability. No Comments/additional information: n/a INSTRUCTION (12) Person requires stand-by cueing, supervision, or step by step instructions from a caregiver in order to function in daily life: Yes (13) Person requires CONTINUOUS stand-by cueing, supervision, or step by step instructions from a caregiver in order to function in daily life: No Comments/additional information: [facility] reports that short term memory is mainly affected. Reports requiring reminders and cues for initiation and completion of ADL'S. Reports requiring oversight for safety. SELF-DIRECTION (14) Can this person identify their own needs? Yes (15) Can this person provide and/or arrange for their health and safety? Yes Comments/additional information: confirms ability to place successful phone call to clinic to reports any concerns or issues. /loc/ DEIRDRE WASSERMAN FAMILY AND MARRIAGE COUNSELLOR REGISTERED NURSE Signed: 09/25/2024 15:43 Receipt Acknowledged By: 09/30/2024 08:35 /loc/ SONJA COUGHLIN Machinist Apprentice [employer], Caregiver Support Program DEIRDRE WASSERMAN [facility]
--- OUTSIDE RECORDS SUMMARY | 2024-10-16 13:53 | XMS_ITS | Continuity of Care Document ---
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 It does not include entries that were removed or entered in error. Problem Status Onset Date Problem Type Date of Resolution Comments Source CAD - Coronary Artery Disease ([facility] [id number]) Active Condition [facility] Dementia Active Condition [facility] Exposure to potentially hazardous substance ([facility] [id number]) Active Condition Sep 25 5 Entered By: PAKO SMILEY Comment: Entered automatically through INDRA Problem List documentation program [facility] Gastroesophageal reflux disease Active Condition [facility] Hyperlipidemia ([facility] [id number]) Active Condition [facility] Hypertriglyceridemia Active Condition [facility] Low back pain Active Condition [facility] Neuropathy Active Condition [facility] Pulmonary hypertension 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 Medication Details Route Status Patient Instructions Prescription Expires Prescription Number Last Dispense Date Ordering Provider Order Date Order Qty Source IBUPROFEN 800MG TAB TAKE ONE TABLET BY MOUTH THREE TIMES A DAY NEEDED ORAL ACTIVE PASCHEN,K JAMES E 2024 [facility] LORAZEPAM 0.5MG TAB TAKE ONE TABLET BY MOUTH TWICE A DAY ROSARIO ACTIVE Renard BRICE 2024 [facility] MEMANTINE HCL 5MG TAB TAKE ONE TABLET BY MOUTH TWICE A DAY ORAL ACTIVE Renard BRICE 2024 [facility] METHADONE HCL 5MG TAB TAKE TWO TABLETS BY MOUTH THREE TIMES A DAY ORAL ACTIVE Renard BRICE 2024 [facility] METHOCARBAM OL 750MG TAB TAKE ONE TABLET BY MOUTH ONCE A DAY NEEDED ORAL ACTIVE Renard BRICE 2024 [facility] MONTELUKAST NA 10MG TAB TAKE ONE TABLET BY MOUTH EVERY EVENING ORAL ACTIVE Renard BRICE 2024 [facility] OXYCODONE HCL 15MG TAB TAKE TWO TABLETS BY MOUTH 5 TIMES A DAY ORAL ACTIVE Renard BRICE 2024 [facility] PANTOPRAZOL E NA 40MG TAB,EC TAKE ONE TABLET BY MOUTH EVERY MORNING BEFORE A MEAL ORAL ACTIVE Renard BRICE 2024 [facility] SERTRALINE HCL 50MG TAB TAKE ONE TABLET BY MOUTH EVERY MORNING ROSARIO ACTIVE Renard BRICE 2024 [facility] Immunizations Combined list of available immunizations from the Department of Defense and Veterans Affairs facilities. 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 Vital Sign Value Date Comments Source SYSTOLIC BLOOD PRESSURE 88 09/12/19 25 13:09:58 [facility] DIASTOLIC BLOOD PRESSURE 51 025 13:09:58 [facility] PULSE OXIMETRY 97 % 09/11/2024 13:09:58 [facility] WEIGHT 72 09/11/2024 13:09:58 [facility] BMI 10 kg/m2 09/11/2024 13:09:58 [facility] PAIN 7 09/11/2024 13:09:58 [facility] HEIGHT 72 09/11/2024 13:09:58 [facility] TEMPERATURE 97.6 09/11/2024 13:09:58 [facility] PULSE 74 09/11/2024 13:09:58 [facility] RESPIRATION 16 09/11/2024 13:09:58 [facility] Encounters Combined list of: 1) Encounters from Department of Veterans Affairs facilities going backup to the last 18 months, not all [place] inpatient encounters are included; 2) Encounters from the Department of [facility] facilities going backup to 280 months. Location Location Details Encounter Type Encounter Number Reason For Visit Attending Provider ADM Date DC Date Status Disposition Source [facility] Outpatient Encounter [id number] 03/27 [facility] Outpatient Encounter [id number] 05/14 [facility] Outpatient Encounter [id number] 07/30 [facility] N [facility] Outpatient Encounter [id number] 08/01 [facility] Outpatient Encounter [id number] 08/15 [facility] PH1 ASSMT&MGMT NQHP 21-30 [id number] Diagnos is: ICD-10- CM Z65.9 Problem related to unspeci fied psychos ocial circums JOSE Jha 08/22 [facility] PH1 ASSMT&MGMT NQHP 11-20 [id number] Diagnos is: ICD-10- CM Z65.9 Problem related to unspeci fied psychos ocial circums tances JOSE GAVIRIA L 08/23 [facility] Outpatient Encounter [id number] JOSE GAVIRIA L 08/23 [facility] Outpatient Encounter [id number] ALIREZANID HI 08/28 [facility] 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 [id number] Diagnos is: ICD-10- CM Z79.899 Other custodial (curren t) drug therapy SHONNA BRICE 09/02 [facility] O/P NEW MOD 45 MIN [id number] Diagnos is: ICD-10- CM G62.9 Polyneu ropathy , unspeci fied ALIREZA,NID HI 09/11 [facility] PH1 ASSMT&MGMT NQHP 21-30 [id number] Diagnos is: ICD-10- CM Z74.1 Need for assista nce with SHAHANA Cardoso 09/13 [facility] Outpatient Encounter [id number] 09/13 [facility] Outpatient Encounter [id number] KIEL CALHOUN 09/16 [facility] Outpatient Encounter [id number] 09/16 [facility] Outpatient Encounter [id number] 09/16 [facility] BHV ASSMT/REAS SESSMENT [id number] Diagnos is: ICD-10- CM F03.90 Unsp dementi a, unsp severit y, without beh/psy ch/mood /anx ANN-MARIE COUGHLIN 09/18 [facility] Outpatient Encounter [id number] 09/20 [facility] PROGRAM INTAKE ASSESSMENT [id number] Diagnos is: ICD-10- CM Z74.1 Need for assista nce with persona SHONNA King 09/25 [facility] Outpatient Encounter [id number] MOMO LABOY 09/30 [facility] Outpatient Encounter [id number] 10/10 [facility] Social History Combined list of available smoking, tobacco, and other social history from Department of Defense and [facility] Affairs facilities. Social History Type Response Date Comment Sourc e Tobacco smoking status NHIS VA-TOBACCO USE FORMER CIGARETTES 08/28/2024 [facility] History of tobacco use VA-TOBACCO USE EVERY DAY OTHER TYPE 08/28/2024 [facility] Plan of Care List of future care activities from Department [facility] facilities. Additional future care activities may be listed in the Assessment and Plan section. Date/Time Care Activity Care Activity Detail Facili ty 10/23/2024 AMBULATORY - NONE AMBULATORY - NONE [facility] Advance Directives List of completed, amended, or rescinded Advance Directives on record at Department of Veterans Affairs facilities. An actual copy of the Directive is not included. Date Advance Directive Provider Source 10/10/2024 ADVANCE DIRECTIVE YURIY LOZOYA [facility]
--- OUTSIDE RECORDS SUMMARY | 2024-10-16 13:53 | XMS_ITS | Clinical Summary ---
Author Organization [facility] Address [facility] [place] [address] Care Team Providers Care Medical Review Specialist Name Role Phone Unavailable Primary Care Provider [...]
[2024-10-16 14:08] LABS: Estimated Glomerular Filt Rate 58
== END 2024-10-16 13:50 | disposition home or self-care (01) ==
LOC: ANHIMG 13:50
PROVIDERS: PCP Internal Medicine; Visit Provider Internal Medicine
DX: R93.5 Abnormal findings on diagnostic imaging of other abdominal regions, including retroperitoneum (principal); K56.41 Fecal impaction; K62.89 Other specified diseases of anus and rectum; R06.02 Shortness of breath
CPT/HCPCS: 71260; 74177; Q9967

== ENCOUNTER 2024-10-17 15:16 | Inpatient (IN) | payer MEDICARE, OTHER, SELFPAY ==
[2024-10-17] VITALS (8 sets, daily range): BP systolic 81–155; BP diastolic 51–70; PULSE 63–85; RESP 14–23; TEMP 36.6–36.8; O2SAT 96–100; BMI 18.1
--- NOTE | ~2024-10-17 | CT_ITS ---
EXAMINATION: CT facial bones wo con DATE: 10/18/2024 14:03 INDICATION: Facial pain TECHNIQUE: Computed tomography (CT) of the facial bones and maxillofacial region was performed withou t intravenous contrast. Coronal reconstructions were obtained. Automated exposure control and iterati ve reconstruction technique were employed. The dose-length product was 331.22 mGy-cm. COMPARISON: None. FINDINGS: No maxillofacial fractures. Specifically the mandible, zygomatic arches, nasal bones and sparks of the orbits and paranasal sinuses are all intact. The mastoid air cells, middle ear cavities and paranasa l sinuses are clear. Orbits are normal. The majority of the teeth are absent with alveolar ridge reso rptive changes along both the mandible and maxilla. 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 Moderate cervical spondylosis. Anterior fusion at C6-C7 and posterior fusion at the bilateral C5-C6 facet joints. IMPRESSION: 1. No maxillofacial fractures or other acute osseous abnormality. 2. Moderate spondylosis in the visualized cervical spine. Reviewed, dictated and finalized at location A.
--- NOTE | ~2024-10-17 | XR_ITS ---
CHEST RADIOGRAPH CLINICAL HISTORY: hypotension . COMPARISON: Reference is made to a CT examination of the chest, abdomen and pelvis performed approxim ately 24 hours earlier TECHNIQUE: Single portable view of the chest. FINDINGS Dorsal column stimulator device is noted. The remainder of the cardiomediastinal silhouette is otherwise unremarkable. The lungs are clear. IMPRESSION: No focal infiltrate or effusion. Reviewed, dictated and finalized at location A.
--- NOTE | 2024-10-17 15:23 | ECG_ITS ---
Test Date: 2024-10-17 15:23:50 Measurements Intervals [place] Rate: 78 P: 76 UT: 189 QRS: -28 QRSD: 87 T: 83 QT: 374 QTc: 426 Interpretive Statements SINUS RHYTHM BORDERLINE LEFT AXIS DEVIATION [QRS AXIS < -20] NONSPECIFIC T-WAVE ABNORMALITY No previous ECG available for comparison Electronically Signed On 10-18-2024 16:03:05 CDT by Galileo Sarmiento M.D.
--- NOTE | 2024-10-17 15:24 | PC.NURSE ---
Per [facility] NS continued on arrival
--- NOTE | 2024-10-17 15:35 | ED_ITS ---
HPI - Weakness General Chief complaint: Weakness Stated complaint: WEAKNESS Time Seen by Provider: 10/17/24 15:20 History of Present Illness HPI Narrative: Pt presents with generalized weakness for several days. Pt felt lightheaded when standing and nearly passed out today. Pt denies CP or abdominal pain or dark or bloody stools. Pt deneis cough or fever or urinary symptoms. Pt does admit to poor appetite and poor intake for weeks. Related Data Home Medications ?Medication ?Instructions ?Recorded ?Confirmed ?Last Taken ?Type atorvastatin 10 mg tablet 10 mg PO 04/05/22 04/14/22 Unknown History gabapentin 600 mg tablet 600 mg PO 04/05/22 04/14/22 Unknown History ibuprofen 800 mg tablet 800 mg PO 04/05/22 04/14/22 Unknown History lorazepam 0.5 mg tablet 0.5 mg PO 04/05/22 04/14/22 Unknown History methadone 10 mg tablet 10 mg PO 04/05/22 04/14/22 Unknown History oxycodone 30 mg tablet 30 mg PO 04/05/22 04/14/22 Unknown History pantoprazole 40 mg tablet,delayed tablet PO 04/05/22 04/14/22 Unknown History release Allergies Allergy/AdvReac Type Severity Reaction Status Date / Time No Known Allergies Allergy Verified 10/17/24 15:23 Review of Systems 2 Review of Systems: All systems reviewed & are unremarkable except as noted in HPI and below PMFSH Family History Family History Father Diabetes mellitus Mother Cancer Social History Social History Smoking status: Never smoker Tobacco type: e-cigarettes/vaping Alcohol intake: never Substance use: never Lack of Transportation: No Lack of Food: Never True Current Housing: I Have Housing Concerned About Future Housing: No Difficulty Paying Gas/Electric Bills: No Difficulty Paying for Meds: No Currently Unemployed: No Education: High School Diploma/GED Difficulty w/ Childcare or Family Care: No Living arrangements: with family Occupation/Education: retired Gender identity (if verbalized by the patient): Male Exam 2 Const: General: no acute distress Nutritional Appearance: thin O rientation/consciousness: patient oriented x3 Limitations: no limitations HENMT: Mouth: Yes dry mucous membranes Eyes: EOM: EOMs intact bilaterally Chest: Chest palpation & inspection: normal inspection of the chest Resp: Effort & Inspection: normal respiratory effort Auscultation: clear to auscultation bilaterally Cardio: Rate: regular rate Rhythm: regular rhythm GI: GI Palp: Yes Soft to palpation and No Tenderness to palpation present (GI) Auscultation: normal bowel sounds Skin: General skin exam: normal color Rashes: no rashes Wounds: no wounds Neuro: General: patient oriented x3, moves all extremities, no meningeal signs and no focal motor deficits Cranial nerves: Yes Nystagmus not present S peech: normal speech Extrem: General: normal to inspection and no clubbing, cyanosis or edema Psych: Mental Status: mental status grossly normal Affect: normal affect Attitude: cooperative Course Vital Signs Vital signs: Vital Signs Temperature 97.8 F 10/17/24 15:13 Pulse Rate 85 10/17/24 15:13 Respiratory Rate 15 10/17/24 15:13 Blood Pressure 81/61 L 10/17/24 15:13 Pulse Oximetry 96 10/17/24 15:13 Oxygen Delivery Room Air 10/17/24 15:13 Temperature 97.8 F 10/17/24 15:13 Pulse Rate 84 10/17/24 18:06 Respiratory Rate 23 H 10/17/24 18:06 Blood Pressure 92/70 L 10/17/24 18:06 Pulse Oximetry 100 10/17/24 18:06 Oxygen Delivery Room Air 10/17/24 15:13 MDM - Weakness MDM Narrative Medical decision making narrative: Pt presents with generalized weakness and poor intake. Pt SBP os 81. Will give 30 mg/kg fluid bolus and get septic work up. expect dehydration. cbc no anemia or elevated wbc, cmp unremarkable with normal renal function, ekg and cxr unremarkable. SBP improved after fluids to 104 but dropped to 80's when stood to get UA. discussed with Sandra Callahan and agrees to admit. Lab Data 10/17/24 15:46 10/17/24 15:46 Labs: Lab Results 10/17/24 Range/Units 15:46 WBC 4.1 L (4.5-10.0) K/mm3 RBC 3.64 L (4.6-6.20) M/mm3 Hgb 10.8 L (14.0-18.0) g/dL Hct 33.8 L (42.0-52.0) % MCV 92.9 (80-100) fl MCH 29.7 (26-34) pg MCHC 32.0 (32-36) g/dl RDW 13.1 (11.5-14.5) % Plt Count 177 (150-375) k/mm3 MPV 8.8 (7.4-10.4) fl Immature Gran % (Auto) 0.5 (0-0.5) % Neut % (Auto) 72.4 (45.5-73.1) % Lymph % (Auto) 16.2 L (18.3-44.2) % [place] % (Auto) 5.7 (2.6-8.5) % Eos % (Auto) 4.7 H (0-4.4) % Baso % (Auto) 0.5 (0.2-1.2) % Lymph # (Auto) 0.66 L (0.9-3.2) K/mm3 [place] # (Auto) 0.2 (0.1-0.6) K/mm3 Eos # (Auto) 0.2 (0-0.3) K/mm3 Baso # (Auto) 0.0 (0.0-0.1) K/mm3 Abs Immat Gran (auto) 0.02 (0.00-0.031) K/mm3 Absolute Neuts (auto) 3.0 (1.3-6.7) K/mm3 Absolute Nucleated RBC 0.000 (0.0-0.012) K/mm3 Nucleated RBC % 0.0 (0.0-0.2) % PT 14.0 (11.1-14.7) Seconds INR 1.1 APTT 28.3 (22.3-36.8) Seconds Sodium 138 (137-145) mmol/L Potassium 3.9 (3.4-5.0) mmol/L Chloride 106 (98-107) mmol/L Carbon Dioxide 27 (22-30) mmol/L Anion Gap 5 (4-12) mmol/L BUN 12 D (9-20) mg/dL Creatinine 0.87 (0.7-1.3) mg/dL Estim Creat Clear Calc 52 ml/min Estimated GFR > 60 (59 - ) Glucose 88 (65-110) mg/dL Lactic Acid 1.1 (0.7-2.0) mmol/L Calcium 8.7 (8.4-10.2) mg/dL Total Bilirubin 0.5 (0.2-1.3) mg/dL AST 23 (17-59) U/L ALT 10 (6-50) U/L Alkaline Phosphatase 69 (38-126) U/L C-Reactive Protein < 0.5 (<1.0) mg/dL Total Protein 6.2 L (6.3-8.2) g/dL Albumin 3.4 L (3.5-5.1) g/dL Critical Care Time Critical Care Time Critical Care Time: Yes Total Critical Care Time: 32 Discharge Plan Discharge Clinical Impression: Acute hypotension, Adult failure to thrive Patient Disposition: Still a Patient Condition: Guarded Prognosis Patient Language: [place]orese Prescriptions: No Action oxycodone 30 mg tablet 30 mg PO lorazepam 0.5 mg tablet 0.5 mg PO methadone 10 mg tablet 10 mg PO pantoprazole 40 mg tablet,delayed release (DR/EC) PO atorvastatin 10 mg tablet 10 mg PO gabapentin 600 mg tablet 600 mg PO ibuprofen 800 mg tablet 800 mg PO magnesium citrate Solution 150 ml PO BID PRN (Reason: constipation) Qty: 296 0RF polyethylene glycol 3350 [Miralax] 17 gram powder in packet 17 g PO BID Qty: 30 0RF Rx Instructions: Dissolve in 8 oz of water, do not dilute any further as this will make the medication less effective. senna 8.6 mg capsule 8.6 mg PO HS PRN (Reason: constipation) Qty: 30 0RF Follow-up/Referrals: Barron,MD Tom [Primary Care Provider] -
[2024-10-17 15:59] LABS: Hematocrit 33.8 % (42.0-52.0); Hemoglobin 10.8 g/dL (14.0-18.0); Immature Granulocyte Percent A 0.5 % (0-0.5); Lymphocytes Absolute Auto 0.66 K/mm3 (0.9-3.2); Mean Corpuscular HGB Conc 32.0 g/dl (32-36); Mean Corpuscular Hemoglobin 29.7 pg (26-34); Mean Corpuscular Volume 92.9 fl (80-100); Nucleated Red Blood Cells Absolute Auto 0.000 K/mm3 (0.0-0.012); Nucleated Red Blood Cells Perc 0.0 % (0.0-0.2); Platelet Count Result 177 k/mm3 (150-375); Red Blood Count 3.64 M/mm3 (4.6-6.20); White Blood Count 4.1 K/mm3 (4.5-10.0)
[2024-10-17 16:09] LABS: Alanine Aminotransferase 10 U/L (6-50); Albumin Level 3.4 g/dL (3.5-5.1); Alkaline Phosphatase 69 U/L (38-126); Anion Gap 5 mmol/L (4-12); Aspartate Amino Transferase 23 U/L (17-59); Bilirubin,Total 0.5 mg/dL (0.2-1.3); Blood Urea Nitrogen 12 mg/dL (9-20); CRP < 0.5 mg/dL (<1.0); Calcium 8.7 mg/dL (8.4-10.2); Carbon Dioxide 27 mmol/L (22-30); Chloride 106 mmol/L (98-107); Estimated CRCL calculation 52 ml/min; Estimated Glomerular Filt Rate > 60; Glucose 88 mg/dL (65-110); Potassium 3.9 mmol/L (3.4-5.0); Sodium 138 mmol/L (137-145); Total Protein 6.2 g/dL (6.3-8.2)
--- OUTSIDE RECORDS SUMMARY | 2024-10-17 16:09 | XMS_ITS | Data Portability ---
[facility] [address] [place] [address] Care Team Providers Care Rn Enterostomal Name Role Phone NORMA MART Primary Care Provider [phone] Assessment Encounter Date Assessment Date Assessment LastModified [...] stable anxiety appears to be stable to [email or web address] Not available 12/02/2023 14:17:55 01/24/2024 01/24/2024 I [...] agreed to not drive at previous appointment [email or web address] Not available 01/24/2024 21:58:14 04/23/2024 04/23/2024 in with his daughter today. Plan eating healthy food care instruction PFTs chest x-ray Singulair 10 mg a day for the rhinitis Prevnar 20 chest x-ray. Had large cardiac workup before that was negative may need to see them again follow up 3 months [email or web address] Not available 04/23/2024 21:12:10 08/14/2024 08/14/2024 For [...] for some of the newer dementia drugs Not available 08/14/2024 21:25:33 Plan of Treatment Reminders Order Date Submit Date Provider Last Modified By Organization Details Last Modified Time Details Appointments ANY 15 2024 03:15P Claude Mart MD Not available Not available Not available Lab PSA, total, serum or plasma 2024 025 [facility], [address], [place], [address], 08/26/2024 15:10:17 urinalysi s, complete 2024 025 [facility], [address], [place], [address], 08/26/2024 15:10:14 JOVANI (antinucl ear antibodie s) screen, ifa, serum 2024 025 [facility], [address], [place], [address], 08/26/2024 15:10:11 CMP, serum or plasma 2024 025 [facility] [address], [place], [address], 08/26/2024 15:10:13 CBC w/ auto diff 2024 025 [facility], [address], [place], [address], 08/26/2024 15:10:16 TSH + free T4, serum 2024 025 [facility], [address], [place], [address], 08/26/2024 15:10:12 T3, free, serum or plasma 2024 025 [facility], [address], [place], [address], 08/26/2024 15:10:18 cortisol, serum or plasma 2024 025 [facility], [address], [place], [address], 08/26/2024 15:10:15 RPR (rapid plasma reagin), serum 2023 024 YOHAN [facility], [address], [place], [address], 12/30/2023 10:14:09 ESR (erythroc yte sedimenta tion rate), blood 2023 024 [facility], [address], [place], [address], 12/30/2023 10:14:08 C reactive protein, QN, serum or plasma 2023 024 [facility], [address], [place], [address], 12/30/2023 10:14:11 Referral dermatolo gist referral 2023 024 [place], [address], [address], [place], [address], 07/03/2024 17:03:31 ophthalmo logist referral 2023 024 YOHAN [facility], [address], [place], [address], 04/05/2024 14:39:18 Procedures None recorded. Surgeries None recorded. Imaging PFT, complete - PFT with DLCO 2024 [facility], [facility] [facility] [address], [place], [address], 08/01/2024 17:14:35 XR, chest 2024 025 [facility] ([facility]), [address] [facility] [address], [place], [address], 08/23/2024 16:53:06 US, echocardi ogram, transthor acic, complete, w/ color flow 2023 024 [facility], [address], [address], [place], [address], 04/22/2024 16:27:36 Medication Orders Flonase Allergy Relief 50 mcg/actua tion nasal spray,tanya pension 2024 025 [facility], [address] [place] [address] , [address], [place], [place], [id number], 10/09/2024 16:28:03 Singulair 10 mg tablet [address], [place], [place], [id number], 04/23/2024 18:31:59 ipratropi um bromide 21 mcg (0.03 %) nasal spray 2023 024 elizabeth [facility], [address] [place] [address] [address], [place], [place], [id number], 01/24/2024 16:52:58 donepezil 5 mg tablet 2023 024 brock [facility], [address] [place] [address] , [address], [place], [place], [id number], 01/24/2024 16:08:25 Patient TargetsNo targets recorded. 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 Referring Physician: Norma Mart, Internal Medicine, Encounter Date: 01/24/2024 Results Created Date Observation Date Name Description Value Unit Range Abnormal Flag Note LastModifiedBy Organization Detail LastModifiedTime 12/29/1912/30/2023 SEDIM ENTAT ION RATE- WESTE RGREN sedimentatio n rate-westerg latisha 8 mm/HR 0-30 Not Available [facility] ([facility]) [address] [place], [address], 12/30/2023 10:14:08 12/29/19 24 12/30/2023 RPR RPR NON REACTI VE nonrea ctive Not Available [facility] ([facility]) [address] [place], [address], 12/30/2023 10:14:09 12/29/19 24 12/30/2023 C-USMAN CTIVE PROTE IN, QUANT C-reactive protein, quant 3 mg/L 0-10 Not Available [facility] ([facility]) [address] [place], [address], 12/30/2023 10:14:10 08/23/19 25 08/23/2024 SPECI MEN STATU S REPOR T specimen status report TNP Test not perfo rmed. No urine speci men recei raúl. TEST: 65013 2 Urina lysis , Compl ete Not Available [facility] ([facility]) [address] [place], [address], 08/26/2024 15:10:10 08/23/19 25 08/26/2024 JOVANI BY [...] uclea r Antib jason (JOVANI) Patte rns ([place] ). Not Available [facility] ([facility]) [address] [facility], [place], [address], 08/26/2024 15:10:11 08/23/19 25 08/23/2024 TSH+F REE T4 TSH 1.770 uIU/m L 0.450- 4.500 Not Available [facility] ([facility]) [address] [place], [address], 08/26/2024 15:10:12 08/23/19 25 08/23/2024 TSH+F REE T4 T4,free(dire ct) 1.19 NG/dL 0.82-1 .77 Not Available [facility] ([facility]) [address] [place], [address], 08/26/2024 15:10:12 08/23/19 25 08/23/2024 COMP. METAB OLIC PANEL (14) glucose 164 mg/dL 70-99 above high normal Not Available [facility] ([facility]) [address] [place], [address], 08/26/2024 15:10:13 08/23/19 25 08/23/2024 COMP. METAB OLIC PANEL (14) BUN 16 mg/dL 8-27 Not Available [facility] ([facility]) [address] [facility] [place], [address], 08/26/2024 15:10:13 08/23/19 25 08/23/2024 COMP. METAB OLIC PANEL (14) creatinine 1.04 mg/dL 0.76-1 .27 Not Available [facility] ([facility]) [address] [facility] [place], [address], 08/26/2024 15:10:13 08/23/19 25 08/23/2024 COMP. METAB OLIC PANEL (14) eGFR 73 mL/mi n/1.7 3 >59 Not Available [facility] ([facility]) [address] [facility] [place], [address], 08/26/2024 15:10:13 08/23/19 25 08/23/2024 COMP. METAB OLIC PANEL (14) BUN/creatini ne ratio 15 10-24 Not Available [facility] ([facility]) [address] [facility] [place], [address], 08/26/2024 15:10:13 08/23/19 25 08/23/2024 COMP. METAB OLIC PANEL (14) sodium 140 mmol/ L 134-14 4 Not Available [facility] ([facility]) [address] [facility] [place], [address], 08/26/2024 15:10:13 08/23/19 25 08/23/2024 COMP. METAB OLIC PANEL (14) potassium 4.0 mmol/ L 3.5-5. 2 Not Available [facility] ([facility]) [address] [facility] [place], [address], 08/26/2024 15:10:13 08/23/19 25 08/23/2024 COMP. METAB OLIC PANEL (14) chloride 100 mmol/ L 96-106 Not Available [facility] ([facility]) [address] [facility], [place], [address], 08/26/2024 15:10:13 08/23/19 25 08/23/2024 COMP. METAB OLIC PANEL (14) carbon dioxide, total 24 mmol/ L Not Available [facility] ([facility]) [address] [facility], [place], [address], 08/26/2024 15:10:13 08/23/19 25 08/23/2024 COMP. METAB OLIC PANEL (14) calcium 9.6 mg/dL 8.6-10 .2 Not Available [facility] ([facility]) [address] [facility], [place], [address], 08/26/2024 15:10:13 08/23/19 25 08/23/2024 COMP. METAB OLIC PANEL (14) protein, total 6.4 g/dL 6.0-8. 5 Not Available [facility] ([facility]) [address] [facility], [place], [address], 08/26/2024 15:10:13 08/23/19 25 08/23/2024 COMP. METAB OLIC PANEL (14) albumin 4.1 g/dL 3.8-4. 8 Not Available [facility] ([facility]) [address] [facility] [place], [address], 08/26/2024 15:10:13 08/23/19 25 08/23/2024 COMP. METAB OLIC PANEL (14) globulin, total 2.3 g/dL 1.5-4. 5 Not Available [facility] ([facility]) [address] [facility] [place], [address], 08/26/2024 15:10:13 08/23/19 25 08/23/2024 COMP. METAB OLIC PANEL (14) bilirubin, total 1.0 mg/dL 0.0-1. 2 Not Available [facility] ([facility]) [address] [facility] [place], [address], 08/26/2024 15:10:13 08/23/19 25 08/23/2024 COMP. METAB OLIC PANEL (14) alkaline phosphatase 101 IU/L 44-121 Not Available [facility]) [address] [place], [address], 08/26/2024 15:10:13 08/23/19 25 08/23/2024 COMP. METAB OLIC PANEL (14) AST (SGOT) 19 IU/L 0-40 Not Available [facility] ([facility]) [address] [place], [address], 08/26/2024 15:10:13 08/23/19 25 08/23/2024 COMP. METAB OLIC PANEL (14) ALT (SGPT) 10 IU/L 0-44 Not Available [facility] ([facility]) [address] [place], [address], 08/26/2024 15:10:13 08/23/19 25 08/23/2024 URINA LYSIS , COMPL ETE specific gravity - Test not perfo rmed. No urine speci men recei raúl. Not Available [facility] ([facility]) [address] [place], [address], 08/26/2024 15:10:14 08/23/19 25 08/23/2024 URINA LYSIS , COMPL ETE pH - Test not perfo rmed Not Available [facility] ([facility]) [address] [place], [address], 08/26/2024 15:10:14 08/23/19 25 08/23/2024 URINA LYSIS , COMPL ETE protein - Test not perfo rmed Not Available [facility] ([facility]) [address] [place], [address], 08/26/2024 15:10:14 08/23/19 25 08/23/2024 URINA LYSIS , COMPL ETE glucose - Test not perfo rmed Not Available [facility] ([facility]) [address] [place], [address], 08/26/2024 15:10:14 08/23/19 25 08/23/2024 URINA LYSIS , COMPL ETE ketones - Test not perfo rmed Not Available [facility] ([facility]) [address] [place], [address], 08/26/2024 15:10:14 08/23/19 25 08/23/2024 CORTI ADELFO cortisol 19.6 ug/dL 6.2-19 .4 above high normal Pleas e Note: The refer ence inter barber and elizabeth ing for this test is for an AM colle ction . If this is a PM colle ction pleas e use: Corti adelfo PM: 2.3-1 1.9 Not Available [facility] ([facility]) [address] [place], [address], 08/26/2024 15:10:15 08/23/19 25 08/23/2024 CBC WITH DIFFE RENTI AL/PL ATELE T WBC 4.4 x10e3 /uL 3.4-10 .8 Not Available [facility] ([facility]) [address] [place], [address], 08/26/2024 15:10:16 08/23/19 25 08/23/2024 CBC WITH DIFFE RENTI AL/PL ATELE T RBC 4.20 x10e6 /uL 4.14-5 .80 Not Available [facility] ([facility]) [address] [place], [address], 08/26/2024 15:10:16 08/23/19 25 08/23/2024 CBC WITH DIFFE RENTI AL/PL ATELE T hemoglobin 12.4 g/dL 13.0-1 7.7 below low normal Not Available [facility] ([facility]) [address] [place], [address], 08/26/2024 15:10:16 08/23/19 25 08/23/2024 CBC WITH DIFFE RENTI AL/PL ATELE T hematocrit 39.4 % 37.5-5 1.0 Not Available [facility] ([facility]) [address] [facility], [place], [address], 08/26/2024 15:10:16 08/23/19 25 08/23/2024 CBC WITH DIFFE RENTI AL/PL ATELE T MCV 94 fL 79-97 Not Available [facility] ([facility]) [address] [facility], [place], [address], 08/26/2024 15:10:16 08/23/19 25 08/23/2024 CBC WITH DIFFE RENTI AL/PL ATELE T MCH 29.5 pg 26.6-3 3.0 Not Available [facility] ([facility]) [address] [facility], [place], [address], 08/26/2024 15:10:16 08/23/19 25 08/23/2024 CBC WITH DIFFE RENTI AL/PL ATELE T MCHC 31.5 g/dL 31.5-3 5.7 Not Available [facility] ([facility]) [address] [facility], [place], [address], 08/26/2024 15:10:16 08/23/19 25 08/23/2024 CBC WITH DIFFE RENTI AL/PL ATELE T RDW 12.7 % 11.6-1 5.4 Not Available [facility] ([facility]) [address] [facility], [place], [address], 08/26/2024 15:10:16 08/23/19 25 08/23/2024 CBC WITH DIFFE RENTI AL/PL ATELE T platelets 246 x10e3 /uL 150-45 0 Not Available [facility] ([facility]) [address] [facility], [place], [address], 08/26/2024 15:10:16 08/23/19 25 08/23/2024 CBC WITH DIFFE RENTI AL/PL ATELE T neutrophils 76 % notest ab. Not Available [facility] ([facility]) [address] [facility], [place], [address], 08/26/2024 15:10:16 08/23/19 25 08/23/2024 CBC WITH DIFFE RENTI AL/PL ATELE T lymphs 16 % notest ab. Not Available [facility] ([facility]) [address] [facility], [place], [address], 08/26/2024 15:10:16 08/23/1908/23/2024 CBC WITH DIFFE RENTI AL/PL ATELE T monocytes 6 % notest ab. Not Available [facility] ([facility]) [address] [facility], [place], [address], 08/26/2024 15:10:16 08/23/19 25 08/23/2024 CBC WITH DIFFE RENTI AL/PL ATELE T eos 2 % notest ab. Not Available [facility] ([facility]) [address] [facility], [place], [address], 08/26/2024 15:10:16 08/23/19 25 08/23/2024 CBC WITH DIFFE RENTI AL/PL ATELE T basos 0 % notest ab. Not Available [facility] ([facility]) [address] [facility], [place], [address], 08/26/2024 15:10:16 08/23/19 25 08/23/2024 CBC WITH DIFFE RENTI AL/PL ATELE T neutrophils (absolute) 3.3 x10e3 /uL 1.4-7. 0 Not Available [facility] ([facility]) [address] [facility], [place], [address], 08/26/2024 15:10:16 08/23/19 25 08/23/2024 CBC WITH DIFFE RENTI AL/PL ATELE T lymphs (absolute) 0.7 x10e3 /uL 0.7-3. 1 Not Available [facility] ([facility]) [address] [place], [address], 08/26/2024 15:10:16 08/23/19 25 08/23/2024 CBC WITH DIFFE RENTI AL/PL ATELE T monocytes(ab solute) 0.3 x10e3 /uL 0.1-0. 9 Not Available [facility] ([facility]) [address] [facility], [place], [address], 08/26/2024 15:10:16 08/23/19 25 08/23/2024 CBC WITH DIFFE RENTI AL/PL ATELE T eos (absolute) 0.1 x10e3 /uL 0.0-0. 4 Not Available [facility] ([facility]) [address] [facility], [place], [address], 08/26/2024 15:10:16 08/23/19 25 08/23/2024 CBC WITH DIFFE RENTI AL/PL ATELE T baso (absolute) 0.0 x10e3 /uL 0.0-0. 2 Not Available [facility] ([facility]) [address] [place], [address], 08/26/2024 15:10:16 08/23/19 25 08/23/2024 CBC WITH DIFFE RENTI AL/PL ATELE T immature granulocytes 0 % notest ab. Not Available [facility] ([facility]) [address] [place], [address], 08/26/2024 15:10:16 08/23/19 25 08/23/2024 CBC WITH DIFFE RENTI AL/PL ATELE T immature grans (abs) 0.0 x10e3 /uL 0.0-0. 1 Not Available [facility] ([facility]) [address] [place], [address], 08/26/2024 15:10:16 08/23/19 25 08/23/2024 PROST ATE-S [...] t be inter prete d as absol shinnecock evide nce of the prese nce or absen ce of clary bertrand se. Not Available [facility] ([facility]) [address] [facility], [place], [address], 08/26/2024 15:10:17 08/23/19 25 08/23/2024 TRIIO DOTHY KAYLYN E (T3), FREE triiodothyro nine (T3), free 2.6 pg/mL 2.0-4. 4 Not Available [facility] ([facility]) [address] [facility], [place], [address], 08/26/2024 15:10:18 04/22/19 25 04/19/2024 US, echoc ardio gram, trans thora cic, compl ete, w/ color flow No observ ation record ed. [facility] [address], [place], [address], 04/23/2024 14:05:55 07/27/19 25 07/25/2024 XR, cervi marina spine No observ ation record ed. [address], [place], [address], 08/06/2024 22:40:34 07/27/19 25 07/25/2024 XR, lumba r spine No observ ation record ed. [address], [place], [address], 08/06/2024 22:40:35 08/02/19 25 08/01/2024 PFT, compl ete No observ ation record ed. [address], [place], [address], 08/06/2024 22:40:35 08/23/19 25 08/22/2024 XR, chest No observ ation record ed. [address], [place], [address], 08/30/2024 12:20:13 08/30/19 25 08/29/2024 XR, abdom en No observ ation record ed. [address], [place], [address], 08/30/2024 09:07:15 10/18/19 25 10/16/2024 imagi ng/di agnos tic resul t No observ ation record ed. [address], [place], [address], 10/17/2024 16:20:37 Result Notes None recorded. Problems Name Problem SNOMED Code Status Onset Date Resolution Date Notes Provider Name and Address Organization Details Recorded Time Memory impairment 836370547 Active 2023 Risa Rodriguez [place] null, [place] - [facility] 4 16:50:53 Headache 71942518 Active 2023 Risa Rodriguez [place], [place] [facility] 4 16:50:54 Gastroesophage al reflux disease without esophagitis 674360467 Active 2023 Risa Rodriguez [place], [place] [facility] 4 17:06:12 Weight decreased 631359052 Active 2024 Risa Rodriguez [place], [place] [facility] 17:31:50 Screening for malignant neoplasm of prostate Active 2024 Risa Rodriguez MA null, [facility] 17:31:51 Problem Notes None recorded. Procedures Surgical History Date Name Laterality Status Provider Name and Address Organization Details Recorded Time Back Surgery completed Tia Orellana MA [facility] 08/09/2023 15:43:57 Hernia Repair completed Tia Orellana MA [facility] 08/09/2023 15:44:02 Prostate Biopsy completed Tia Orellana MA [facility] 08/09/2023 15:44:06 Imaging Results None recorded. Procedure [...] bromide 21 mcg (0.03 %) nasal spray [place] 2 sprays every day by intranasa l [...] Updated DateTime 5 185.42 cm 19.5 kg/m2 44601.0 3 g 60 /min 97 % 97 % 124/62 mm[Hg] Dara Mcgowan MA [facility] 5 16:42:11 Date Recorded Body height Body mass index (BMI) Body weight Heart rate Oxygen saturation Oxygen saturation in Arterial blood by Pulse oximetry Systolic And Diastolic Provider Name and Address Organization Details Last Updated DateTime 5 185.42 cm 18.2 kg/m2 18289.1 1 g 82 /min 98 % 98 % 114/62 mm[Hg] Dara Mcgowan MA [facility] 5 16:34:12 Date Recorded Heart rate Oxygen [...] 80/56 mm[Hg] 80/52 mm[Hg] Dara Mcgowan MA [facility] 5 17:05:46 Date Recorded Body height Body mass index (BMI) Body weight Heart rate Oxygen saturation Oxygen saturation in Arterial blood by Pulse oximetry Systolic And Diastolic Provider Name and Address Organization Details Last Updated DateTime 5 185.42 cm 17.3 kg/m2 58764.9 6 g 73 /min 97 % 97 % 72/50 mm[Hg] Gracia Tubbs MA [facility] 5 16:21:32 Date Recorded Body height Body mass index (BMI) Body weight Heart rate Oxygen saturation Oxygen saturation in Arterial blood by Pulse oximetry Systolic And Diastolic Provider Name and Address Organization Details Last Updated DateTime 4 185.42 cm 20.7 kg/m2 49508.3 6 g 74 /min 97 % 97 % 116/64 mm[Hg] Dara Mcgowan MA [facility] 4 16:51:41 Date Recorded Body height Body mass index (BMI) Body weight Heart rate Oxygen saturation Oxygen saturation in Arterial blood by Pulse oximetry Systolic And Diastolic Provider Name and Address Organization Details Last Updated DateTime 4 185.42 cm 20.4 kg/m2 28337.4 6 g 90 /min 97 % 97 % 110/70 mm[Hg] Gracia Tubbs MA [place] [facility] 4 16:07:56 Social History Question Answer Notes LastModified by Organizat ion Details LastModified Time Tobacco Smoking Status Former Smoker Tia Orellana MA [facility] 08/09/2023 15:46:28 Do You Have An [...] anxious, or unable to sleep at night)? [id number] Information not available 08/09/2023 Family History Relationship Description Onset Age of this Age Resolved Age Notes LastModified by Organization Details LastModified Time Mother Malignant tumor of breast [email or web address] Not available 2023 15:45:24 Mother Heart disease [email or web address] Not available 2023 15:45:29 Notes:No family history yadav ge, me/rma Medical History Condition Response Coronary Artery Disease N Other N Atrial Fibrillation N High Blood Pressure N Kidney or Bladder Problems N Thyroid Problems N GI Problems N Depression N COPD N Blood Clots N Skin Problems N Anemia N Heart Attack ([place]) N Anxiety Disorder N Diabetes N Muscle, [...] completed Norma Mart MD Attn: Accounting,[address] [place], [address], [place] [facility] 01/24/2024 21:55:05 Pneumococcal conjugate PCV20, polysaccharide DNL033 conjugate, adjuvant, PF 5 completed Norma Mart MD Attn: Accounting[address] [place], [address], [facility] - [facility] 04/23/2024 21:10:05 Past Encounters Encounter ID Performer Location Encounter Start Date Encounter Closed Date Diagnosis/Indication Diagnosis SNOMED-CT Code Diagnosis ICD10 Code Diagnosis Note [id number] MD Charline Peng (Adult Med) [address] [place] [id number] 09/27/2023 15:23:02 09/27/2023 17:03:34 Memory impairment 636101656 R41.3 Headache 69925035 R51.9 [id number] [facility] [address] [place] [id number] 10/25/2023 16:18:45 10/25/2023 17:07:55 Underweight 623692582 R63.6 Memory impairment 481008 006 R41.3 Gastroesop hageal reflux disease without esophagitis 811330245 K21.9 [id number] MD Charline Peng (Adult Med) [address] [place] [address] [id number] 11/22/2023 16:20:13 11/22/2023 17:49:56 Memory impairment 482544432 R41.3 Gastroesop hageal reflux disease without esophagitis 149979147 K21.9 [id number] Norma Mart MD [facility] (Adult Med) [address] [place] [address] [id number] 01/24/2024 15:52:58 01/24/2024 16:53:51 Body mass index 20-24 - normal 102066033 Z68.20 Rhinitis 63821875 J00 Mitral barber ve regurgitation 27179534 I34.0 Pain of bi lateral eyes 6028344063 08463 H57.13 Administra tion of influenza vaccine 51837532 Z23 Basal cell carcinoma of skin 381592062 C44.91 [id number] Norma Mart MD [facility] (Adult Med) [address] [place] [address] [id number] 04/23/2024 16:13:24 04/23/2024 17:36:50 Underweight 248345066 R63.6 Dyspnea 226968699 R06.00 Administra tion of pneumococcal vaccine 06573849 Z23 Gastroesop hageal reflux disease without esophagitis 625720965 K21.9 Memory impairment 775836 006 R41.3 [id number] Norma Mart MD [facility] (Adult Med) [address] [place] [address] [id number] 08/14/2024 15:57:55 08/14/2024 17:30:20 Underweight 928739415 R63.6 Z68.1 Weight decreased 8198194 01 R63.4 Screening for malignant neoplasm of prostate 603871277 Z12.5 Fatigue 14517175 R53.83 Chronic rhinitis 3231460 6 J31.0 Gastroesop hageal reflux disease without esophagitis 946319965 K21.9 [id number] MD Charline Peng (Adult Med) [address] [place] [id number] 10/09/2024 15:54:59 10/09/2024 17:19:12 Body mass index less than 20 [id number] Z68.1 Underweight [id number] R6 3.6 Health Concerns Section Related Observation LastModified by Organization Detai ls LastModified Time None Recorded Concern Status LastModified by Organization Details LastModified Time None Recorded Advance Directives Directive N: Medical POA Payers Insurance Date Sequence Insurance Name Policy Number Policy Mehta Covered Member ID Mehta Member ID Guarantor Name 10/09/2024 1 [employer] (MEDICARE REPLACEMENT/ ADVANTAGE - HMO) [id number] Maxi Allred [id number] Maxi Allred 10/09/2024 1 [facility] [id number] Maxi Allred [id number] Maxi Allred 10/09/2024 1 [facility] (MEDICARE REPLACEMENT/ ADVANTAGE - HMO) [id number] Maxi Allred [id number] Maxi Allred Notes Date Note Type Note Provider Name and Address Organization Details Recorded Time 11/22/2023 text/html patient is in office with daughter she thinks he has a little bit more forgetful he says that he does recognize that there probably is some slippage of memory. Norma Mart MD Attn: Accounting, [address] [place], [address], [facility] 12/02/2023 14:18:11 01/24/2024 text/html 1. 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
--- OUTSIDE RECORDS SUMMARY | 2024-10-17 16:09 | XMS_ITS | Clinical Summary ---
Author Organization [facility] Address [facility] [place] [address] Care Team Providers Care Hand Tire Trimmer Name Role Phone Unavailable Primary Care Provider [...]
[2024-10-17 16:10] LABS: INR 1.1; Partial Thromboplastin Time 28.3 Seconds (22.3-36.8); Prothrombin Time 14.0 Seconds (11.1-14.7)
--- OUTSIDE RECORDS SUMMARY | 2024-10-17 16:10 | XMS_ITS | Referral Summary ---
Author Organization [facility] Address [address] [place] [address] Care Team Providers Care Theater Manager Name Role Phone Tom Mart MD Primary Care Provider [phone] Ricarda Peterson MD Unavailable Julian Yates MD [...] hours as needed for pain Active omega 3-ufa-fdf-fish oil 300 mg (120 mg- 180mg)-1,000 mg [...] Nitric Oxide Sanguenol Active cholecalciferol (VITAMIN D-3) 19648 unit capsuleIndicati ons:Prevention of Vitamin D Deficiency [...] (05/06/2022): Added automatically from request for surgery [id number] Basal cell carcinoma (BCC) of face 08/23/2016 [...] on file 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 Gender Identity Not on file Sexual Orientation Not on file Last Filed Vital Signs Vital Sign Reading Time Taken Comments Blood Pressure 96/60 06/02/2022 4:40 PM WAREHOUSE LABORER Pulse 86 06/02/2022 4:40 PM WAREHOUSE LABORER Temperature 36 C (96.8 F) 06/02/2022 1:31 PM WAREHOUSE LABORER Respiratory Rate 14 06/02/2022 4:40 PM WAREHOUSE LABORER Oxygen Saturation 98% 06/02/2022 4:40 PM WAREHOUSE LABORER Inhaled Oxygen Concentration - - Weight 74 kg (163 lb 3.2 oz) 06/14/2022 1:34 PM CDT Height 185.4 cm (6' 1) 05/12/2022 1:25 PM WAREHOUSE LABORER Body Mass Index 21.53 05/12/2022 1:25 PM WAREHOUSE LABORER Plan of Treatment Not on file Medical Devices Implanted Type Area Administrative Judge Device Identifier Shelf Expiration Date Model / Serial / Lot Spinal Cord Stimulator Spinal Cord Stimulator Back Insurance [facility] MEDICARE ADVANTAGE [facility] Address: [address] [address] [place] [address] [facility] MEDICARE ADVANTAGE [facility] Address: [address] [address] [place] [address] Care Teams Theater Manager Relationship Specialty Start Date End Date Tom Mart MD PCP - General 07/15/16 Ricarda Peterson MD Consulting Physician Internal Medicine 05/03/22 Julian Yates MD Referring Physician Otolaryngology 05/07/22
--- OUTSIDE RECORDS SUMMARY | 2024-10-17 16:10 | XMS_ITS | Clinical Summary ---
Author Organization [facility] Address [address] [place] [address] Care Team Providers Care Clothes Model Name Role Phone Tom Mart MD Primary Care Provider [phone] Ricarda Peterson MD Unavailable Julian Yates MD [...] hours as needed for pain Active omega 5-aqg-ioy-fish oil 300 mg (120 mg- 180mg)-1,000 mg [...] Nitric Oxide Sanguenol Active cholecalciferol (VITAMIN D-3) 63074 unit capsuleIndicati ons:Prevention of Vitamin D Deficiency [...] (05/06/2022): Added automatically from request for surgery [id number] Basal cell carcinoma (BCC) of face 08/23/2016 [...] on file 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 Gender Identity Not on file Sexual Orientation Not on file Obstetrics History Last Filed Vital Signs Vital Sign Reading Time Taken Comments Blood Pressure 96/60 06/02/2022 4:40 PM ASTROPHYSICS PROFESSOR Pulse 86 06/02/2022 4:40 PM ASTROPHYSICS PROFESSOR Temperature 36 C (96.8 F) 06/02/2022 1:31 PM ASTROPHYSICS PROFESSOR Respiratory Rate 14 06/02/2022 4:40 PM ASTROPHYSICS PROFESSOR Oxygen Saturation 98% 06/02/2022 4:40 PM ASTROPHYSICS PROFESSOR Inhaled Oxygen Concentration - - Weight 74 kg (163 lb 3.2 oz) 06/14/2022 1:34 PM CDT Height 185.4 cm (6' 1) 05/12/2022 1:25 PM ASTROPHYSICS PROFESSOR Body Mass Index 21.53 05/12/2022 1:25 PM ASTROPHYSICS PROFESSOR Plan of Treatment Health Maintenance Due Date [...] history exists Medical Devices Implanted Type Area Veterinary Technician Assistant Device Identifier Shelf Expiration Date Model / Serial / Lot Spinal Cord Stimulator Spinal Cord Stimulator Back Insurance [employer] MEDICARE ADVANTAGE [facility] MEDICARE ADVANTAGE Care Teams Clothes Model Relationship Specialty Start Date End Date Tom Mart MD PCP - General 07/15/16 Ricarda Peterson MD Consulting Physician Internal Medicine 05/03/22 Julian Yates MD Referring Physician Otolaryngology 05/07/22
--- OUTSIDE RECORDS SUMMARY | 2024-10-17 16:10 | XMS_ITS | Encounter Summary ---
Author Name [facility] Organization [facility] Address [address] [facility], [place] [address] Care Team Providers Care General Dentist/Owner Name Role Phone MADDIE LAY Primary Care [...] Name Patient's Relationship to Policy Mehta [employer] [facility] (WNR) MEDICARE ADVANTAGE [facility] (WNR) Dec 26, 2023 [id number] PATIENT Selected Encounter This section includes the information on record at [place] for the Encounter. Date/Time Encounter Type Encounter Description Reason Pro vider Source Oct 16, 2024 02:59 PM Outpatient Encounter ADMIN PAT ACTIVTIES (MASNONCT) IHE Encounter Template Text not used by [place] Plan of Treatment: Future Appointments (+ 6 [...] 20 appointments. The data comes from all [facility]. Appointment Date/Time Appointment Type Appointme nt Facility Name Oct 23, 2024 02:00 PM AMBULATORY - NONE [facility] Active, Pending, and Scheduled Orders This section includes a listing of several types of active, pending, and scheduled orders, including clinic medications orders, diagnostic test orders, procedure orders and consult orders; where the start date of the order is 45 days before the date of the Encounter or 45 days after the date of theEncounter. The data comes from all [facility]. Test Date/Time Test Type Test Details Facility Name Sep 02, 2024 12:00 AM Laboratory - Chemistry Order [id number] BLOOD [facility] Sep 02, 2024 12:00 AM Laboratory - Chemistry Order CBC BLOOD [facility] Sep 02, 2024 12:00 AM Laboratory - Chemistry Order COMPREHENSIVE METABOLIC PANEL GREEN LI/HEP BLD/PLAS PLASMA [facility] Sep 02, 2024 12:00 AM Laboratory - Chemistry Order LIPID PANEL (STL) GREEN LI/HEP BLD/PLAS PLASMA [facility] Sep 02, 2024 12:00 AM Laboratory - Chemistry Order MICRAL/CREAT PROFILE (STL) URINE YELLOW [facility] Sep 02, 2024 12:00 AM Laboratory - Chemistry Order LIPID PANEL (STL) GREEN LI/HEP BLD/PLAS PLASMA [facility] Sep 02, 2024 12:00 AM Laboratory - Chemistry Order TSH (MA-PB) GOLD/RED SST SERUM [facility] Sep 30, 2024 08:34 AM Consult Order CSP PCAFC CENTRALIZED ELIGIBILITY AND APPEALS TEAM OUTPT Cons Husbandry Technician's Choice [facility] Social History: Smoking Status (Most current) and Tobacco Use (All prior to encounter date) This section includes the most current, and the historical, smoking and tobacco- related health factors from the [place] facility where the Encounter took place. Current Smoking Status This section includes the most current smoking, or tobacco-related health factor, from the [place] facility where the Encounter took place. Date/Time Current Smoking Status Comment Rosetta ayala Aug 28, 2024 09:36 AM VA-TOBACCO USE FOR BRITTANY CIGARETTES [facility] Tobacco Use History This section includes a history of the smoking, or tobacco-related health factors, that were collected on or before the date of the Encounter. The data comes from the [place] facility where the Encounter took place. Date/Time Smoking Status/Tobacco Use Comment F acility Aug 28, 2024 09:36 AM VA-TOBACCO USE ROSEMARY RY DAY OTHER TYPE [facility] Aug 28, 2024 09:36 AM VA-TOBACCO USE FOR BRITTANY CIGARETTES [facility] Advance Directives: All historical and current Section Date Range: From patient's date of to the date document was created. This section includes ALL of a patient's completed or amended [place] Advance and Rescinded Directives. The entries below indicate that a directive exists for the patient, but an actual copy is not included with this document. The data comes from all [place] facilities. Date Advance Directives Provider Source Oct 10, 2024 ADVANCE DIRECTIVE YURIY LOZOYA [facility] Encounter Notes: All associated encounter notes This section contains the clinical notes associated to the Encounter. Date/Time Encounter Note(s) Provider Source Oct 16, 2024 02:59 PM ADMINISTRATIVE NOT E: LOCAL TITLE: CCC: SCHEDULING ADMINISTRATION STANDARD TITLE: ADMINISTRATIVE NOTE DATE OF NOTE: OCT 16, 2024@14:59:43 ENTRY DATE: OCT 16, 2024@14:59:44 AUTHOR: KELI OLIVO EXP COSIGNER: URGENCY: STATUS: COMPLETED Caller Verification Call Back Number: Emergency Contact: MAYUR MALAVE Emergency Contact Caller/Recipient Relation to Patient: Other If Other Describe Relation to Patient: DAUGHTER Caller Name: MAYUR MALAVE Scheduling Cannot Complete Scheduling Action Reason: Restricted / Unavailable Clinic;Not Authorized in Service Line Agreement Requested Service(s): Specialty Care Specialty / Community Care Requested: [facility] PACT NUTR IND TM2 Administrative Administrative Note Reason: Other Administrative Note Comments: 's daughter called to change his 10/23/24 -[facility] PACT NUTR IND TM2 appt to a phone. Saying that the appt was supposed to be by phone. IMPORTANT: This note was created by [facility] Clinical Contact Center staff. Please do not alert the staff member by adding them as a signer for future communications. Alerts are not monitored by this user. /loc/ KELI OLIVO Emergency Medicine Nurse Practitioner Signed: 10/16/2024 14:59 Receipt Acknowledged By: 10/17/2024 10:18 /es/ JOEY ALEMAN [employer] KELI OLIVO [facility]
--- OUTSIDE RECORDS SUMMARY | 2024-10-17 16:10 | XMS_ITS ---
Author Organization [facility] Address [address] [place] [address] Care Team Providers Care Clipper Automatic Name Role Phone Tom Mart MD Primary Care Provider [phone] Ricarda Peterson MD Unavailable Julian Yates MD Unavailable Active Problems Problem Noted Date Diagnosed Date Basal cell carcinoma (BCC) of skin of left ear 0 05/06/2022 Overview (05/06/2022): Added automatically from request for surgery [id number] Basal cell carcinoma (BCC) of face 08/23/2016 Skin neoplasm 07/07/2016 Seborrheic eczema 07/07/2016 Keratosis, senilis 07/07/2016 Current Treatment and Therapy Plans No current plan information found. Past Treatment and Therapy Plans No past plan information found. Lifetime Dose Tracking * Chemical Lifetime Dose Automatic Entry Manual Entr y DLP 370 mGycm 370 mGycm 0 mGycm
--- OUTSIDE RECORDS SUMMARY | 2024-10-17 16:10 | XMS_ITS | Continuity of Care Document ---
Author Organization [facility] Address [address] [place] [address] [address] [place] [address] Phone Care Team Providers Care Planning Division Superintendent Name Role Phone Luo OD, Serge Unavailable Unavailable Procedures Procedure Date Eye Exam & Treatment Refraction Counseling For Antioxidant Supplements A Advance Directives Directive Yes / No Effective Date File Name No Information Encounters Encounter Description Practice Location Reason(s) For Visit Diagnoses Date Provider Providers Copied on Encounter [facility], [address] [place] [address] [address], [place], [place], [id number], [place] tel:[phone] [facility] No Information [address] Luo OD Serge. [address] [facility] [address] , [address], [place], [address], [place]. tel:[phone] Family History Family Member Type Diagnosis Age At Onset No Information Payers Payer name Insurance type Covered libertarian ID Authoriza tion(s) Medicare [facility] [id number] Social History Type Description Quantity Date Captured [...]
--- OUTSIDE RECORDS SUMMARY | 2024-10-17 16:10 | XMS_ITS | Continuity of Care Document ---
Author Name [facility] Organization [facility] Care Team Providers Care Production Quality Analyst Name Role Phone [facility] Unavailable Unavailable Problems Combined list of problems from Department of [facility] and [facility] facilities. It does not include entries that were removed or entered in error. Problem Status Onset Date Problem Type Date of Resolution Comments Source CAD - Coronary Artery Disease ([facility] 34659033) Active Condition [facility] Dementia Active Condition [facility] Exposure to potentially hazardous substance ([facility] [id number]) Active Condition Sep 25 5 Entered By: PAKO SMILEY Comment: Entered automatically through INDRA Problem List documentation program [facility] Gastroesophageal reflux disease Active Condition [facility] Hyperlipidemia ([facility] 05294404) Active Condition [facility] Hypertriglyceridemia Active [facility] Low back pain Active Condition [facility] Neuropathy Active Condition [facility] Pulmonary hypertension Active [facility] Diagnosis: ICD-10-CM Z74.1 Need for assistance with personal care Active Diagnosis [facility] Diagnosis: ICD-10-CM F03.90 Unsp dementia, unsp severity, without beh/psych/mood/anx Active Diagnosis 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 and [facility] facilities.Medications provided include 1) outpatient medications from the last 15 months, and 2) patient-reported medications. Medication Details Route Status Patient Instructions Prescription Expires Prescription Number Last Dispense Date Ordering Provider Order Date Order Qty Source IBUPROFEN 800MG TAB TAKE ONE TABLET BY MOUTH THREE TIMES A DAY NEEDED ORAL ACTIVE PASCHEN,K JAMES E [address] [facility] LORAZEPAM 0.5MG TAB TAKE ONE TABLET BY MOUTH TWICE A DAY ROSARIO ACTIVE Renard BRICE [address] [facility] MEMANTINE HCL 5MG TAB TAKE ONE TABLET BY MOUTH TWICE A DAY ORAL ACTIVE Renard BRICE [address] [facility] METHADONE HCL 5MG TAB TAKE TWO TABLETS BY MOUTH THREE TIMES A DAY ORAL ACTIVE Renard BRICE [address] [facility] METHOCARBAM OL 750MG TAB TAKE ONE TABLET BY MOUTH ONCE A DAY NEEDED ORAL ACTIVE Renard BRICE [address] [facility] MONTELUKAST NA 10MG TAB TAKE ONE TABLET BY MOUTH EVERY EVENING ORAL ACTIVE Renard BRICE 2024 [facility] OXYCODONE HCL 15MG TAB TAKE TWO TABLETS BY MOUTH 5 TIMES A DAY ORAL ACTIVE Renard BRICE [address] [facility] PANTOPRAZOL E NA 40MG TAB,EC TAKE ONE TABLET BY MOUTH EVERY MORNING BEFORE A MEAL ORAL ACTIVE Renard BRICE 2024 [facility] SERTRALINE HCL 50MG TAB TAKE ONE TABLET BY MOUTH EVERY MORNING ROSARIO ACTIVE Renard BRICE 2024 [facility] Immunizations Combined list of available immunizations from the Department of Defense and Veterans Affairs facilities. Immunization Series Date Given Administered By Site Reaction Lot Number CVX Code Drug Diet Assistant Status Comments Source INFLUENZA, UNSPECIFIED FORMULATION 2024 88 complet ed HISTORICA L INFORMATI ON - FROM PATIENT'S RECALL, Daughter states that received [facility] N Vital Signs Combined list of inpatient and outpatient Vital Signs from Department of Defense and Veterans Affairs, ranging from 12 months to all on record, depending upon the facility. Vital Sign Value Date Comments Source SYSTOLIC BLOOD PRESSURE 88 09/12/19 25 13:09:58 [facility] DIASTOLIC BLOOD PRESSURE 51 025 13:09:58 [facility] PULSE OXIMETRY 97 % 09/11/2024 13:09:58 [facility] WEIGHT 72 09/11/2024 13:09:58 [facility] BMI 10 kg/m2 09/11/2024 13:09:58 [facility] PAIN 7 09/11/2024 13:09:58 [facility] HEIGHT 72 09/11/2024 13:09:58 [facility] TEMPERATURE 97.6 09/11/2024 13:09:58 [facility] PULSE 74 09/11/2024 13:09:58 [facility] RESPIRATION 16 09/11/2024 13:09:58 [facility] Encounters Combined list of: 1) Encounters from Department of Veterans Affairs facilities going backup to the last 18 months, not all CT inpatient encounters are included; 2) Encounters from the Department of [facility] facilities going backup to 280 months. Location Location Details Encounter Type Encounter Number Reason For Visit Attending Provider ADM Date DC Date Status Disposition Source [facility] Outpatient Encounter [id number] 03/27 [facility] Outpatient Encounter [id number] 05/14 [facility] Outpatient Encounter [id number] 07/30 [facility] N [facility] Outpatient Encounter [id number] 08/01 [facility] Outpatient Encounter [id number] 08/15 [facility] PH1 ASSMT&MGMT NQHP 21-30 [id number] Diagnos is: ICD-10- CM Z65.9 Problem related to unspeci fied psychos ocial circums JOSE Jha 08/22 [facility] PH1 ASSMT&MGMT NQHP 11-20 [id number] Diagnos is: ICD-10- CM Z65.9 Problem related to unspeci fied psychos ocial circums tances JOSE GAVIRIA L 08/23 [facility] Outpatient Encounter [id number] JOSE GAVIRIA L 08/23 [facility] Outpatient Encounter [id number] ALIREZANID HI 08/28 [facility] MTMS BY PHARM MENTAL HEALTH WORKER 15 MIN [id number] Diagnos is: ICD-10- CM Z79.899 Other fci (curren t) drug therapy SHONNA BRICE 09/02 [facility] OFFICE O/P NEW MOD 45 MIN [id number] Diagnos is: ICD-10- CM G62.9 Polyneu ropathy , unspeci fied ALIREZA,NID HI 09/11 [facility] PH1 ASSMT&MGMT NQHP 21-30 [id number] Diagnos is: ICD-10- CM Z74.1 Need for assista nce with SHAHANA Cardoso 09/13 [facility] Outpatient Encounter [id number] 09/13 [facility] Outpatient Encounter [id number] KIEL CALHOUN 09/16 [facility] Outpatient Encounter [id number] 09/16 [facility] Outpatient Encounter [id number] 09/16 [facility] BHV ASSMT/REAS SESSMENT [id number] Diagnos is: ICD-10- CM F03.90 Unsp dementi a, unsp severit y, without beh/psy ch/mood /anx ANN-MARIE COUGHLIN 09/18 [facility] Outpatient Encounter [id number] 09/20 [facility] PROGRAM INTAKE ASSESSMENT [id number] Diagnos is: ICD-10- CM Z74.1 Need for assista nce with persona SHONNA King 09/25 [facility] Outpatient Encounter [id number] MOMO LABOY 09/30 [facility] Outpatient Encounter [id number] 10/10 [facility] Outpatient Encounter [id number] 10/16 [facility] Social History Combined list of available smoking, tobacco, and other social history from Department of Defense and Veterans Affairs facilities. Social History Type Response Date Comment Sourc e Tobacco smoking status NHIS VA-TOBACCO USE FORMER CIGARETTES 08/28/2024 [facility] History of tobacco use VA-TOBACCO USE EVERY DAY OTHER TYPE 08/28/2024 [facility] Plan of Care List of future care activities from Department of [facility] Affairs facilities. Additional future care activities may be listed in the Assessment and Plan section. Date/Time Care Activity Care Activity Detail Facili ty 10/23/2024 AMBULATORY - NONE AMBULATORY - NONE [facility] Advance Directives List of completed, amended, or rescinded Advance Directives on record at Department of Veterans Affairs facilities. An actual copy of the Directive is not included. Date Advance Directive Provider Source 10/10/2024 ADVANCE DIRECTIVE YURIY LOZOYA [facility]
[2024-10-17] MEDS: SODIUM CHLORIDE 0.9% IV 1,000 ML 999 ML IV CONT (16:18)
--- NOTE | 2024-10-17 18:06 | PC.NURSE ---
Pt still unable to urinate and refuses straight catheter.
[2024-10-17] MEDS: SODIUM CHLORIDE 0.9% IV 1,000 ML 125 ML IV CONT (18:42)
[2024-10-17 18:44] LABS: Add Urine Microscopic? YES; Appearance Urine Clear (Clear); Glucose Urine UA Negative (Negative); Leukocyte Esterase Ur Trace LEU/UL (Negative); Nitrate Urine Negative (Negative); Specific Grav Ur 1.027 (1.001-1.035)
--- NOTE | 2024-10-17 20:16 | PC.NURSE ---
This patient, Maxi Allred, was admitted to IMU Room 202-01. Patient/family oriented to hospital policies and general routines including ID bracelet, bed and alarms, visiting hours, pain management, procedures, bathroom and other care routines, personal items, smoking policy, room service/diet, and visiting hours. Information on how to activate the Rapid Response Team has been discussed. Patient/Family are encouraged to report perceived risks to care and to ask questions if they do not understand what they are told or what they should do.
[2024-10-18] VITALS (21 sets, daily range): BP systolic 65–114; BP diastolic 43–63; PULSE 60–98; RESP 15–20; TEMP 36.5–36.8; O2SAT 96–100; BMI 18.1
--- NOTE | 2024-10-18 00:08 | P.HP_ITS ---
H&P: HPI History of Present Illness Date/Time: 10/18/24 00:08 Chief Complaint: Weakness Narrative: 78-year-old male presents to [facility] ER on 10/17/2024 with a complaint of weakness. Patient lives at home with his granddaughter. He has neurocognitive disorder and is a poor historian. It is reported he has not eaten or drink in in a week. Patient denies nausea vomiting or diarrhea. Denies abdominal pain. Denies tobacco use, alcohol use, illicit drug use. He is not currently sexually active. Is reported to me had hypotension after fluid bolus in the ER however I am unable to find the documentation. None the less he does have documented low blood pressures. He received 30 cc/kg bolus. WBC 4.1, hemoglobin 10.8, albumin 3.4, urinalysis unremarkable. Chest abdomen pelvis demonstrating fecal stasis, inflammatory changes within the rectum suggesting proctitis. Review of Systems Review of Systems: All systems reviewed & are unremarkable except as noted in HPI and below (HPI) [facility] Family History Family History Father Diabetes mellitus Mother Cancer Social History Social History Smoking status: Current every day smoker Tobacco type: cigarettes and e-cigarettes/vaping Smoking end date: 03/27/74 Alcohol intake: former Substance use: never Substance use type: prescription drug Do You Feel Safe in your Home?: Yes Lack of Transportation: No Lack of Food: Never True Current Housing: I Have Housing Concerned About Future Housing: No Difficulty Paying Gas/Electric Bills: No Difficulty Paying for Meds: No Currently Unemployed: No Education: Decline to Answer Difficulty w/ Childcare or Family Care: No Living arrangements: with family Occupation/Education: retired Gender identity (if verbalized by the patient): Male Spiritual care concerns: No Meds Home Medications and Allergies Home Medications ?Medication ?Instructions ?Recorded ?Confirmed ?Type ibuprofen 800 mg tablet 800 mg PO TID PRN fever or pain 04/05/22 10/17/24 History lorazepam 0.5 mg tablet 0.5 mg PO QPM PRN insomnia 04/05/22 10/17/24 History methadone 10 mg tablet 10 mg PO TID 04/05/22 10/17/24 History oxycodone 30 mg tablet 30 mg PO .fives time a day 04/05/22 10/17/24 History magnesium citrate 150 ml PO BID PRN constipation 08/29/24 10/17/24 Rx #296 mL polyethylene glycol 3350 17 gram 17 g PO BID #30 ea 08/29/24 10/17/24 Rx oral powder packet (Miralax) sennosides 8.6 mg capsule (senna) 8.6 mg PO HS PRN constipation #30 08/29/24 10/17/24 Rx caps memantine 5 mg tablet 5 mg PO BID 10/17/24 10/17/24 History montelukast 10 mg tablet 10 mg PO DAILY 10/17/24 10/17/24 History nortriptyline 75 mg capsule 75 mg PO BID 10/17/24 10/17/24 History sertraline 50 mg tablet 50 mg PO DAILY 10/17/24 10/17/24 History Allergies Allergy/AdvReac Type Severity Reaction Status Date / Time No Known Allergies Allergy Verified 10/17/24 20:27 Vital Signs Vital Signs - 24 hr 10/17/24 15:13 10/17/24 15:22 10/17/24 15:48 Temperature 97.8 F Pulse Rate 85 83 71 Respiratory Rate 15 19 Blood Pressure 81/61 L 94/51 L Pulse Oximetry 96 100 Oxygen Delivery Room Air 10/17/24 16:18 10/17/24 17:28 10/17/24 18:06 Temperature Pulse Rate 73 67 84 Respiratory Rate 14 17 23 H Blood Pressure 98/63 L 101/62 92/70 L Pulse Oximetry 100 99 100 Oxygen Delivery 10/17/24 20:45 10/18/24 00:00 Temperature 98.2 F 98.1 F Pulse Rate 63 75 Respiratory Rate 18 15 Blood Pressure 155/65 H 108/56 L Pulse Oximetry 100 100 Oxygen Delivery Exam Const: General: comfortable and no acute distress HENMT: Mouth: Yes moist mucous membranes Eyes: Pupils: Equal, round and reactive pupils present Neck: Neck: supple Resp: Effort & Inspection: normal respiratory effort Auscultation: clear to auscultation bilaterally Cardio: Rate: regular rate Rhythm: regular rhythm GI: Inspection: non-distended GI Palp: Yes Soft to palpation Neuro: Other: Globally weak, symmetrical Extrem: General: no edema H&P: Results Labs Labs: Short CBC 10/17/24 Range/Units 15:46 WBC 4.1 L (4.5-10.0) K/mm3 Hgb 10.8 L (14.0-18.0) g/dL Hct 33.8 L (42.0-52.0) % Plt Count 177 (150-375) k/mm3 BMP 10/17/24 15:46 Sodium 138 Potassium 3.9 Chloride 106 Carbon Dioxide 27 BUN 12 D Creatinine 0.87 Glucose 88 Calcium 8.7 Liver Function 10/17/24 Range/Units 15:46 Total Bilirubin 0.5 (0.2-1.3) mg/dL AST 23 (17-59) U/L ALT 10 (6-50) U/L Alkaline Phosphatase 69 (38-126) U/L Albumin 3.4 L (3.5-5.1) g/dL Urine 10/17/24 Range/Units 18:23 Urine Color Yellow (Yellow) Urine Appearance Clear (Clear) Urine pH 6.0 (5.0-9.0) Ur Specific [place] 1.027 (1.001-1.035) Urine Protein Negative (Negative) mg/dL Urine Glucose (UA) Negative (Negative) mg/dL Assessment and Plan Assessment and plan (1) Acute hypotension: Code(s): I95.9 - Hypotension, unspecified Status: Acute (2) Adult failure to thrive: Code(s): R62.7 - Adult failure to thrive Status: Acute Plan 78-year-old male presents to [facility] ER on 10/17/2024 with a complaint of weakness. Patient lives at home with his granddaughter. He has neurocognitive disorder and is a poor historian. It is reported he has not eaten or drink in in a week. Patient denies nausea vomiting or diarrhea. Denies abdominal pain. Denies tobacco use, alcohol use, illicit drug use. He is not currently sexually active. Is reported to me had hypotension after fluid bolus in the ER however I am unable to find the documentation. None the less he does have documented low blood pressures. He received 30 cc/kg bolus. WBC 4.1, hemoglobin 10.8, albumin 3.4, urinalysis unremarkable. Chest abdomen pelvis demonstrating fecal stasis, inflammatory changes within the rectum suggesting proctitis. ----- Orthostatic hypotension likely due to nutritional deficits. Consult care coordination failure to thrive, PT OT evaluations, dietitian evaluation. Continue normal saline at 125 cc and check orthostatic blood pressures Q shift. Consult urology for suspected proctitis. Patient is not sexually active, denies abdominal/rectal pain. Denies diarrhea, bloody stool. Urinalysis unremarkable. Patient would like to be full code. Normal saline. SCDs. Ambulate with assistance. Hospitalist [facility] Advance Care Plan I have confirmed that the patient's Advanced Care Plan is present, code status is documented, or surrogate decision maker is listed in patient medical record.: Yes Medication Reconciliation I have utilized all available resources to obtain, update and review the patients current medications (includes all prescriptions, OTC, herbals, canna bis, and nutritional supplements).: Yes
[2024-10-18] MEDS: LORazepam (*CRX) 0.5 MG TABLET PO (00:30)
[2024-10-18] MEDS: NORTRIPTYLINE HCL 25 MG CAPSULE 75 MG PO ×2 (00:30→08:39)
[2024-10-18] MEDS: SODIUM CHLORIDE 0.9% IV 1,000 ML 125 ML IV CONT ×3 (02:56→19:59)
[2024-10-18 04:41] LABS: Hematocrit 31.2 % (42.0-52.0); Hemoglobin 9.7 g/dL (14.0-18.0); Immature Granulocyte Percent A 0.3 % (0-0.5); Lymphocytes Absolute Auto 0.67 K/mm3 (0.9-3.2); Mean Corpuscular HGB Conc 31.1 g/dl (32-36); Mean Corpuscular Hemoglobin 29.4 pg (26-34); Mean Corpuscular Volume 94.5 fl (80-100); Nucleated Red Blood Cells Absolute Auto 0.000 K/mm3 (0.0-0.012); Nucleated Red Blood Cells Perc 0.0 % (0.0-0.2); Platelet Count Result 168 k/mm3 (150-375); Red Blood Count 3.30 M/mm3 (4.6-6.20); White Blood Count 3.9 K/mm3 (4.5-10.0)
[2024-10-18 05:02] LABS: Blood Urea Nitrogen 12 mg/dL (9-20); Carbon Dioxide 24 mmol/L (22-30); Estimated CRCL calculation 57 ml/min; Estimated Glomerular Filt Rate > 60; Magnesium 2.0 mg/dL (1.6-2.3); Potassium 3.9 mmol/L (3.4-5.0); Sodium 132 mmol/L (137-145)
[2024-10-18 05:13] LABS: Anion Gap 0 mmol/L (4-12); Chloride 108 mmol/L (98-107)
[2024-10-18 05:33] LABS: Calcium 8.2 mg/dL (8.4-10.2); Glucose 87 mg/dL (65-110)
[2024-10-18] MEDS: SERTRALINE HCL 50 MG TABLET PO (08:39)
[2024-10-18] MEDS: MONTELUKAST SODIUM 10 MG TABLET PO (08:39)
[2024-10-18] MEDS: MEMANTINE 5 MG TABLET PO ×2 (08:39→17:02)
--- NOTE | 2024-10-18 10:13 | PM.IMPN ---
Progress Note: A&P Assessment and Plan (1) Acute hypotension: Code(s): I95.9 - Hypotension, unspecified Status: Acute (2) Adult failure to thrive: Code(s): R62.7 - Adult failure to thrive Status: Acute Plan 78-year-old male presents to [facility] ER on 10/17/2024 with a complaint of weakness. Patient lives at home with his granddaughter. He has neurocognitive disorder and is a poor historian. It is reported he has not eaten or drink in in a week. Patient denies nausea vomiting or diarrhea. Denies abdominal pain. Denies tobacco use, alcohol use, illicit drug use. He is not currently sexually active. He felt lightheaded when standing and nearly passed out. He reported no fever chills urinary symptoms cough chest pain shortness a breath. He did report soreness in his left cheek to me. In the ED his initial vitals were low with systolic of 81 received 30 mL per kilos fluid bolus in the ER with improvement in blood pressure. Laboratory workup shows a WBC of 4.1 hemoglobin of 10.8 platelet a 177 Chem panel was unremarkable. Lactate was normal at 1.1 LFTs were normal. CRP was less than 0.5. EKG showed sinus rhythm with nonspecific ST-T changes. Urinalysis negative for UTI Chest x-ray with no focal infiltrate or effusion CT Chest abdomen pelvis demonstrating 11 x 12 mm indeterminate focus of increased attenuation identified within right lung base with adjacent atelectasis possibly representing around atelectasis. Thyroid gland is heterogeneous a nonspecific finding 13 mm well-circumscribed focus of fluid attenuation within the medial body of the spleen kidneys have innumerable rounded foci of fluid attenuation within the right kidney mural thickening with surrounding inflammatory changes identified within the rectum suggestive of proctitis with fecal stasis within the colon. Hypotension with associated symptom of orthostatic hypotension likely due to dehydration no signs of infections were evident. Left facial/maxillary area with mild swelling noted. Does not look overtly cellulitic. Follow blood cultures. Monitor off antibiotics. Will get CT face/maxilla to further evaluate the area. will start zosyn for proctitis. will need fu with gi as op basis for colonoscopy evaluation Dementia Urinary retention needing intermittent straight catheterization he refused straight catheterization. Add Flomax and monitor Code status full code Subjective Date/time seen: 10/18/24 10:13 Interval history: No overnight events. Blood pressure is improved. Complains of soreness in his left cheek. No abdominal pain nausea vomiting cough fever chills shortness of breath. Review of Systems Review of Systems: All systems reviewed & are unremarkable except as noted in HPI and below (HPI) Exam Narrative: GENERAL: The patient is well developed, not in acute distress HEENT: Nonicteric sclerae, PERRLA, EOMI. Oropharynx clear. Moist mucous membranes. Conjunctivae appear well perfused. CHEST: Chest wall is nontender. HEART: Regular rate and rhythm without murmur, rubs, or gallops LUNGS: Clear to auscultation bilaterally. no respiratory distress ABDOMEN: Soft, positive bowel sounds, non-tender, no organomegaly. SKIN: No rash, no excessive bruising, petechiae, or purpura. NEUROLOGIC: Cranial nerves II-XII intact, alert and oriented x 3, no gross motor deficits EXTREMITIES: no edema, cyanosis or clubbing Objective Data Vital Signs Vital Signs: Vital Signs - 24 hr 10/17/24 15:13 10/17/24 15:22 10/17/24 15:48 Temperature 97.8 F Pulse Rate 85 83 71 Respiratory Rate 15 19 Blood Pressure 81/61 L 94/51 L Pulse Oximetry 96 100 Oxygen Delivery Room Air 10/17/24 16:18 10/17/24 17:28 10/17/24 18:06 Temperature Pulse Rate 73 67 84 Respiratory Rate 14 17 23 H Blood Pressure 98/63 L 101/62 92/70 L Pulse Oximetry 100 99 100 Oxygen Delivery 10/17/24 20:16 10/17/24 20:45 10/17/24 22:00 Temperature 98.2 F Pulse Rate 63 78 Respiratory Rate 18 Blood Pressure 155/65 H Pulse Oximetry 100 Oxygen Delivery Room Air 10/18/24 00:00 10/18/24 00:00 10/18/24 00:00 Temperature 98.1 F Pulse Rate 75 73 Respiratory Rate 15 Blood Pressure 108/56 L Pulse Oximetry 100 Oxygen Delivery Room Air 10/18/24 02:00 10/18/24 04:00 10/18/24 04:00 Temperature 98.3 F Pulse Rate 65 65 Respiratory Rate 18 Blood Pressure 110/63 Pulse Oximetry 98 Oxygen Delivery Room Air 10/18/24 04:00 10/18/24 06:00 10/18/24 07:58 Temperature 98.3 F Pulse Rate 69 70 70 Respiratory Rate 20 Blood Pressure 114/60 Pulse Oximetry 96 Oxygen Delivery Intake/Output Intake/Output: Intake & Output 10/15/24 10/16/24 10/17/24 10/18/24 23:59 23:59 23:59 23:59 Intake Total 1000 1790 Output Total 0 875 Balance 1000 915 Meds/Results Medications: Active Medications Generic Name Dose Route Start Last Admin Trade Name Freq PRN Reason Stop Dose Admin Sodium Chloride 1,000 mls @ 125 mls/hr 10/17/24 18:25 10/18/24 02:56 Normal Saline Iv IV CONT 125 mls/hr .Q8H FERNANDO Administration Lorazepam 0.5 mg 10/17/24 23:34 10/18/24 00:30 Lorazepam (*Crx) 0.5 Mg Tablet PO 0.5 mg QPM PRN Administration insomnia Memantine 5 mg 10/18/24 09:00 10/18/24 08:39 Memantine 5 Mg Tablet PO 5 mg BID FERNANDO Administration Montelukast Sodium 10 mg 10/18/24 09:00 10/18/24 08:39 Montelukast Sodium 10 Mg Tablet PO 10 mg DAILY FERNANDO Administration Nortriptyline HCl 75 mg 10/17/24 23:40 10/18/24 08:39 Nortriptyline Hcl 25 Mg Capsule PO 75 mg Q12HR FERNANDO Administration Sertraline HCl 50 mg 10/18/24 09:00 10/18/24 08:39 Sertraline Hcl 50 Mg Tablet PO 50 mg DAILY FERNANDO Administration Radiology Results: ITS Impressions Chest X-Ray 10/17/24 15:51 IMPRESSION: No focal infiltrate or effusion. Labs Labs: Laboratory Results - last 24 hr 10/17/24 10/17/24 10/18/24 15:46 18:23 04:12 WBC 4.1 L 3.9 L RBC 3.64 L 3.30 L Hgb 10.8 L 9.7 L Hct 33.8 L 31.2 L MCV 92.9 94.5 MCH 29.7 29.4 MCHC 32.0 31.1 L RDW 13.1 13.1 Plt Count 177 168 MPV 8.8 8.9 Immature Gran % (Auto) 0.5 0.3 Neut % (Auto) 72.4 69.5 Lymph % (Auto) 16.2 L 17.3 L [place] % (Auto) 5.7 7.2 Eos % (Auto) 4.7 H 4.9 H Baso % (Auto) 0.5 0.8 Lymph # (Auto) 0.66 L 0.67 L [place] # (Auto) 0.2 0.3 Eos # (Auto) 0.2 0.2 Baso # (Auto) 0.0 0.0 Abs Immat Gran (auto) 0.02 0.01 Absolute Neuts (auto) 3.0 2.7 Absolute Nucleated RBC 0.000 0.000 Nucleated RBC % 0.0 0.0 PT 14.0 INR 1.1 APTT 28.3 Sodium 138 132 L Potassium 3.9 3.9 Chloride 106 108 H Carbon Dioxide 27 24 Anion Gap 5 0 L BUN 12 D 12 Creatinine 0.87 0.78 Estim Creat Clear Calc 52 57 Estimated GFR > 60 > 60 Glucose 88 87 Lactic Acid 1.1 Calcium 8.7 8.2 L Magnesium 2.0 Total Bilirubin 0.5 AST 23 ALT 10 Alkaline Phosphatase 69 C-Reactive Protein < 0.5 Total Protein 6.2 L Albumin 3.4 L Urine Color Yellow Urine Appearance Clear Urine pH 6.0 Ur Specific [place] 1.027 Urine Protein Negative Urine Glucose (UA) Negative Urine Ketones Negative Ur Blood (Man) Negative Urine Nitrate Negative Urine Bilirubin Negative Urine Urobilinogen 0.2 Leukocyte Esterase Rfl Trace H Urine RBC 0-2 Urine WBC 0-5 Ur Squamous Epith Cells None seen Urine Bacteria None seen Urine Casts 3-5
[2024-10-18] MEDS: PIPERACILLIN/TAZOBACTAM SOD 3.375 GM in SODIUM CHLORIDE 0.9% IV 50 ML 100 ML IVPB ×3 (13:53→23:08)
[2024-10-18] MEDS: methADONE HCL (*CRX) 10 MG TABLET PO (14:18)
[2024-10-18] MEDS: IBUPROFEN 400 MG TABLET 800 MG PO (17:04)
[2024-10-18] MEDS: SENNOSIDES 8.6 MG TABLET PO (21:48)
[2024-10-19] VITALS (18 sets, daily range): BP systolic 61–135; BP diastolic 38–68; PULSE 60–82; RESP 16–18; TEMP 36.6–37.1; O2SAT 97–100
--- NOTE | 2024-10-19 | ECHO_ITS ---
Patient Info Name: Maxi Allred Age: 78 years : 1945 Gender: Male Ht: 72 in Wt: 134 lbs BSA: 1.74 m2 HR: 60 bpm BP: 61 / 38 mmHg Technical Quality: Good Exam Date: 10/19/2024 9:07 AM Patient Status: I Admit Date: 10/19/2024 Exam Type: CA echo doppler color flow Complete two-dimensional, color flow and Doppler transthoracic echocardiogram is performed. Staff Referring Physician: Benigno Sutherland [place] Ripper: Xochitl Solares Attending Provider: Isela Jama MD Summary 1. Complete two-dimensional, color flow and Doppler transthoracic echocardiogram is performed. 2. There is normal biventricular size and systolic function. 3. While the aortic valve is not well visualized it does appear to be bicuspid without any significant stenosis or regurgitation. Left Ventricle The left ventricle is normal in size and systolic function. There is concentric left ventricular remodeling. The left ventricular ejection fraction is visually estimated to be 55-60%. Right Ventricle The right ventricle is normal in size and systolic function. Left Atria The left atrium is mildly dilated. Right Atria The right atrium is normal size. Atrial Septum The atrial septum is not well visualized. Aortic Valve The aortic valve on this study appears to be bicuspid although not very well visualized. There is no aortic stenosis. There is trace aortic regurgitation. Pulmonic Valve The pulmonic valve is not well visualized. Mitral Valve The mitral valve is normal. There is trace mitral regurgitation. Tricuspid Valve The tricuspid valve is normal. There is trace tricuspid regurgitation. Pericardium/Pleural There is a small size pericardial effusion. Inferior Vena Cava Dilated inferior vena cava with <50% collapse upon inspiration consistent with significantly elevated right atrial pressure, 15 mmHg. Aorta The aortic root at the level of the sinus of Valsalva measures 3.6 cm in diameter. Left Ventricular Outflow Tract Name Value Normal LVOT 2D LVOT Diameter 2.3 cm LVOT Doppler LVOT Peak Velocity 78 cm/s LVOT Peak Gradient 2 mmHg LVOT Mean Gradient 2 mmHg LVOT VTI 24 cm LVOT Stroke Volume 94 ml LVOT CO 5.6 l/min LVOT CI 3.2 l/min/m2 Pulmonic Valve Name Value Normal RVOT Doppler RVOT Peak Velocity 95 cm/s RVOT Peak Gradient 4 mmHg PV Doppler PV Peak Velocity 101 cm/s PV Peak Gradient 4 mmHg Mitral Valve Name Value Normal MV Diastolic Function MV E Peak Velocity 82 cm/s MV A Peak Velocity 52 cm/s MV E/A 1.6 MV Decel Time (PW) 156 ms MV Annular TDI MV E/e' (Septal) 7.8 MV E/e' (Lateral) 7.8 MV E/e' (Average) 7.8 Tricuspid Valve Name Value Normal Estimated PAP/RSVP RA Pressure 15 mmHg <=5 Aortic Valve Name Value Normal AV Doppler AV Peak Velocity 119 cm/s AV Peak Gradient 6 mmHg AV Area (Cont Eq Lenny) 2.6 cm2 AV DI (Lenny) 0.66 AV Regurgitation 2D LVOT Area 4.0 cm2 Ventricles Name Value Normal LV Dimensions 2D/MM IVS Diastolic Thickness (2D) 1.1 cm 0.6-1.0 LVID Diastole (2D) 4.7 cm 4.2-5.8 LVIW Diastolic Thickness (2D) 1.0 cm 0.6-1.0 LVID Systole (2D) 3.0 cm 2.5-4.0 LVOT Diameter 2.3 cm LV Mass (2D Cubed) 174.74 g 88.00-224.00 LV Mass Index (2D Cubed) 100 g/m2 49-115 Relative Wall Thickness (2D) 0.43 <=0.42 LV Fractional Shortening/Ejection Fraction 2D/MM LV Fractional Shortening (2D) 36 % 25-43 LV EF (2D Teichholz) 66 % LV Diastolic Volume (4C MOD) 86 ml LV EF (4C MOD) 70 % LV Diastolic Volume (2C MOD) 74 ml LV EF (2C MOD) 51 % LV Diastolic Volume (BP MOD) 81 ml 62-150 LV Diastolic Volume Index (BP MOD) 46 ml/m2 34-74 LV Systolic Volume (BP MOD) 32 ml 21-61 LV Systolic Volume Index (BP MOD) 18 ml/m2 11-31 LV EF (BP MOD) 61 % 52-72 LV Diastolic Length (4C) 8.3 cm LV Systolic Length (4C) 7.2 cm LV Stroke Volume (4C MOD) 60 ml Atria Name Value Normal LA Dimensions LA Volume (4C A-L) 64 ml LA Volume (BP A-L) 66 ml RA Dimensions RA Systolic Major [place] Length (4C) 5.3 cm 2.1-2.7 RA Area (4C) 17.8 cm2 <=18.0 Report Signatures
[2024-10-19] MEDS: SODIUM CHLORIDE 0.9% IV 1,000 ML 125 ML IV CONT ×2 (05:02→13:41)
[2024-10-19] MEDS: PIPERACILLIN/TAZOBACTAM SOD 3.375 GM in SODIUM CHLORIDE 0.9% IV 50 ML 100 ML IVPB ×3 (05:03→16:53)
[2024-10-19] MEDS: MEMANTINE 5 MG TABLET PO ×2 (10:27→16:48)
[2024-10-19] MEDS: IBUPROFEN 400 MG TABLET 800 MG PO ×2 (10:27→22:22)
[2024-10-19] MEDS: SERTRALINE HCL 50 MG TABLET PO (10:27)
[2024-10-19] MEDS: MONTELUKAST SODIUM 10 MG TABLET PO (10:27)
[2024-10-19] MEDS: TAMSULOSIN HCL 0.4 MG CAPSULE PO (10:27)
--- NOTE | 2024-10-19 11:02 | PM.IMPN ---
Progress Note: A&P Assessment and Plan (1) Acute hypotension: Code(s): I95.9 - Hypotension, unspecified Status: Acute (2) Adult failure to thrive: Code(s): R62.7 - Adult failure to thrive Status: Acute Plan 78-year-old male presents to [facility] ER on 10/17/2024 with a complaint of weakness. Patient lives at home with his granddaughter. He has neurocognitive disorder and is a poor historian. It is reported he has not eaten or drink in in a week. Patient denies nausea vomiting or diarrhea. Denies abdominal pain. Denies tobacco use, alcohol use, illicit drug use. He is not currently sexually active. He felt lightheaded when standing and nearly passed out. He reported no fever chills urinary symptoms cough chest pain shortness a breath. He did report soreness in his left cheek to me. In the ED his initial vitals were low with systolic of 81 received 30 mL per kilos fluid bolus in the ER with improvement in blood pressure. Laboratory workup shows a WBC of 4.1 hemoglobin of 10.8 platelet a 177 Chem panel was unremarkable. Lactate was normal at 1.1 LFTs were normal. CRP was less than 0.5. EKG showed sinus rhythm with nonspecific ST-T changes. Urinalysis negative for UTI Chest x-ray with no focal infiltrate or effusion CT Chest abdomen pelvis demonstrating 11 x 12 mm indeterminate focus of increased attenuation identified within right lung base with adjacent atelectasis possibly representing around atelectasis. Thyroid gland is heterogeneous a nonspecific finding 13 mm well-circumscribed focus of fluid attenuation within the medial body of the spleen kidneys have innumerable rounded foci of fluid attenuation within the right kidney mural thickening with surrounding inflammatory changes identified within the rectum suggestive of proctitis with fecal stasis within the colon. Hypotension with associated symptom of orthostatic hypotension likely due to dehydration no signs of infections were evident. Left facial/maxillary area with mild swelling noted. Does not look overtly cellulitic.ct facial bone is negative. treatment for proctitis with zosyn started. orthostatic hypotension could be related to peripheral neuropathy which could be chronic. add midodrine. check echo which is pending Follow blood cultures. Monitor off antibiotics. Will get CT face/maxilla to further evaluate the area. started zosyn for proctitis. will need fu with gi as op basis for colonoscopy evaluation Dementia Urinary retention needing intermittent straight catheterization he refused straight catheterization. Add Flomax and monitor. could worsen the orthostatic hypotension will monitor. Code status full code Subjective Date/time seen: 10/19/24 11:02 Interval history: no overnight events, family at bedside orthostatic positive. on chronic pain medications. no fever, chills. has chronic peripheral neuropathy. ct reviewed with the patient Review of Systems Review of Systems: All systems reviewed & are unremarkable except as noted in HPI and below (HPI) Exam Narrative: GENERAL: The patient is well developed, not in acute distress HEENT: Nonicteric sclerae, PERRLA, EOMI. Oropharynx clear. Moist mucous membranes. Conjunctivae appear well perfused. CHEST: Chest wall is nontender. HEART: Regular rate and rhythm without murmur, rubs, or gallops LUNGS: Clear to auscultation bilaterally. no respiratory distress ABDOMEN: Soft, positive bowel sounds, non-tender, no organomegaly. SKIN: No rash, no excessive bruising, petechiae, or purpura. NEUROLOGIC: Cranial nerves II-XII intact, alert and oriented x 3, no gross motor deficits EXTREMITIES: no edema, cyanosis or clubbing Objective Data Vital Signs Vital Signs: Vital Signs - 24 hr 10/18/24 11:35 10/18/24 11:36 10/18/24 11:36 Temperature 97.7 F 97.7 F Pulse Rate 61 61 74 Respiratory Rate 18 18 Blood Pressure 90/51 L 90/51 L 78/49 L Pulse Oximetry 100 100 Oxygen Delivery 10/18/24 11:37 10/18/24 12:00 10/18/24 12:00 Temperature Pulse Rate 71 68 Respiratory Rate Blood Pressure 65/43 L Pulse Oximetry 98 Oxygen Delivery Room Air 10/18/24 14:00 10/18/24 15:29 10/18/24 16:00 Temperature 97.7 F Pulse Rate 74 66 66 Respiratory Rate 18 Blood Pressure 106/56 L Pulse Oximetry 98 Oxygen Delivery 10/18/24 16:00 10/18/24 18:00 10/18/24 20:00 Temperature Pulse Rate 74 Respiratory Rate Blood Pressure 110/52 L Pulse Oximetry 98 Oxygen Delivery Room Air 10/18/24 20:00 10/18/24 20:00 10/18/24 20:38 Temperature 98.1 F Pulse Rate 72 68 Respiratory Rate 18 Blood Pressure 110/52 L 102/49 L Pulse Oximetry 98 Oxygen Delivery 10/18/24 20:38 10/18/24 21:30 10/18/24 22:00 Temperature Pulse Rate 72 60 Respiratory Rate 18 Blood Pressure 97/51 L Pulse Oximetry 98 Oxygen Delivery Room Air 10/18/24 23:10 10/18/24 23:45 10/19/24 00:00 Temperature 98 F Pulse Rate 60 60 61 Respiratory Rate 18 18 Blood Pressure 100/57 L Pulse Oximetry 97 97 Oxygen Delivery Room Air 10/19/24 02:00 10/19/24 03:53 10/19/24 03:53 Temperature 97.8 F Pulse Rate 60 62 62 Respiratory Rate 18 18 Blood Pressure 117/61 Pulse Oximetry 97 97 Oxygen Delivery Room Air 10/19/24 04:00 10/19/24 05:26 10/19/24 08:00 Temperature 98.1 F Pulse Rate 64 64 71 Respiratory Rate 16 Blood Pressure 117/62 Pulse Oximetry 97 Oxygen Delivery 10/19/24 08:00 10/19/24 08:00 10/19/24 08:07 Temperature 98.1 F Pulse Rate 71 68 Respiratory Rate 16 Blood Pressure 117/62 86/50 L Pulse Oximetry 97 Oxygen Delivery 10/19/24 08:07 10/19/24 10:00 Temperature Pulse Rate 61 Respiratory Rate Blood Pressure 61/38 L Pulse Oximetry Oxygen Delivery Intake/Output Intake/Output: Intake & Output 10/16/24 10/17/24 10/18/24 10/19/24 23:59 23:59 23:59 23:59 Intake Total 1000 4820 1390 Output Total 0 1575 580 Balance 1000 3245 810 Meds/Results Medications: Active Medications Generic Name Dose Route Start Last Admin Trade Name Freq PRN Reason Stop Dose Admin Sodium Chloride 1,000 mls @ 125 mls/hr 10/17/24 18:25 10/19/24 05:02 Normal Saline Iv IV CONT 125 mls/hr .Q8H FERNANDO Administration Piperacillin Sod/Tazobactam 50 mls @ 100 mls/hr 10/18/24 12:00 10/19/24 05:33 Sod 3.375 gm/ Sodium Chloride IVPB Infused Q6HR FERNANDO Infusion Ibuprofen 800 mg 10/18/24 13:00 10/19/24 10:27 Ibuprofen 400 Mg Tablet PO 800 mg TID PRN Administration Pain Rated 1-3 Lorazepam 0.5 mg 10/17/24 23:34 10/18/24 00:30 Lorazepam (*Crx) 0.5 Mg Tablet PO 0.5 mg QPM PRN Administration insomnia Magnesium Citrate 150 ml 10/18/24 10:21 Magnesium Citrate 300 Ml Btl PO BID PRN constipation Memantine 5 mg 10/18/24 09:00 10/19/24 10:27 Memantine 5 Mg Tablet PO 5 mg BID FERNANDO Administration Midodrine 5 mg 10/19/24 13:00 Midodrine Hcl 2.5 Mg Tablet PO TID FERNANDO Montelukast Sodium 10 mg 10/18/24 09:00 10/19/24 10:27 Montelukast Sodium 10 Mg Tablet PO 10 mg DAILY FERNANDO Administration Oxycodone HCl 30 mg 10/19/24 11:00 Oxycodone Hcl (*Crx) 5 Mg Tab Ir PO Q6H PRN Pain Rated 7-10 Perflutren Lipid Microsphere 0 ml 10/18/24 14:45 Perflutren Lipid Microspheres 1.5 Ml Vial Diluted To 10 Ml Total Volume IV PUSH 10/21/24 14:45 ONCE PRN adequate visualization Protocol Polyethylene Glycol 17 gm 10/18/24 17:00 10/19/24 10:27 Polyethylene Glycol 3350 17 Gm Powd.Pack PO 17 gm BID FERNANDO Administration Senna 8.6 mg 10/18/24 21:00 10/18/24 21:48 Sennosides 8.6 Mg Tablet PO 8.6 mg HS FERNANDO Administration Sertraline HCl 50 mg 10/18/24 09:00 10/19/24 10:27 Sertraline Hcl 50 Mg Tablet PO 50 mg DAILY FERNANDO Administration Tamsulosin HCl 0.4 mg 10/19/24 09:00 10/19/24 10:27 Tamsulosin Hcl 0.4 Mg Capsule PO 0.4 mg QAM FERNANDO Administration Radiology Results: ITS Impressions Chest X-Ray 10/17/24 15:51 IMPRESSION: No focal infiltrate or effusion. Face CT 10/18/24 21:55 IMPRESSION: 1. No maxillofacial fractures or other acute osseous abnormality. 2. Moderate spondylosis in the visualized cervical spine. Labs Labs: Laboratory Results - last 24 hr 10/18/24 15:12 Random Cortisol 9.21
[2024-10-19] MEDS: MIDODRINE HCL 2.5 MG TABLET 5 MG PO ×2 (12:02→16:48)
[2024-10-19] MEDS: oxyCODONE HCL (*CRX) 5 MG TAB IR 30 MG PO ×2 (12:02→18:43)
[2024-10-19] MEDS: MAGNESIUM CITRATE 300 ML BTL 150 ML PO (16:51)
[2024-10-19] MEDS: SENNOSIDES 8.6 MG TABLET PO (22:04)
[2024-10-20] VITALS (22 sets, daily range): BP systolic 76–132; BP diastolic 44–65; PULSE 63–101; RESP 12–20; TEMP 36.5–37.1; O2SAT 95–100
[2024-10-20] MEDS: SODIUM CHLORIDE 0.9% IV 1,000 ML 125 ML IV CONT ×2 (01:24→08:14)
[2024-10-20] MEDS: PIPERACILLIN/TAZOBACTAM SOD 3.375 GM in SODIUM CHLORIDE 0.9% IV 50 ML 100 ML IVPB ×2 (01:25→05:27)
[2024-10-20] MEDS: oxyCODONE HCL (*CRX) 5 MG TAB IR 30 MG PO ×4 (01:59→21:16)
[2024-10-20 04:14] LABS: Hematocrit 28.6 % (42.0-52.0); Hemoglobin 8.9 g/dL (14.0-18.0); Immature Granulocyte Percent A 0.2 % (0-0.5); Lymphocytes Absolute Auto 0.62 K/mm3 (0.9-3.2); Mean Corpuscular HGB Conc 31.1 g/dl (32-36); Mean Corpuscular Hemoglobin 29.6 pg (26-34); Mean Corpuscular Volume 95.0 fl (80-100); Nucleated Red Blood Cells Absolute Auto 0.000 K/mm3 (0.0-0.012); Nucleated Red Blood Cells Perc 0.0 % (0.0-0.2); Platelet Count Result 160 k/mm3 (150-375); Red Blood Count 3.01 M/mm3 (4.6-6.20); White Blood Count 4.8 K/mm3 (4.5-10.0)
[2024-10-20 04:36] LABS: Alanine Aminotransferase 15 U/L (6-50); Albumin Level 2.6 g/dL (3.5-5.1); Alkaline Phosphatase 81 U/L (38-126); Anion Gap 1 mmol/L (4-12); Aspartate Amino Transferase 39 U/L (17-59); Bilirubin,Total 0.5 mg/dL (0.2-1.3); Blood Urea Nitrogen 18 mg/dL (9-20); Calcium 7.8 mg/dL (8.4-10.2); Carbon Dioxide 22 mmol/L (22-30); Chloride 106 mmol/L (98-107); Estimated CRCL calculation 55 ml/min; Estimated Glomerular Filt Rate > 60; Glucose 87 mg/dL (65-110); Magnesium 1.9 mg/dL (1.6-2.3); Potassium 4.0 mmol/L (3.4-5.0); Sodium 129 mmol/L (137-145); Total Protein 5.0 g/dL (6.3-8.2)
[2024-10-20] MEDS: MONTELUKAST SODIUM 10 MG TABLET PO (08:11)
[2024-10-20] MEDS: MIDODRINE HCL 2.5 MG TABLET 5 MG PO ×3 (08:13→17:32)
[2024-10-20] MEDS: MEMANTINE 5 MG TABLET PO ×2 (08:13→17:32)
[2024-10-20] MEDS: SERTRALINE HCL 50 MG TABLET PO (08:13)
[2024-10-20] MEDS: MAGNESIUM CITRATE 300 ML BTL 150 ML PO ×2 (08:13→17:29)
[2024-10-20] MEDS: TAMSULOSIN HCL 0.4 MG CAPSULE PO (08:13)
--- NOTE | 2024-10-20 09:50 | P.PNIM_ITS ---
Progress Note: A&P Assessment and Plan (1) Acute hypotension: Code(s): I95.9 - Hypotension, unspecified Status: Acute (2) Adult failure to thrive: Code(s): R62.7 - Adult failure to thrive Status: Acute Plan 78-year-old male presents to [facility] ER on 10/17/2024 with a complaint of weakness. Patient lives at home with his granddaughter. He has neurocognitive disorder and is a poor historian. It is reported he has not eaten or drink in in a week. Patient denies nausea vomiting or diarrhea. Denies abdominal pain. Denies tobacco use, alcohol use, illicit drug use. He is not currently sexually active. He felt lightheaded when standing and nearly passed out. He reported no fever chills urinary symptoms cough chest pain s hortness a breath. He did report soreness in his left cheek to me. In the ED his initial vitals were low with systolic of 81 received 30 mL per kilos fluid bolus in the ER with improvement in blood pressure. Laboratory workup shows a WBC of 4.1 hemoglobin of 10.8 platelet a 177 Chem panel was unremarkable. Lactate was normal at 1.1 LFTs were normal. CRP was less than 0.5. EKG showed sinus rhythm with nonspecific ST-T changes. Urinalysis negative for UTI Chest x-ray with no focal infiltrate or effusion CT Chest abdomen pelvis demonstrating 11 x 12 mm indeterminate focus of increased attenuation identified within right lung base with adjacent atelectasis possibly representing around atelectasis. Thyroid gland is heterogeneous a nonspecific finding 13 mm well-circumscribed focus of fluid attenuation within the medial body of the spleen kidneys have innumerable rounded foci of fluid attenuation within the right kidney mural thickening with surrounding inflammatory changes identified within the rectum suggestive of proctitis with fecal stasis within the colon. Hypotension with associated symptom of orthostatic hypotension likely due to dehydration no signs of infections were evident. Left facial/maxillary area with mild swelling noted. Does not look overtly cellulitic.ct facial bone is negative. treatment for proctitis with zosyn started. orthostatic hypotension could be related to peripheral neuropathy which could be chronic. add midodrine. Echo within normal EF no significant valvular abnormality noted. Will stop IV fluid today. Orthostatic vitals seem improved after midodrine. Follow blood cultures. Monitor off antibiotics. Started zosyn for proctitis. will need fu with gi as op basis for colonoscopy evaluation Dementia Urinary retention needing intermittent straight catheterization he refused straight catheterization. Add Flomax and monitor. could worsen the orthostatic hypotension will monitor. Code status full code Subjective Date/time seen: 10/20/24 09:50 Interval history: No overnight events. His right have a bowel movement this a.m.. Denies any dizziness. Chronic peripheral neuropathy pain persist. Review of Systems Review of Systems: All systems reviewed & are unremarkable except as noted in HPI and below (HPI) Exam Narrative: GENERAL: The patient is well developed, not in acute distress HEENT: Nonicteric sclerae, PERRLA, EOMI. Oropharynx clear. Moist mucous membranes. Conjunctivae appear well perfused. CHEST: Chest wall is nontender. HEART: Regular rate and rhythm without murmur, rubs, or gallops LUNGS: Clear to auscultation bilaterally. no respiratory distress ABDOMEN: Soft, positive bowel sounds, non-tender, no organomegaly. SKIN: No rash, no excessive bruising, petechiae, or purpura. NEUROLOGIC: Cranial nerves II-XII intact, alert and oriented x 3, no gross motor deficits EXTREMITIES: no edema, cyanosis or clubbing Objective Data Vital Signs Vital Signs: Vital Signs - 24 hr 10/19/24 10:00 10/19/24 11:38 10/19/24 12:00 Temperature 97.8 F Pulse Rate 61 62 65 Respiratory Rate 16 Blood Pressure 128/65 Pulse Oximetry 100 Oxygen Delivery 10/19/24 12:09 10/19/24 14:00 10/19/24 16:00 Temperature 98.7 F Pulse Rate 68 65 Respiratory Rate 16 Blood Pressure 135/63 Pulse Oximetry 97 Oxygen Delivery Room Air 10/19/24 16:00 10/19/24 18:00 10/19/24 19:29 Temperature 98.1 F Pulse Rate 69 69 69 Respiratory Rate 17 Blood Pressure 126/68 Pulse Oximetry 97 Oxygen Delivery 10/19/24 19:30 10/19/24 20:00 10/19/24 21:30 Temperature 98.5 F Pulse Rate 82 72 82 Respiratory Rate 17 17 Blood Pressure 94/44 L Pulse Oximetry 99 99 Oxygen Delivery Room Air 10/19/24 22:00 10/20/24 00:00 10/20/24 00:00 Temperature 98.3 F Pulse Rate 67 70 81 Respiratory Rate 17 Blood Pressure 132/65 Pulse Oximetry 96 Oxygen Delivery 10/20/24 01:25 10/20/24 01:48 10/20/24 03:21 Temperature 98.7 F Pulse Rate 70 69 63 Respiratory Rate 17 17 Blood Pressure 125/58 L Pulse Oximetry 96 95 Oxygen Delivery Room Air 10/20/24 03:50 10/20/24 04:00 10/20/24 06:00 Temperature Pulse Rate 63 67 67 Respiratory Rate 17 Blood Pressure Pulse Oximetry 95 Oxygen Delivery Room Air 10/20/24 07:44 10/20/24 08:50 Temperature 97.7 F Pulse Rate 67 Respiratory Rate 16 Blood Pressure 107/46 L Pulse Oximetry 95 Oxygen Delivery Room Air Intake/Output Intake/Output: Intake & Output 10/17/24 10/18/24 10/19/24 10/20/24 23:59 23:59 23:59 23:59 Intake Total 1000 4820 3930 954.2 Output Total 0 1575 1710 450 Balance 1000 3245 2220 504.2 Meds/Results Medications: Active Medications Generic Name Dose Route Start Last Admin Trade Name Freq PRN Reason Stop Dose Admin Sodium Chloride 1,000 mls @ 125 mls/hr 10/17/24 18:25 10/20/24 08:14 Normal Saline Iv IV CONT 125 mls/hr .Q8H FERNANDO Administration Piperacillin Sod/Tazobactam 50 mls @ 100 mls/hr 10/18/24 12:00 10/20/24 06:02 Sod 3.375 gm/ Sodium Chloride IVPB Infused Q6HR FERNANDO Infusion Ibuprofen 800 mg 10/18/24 13:00 10/19/24 22:22 Ibuprofen 400 Mg Tablet PO 800 mg TID PRN Administration Pain Rated 1-3 Lorazepam 0.5 mg 10/17/24 23:34 10/18/24 00:30 Lorazepam (*Crx) 0.5 Mg Tablet PO 0.5 mg QPM PRN Administration insomnia Magnesium Citrate 150 ml 10/18/24 10:21 10/20/24 08:13 Magnesium Citrate 300 Ml Btl PO 150 ml BID PRN Administration constipation Memantine 5 mg 10/18/24 09:00 10/20/24 08:13 Memantine 5 Mg Tablet PO 5 mg BID FERNANDO Administration Midodrine 5 mg 10/19/24 13:00 10/20/24 08:13 Midodrine Hcl 2.5 Mg Tablet PO 5 mg TID FERNANDO Administration Montelukast Sodium 10 mg 10/18/24 09:00 10/20/24 08:11 Montelukast Sodium 10 Mg Tablet PO 10 mg DAILY FERNANDO Administration Oxycodone HCl 30 mg 10/19/24 11:00 10/20/24 08:11 Oxycodone Hcl (*Crx) 5 Mg Tab Ir PO 30 mg Q6H PRN Administration Pain Rated 7-10 Perflutren Lipid Microsphere 0 ml 10/18/24 14:45 Perflutren Lipid Microspheres 1.5 Ml Vial Diluted To 10 Ml Total Volume IV PUSH 10/21/24 14:45 ONCE PRN adequate visualization Protocol Polyethylene Glycol 17 gm 10/18/24 17:00 10/20/24 08:13 Polyethylene Glycol 3350 17 Gm Powd.Pack PO 17 gm BID FERNANDO Administration Senna 8.6 mg 10/18/24 21:00 10/19/24 22:04 Sennosides 8.6 Mg Tablet PO 8.6 mg HS FERNANDO Administration Sertraline HCl 50 mg 10/18/24 09:00 10/20/24 08:13 Sertraline Hcl 50 Mg Tablet PO 50 mg DAILY FERNANDO Administration Tamsulosin HCl 0.4 mg 10/19/24 09:00 10/20/24 08:13 Tamsulosin Hcl 0.4 Mg Capsule PO 0.4 mg QAM FERNANDO Administration Radiology Results: ITS Impressions Chest X-Ray 10/17/24 15:51 IMPRESSION: No focal infiltrate or effusion. Face CT 10/18/24 21:55 IMPRESSION: 1. No maxillofacial fractures or other acute osseous abnormality. 2. Moderate spondylosis in the visualized cervical spine. Labs Labs: Laboratory Results - last 24 hr 10/20/24 03:46 WBC 4.8 RBC 3.01 L Hgb 8.9 L Hct 28.6 L MCV 95.0 MCH 29.6 MCHC 31.1 L RDW 13.0 Plt Count 160 MPV 9.1 Immature Gran % (Auto) 0.2 Neut % (Auto) 74.6 H Lymph % (Auto) 12.9 L [place] % (Auto) 7.5 Eos % (Auto) 4.2 Baso % (Auto) 0.6 Lymph # (Auto) 0.62 L [place] # (Auto) 0.4 Eos # (Auto) 0.2 Baso # (Auto) 0.0 Abs Immat Gran (auto) 0.01 Absolute Neuts (auto) 3.6 Absolute Nucleated RBC 0.000 Nucleated RBC % 0.0 Sodium 129 L Potassium 4.0 Chloride 106 Carbon Dioxide 22 Anion Gap 1 L BUN 18 Creatinine 0.87 Estim Creat Clear Calc 55 Estimated GFR > 60 Glucose 87 Calcium 7.8 L Magnesium 1.9 Total Bilirubin 0.5 AST 39 ALT 15 Alkaline Phosphatase 81 Total Protein 5.0 L Albumin 2.6 L
[2024-10-20] MEDS: IBUPROFEN 400 MG TABLET 800 MG PO ×2 (13:22→22:18)
[2024-10-20] MEDS: PIPERACILLIN/TAZOBACTAM SOD 3.375 GM in SODIUM CHLORIDE 0.9% IV 50 ML IVPB ×2 (13:23→17:34)
--- NOTE | 2024-10-20 15:08 | P.CONUR_ITS ---
Assessment and Plan Assessment and plan (1) Incomplete bladder emptying: Code(s): R33.9 - Retention of urine, unspecified Status: Acute Plan 78-year-old man with incomplete bladder emptying during admission for constipation/proctitis. -patient now voiding well on tamsulosin -as long as patient tolerates tamsulosin without significant orthostatic hypotension, consider discharge home with this medication. -okay for patient to follow-up with Urology if desires, but it appears he would prefer to just follow-up with primary care physician to monitor blood pressure and continue tamsulosin prescription upon discharge. Urology Consult Note HPI Date Seen: 10/20/24 Requesting Physician: Isela Jama MD Primary Care Provider: Tom Mart, Consult Narrative Narrative: Maxi Allred is a 78 year old male admitted with proctitis. He was found be in urinary retention with elevated postvoid residuals. Patient refused straight catheterization. He was started on tamsulosin yesterday. Since admission, patient has had multiple bowel movements and now states he is voiding normally. He denies desire for any urologic intervention. He has refused further bladder scanning by nursing staff. [facility] Past Medical History Medical History (Updated 10/20/24 @ 15:10 by Yessenia Ly MD) Incomplete bladder emptying Family History Family History Father Diabetes mellitus Mother Cancer Social History Social History Smoking status: Current every day smoker Tobacco type: cigarettes and e-cigarettes/vaping Smoking end date: 03/27/74 Alcohol intake: former Substance use: never Substance use type: prescription drug Do You Feel Safe in your Home?: Yes Lack of Transportation: No Lack of Food: Never True Current Housing: I Have Housing Concerned About Future Housing: No Difficulty Paying Gas/Electric Bills: No Difficulty Paying for Meds: No Currently Unemployed: No Education: Decline to Answer Difficulty w/ Childcare or Family Care: No Living arrangements: with family Occupation/Education: retired Gender identity (if verbalized by the patient): Male Spiritual care concerns: No Meds Home Medications and Allergies Home Medications ?Medication ?Instructions ?Recorded ?Confirmed ?Type ibuprofen 800 mg tablet 800 mg PO TID PRN fever or pain 04/05/22 10/17/24 History lorazepam 0.5 mg tablet 0.5 mg PO QPM PRN insomnia 04/05/22 10/17/24 History methadone 10 mg tablet 10 mg PO TID 04/05/22 10/17/24 History oxycodone 30 mg tablet 30 mg PO .fives time a day 04/05/22 10/17/24 History magnesium citrate 150 ml PO BID PRN constipation 08/29/24 10/17/24 Rx #296 mL polyethylene glycol 3350 17 gram 17 g PO BID #30 ea 08/29/24 10/17/24 Rx oral powder packet (Miralax) sennosides 8.6 mg capsule (senna) 8.6 mg PO HS PRN constipation #30 08/29/24 10/17/24 Rx caps memantine 5 mg tablet 5 mg PO BID 10/17/24 10/17/24 History montelukast 10 mg tablet 10 mg PO DAILY 10/17/24 10/17/24 History nortriptyline 75 mg capsule 75 mg PO BID 10/17/24 10/17/24 History sertraline 50 mg tablet 50 mg PO DAILY 10/17/24 10/17/24 History Allergies Allergy/AdvReac Type Severity Reaction Status Date / Time No Known Allergies Allergy Verified 10/17/24 20:27 Vital Signs Vital Signs - 24 hr 10/19/24 16:00 10/19/24 16:00 10/19/24 18:00 Temperature 37.1 C Pulse Rate 65 69 69 Respiratory Rate 16 Blood Pressure 135/63 Pulse Oximetry 97 Oxygen Delivery 10/19/24 19:29 10/19/24 19:30 10/19/24 20:00 Temperature 36.7 C 36.9 C Pulse Rate 69 82 72 Respiratory Rate 17 17 Blood Pressure 126/68 94/44 L Pulse Oximetry 97 99 Oxygen Delivery 10/19/24 21:30 10/19/24 22:00 10/20/24 00:00 Temperature 36.8 C Pulse Rate 82 67 70 Respiratory Rate 17 17 Blood Pressure 132/65 Pulse Oximetry 99 96 Oxygen Delivery Room Air 10/20/24 00:00 10/20/24 01:25 10/20/24 01:48 Temperature Pulse Rate 81 70 69 Respiratory Rate 17 Blood Pressure Pulse Oximetry 96 Oxygen Delivery Room Air 10/20/24 03:21 10/20/24 03:50 10/20/24 04:00 Temperature 37.1 C Pulse Rate 63 63 67 Respiratory Rate 17 17 Blood Pressure 125/58 L Pulse Oximetry 95 95 Oxygen Delivery Room Air 10/20/24 06:00 10/20/24 07:44 10/20/24 08:00 Temperature 36.5 C Pulse Rate 67 67 77 Respiratory Rate 16 Blood Pressure 107/46 L Pulse Oximetry 95 Oxygen Delivery 10/20/24 08:50 10/20/24 10:00 10/20/24 11:55 Temperature 36.8 C Pulse Rate 101 H 85 Respiratory Rate 20 Blood Pressure 98/44 L Pulse Oximetry 100 Oxygen Delivery Room Air 10/20/24 12:00 10/20/24 14:00 Temperature Pulse Rate 82 72 Respiratory Rate Blood Pressure Pulse Oximetry Oxygen Delivery Exam 2 Narrative: Patient is awake alert no acute distress. Breathing is unlabored. abdomen soft nontender nondistended. Results Labs 10/20/24 03:46 10/20/24 03:46 Labs: Short CBC 10/20/24 Range/Units 03:46 WBC 4.8 (4.5-10.0) K/mm3 Hgb 8.9 L (14.0-18.0) g/dL Hct 28.6 L (42.0-52.0) % Plt Count 160 (150-375) k/mm3 BMP 10/20/24 03:46 Sodium 129 L Potassium 4.0 Chloride 106 Carbon Dioxide 22 BUN 18 Creatinine 0.87 Glucose 87 Calcium 7.8 L Liver Function 10/20/24 Range/Units 03:46 Total Bilirubin 0.5 (0.2-1.3) mg/dL AST 39 (17-59) U/L ALT 15 (6-50) U/L Alkaline Phosphatase 81 (38-126) U/L Albumin 2.6 L (3.5-5.1) g/dL Ordering Physician: Barron, Tom Nolen MD Date of Service: 10/16/24 Procedure(s): CT chest abdomen pelvis w con Accession Number(s): [id number] cc: Barron, Tom Nolen MD~ CLINICAL INDICATION: Shortness of breath and constipation COMPARISON: None. TECHNIQUE: An enhanced CT of the chest, abdomen and pelvis was performed utilizing multislice spiral technique reconstructed at 5 mm slice thickness. Coronal and sagittal reconstructions were performed. This CT examination was performed utilizing dose reduction techniques. DLP: 322 mGy-cm FINDINGS/OBSERVATIONS: Lun x 12 mm indeterminate focus of increased attenuation is identified within the right lung base, with adjacent atelectasis possibly representing round atelectasis (sequelae of prior pleural effusions). The remainder of the lungs are otherwise clear. The heart is of normal size, without pericardial effusion. Mediastinum: No pathologically enlarged or morphologically suspicious lymph nodes are identified within the mediastinum, bilateral axilla, within the soft tissues of the anterior chest wall. Soft tissues of the chest: Unremarkable. The thyroid gland is heterogeneous, a nonspecific finding. Bones of the chest: No acute fracture. No lytic or blastic lesions are identified. Liver: The liver enhances homogeneously and is not enlarged. Gallbladder and biliary system: The gallbladder is surgically absent. Compensatory bile duct dilatation is identified. Pancreas: The pancreas enhances homogeneously, without ductal dilatation. Spleen: 13 mm well-circumscribed focus of fluid attenuation within the medial body of the spleen. The remainder of the spleen otherwise enhances homogeneously and is not enlarged. Kidneys: Innumerable rounded foci of fluid attenuation within the right kidney. The remainder of the bilateral kidneys otherwise enhance symmetrically without hydronephrosis or renal calculi. Adrenal glands: Unremarkable. Gastrointestinal tract: Mural thickening with surrounding inflammatory changes identified within the rectum, findings suggesting proctitis. Fecal stasis within the colon. No evidence of a bowel obstruction. Appendix: The appendix is not definitively visualized. However, no pericecal inflammatory change is identified suggest the presence of acute appendicitis. Vasculature: Trace calcified atherosclerotic disease is present. No aneurysmal dilatation. Lymph nodes: Scattered nonpathologically enlarged lymph nodes within the root of the mesentery and deep in the pelvis. Pelvic structures: The bladder is minimally distended and otherwise unremarkable. The prostate gland is not enlarged. Body wall and musculoskeletal: Small fat-containing umbilical hernia. Age-appropriate degenerative disease within the thoracic and lumbosacral spines. No acute compression fracture. IMPRESSION: Mural thickening and surrounding inflammatory change within the rectum, findings suggesting proctitis. Fecal stasis within the remainder of the colon. Remainder of the examination is otherwise unremarkable. Reviewed, dictated and finalized at location A.
[2024-10-20] MEDS: SENNOSIDES 8.6 MG TABLET PO (21:01)
[2024-10-20] MEDS: LORazepam (*CRX) 0.5 MG TABLET PO (21:15)
[2024-10-21] VITALS (15 sets, daily range): BP systolic 91–139; BP diastolic 46–75; PULSE 63–77; RESP 16–22; TEMP 36.1–36.9; O2SAT 96–99
[2024-10-21] MEDS: PIPERACILLIN/TAZOBACTAM SOD 3.375 GM in SODIUM CHLORIDE 0.9% IV 50 ML 100 ML IVPB ×3 (00:26→11:08)
[2024-10-21] MEDS: oxyCODONE HCL (*CRX) 5 MG TAB IR 30 MG PO ×4 (04:05→23:00)
[2024-10-21 04:29] LABS: Hematocrit 29.0 % (42.0-52.0); Hemoglobin 9.3 g/dL (14.0-18.0); Immature Granulocyte Percent A 0.2 % (0-0.5); Lymphocytes Absolute Auto 0.71 K/mm3 (0.9-3.2); Mean Corpuscular HGB Conc 32.1 g/dl (32-36); Mean Corpuscular Hemoglobin 29.8 pg (26-34); Mean Corpuscular Volume 92.9 fl (80-100); Nucleated Red Blood Cells Absolute Auto 0.000 K/mm3 (0.0-0.012); Nucleated Red Blood Cells Perc 0.0 % (0.0-0.2); Platelet Count Result 180 k/mm3 (150-375); Red Blood Count 3.12 M/mm3 (4.6-6.20); White Blood Count 4.2 K/mm3 (4.5-10.0)
[2024-10-21 04:54] LABS: Alanine Aminotransferase 15 U/L (6-50); Albumin Level 2.6 g/dL (3.5-5.1); Alkaline Phosphatase 95 U/L (38-126); Anion Gap 1 mmol/L (4-12); Aspartate Amino Transferase 32 U/L (17-59); Bilirubin,Total 0.3 mg/dL (0.2-1.3); Blood Urea Nitrogen 15 mg/dL (9-20); Carbon Dioxide 27 mmol/L (22-30); Chloride 104 mmol/L (98-107); Estimated CRCL calculation 54 ml/min; Estimated Glomerular Filt Rate > 60; Magnesium 2.3 mg/dL (1.6-2.3); Potassium 3.9 mmol/L (3.4-5.0); Sodium 132 mmol/L (137-145); Total Protein 5.1 g/dL (6.3-8.2)
[2024-10-21 05:06] LABS: Calcium 8.3 mg/dL (8.4-10.2); Glucose 90 mg/dL (65-110)
--- NOTE | 2024-10-21 08:42 | P.CDI_ITS ---
CDI Query Clarification Request BMI: 20.2 Nutritional Diagnostic Statement: Please refer to the comprehensive nutrition assessment for further information. If you agree with diagnosis of Severe protein calorie malnutrition related to inadequate energy intake as evidenced by poor po intake, a significant weight loss of -10% x 2 months, -16% x 7 months, and NFPE findings for severe subcutaneous fat loss (cheeks) and severe muscle wasting (temples, clavicles). Please specify severity if known: * Mild * Moderate * Severe * Other/Unknown
[2024-10-21] MEDS: MEMANTINE 5 MG TABLET PO ×2 (08:47→16:35)
[2024-10-21] MEDS: TAMSULOSIN HCL 0.4 MG CAPSULE PO (08:47)
[2024-10-21] MEDS: MONTELUKAST SODIUM 10 MG TABLET PO (08:47)
[2024-10-21] MEDS: MIDODRINE HCL 2.5 MG TABLET 5 MG PO ×3 (08:47→16:35)
[2024-10-21] MEDS: SERTRALINE HCL 50 MG TABLET PO (08:47)
--- NOTE | 2024-10-21 12:32 | P.PNIM_ITS ---
Progress Note: A&P Assessment and Plan (1) Acute hypotension: Code(s): I95.9 - Hypotension, unspecified Status: Acute (2) Adult failure to thrive: Code(s): R62.7 - Adult failure to thrive Status: Acute Plan 78-year-old male presents to [facility] ER on 10/17/2024 with a complaint of weakness. Patient lives at home with his granddaughter. He has neurocognitive disorder and is a poor historian. It is reported he has not eaten or drink in in a week. Patient denies nausea vomiting or diarrhea. Denies abdominal pain. Denies tobacco use, alcohol use, illicit drug use. He is not currently sexually active. He felt lightheaded when standing and nearly passed out. He reported no fever chills urinary symptoms cough chest pain s hortness a breath. He did report soreness in his left cheek to me. In the ED his initial vitals were low with systolic of 81 received 30 mL per kilos fluid bolus in the ER with improvement in blood pressure. Laboratory workup shows a WBC of 4.1 hemoglobin of 10.8 platelet a 177 Chem panel was unremarkable. Lactate was normal at 1.1 LFTs were normal. CRP was less than 0.5. EKG showed sinus rhythm with nonspecific ST-T changes. Urinalysis negative for UTI Chest x-ray with no focal infiltrate or effusion CT Chest abdomen pelvis demonstrating 11 x 12 mm indeterminate focus of increased attenuation identified within right lung base with adjacent atelectasis possibly representing around atelectasis. Thyroid gland is heterogeneous a nonspecific finding 13 mm well-circumscribed focus of fluid attenuation within the medial body of the spleen kidneys have innumerable rounded foci of fluid attenuation within the right kidney mural thickening with surrounding inflammatory changes identified within the rectum suggestive of proctitis with fecal stasis within the colon. Hypotension with associated symptom of orthostatic hypotension likely due to dehydration no signs of infections were evident. Left facial/maxillary area with mild swelling noted. Does not look overtly cellulitic.ct facial bone is negative. treatment for proctitis with zosyn started. orthostatic hypotension could be related to peripheral neuropathy which could be chronic. add midodrine. Echo within normal EF no significant valvular abnormality noted. IV fluids has been stopped. Orthostatic vitals seem improved after midodrine. Follow blood cultures. Monitor off antibiotics. Started zosyn for proctitis. will need fu with gi as op basis for colonoscopy evaluation Dementia Diarrhea new. Hold stool softener. And monitor. Urinary retention needing intermittent straight catheterization he refused straight catheterization. Add Flomax and monitor. could worsen the orthostatic hypotension will monitor. will need to monitor postvoid residual Code status full code Disposition PT OT to see Subjective Date/time seen: 10/21/24 12:32 Interval history: No overnight events. Denies any dizziness. Blood pressure has improved. Have been having diarrhea recently. Stool softness has been on hold. Denies any abdominal pain nausea vomiting shortness of breath or chest pain. Review of Systems Review of Systems: All systems reviewed & are unremarkable except as noted in HPI and below (HPI) Exam Narrative: GENERAL: The patient is well developed, not in acute distress HEENT: Nonicteric sclerae, PERRLA, EOMI. Oropharynx clear. Moist mucous membranes. Conjunctivae appear well perfused. CHEST: Chest wall is nontender. HEART: Regular rate and rhythm without murmur, rubs, or gallops LUNGS: Clear to auscultation bilaterally. no respiratory distress ABDOMEN: Soft, positive bowel sounds, non-tender, no organomegaly. SKIN: No rash, no excessive bruising, petechiae, or purpura. NEUROLOGIC: Cranial nerves II-XII intact, alert and oriented x 3, no gross motor deficits EXTREMITIES: no edema, cyanosis or clubbing Objective Data Vital Signs Vital Signs: Vital Signs - 24 hr 10/20/24 14:00 10/20/24 16:00 10/20/24 16:00 Temperature 98.6 F Pulse Rate 72 75 83 Respiratory Rate 12 Blood Pressure 113/56 L Pulse Oximetry 96 Oxygen Delivery Fraction of Inspired Oxygen 10/20/24 16:25 10/20/24 16:25 10/20/24 18:00 Temperature Pulse Rate 69 Respiratory Rate Blood Pressure 96/53 L 76/47 L Pulse Oximetry Oxygen Delivery Fraction of Inspired Oxygen 10/20/24 19:53 10/20/24 20:00 10/20/24 20:00 Temperature Pulse Rate 65 72 Respiratory Rate 20 Blood Pressure Pulse Oximetry 95 Oxygen Delivery Room Air Room Air Fraction of Inspired Oxygen 21 10/20/24 20:30 10/20/24 20:33 10/20/24 20:35 Temperature 98.2 F 98.2 F 98.2 F Pulse Rate 67 71 75 Respiratory Rate 18 17 17 Blood Pressure 115/58 L 111/60 84/46 L Pulse Oximetry 97 98 100 Oxygen Delivery Fraction of Inspired Oxygen 10/20/24 20:47 10/21/24 00:00 10/21/24 00:00 Temperature 98.2 F Pulse Rate 80 71 Respiratory Rate 18 Blood Pressure 115/58 L Pulse Oximetry 100 Oxygen Delivery Room Air Fraction of Inspired Oxygen 10/21/24 00:21 10/21/24 04:00 10/21/24 04:00 Temperature 98.4 F Pulse Rate 70 68 Respiratory Rate 18 Blood Pressure 114/62 Pulse Oximetry 96 Oxygen Delivery Room Air Fraction of Inspired Oxygen 10/21/24 04:02 10/21/24 08:00 10/21/24 08:00 Temperature 97.8 F 97.6 F Pulse Rate 67 68 63 Respiratory Rate 18 22 H Blood Pressure 139/75 116/54 L Pulse Oximetry 96 99 Oxygen Delivery Fraction of Inspired Oxygen 10/21/24 09:00 10/21/24 09:05 10/21/24 09:06 Temperature Pulse Rate Respiratory Rate Blood Pressure 114/55 L 97/54 L 91/46 L Pulse Oximetry Oxygen Delivery Fraction of Inspired Oxygen Intake/Output Intake/Output: Intake & Output 10/18/24 10/19/24 10/20/24 10/21/24 23:59 23:59 23:59 23:59 Intake Total 4820 3930 2241.2 950 Output Total 1575 1710 926 600 Balance 3245 2220 1315.2 350 Meds/Results Medications: Active Medications Generic Name Dose Route Start Last Admin Trade Name Freq PRN Reason Stop Dose Admin Piperacillin Sod/Tazobactam 50 mls @ 100 mls/hr 10/18/24 12:00 10/21/24 11:08 Sod 3.375 gm/ Sodium Chloride IVPB 100 mls/hr Q6HR FERNANDO Administration Ibuprofen 800 mg 10/18/24 13:00 10/20/24 22:18 Ibuprofen 400 Mg Tablet PO 800 mg TID PRN Administration Pain Rated 1-3 Lorazepam 0.5 mg 10/17/24 23:34 10/20/24 21:15 Lorazepam (*Crx) 0.5 Mg Tablet PO 0.5 mg QPM PRN Administration insomnia Magnesium Citrate 150 ml 10/18/24 10:21 10/20/24 17:29 Magnesium Citrate 300 Ml Btl PO 150 ml BID PRN Administration constipation Memantine 5 mg 10/18/24 09:00 10/21/24 08:47 Memantine 5 Mg Tablet PO 5 mg BID FERNANDO Administration Midodrine 5 mg 10/19/24 13:00 10/21/24 08:47 Midodrine Hcl 2.5 Mg Tablet PO 5 mg TID FERNANDO Administration Montelukast Sodium 10 mg 10/18/24 09:00 10/21/24 08:47 Montelukast Sodium 10 Mg Tablet PO 10 mg DAILY FERNANDO Administration Oxycodone HCl 30 mg 10/19/24 11:00 10/21/24 11:08 Oxycodone Hcl (*Crx) 5 Mg Tab Ir PO 30 mg Q6H PRN Administration Pain Rated 7-10 Perflutren Lipid Microsphere 0 ml 10/18/24 14:45 Perflutren Lipid Microspheres 1.5 Ml Vial Diluted To 10 Ml Total Volume IV PUSH 10/21/24 14:45 ONCE PRN adequate visualization Protocol Polyethylene Glycol 17 gm 10/18/24 17:00 10/21/24 08:46 Polyethylene Glycol 3350 17 Gm Powd.Pack PO Not Given BID FERNANDO Senna 8.6 mg 10/18/24 21:00 10/20/24 21:01 Sennosides 8.6 Mg Tablet PO 8.6 mg HS FERNANDO Administration Sertraline HCl 50 mg 10/18/24 09:00 10/21/24 08:47 Sertraline Hcl 50 Mg Tablet PO 50 mg DAILY FERNANDO Administration Tamsulosin HCl 0.4 mg 10/19/24 09:00 10/21/24 08:47 Tamsulosin Hcl 0.4 Mg Capsule PO 0.4 mg QAM FERNANDO Administration Radiology Results: ITS Impressions Chest X-Ray 10/17/24 15:51 IMPRESSION: No focal infiltrate or effusion. Face CT 10/18/24 21:55 IMPRESSION: 1. No maxillofacial fractures or other acute osseous abnormality. 2. Moderate spondylosis in the visualized cervical spine. Labs Labs: Laboratory Results - last 24 hr 10/21/24 03:40 WBC 4.2 L RBC 3.12 L Hgb 9.3 L Hct 29.0 L MCV 92.9 MCH 29.8 MCHC 32.1 RDW 13.3 Plt Count 180 MPV 9.0 Immature Gran % (Auto) 0.2 Neut % (Auto) 67.2 Lymph % (Auto) 17.0 L [place] % (Auto) 9.4 H Eos % (Auto) 6.0 H Baso % (Auto) 0.2 Lymph # (Auto) 0.71 L [place] # (Auto) 0.4 Eos # (Auto) 0.3 Baso # (Auto) 0.0 Abs Immat Gran (auto) 0.01 Absolute Neuts (auto) 2.8 Absolute Nucleated RBC 0.000 Nucleated RBC % 0.0 Sodium 132 L Potassium 3.9 Chloride 104 Carbon Dioxide 27 Anion Gap 1 L BUN 15 Creatinine 0.92 Estim Creat Clear Calc 54 Estimated GFR > 60 Glucose 90 Calcium 8.3 L Magnesium 2.3 Total Bilirubin 0.3 AST 32 ALT 15 Alkaline Phosphatase 95 Total Protein 5.1 L Albumin 2.6 L
[2024-10-21] MEDS: IBUPROFEN 400 MG TABLET 800 MG PO (15:55)
[2024-10-21] MEDS: LORazepam (*CRX) 0.5 MG TABLET PO (20:25)
[2024-10-22] VITALS (11 sets, daily range): BP systolic 84–117; BP diastolic 46–64; PULSE 63–82; RESP 14–18; TEMP 36.4–36.7; O2SAT 96–99
[2024-10-22] MEDS: oxyCODONE HCL (*CRX) 5 MG TAB IR 30 MG PO ×3 (05:09→17:41)
[2024-10-22 05:23] LABS: Hematocrit 32.4 % (42.0-52.0); Hemoglobin 10.2 g/dL (14.0-18.0); Immature Granulocyte Percent A 0.2 % (0-0.5); Lymphocytes Absolute Auto 0.66 K/mm3 (0.9-3.2); Mean Corpuscular HGB Conc 31.5 g/dl (32-36); Mean Corpuscular Hemoglobin 29.5 pg (26-34); Mean Corpuscular Volume 93.6 fl (80-100); Nucleated Red Blood Cells Absolute Auto 0.000 K/mm3 (0.0-0.012); Nucleated Red Blood Cells Perc 0.0 % (0.0-0.2); Platelet Count Result 170 k/mm3 (150-375); Red Blood Count 3.46 M/mm3 (4.6-6.20); White Blood Count 4.5 K/mm3 (4.5-10.0)
[2024-10-22 05:47] LABS: Alanine Aminotransferase 15 U/L (6-50); Albumin Level 3.0 g/dL (3.5-5.1); Alkaline Phosphatase 98 U/L (38-126); Anion Gap 2 mmol/L (4-12); Aspartate Amino Transferase 31 U/L (17-59); Bilirubin,Total 0.3 mg/dL (0.2-1.3); Blood Urea Nitrogen 16 mg/dL (9-20); Calcium 8.5 mg/dL (8.4-10.2); Carbon Dioxide 29 mmol/L (22-30); Chloride 100 mmol/L (98-107); Estimated CRCL calculation 57 ml/min; Estimated Glomerular Filt Rate > 60; Glucose 87 mg/dL (65-110); Magnesium 2.2 mg/dL (1.6-2.3); Potassium 4.1 mmol/L (3.4-5.0); Sodium 131 mmol/L (137-145); Total Protein 5.6 g/dL (6.3-8.2)
[2024-10-22] MEDS: IBUPROFEN 400 MG TABLET 800 MG PO ×2 (08:16→16:39)
[2024-10-22] MEDS: MEMANTINE 5 MG TABLET PO ×2 (08:17→16:39)
[2024-10-22] MEDS: MONTELUKAST SODIUM 10 MG TABLET PO (08:17)
[2024-10-22] MEDS: SERTRALINE HCL 50 MG TABLET PO (08:17)
[2024-10-22] MEDS: MIDODRINE HCL 2.5 MG TABLET 5 MG PO (08:17)
[2024-10-22] MEDS: TAMSULOSIN HCL 0.4 MG CAPSULE PO (08:17)
--- NOTE | 2024-10-22 11:01 | PCNFU ---
Nutrition Follow-Up Complete: Severe protein calorie malnutrition related to inadequate energy intake as evidenced by poor po intake, a significant weight loss of -10% x 2 months, -16% x 7 months, and NFPE findings for severe subcutaneous fat loss (cheeks) and severe muscle wasting (temples, clavicles). Goal: PO intake greater than 50% Patient is meeting goal. No new goal. Pt current nutrition is Heart Healthy with Ensure Plus High Protein. Last recorded weight is 66.3 kg, up from 61 kg on admit. Bowel Motility: Last reported BM 10/20 Labs Reviewed:Na 131, Alb 3.0, Hct 32.4, Hgb 10.2 Meds Noted: Miralax, Senokot, Augmentin Skin: WNL Additional Notes: Patient tolerating heart healthy diet. Oral Intake > 50% of meals. Diet supplements providing an additional 350 kcal and 20 gm protein. Agree with diet orders. Monitor intake, wt, labs. Follow up in 5 days.
--- NOTE | 2024-10-22 11:48 | P.PNIM_ITS ---
Progress Note: A&P Assessment and Plan (1) Acute hypotension: Code(s): I95.9 - Hypotension, unspecified Status: Acute (2) Adult failure to thrive: Code(s): R62.7 - Adult failure to thrive Status: Acute Plan 78-year-old male presents to [facility] ER on 10/17/2024 with a complaint of weakness. Patient lives at home with his granddaughter. He has neurocognitive disorder and is a poor historian. It is reported he has not eaten or drink in in a week. Patient denies nausea vomiting or diarrhea. Denies abdominal pain. Denies tobacco use, alcohol use, illicit drug use. He is not currently sexually active. He felt lightheaded when standing and nearly passed out. He reported no fever chills urinary symptoms cough chest pain s hortness a breath. He did report soreness in his left cheek to me. In the ED his initial vitals were low with systolic of 81 received 30 mL per kilos fluid bolus in the ER with improvement in blood pressure. Laboratory workup shows a WBC of 4.1 hemoglobin of 10.8 platelet a 177 Chem panel was unremarkable. Lactate was normal at 1.1 LFTs were normal. CRP was less than 0.5. EKG showed sinus rhythm with nonspecific ST-T changes. Urinalysis negative for UTI Chest x-ray with no focal infiltrate or effusion CT Chest abdomen pelvis demonstrating 11 x 12 mm indeterminate focus of increased attenuation identified within right lung base with adjacent atelectasis possibly representing around atelectasis. Thyroid gland is heterogeneous a nonspecific finding 13 mm well-circumscribed focus of fluid attenuation within the medial body of the spleen kidneys have innumerable rounded foci of fluid attenuation within the right kidney mural thickening with surrounding inflammatory changes identified within the rectum suggestive of proctitis with fecal stasis within the colon. Hypotension with associated symptom of orthostatic hypotension likely due to dehydration no signs of infections were evident. Left facial/maxillary area with mild swelling noted. Does not look overtly cellulitic.ct facial bone is negative. treatment for proctitis with zosyn started. orthostatic hypotension could be related to peripheral neuropathy which could be chronic. add midodrine. Echo within normal EF no significant valvular abnormality noted. IV fluids has been stopped. Orthostatic vitals seem improved after midodrine. will increase midodrine to 10 mg 3 times a day Follow blood cultures. Monitor off antibiotics. Started zosyn for proctitis. will need fu with gi as op basis for colonoscopy evaluation. Zosyn switched to Augmentin to finish the course Dementia Diarrhea new. Hold stool softener. And monitor. this has resolved Urinary retention needing intermittent straight catheterization he refused straight catheterization. Add Flomax and monitor. could worsen the orthostatic hypotension will monitor. will need to monitor postvoid residual Code status full code Disposition PT OT to see DVT prophylaxis SCDs Subjective Date/time seen: 10/22/24 11:48 Interval history: no overnight events. Diarrhea slowed down. no Abdominal pain nausea vomiting Review of Systems Review of Systems: All systems reviewed & are unremarkable except as noted in HPI and below (HPI) Exam Narrative: GENERAL: The patient is well developed, not in acute distress HEENT: Nonicteric sclerae, PERRLA, EOMI. Oropharynx clear. Moist mucous membranes. Conjunctivae appear well perfused. CHEST: Chest wall is nontender. HEART: Regular rate and rhythm without murmur, rubs, or gallops LUNGS: Clear to auscultation bilaterally. no respiratory distress ABDOMEN: Soft, positive bowel sounds, non-tender, no organomegaly. SKIN: No rash, no excessive bruising, petechiae, or purpura. NEUROLOGIC: Cranial nerves II-XII intact, alert and oriented x 3, no gross motor deficits EXTREMITIES: no edema, cyanosis or clubbing Objective Data Vital Signs Vital Signs: Vital Signs - 24 hr 10/21/24 12:00 10/21/24 16:37 10/21/24 18:15 Temperature 98.2 F 96.9 F L Pulse Rate 74 67 Respiratory Rate 16 16 Blood Pressure 112/56 L 139/66 Pulse Oximetry 99 99 Oxygen Delivery Room Air 10/21/24 20:00 10/21/24 20:56 10/21/24 20:58 Temperature 97.6 F 97.6 F 97.6 F Pulse Rate 65 76 76 Respiratory Rate 18 18 18 Blood Pressure 126/62 120/59 L 120/59 L Pulse Oximetry 97 98 98 Oxygen Delivery 10/21/24 20:59 10/21/24 21:00 10/22/24 04:17 Temperature 97.6 F 97.6 F 97.6 F Pulse Rate 77 65 63 Respiratory Rate 18 18 18 Blood Pressure 100/53 L 126/62 115/53 L Pulse Oximetry 97 97 97 Oxygen Delivery 10/22/24 08:00 10/22/24 08:05 10/22/24 08:10 Temperature Pulse Rate 64 68 77 Respiratory Rate 14 14 16 Blood Pressure 112/58 L 88/57 L 84/49 L Pulse Oximetry 96 97 97 Oxygen Delivery 10/22/24 08:16 Temperature Pulse Rate Respiratory Rate Blood Pressure Pulse Oximetry 98 Oxygen Delivery Room Air Intake/Output Intake/Output: Intake & Output 10/19/24 10/20/24 10/21/24 10/22/24 23:59 23:59 23:59 23:59 Intake Total 3930 2241.2 2240 530 Output Total 8624 333 9511 900 Balance 2220 1315.2 -1210 -370 Meds/Results Medications: Active Medications Generic Name Dose Route Start Last Admin Trade Name Freq PRN Reason Stop Dose Admin Amoxicillin/Clavulanate Potassium 1 tablet 10/21/24 20:00 10/22/24 08:17 Amoxicillin/Clavulanate K 875-125 Mg Tab PO 10/24/24 21:01 1 tablet Q12HR FERNANDO Administration Ibuprofen 800 mg 10/18/24 13:00 10/22/24 08:16 Ibuprofen 400 Mg Tablet PO 800 mg TID PRN Administration Pain Rated 1-3 Lorazepam 0.5 mg 10/17/24 23:34 10/21/24 20:25 Lorazepam (*Crx) 0.5 Mg Tablet PO 0.5 mg QPM PRN Administration insomnia Magnesium Citrate 150 ml 10/18/24 10:21 10/20/24 17:29 Magnesium Citrate 300 Ml Btl PO 150 ml BID PRN Administration constipation Memantine 5 mg 10/18/24 09:00 10/22/24 08:17 Memantine 5 Mg Tablet PO 5 mg BID FERNANDO Administration Midodrine 5 mg 10/19/24 13:00 10/22/24 08:17 Midodrine Hcl 2.5 Mg Tablet PO 5 mg TID FERNANDO Administration Montelukast Sodium 10 mg 10/18/24 09:00 10/22/24 08:17 Montelukast Sodium 10 Mg Tablet PO 10 mg DAILY FERNANDO Administration Oxycodone HCl 30 mg 10/19/24 11:00 10/22/24 10:42 Oxycodone Hcl (*Crx) 5 Mg Tab Ir PO 30 mg Q6H PRN Administration Pain Rated 7-10 Polyethylene Glycol 17 gm 10/18/24 17:00 10/21/24 08:46 Polyethylene Glycol 3350 17 Gm Powd.Pack PO Not Given BID FERNANDO Senna 8.6 mg 10/18/24 21:00 10/20/24 21:01 Sennosides 8.6 Mg Tablet PO 8.6 mg HS FERNANDO Administration Sertraline HCl 50 mg 10/18/24 09:00 10/22/24 08:17 Sertraline Hcl 50 Mg Tablet PO 50 mg DAILY FERNANDO Administration Tamsulosin HCl 0.4 mg 10/19/24 09:00 10/22/24 08:17 Tamsulosin Hcl 0.4 Mg Capsule PO 0.4 mg QAM FERNANDO Administration Radiology Results: ITS Impressions Chest X-Ray 10/17/24 15:51 IMPRESSION: No focal infiltrate or effusion. Face CT 10/18/24 21:55 IMPRESSION: 1. No maxillofacial fractures or other acute osseous abnormality. 2. Moderate spondylosis in the visualized cervical spine. Labs Labs: Laboratory Results - last 24 hr 10/22/24 04:57 WBC 4.5 RBC 3.46 L Hgb 10.2 L Hct 32.4 L MCV 93.6 MCH 29.5 MCHC 31.5 L RDW 13.2 Plt Count 170 MPV 9.2 Immature Gran % (Auto) 0.2 Neut % (Auto) 70.3 Lymph % (Auto) 14.8 L [place] % (Auto) 7.6 Eos % (Auto) 6.7 H Baso % (Auto) 0.4 Lymph # (Auto) 0.66 L [place] # (Auto) 0.3 Eos # (Auto) 0.3 Baso # (Auto) 0.0 Abs Immat Gran (auto) 0.01 Absolute Neuts (auto) 3.1 Absolute Nucleated RBC 0.000 Nucleated RBC % 0.0 Sodium 131 L Potassium 4.1 Chloride 100 Carbon Dioxide 29 Anion Gap 2 L BUN 16 Creatinine 0.84 Estim Creat Clear Calc 57 Estimated GFR > 60 Glucose 87 Calcium 8.5 Magnesium 2.2 Total Bilirubin 0.3 AST 31 ALT 15 Alkaline Phosphatase 98 Total Protein 5.6 L Albumin 3.0 L
[2024-10-22] MEDS: MIDODRINE HCL 10 MG TABLET PO ×2 (12:53→16:39)
[2024-10-23] VITALS (7 sets, daily range): BP systolic 103–130; BP diastolic 52–63; PULSE 57–77; RESP 18; TEMP 36.6–37.1; O2SAT 97–99
[2024-10-23] MEDS: LORazepam (*CRX) 0.5 MG TABLET PO (00:03)
[2024-10-23] MEDS: oxyCODONE HCL (*CRX) 5 MG TAB IR 30 MG PO ×4 (00:03→20:26)
[2024-10-23 05:11] LABS: Hematocrit 27.9 % (42.0-52.0); Hemoglobin 9.1 g/dL (14.0-18.0); Immature Granulocyte Percent A 0.3 % (0-0.5); Lymphocytes Absolute Auto 0.66 K/mm3 (0.9-3.2); Mean Corpuscular HGB Conc 32.6 g/dl (32-36); Mean Corpuscular Hemoglobin 30.0 pg (26-34); Mean Corpuscular Volume 92.1 fl (80-100); Nucleated Red Blood Cells Absolute Auto 0.000 K/mm3 (0.0-0.012); Nucleated Red Blood Cells Perc 0.0 % (0.0-0.2); Platelet Count Result 169 k/mm3 (150-375); Red Blood Count 3.03 M/mm3 (4.6-6.20); White Blood Count 4.0 K/mm3 (4.5-10.0)
--- NOTE | 2024-10-23 05:47 | PC.NURSE ---
Patient requested to be tested for the flu and for covid; patient stated his granddaughter was home sick and he feels he needs to now be tested. Banking Pin Adjuster was notified of patient request and order was received to perform COVID/FLU/RSV panel. Graduate nurse, Cong Lara attempted to collect the swab and patient then refused because You don't have to stick it up my nose that far. Order was cancelled r/t patient refusal.
[2024-10-23 05:51] LABS: Alanine Aminotransferase 16 U/L (6-50); Albumin Level 2.8 g/dL (3.5-5.1); Alkaline Phosphatase 73 U/L (38-126); Anion Gap 4 mmol/L (4-12); Aspartate Amino Transferase 49 U/L (17-59); Bilirubin,Total 0.6 mg/dL (0.2-1.3); Blood Urea Nitrogen 16 mg/dL (9-20); Calcium 8.1 mg/dL (8.4-10.2); Carbon Dioxide 23 mmol/L (22-30); Chloride 104 mmol/L (98-107); Estimated CRCL calculation 58 ml/min; Estimated Glomerular Filt Rate > 60; Glucose 77 mg/dL (65-110); Magnesium 2.3 mg/dL (1.6-2.3); Potassium 4.7 mmol/L (3.4-5.0); Sodium 131 mmol/L (137-145); Total Protein 5.6 g/dL (6.3-8.2)
--- NOTE | 2024-10-23 08:12 | PM.IMPN ---
Progress Note: A&P Assessment and Plan (1) Acute hypotension: Code(s): I95.9 - Hypotension, unspecified Status: Acute (2) Adult failure to thrive: Code(s): R62.7 - Adult failure to thrive Status: Acute Plan 78-year-old male presents to [facility] ER on 10/17/2024 with a complaint of weakness. Patient lives at home with his granddaughter. He has neurocognitive disorder and is a poor historian. It is reported he has not eaten or drink in in a week. Patient denies nausea vomiting or diarrhea. Denies abdominal pain. Denies tobacco use, alcohol use, illicit drug use. He is not currently sexually active. He felt lightheaded when standing and nearly passed out. He reported no fever chills urinary symptoms cough chest pain shortness a breath. He did report soreness in his left cheek to me. In the ED his initial vitals were low with systolic of 81 received 30 mL per kilos fluid bolus in the ER with improvement in blood pressure. Laboratory workup shows a WBC of 4.1 hemoglobin of 10.8 platelet a 177 Chem panel was unremarkable. Lactate was normal at 1.1 LFTs were normal. CRP was less than 0.5. EKG showed sinus rhythm with nonspecific ST-T changes. Urinalysis negative for UTI Chest x-ray with no focal infiltrate or effusion CT Chest abdomen pelvis demonstrating 11 x 12 mm indeterminate focus of increased attenuation identified within right lung base with adjacent atelectasis possibly representing around atelectasis. Thyroid gland is heterogeneous a nonspecific finding 13 mm well-circumscribed focus of fluid attenuation within the medial body of the spleen kidneys have innumerable rounded foci of fluid attenuation within the right kidney mural thickening with surrounding inflammatory changes identified within the rectum suggestive of proctitis with fecal stasis within the colon. Hypotension with associated symptom of orthostatic hypotension likely due to dehydration no signs of infections were evident. Left facial/maxillary area with mild swelling noted. Does not look overtly cellulitic.ct facial bone is negative. treatment for proctitis with zosyn started. orthostatic hypotension could be related to peripheral neuropathy which could be chronic. add midodrine. Echo within normal EF no significant valvular abnormality noted. IV fluids has been stopped. Orthostatic vitals seem improved after midodrine. increased midodrine to 10 mg 3 times a day. add compression socks sore throat: uri symptoms. check for covid. will also get strep swab Follow blood cultures. Monitor off antibiotics. Started zosyn for proctitis. will need fu with gi as op basis for colonoscopy evaluation. Zosyn switched to Augmentin to finish the course Dementia Diarrhea new. Hold stool softener. And monitor. this has resolved Urinary retention needing intermittent straight catheterization he refused straight catheterization. Add Flomax and monitor. could worsen the orthostatic hypotension will monitor. will need to monitor postvoid residual Code status full code Disposition PT OT to see DVT prophylaxis SCDs Subjective Date/time seen: 10/23/24 08:12 Interval history: patient reports some sore throat, congestion since last night. no further dizziness reported. no abdominal pain, nausea, vomiting. bp trend reveiwed Review of Systems Review of Systems: All systems reviewed & are unremarkable except as noted in HPI and below (HPI) Exam Narrative: GENERAL: The patient is well developed, not in acute distress HEENT: Nonicteric sclerae, PERRLA, EOMI. Oropharynx clear. Moist mucous membranes. Conjunctivae appear well perfused. CHEST: Chest wall is nontender. HEART: Regular rate and rhythm without murmur, rubs, or gallops LUNGS: Clear to auscultation bilaterally. no respiratory distress ABDOMEN: Soft, positive bowel sounds, non-tender, no organomegaly. SKIN: No rash, no excessive bruising, petechiae, or purpura. NEUROLOGIC: Cranial nerves II-XII intact, alert and oriented x 3, no gross motor deficits EXTREMITIES: no edema, cyanosis or clubbing Objective Data Vital Signs Vital Signs: Vital Signs - 24 hr 10/22/24 08:16 10/22/24 13:55 10/22/24 19:49 Temperature 98.1 F Pulse Rate 82 64 Respiratory Rate 14 18 Blood Pressure 103/57 L 117/64 Pulse Oximetry 98 98 97 Oxygen Delivery Room Air Fraction of Inspired Oxygen 10/22/24 19:51 10/22/24 19:53 10/22/24 19:56 Temperature 98.1 F 98.1 F 98.1 F Pulse Rate 72 71 64 Respiratory Rate 18 18 18 Blood Pressure 91/55 L 93/46 L 117/64 Pulse Oximetry 99 98 97 Oxygen Delivery Fraction of Inspired Oxygen 10/22/24 20:00 10/23/24 04:08 Temperature 98 F Pulse Rate 57 L Respiratory Rate 18 Blood Pressure 108/52 L Pulse Oximetry 97 Oxygen Delivery Room Air Fraction of Inspired Oxygen 21 Intake/Output Intake/Output: Intake & Output 10/20/24 10/21/24 10/22/24 10/23/24 23:59 23:59 23:59 23:59 Intake Total 2241.2 2240 1120 390 Output Total 926 3450 900 Balance 1315.2 -1210 220 390 Meds/Results Medications: Active Medications Generic Name Dose Route Start Last Admin Trade Name Freq PRN Reason Stop Dose Admin Amoxicillin/Clavulanate Potassium 1 tablet 10/21/24 20:00 10/22/24 20:33 Amoxicillin/Clavulanate K 875-125 Mg Tab PO 10/24/24 21:01 1 tablet Q12HR FERNANDO Administration Benzocaine 1 lozenge 10/22/24 14:22 Benzocaine/Menthol (*Bkc) 18 Ea Lozenge PO PRN PRN Sore Throat Ibuprofen 800 mg 10/18/24 13:00 10/22/24 16:39 Ibuprofen 400 Mg Tablet PO 800 mg TID PRN Administration Pain Rated 1-3 Lorazepam 0.5 mg 10/17/24 23:34 10/23/24 00:03 Lorazepam (*Crx) 0.5 Mg Tablet PO 0.5 mg QPM PRN Administration insomnia Magnesium Citrate 150 ml 10/18/24 10:21 10/20/24 17:29 Magnesium Citrate 300 Ml Btl PO 150 ml BID PRN Administration constipation Memantine 5 mg 10/18/24 09:00 10/22/24 16:39 Memantine 5 Mg Tablet PO 5 mg BID FERNANDO Administration Midodrine 10 mg 10/22/24 13:00 10/22/24 16:39 Midodrine Hcl 10 Mg Tablet PO 10 mg TID FERNANDO Administration Montelukast Sodium 10 mg 10/18/24 09:00 10/22/24 08:17 Montelukast Sodium 10 Mg Tablet PO 10 mg DAILY FERNANDO Administration Oxycodone HCl 30 mg 10/19/24 11:00 10/23/24 06:23 Oxycodone Hcl (*Crx) 5 Mg Tab Ir PO 30 mg Q6H PRN Administration Pain Rated 7-10 Polyethylene Glycol 17 gm 10/18/24 17:00 10/21/24 08:46 Polyethylene Glycol 3350 17 Gm Powd.Pack PO Not Given BID FERNANDO Senna 8.6 mg 10/18/24 21:00 10/20/24 21:01 Sennosides 8.6 Mg Tablet PO 8.6 mg HS FERNANDO Administration Sertraline HCl 50 mg 10/18/24 09:00 10/22/24 08:17 Sertraline Hcl 50 Mg Tablet PO 50 mg DAILY FERNANDO Administration Tamsulosin HCl 0.4 mg 10/19/24 09:00 10/22/24 08:17 Tamsulosin Hcl 0.4 Mg Capsule PO 0.4 mg QAM FERNANDO Administration Radiology Results: ITS Impressions Chest X-Ray 10/17/24 15:51 IMPRESSION: No focal infiltrate or effusion. Face CT 10/18/24 21:55 IMPRESSION: 1. No maxillofacial fractures or other acute osseous abnormality. 2. Moderate spondylosis in the visualized cervical spine. Labs Labs: Laboratory Results - last 24 hr 10/23/24 04:40 WBC 4.0 L RBC 3.03 L Hgb 9.1 L Hct 27.9 L MCV 92.1 MCH 30.0 MCHC 32.6 RDW 13.1 Plt Count 169 MPV 9.4 Immature Gran % (Auto) 0.3 Neut % (Auto) 65.4 Lymph % (Auto) 16.7 L [place] % (Auto) 9.8 H Eos % (Auto) 7.3 H Baso % (Auto) 0.5 Lymph # (Auto) 0.66 L [place] # (Auto) 0.4 Eos # (Auto) 0.3 Baso # (Auto) 0.0 Abs Immat Gran (auto) 0.01 Absolute Neuts (auto) 2.6 Absolute Nucleated RBC 0.000 Nucleated RBC % 0.0 Sodium 131 L Potassium 4.7 Chloride 104 Carbon Dioxide 23 Anion Gap 4 BUN 16 Creatinine 0.82 Estim Creat Clear Calc 58 Estimated GFR > 60 Glucose 77 Calcium 8.1 L Magnesium 2.3 Total Bilirubin 0.6 AST 49 ALT 16 Alkaline Phosphatase 73 Total Protein 5.6 L Albumin 2.8 L
[2024-10-23] MEDS: TAMSULOSIN HCL 0.4 MG CAPSULE PO (09:41)
[2024-10-23] MEDS: MEMANTINE 5 MG TABLET PO ×2 (09:41→17:24)
[2024-10-23] MEDS: MONTELUKAST SODIUM 10 MG TABLET PO (09:41)
[2024-10-23] MEDS: SERTRALINE HCL 50 MG TABLET PO (09:41)
[2024-10-23] MEDS: MIDODRINE HCL 10 MG TABLET PO ×3 (09:41→17:24)
[2024-10-23] MEDS: ENOXAPARIN 40 MG/0.4 ML SYRINGE SUB-Q (09:42)
[2024-10-23] MEDS: IBUPROFEN 400 MG TABLET 800 MG PO ×2 (09:45→17:24)
[2024-10-23 13:50] LABS: Influenza A QL RT-PCR Negative (Negative); Influenza B QL RT-PCR Negative (Negative); RSV RNA, RT-PCR Negative (Negative); SARS-CoV-2 RNA PCR Negative (Negative)
[2024-10-23] MEDS: SENNOSIDES 8.6 MG TABLET PO (20:27)
[2024-10-24] VITALS (10 sets, daily range): BP systolic 84–137; BP diastolic 44–72; PULSE 58–94; RESP 14–20; TEMP 36.4–36.5; O2SAT 96–99
[2024-10-24] MEDS: LORazepam (*CRX) 0.5 MG TABLET PO (00:29)
[2024-10-24] MEDS: IBUPROFEN 400 MG TABLET 800 MG PO (00:31)
[2024-10-24] MEDS: oxyCODONE HCL (*CRX) 5 MG TAB IR 30 MG PO ×4 (02:35→20:59)
[2024-10-24] MEDS: SERTRALINE HCL 50 MG TABLET PO (08:36)
[2024-10-24] MEDS: MIDODRINE HCL 10 MG TABLET PO ×3 (08:37→16:40)
[2024-10-24] MEDS: TAMSULOSIN HCL 0.4 MG CAPSULE PO (08:37)
[2024-10-24] MEDS: COSYNTROPIN 0.25 MG/ML VIAL IV PUSH (08:38)
[2024-10-24] MEDS: MEMANTINE 5 MG TABLET PO ×2 (08:44→16:40)
[2024-10-24] MEDS: MONTELUKAST SODIUM 10 MG TABLET PO (08:44)
[2024-10-24 10:42] LABS: Cortisol 60 Minute 20.40 ug/dL
--- NOTE | 2024-10-24 15:00 | P.PNIM_ITS ---
Progress Note: A&P Assessment and Plan (1) Acute hypotension: Code(s): I95.9 - Hypotension, unspecified Status: Acute (2) Adult failure to thrive: Code(s): R62.7 - Adult failure to thrive Status: Acute Plan Hypotension with associated symptom of orthostatic hypotension likely due to dehydration no signs of infections were evident. orthostatic hypotension could be related to peripheral neuropathy which could be chronic. add midodrine. Echo within normal EF no significant valvular abnormality noted. ' proctitis continue with Augmentin Follow blood cultures. will need fu with gi as op basis for colonoscopy evaluation. Zosyn switched to Augmentin to finish the course chronic anemia follow with PCP as outpatient will check Iron panel. Diarrhea resolved, complain of constipation Urinary retention needing intermittent straight catheterization he refused straight catheterization. improved after getting flomax mild hyponatremia monitor for now Code status full code Disposition PT OT to see DVT prophylaxis SCDs Subjective Date/time seen: 10/24/24 15:00 Interval history: per HPI: 78-year-old male presents to [facility] ER on 10/17/2024 with a complaint of weakness. Patient lives at home with his granddaughter. He has neurocognitive disorder and is a poor historian. It is reported he has not eaten or drink in in a week. Patient denies nausea vomiting or diarrhea. Denies abdominal pain. Denies tobacco use, alcohol use, illicit drug use. He is not currently sexually active. He felt lightheaded when standing and nearly passed out. He reported no fever chills urinary symptoms cough chest pain shortness a breath. He did report soreness in his left cheek to me. In the ED his initial vitals were low with systolic of 81 received 30 mL per kilos fluid bolus in the ER with improvement in blood pressure. Laboratory workup shows a WBC of 4.1 hemoglobin of 10.8 platelet a 177 Chem panel was unremarkable. Lactate was normal at 1.1 LFTs were normal. CRP was less than 0.5. EKG showed sinus rhythm with nonspecific ST-T changes. Urinalysis negative for UTI Chest x-ray with no focal infiltrate or effusion CT Chest abdomen pelvis demonstrating 11 x 12 mm indeterminate focus of increased attenuation identified within right lung base with adjacent atelectasis possibly representing around atelectasis. Thyroid gland is heterogeneous a nonspecific finding 13 mm well-circumscribed focus of fluid attenuation within the medial body of the spleen kidneys have innumerable rounded foci of fluid attenuation within the right kidney mural thickening with surrounding inflammatory changes identified within the rectum suggestive of proctitis with fecal stasis within the colon. 10/24/24 patient was see n and examined at bedside. he is complaining of headache and constipation. denies any chest pain, SOB,a bd pain, N/V. will continue nowel regimen. patient is getting pain meds. pending insurance Auth before dc to SNF orthostatic BP improving. continue with Midodrine. Review of Systems Review of Systems: All systems reviewed & are unremarkable except as noted in HPI and below (HPI) Exam Narrative: GENERAL: The patient is well developed, not in acute distress HEENT: Nonicteric sclerae, PERRLA, EOMI. Oropharynx clear. Moist mucous membranes. Conjunctivae appear well perfused. CHEST: Chest wall is nontender. HEART: Regular rate and rhythm without murmur, rubs, or gallops LUNGS: Clear to auscultation bilaterally. no respiratory distress ABDOMEN: Soft, positive bowel sounds, non-tender, no organomegaly. SKIN: No rash, no excessive bruising, petechiae, or purpura. NEUROLOGIC: Cranial nerves II-XII intact, alert and oriented x 3, no gross motor deficits EXTREMITIES: no edema, cyanosis or clubbing Const: General: comfortable and no acute distress HENMT: Mouth: Yes moist mucous membranes Eyes: Pupils: Equal, round and reactive pupils present Neck: Neck: supple Resp: Effort & Inspection: normal respiratory effort Auscultation: clear to auscultation bilaterally Cardio: Rate: regular rate Rhythm: regular rhythm GI: Inspection: non-distended Neuro: Cranial nerves: Yes Equal, round and reactive pupils present Other: Globally weak, symmetrical Extrem: General: no edema Objective Data Vital Signs Vital Signs: Vital Signs - 24 hr 10/23/24 20:00 10/23/24 20:46 10/23/24 20:46 Temperature 98 F Pulse Rate 60 60 Respiratory Rate 18 Blood Pressure 130/63 130/63 Pulse Oximetry 99 Oxygen Delivery Room Air 10/23/24 20:48 10/23/24 20:51 10/24/24 05:53 Temperature 97.6 F Pulse Rate 63 77 61 Respiratory Rate 16 Blood Pressure 103/58 L 104/58 L 92/44 L Pulse Oximetry 97 Oxygen Delivery 10/24/24 08:00 10/24/24 08:35 10/24/24 11:00 Temperature Pulse Rate 70 66 Respiratory Rate 14 14 Blood Pressure 103/54 L 131/71 Pulse Oximetry 96 96 Oxygen Delivery Room Air 10/24/24 11:05 10/24/24 11:10 10/24/24 14:00 Temperature Pulse Rate 78 78 58 L Respiratory Rate 14 14 14 Blood Pressure 110/59 L 84/50 L 121/69 Pulse Oximetry 97 97 99 Oxygen Delivery Intake/Output Intake/Output: Intake & Output 10/21/24 10/22/24 10/23/24 10/24/24 23:59 23:59 23:59 23:59 Intake Total 2240 1120 2350 1070 Output Total 3450 900 1695 2600 Balance -1210 220 655 -1530 Meds/Results Medications: Active Medications Generic Name Dose Route Start Last Admin Trade Name Freq PRN Reason Stop Dose Admin Amoxicillin/Clavulanate Potassium 1 tablet 10/21/24 20:00 10/24/24 08:37 Amoxicillin/Clavulanate K 875-125 Mg Tab PO 10/24/24 21:01 1 tablet Q12HR FERNANDO Administration Benzocaine 1 lozenge 10/22/24 14:22 Benzocaine/Menthol (*Bkc) 18 Ea Lozenge PO PRN PRN Sore Throat Enoxaparin Sodium 40 mg 10/23/24 09:00 10/24/24 07:57 Enoxaparin 40 Mg/0.4 Ml Syringe SUB-Q Not Given DAILY FERNANDO Lorazepam 0.5 mg 10/17/24 23:34 10/24/24 00:29 Lorazepam (*Crx) 0.5 Mg Tablet PO 0.5 mg QPM PRN Administration insomnia Magnesium Citrate 150 ml 10/18/24 10:21 10/20/24 17:29 Magnesium Citrate 300 Ml Btl PO 150 ml BID PRN Administration constipation Memantine 5 mg 10/18/24 09:00 10/24/24 08:44 Memantine 5 Mg Tablet PO 5 mg BID FERNANDO Administration Midodrine 10 mg 10/22/24 13:00 10/24/24 13:16 Midodrine Hcl 10 Mg Tablet PO 10 mg TID FERNANDO Administration Montelukast Sodium 10 mg 10/18/24 09:00 10/24/24 08:44 Montelukast Sodium 10 Mg Tablet PO 10 mg DAILY FERNANDO Administration Oxycodone HCl 30 mg 10/19/24 11:00 10/24/24 13:58 Oxycodone Hcl (*Crx) 5 Mg Tab Ir PO 30 mg Q6H PRN Administration Pain Rated 7-10 Polyethylene Glycol 17 gm 10/18/24 17:00 10/24/24 08:37 Polyethylene Glycol 3350 17 Gm Powd.Pack PO 17 gm BID FERNANDO Administration Senna 8.6 mg 10/18/24 21:00 10/23/24 20:27 Sennosides 8.6 Mg Tablet PO 8.6 mg HS FERNANDO Administration Sertraline HCl 50 mg 10/18/24 09:00 10/24/24 08:36 Sertraline Hcl 50 Mg Tablet PO 50 mg DAILY FERNANDO Administration Tamsulosin HCl 0.4 mg 10/19/24 09:00 10/24/24 08:37 Tamsulosin Hcl 0.4 Mg Capsule PO 0.4 mg QAM FERNANDO Administration Radiology Results: ITS Impressions Chest X-Ray 10/17/24 15:51 IMPRESSION: No focal infiltrate or effusion. Face CT 10/18/24 21:55 IMPRESSION: 1. No maxillofacial fractures or other acute osseous abnormality. 2. Moderate spondylosis in the visualized cervical spine. Labs Labs: Laboratory Results - last 24 hr 10/24/24 10/24/24 10/24/24 08:30 09:10 09:39 Cortisol Baseline 9.55 Cortisol Resp 30 Min 17.50 Cortisol Resp 60 Min 20.40
[2024-10-24] MEDS: SENNOSIDES 8.6 MG TABLET PO (21:01)
[2024-10-25] VITALS (9 sets, daily range): BP systolic 78–140; BP diastolic 44–72; PULSE 60–84; RESP 14–16; TEMP 36.4–36.8; O2SAT 94–100
[2024-10-25] MEDS: LORazepam (*CRX) 0.5 MG TABLET PO (00:22)
[2024-10-25] MEDS: oxyCODONE HCL (*CRX) 5 MG TAB IR 30 MG PO ×3 (03:25→17:44)
[2024-10-25 05:16] LABS: Hematocrit 30.9 % (42.0-52.0); Hemoglobin 9.5 g/dL (14.0-18.0); Mean Corpuscular HGB Conc 30.7 g/dl (32-36); Mean Corpuscular Hemoglobin 29.1 pg (26-34); Mean Corpuscular Volume 94.5 fl (80-100); Platelet Count Result 200 k/mm3 (150-375); Red Blood Count 3.27 M/mm3 (4.6-6.20); White Blood Count 4.5 K/mm3 (4.5-10.0)
[2024-10-25 05:27] LABS: Iron 43 ug/dL (49-181)
[2024-10-25 05:34] LABS: Anion Gap 4 mmol/L (4-12); Blood Urea Nitrogen 17 mg/dL (9-20); Calcium 9.0 mg/dL (8.4-10.2); Carbon Dioxide 28 mmol/L (22-30); Chloride 100 mmol/L (98-107); Estimated CRCL calculation 53 ml/min; Estimated Glomerular Filt Rate > 60; Glucose 87 mg/dL (65-110); Potassium 4.5 mmol/L (3.4-5.0); Sodium 132 mmol/L (137-145)
[2024-10-25 05:37] LABS: Percent Iron Saturation 15 % (20-50)
[2024-10-25] MEDS: TAMSULOSIN HCL 0.4 MG CAPSULE PO (08:50)
[2024-10-25] MEDS: MONTELUKAST SODIUM 10 MG TABLET PO (08:54)
[2024-10-25] MEDS: SERTRALINE HCL 50 MG TABLET PO (08:54)
[2024-10-25] MEDS: MEMANTINE 5 MG TABLET PO ×2 (08:54→17:45)
[2024-10-25] MEDS: ENOXAPARIN 40 MG/0.4 ML SYRINGE SUB-Q (08:55)
[2024-10-25] MEDS: MIDODRINE HCL 10 MG TABLET PO ×3 (09:07→17:44)
--- NOTE | 2024-10-25 11:29 | PC.NURSE ---
RN called MD Sutherland again about the insulin orders and Lokelma. did not answer first. called back.
--- NOTE | 2024-10-25 12:26 | P.PNIM_ITS ---
Progress Note: A&P Assessment and Plan (1) Acute hypotension: Code(s): I95.9 - Hypotension, unspecified Status: Acute (2) Adult failure to thrive: Code(s): R62.7 - Adult failure to thrive Status: Acute Plan Hypotension Improving with associated symptom of orthostatic hypotension likely due to dehydration no signs of infections were evident. orthostatic hypotension could be related to peripheral neuropathy which could be chronic. add midodrine. Echo within normal EF no significant valvular abnormality noted. ' proctitis continue with Augmentin blood cultures negative. will need fu with gi as op basis for colonoscopy evaluation. Zosyn switched to Augmentin to finish the course chronic anemia follow with PCP as outpatient Iron panel showed iron deficiency. Restart iron po Patient noted that he has appointment for colonoscopy elevation. Diarrhea resolved, complain of constipation Urinary retention needing intermittent straight catheterization he refused straight catheterization. improved after getting flomax mild hyponatremia monitor for now Code status full code Disposition PT OT to see DVT prophylaxis SCDs Subjective Date/time seen: 10/25/24 12:26 Interval history: per HPI: 78-year-old male presents to [facility] ER on 10/17/2024 with a complaint of weakness. Patient lives at home with his granddaughter. He has neurocognitive disorder and is a poor historian. It is reported he has not eaten or drink in in a week. Patient denies nausea vomiting or diarrhea. Denies abdominal pain. Denies tobacco use, alcohol use, illicit drug use. He is not currently sexually active. He felt lightheaded when standing and nearly passed out. He reported no fever chills urinary symptoms cough chest pain shortness a breath. He did report soreness in his left cheek to me. In the ED his initial vitals were low with systolic of 81 received 30 mL per kilos fluid bolus in the ER with improvement in blood pressure. Laboratory workup shows a WBC of 4.1 hemoglobin of 10.8 platelet a 177 Chem panel was unremarkable. Lactate was normal at 1.1 LFTs were normal. CRP was less than 0.5. EKG showed sinus rhythm with nonspecific ST-T changes. Urinalysis negative for UTI Chest x-ray with no focal infiltrate or effusion CT Chest abdomen pelvis demonstrating 11 x 12 mm indeterminate focus of increased attenuation identified within right lung base with adjacent atelectasi s possibly representing around atelectasis. Thyroid gland is heterogeneous a nonspecific finding 13 mm well-circumscribed focus of fluid attenuation within the medial body of the spleen kidneys have innumerable rounded foci of fluid attenuation within the right kidney mural thickening with surrounding inflammatory changes identified within the rectum suggestive of proctitis with fecal stasis within the colon. 10/24/24 patient was see n and examined at bedside. he is complaining of headache and constipation. denies any chest pain, SOB,a bd pain, N/V. will continue nowel regimen. patient is getting pain meds. pending insurance Auth before dc to SNF orthostatic BP improving. continue with Midodrine. 10/25/24 Patient was seen and examined bedside. He is feeling better. Denies any chest pain, shortness of breath, abdominal pain, nausea vomiting. Blood pressure improving. WBC 4.5, hemoglobin 9.5 Review of Systems Review of Systems: All systems reviewed & are unremarkable except as noted in HPI and below (HPI) Exam Narrative: GENERAL: The patient is well developed, not in acute distress HEENT: Nonicteric sclerae, PERRLA, EOMI. Oropharynx clear. Moist mucous membranes. Conjunctivae appear well perfused. CHEST: Chest wall is nontender. HEART: Regular rate and rhythm without murmur, rubs, or gallops LUNGS: Clear to auscultation bilaterally. no respiratory distress ABDOMEN: Soft, positive bowel sounds, non-tender, no organomegaly. SKIN: No rash, no excessive bruising, petechiae, or purpura. NEUROLOGIC: Cranial nerves II-XII intact, alert and oriented x 3, no gross motor deficits EXTREMITIES: no edema, cyanosis or clubbing Const: General: comfortable and no acute distress HENMT: Mouth: Yes moist mucous membranes Eyes: Pupils: Equal, round and reactive pupils present Neck: Neck: supple Resp: Effort & Inspection: normal respiratory effort Auscultation: clear to auscultation bilaterally Cardio: Rate: regular rate Rhythm: regular rhythm GI: Inspection: non-distended Neuro: Cranial nerves: Yes Equal, round and reactive pupils present Other: Globally weak, symmetrical Extrem: General: no edema Objective Data Vital Signs Vital Signs: Vital Signs - 24 hr 10/24/24 14:00 10/24/24 21:23 10/24/24 21:23 Temperature 97.7 F Pulse Rate 58 L 68 68 Respiratory Rate 14 16 Blood Pressure 121/69 137/72 137/72 Pulse Oximetry 99 98 Oxygen Delivery Fraction of Inspired Oxygen 10/24/24 21:30 10/24/24 22:00 10/24/24 22:05 Temperature Pulse Rate 94 79 83 Respiratory Rate 20 Blood Pressure 104/61 84/52 L Pulse Oximetry 97 Oxygen Delivery Room Air Fraction of Inspired Oxygen 21 10/25/24 04:00 10/25/24 08:00 10/25/24 09:45 Temperature 98.2 F Pulse Rate 73 66 Respiratory Rate 16 14 Blood Pressure 140/72 117/59 L Pulse Oximetry 94 100 Oxygen Delivery Room Air Fraction of Inspired Oxygen 10/25/24 09:50 10/25/24 09:55 10/25/24 12:03 Temperature Pulse Rate 71 84 Respiratory Rate 14 14 Blood Pressure 98/44 L 93/54 L 112/59 L Pulse Oximetry 98 98 Oxygen Delivery Fraction of Inspired Oxygen Intake/Output Intake/Output: Intake & Output 10/22/24 10/23/24 10/24/24 10/25/24 23:59 23:59 23:59 23:59 Intake Total 1120 2350 2350 540 Output Total 900 1695 3075 950 Balance 220 655 -725 -410 Meds/Results Medications: Active Medications Generic Name Dose Route Start Last Admin Trade Name Freq PRN Reason Stop Dose Admin Benzocaine 1 lozenge 10/22/24 14:22 Benzocaine/Menthol (*Bkc) 18 Ea Lozenge PO PRN PRN Sore Throat Enoxaparin Sodium 40 mg 10/23/24 09:00 10/25/24 08:55 Enoxaparin 40 Mg/0.4 Ml Syringe SUB-Q 40 mg DAILY FERNANDO Administration Lorazepam 0.5 mg 10/17/24 23:34 10/25/24 00:22 Lorazepam (*Crx) 0.5 Mg Tablet PO 0.5 mg QPM PRN Administration insomnia Magnesium Citrate 150 ml 10/18/24 10:21 10/20/24 17:29 Magnesium Citrate 300 Ml Btl PO 150 ml BID PRN Administration constipation Memantine 5 mg 10/18/24 09:00 10/25/24 08:54 Memantine 5 Mg Tablet PO 5 mg BID FERNANDO Administration Midodrine 10 mg 10/22/24 13:00 10/25/24 12:02 Midodrine Hcl 10 Mg Tablet PO 10 mg TID FERNANDO Administration Montelukast Sodium 10 mg 10/18/24 09:00 10/25/24 08:54 Montelukast Sodium 10 Mg Tablet PO 10 mg DAILY FERNANDO Administration Oxycodone HCl 30 mg 10/19/24 11:00 10/25/24 08:50 Oxycodone Hcl (*Crx) 5 Mg Tab Ir PO 30 mg Q6H PRN Administration Pain Rated 7-10 Polyethylene Glycol 17 gm 10/18/24 17:00 10/25/24 08:54 Polyethylene Glycol 3350 17 Gm Powd.Pack PO 17 gm BID FERNANDO Administration Senna 8.6 mg 10/18/24 21:00 10/24/24 21:01 Sennosides 8.6 Mg Tablet PO 8.6 mg HS FERNANDO Administration Sertraline HCl 50 mg 10/18/24 09:00 10/25/24 08:54 Sertraline Hcl 50 Mg Tablet PO 50 mg DAILY FERNANDO Administration Tamsulosin HCl 0.4 mg 10/19/24 09:00 10/25/24 08:50 Tamsulosin Hcl 0.4 Mg Capsule PO 0.4 mg QAM FERNANDO Administration Radiology Results: ITS Impressions Chest X-Ray 10/17/24 15:51 IMPRESSION: No focal infiltrate or effusion. Face CT 10/18/24 21:55 IMPRESSION: 1. No maxillofacial fractures or other acute osseous abnormality. 2. Moderate spondylosis in the visualized cervical spine. Labs Labs: Laboratory Results - last 24 hr 10/25/24 04:38 WBC 4.5 RBC 3.27 L Hgb 9.5 L Hct 30.9 L MCV 94.5 MCH 29.1 MCHC 30.7 L RDW 12.9 Plt Count 200 MPV 9.1 Sodium 132 L Potassium 4.5 Chloride 100 Carbon Dioxide 28 Anion Gap 4 BUN 17 Creatinine 0.87 Estim Creat Clear Calc 53 Estimated GFR > 60 Glucose 87 Calcium 9.0 Iron 43 L TIBC 282 % Saturation 15 L
[2024-10-25] MEDS: FERROUS SULFATE 325 MG TABLET DR PO (13:09)
[2024-10-25] MEDS: SENNOSIDES 8.6 MG TABLET PO (21:13)
[2024-10-26] VITALS (8 sets, daily range): BP systolic 78–110; BP diastolic 45–60; PULSE 63–99; RESP 14–16; TEMP 36.5–36.8; O2SAT 97–98
[2024-10-26] MEDS: oxyCODONE HCL (*CRX) 5 MG TAB IR 30 MG PO ×4 (00:08→20:54)
[2024-10-26] MEDS: LORazepam (*CRX) 0.5 MG TABLET PO ×2 (00:08→22:12)
[2024-10-26 05:20] LABS: Hematocrit 34.8 % (42.0-52.0); Hemoglobin 11.1 g/dL (14.0-18.0); Mean Corpuscular HGB Conc 31.9 g/dl (32-36); Mean Corpuscular Hemoglobin 29.6 pg (26-34); Mean Corpuscular Volume 92.8 fl (80-100); Platelet Count Result 222 k/mm3 (150-375); Red Blood Count 3.75 M/mm3 (4.6-6.20); White Blood Count 4.8 K/mm3 (4.5-10.0)
[2024-10-26 05:32] LABS: Anion Gap 5 mmol/L (4-12); Blood Urea Nitrogen 18 mg/dL (9-20); Calcium 9.3 mg/dL (8.4-10.2); Carbon Dioxide 29 mmol/L (22-30); Chloride 99 mmol/L (98-107); Estimated CRCL calculation 51 ml/min; Estimated Glomerular Filt Rate > 60; Glucose 87 mg/dL (65-110); Potassium 4.8 mmol/L (3.4-5.0); Sodium 133 mmol/L (137-145)
[2024-10-26] MEDS: ALBUMIN HUMAN 25% 25 GM/100 ML 100 ML IVPB (09:35)
[2024-10-26] MEDS: SERTRALINE HCL 50 MG TABLET PO (09:37)
[2024-10-26] MEDS: TAMSULOSIN HCL 0.4 MG CAPSULE PO (09:37)
[2024-10-26] MEDS: MEMANTINE 5 MG TABLET PO ×2 (09:37→17:02)
[2024-10-26] MEDS: MONTELUKAST SODIUM 10 MG TABLET PO (09:37)
[2024-10-26] MEDS: FERROUS SULFATE 325 MG TABLET DR PO (09:37)
[2024-10-26] MEDS: MIDODRINE HCL 10 MG TABLET PO ×3 (09:47→17:01)
[2024-10-26] MEDS: ENOXAPARIN 40 MG/0.4 ML SYRINGE SUB-Q (09:48)
--- NOTE | 2024-10-26 11:26 | PC.NURSE ---
RN talked to patient's daughter. She expresses concerns about patient returning home with positive orthostatics. RN contacted MANAGER OF ENGINEERING Iesha and updated her with patient's daughter's concerns.
--- NOTE | 2024-10-26 11:30 | P.PNIM_ITS ---
Progress Note: A&P Assessment and Plan (1) Acute hypotension: Code(s): I95.9 - Hypotension, unspecified Status: Acute Assessment and Plan: after you have patient's medical chart does have history orthostatics hypotension. Patient with severe malnutrition secondary to calorie deficit and poor protein intake. patient's BP still orthostatic worsened some with the initiation of Flomax. Patient is also on chronic pain medication. * midodrine was increased to 10 mg t.i.d. * compression stockings * received IV fluids have since been discontinued encouraged to increase his oral hydration * PT/OT evaluated patient denies any further dizziness with ambulation planned to D/C to rehab however improved and no further need will D/C home with HH * I will do a dose of albumin due to patient's hypoalbuminemia * Fall precautions * encouraged taper down pain medication (2) Incomplete bladder emptying: Code(s): R33.9 - Retention of urine, unspecified Status: Acute Assessment and Plan: patient having difficulty emptying his bladder completely with some urinary retention but no postvoid residual * initiated Flomax however this may potentiate his hypotension * postvoid residuals p.r.n. * patient refuses to straight catheterize himself at home so will need to monitor closely for urinary retention (3) Adult failure to thrive: Code(s): R62.7 - Adult failure to thrive Status: Acute Assessment and Plan: patient with severe protein calorie malnutrition reports chronic pain on long- term narcotic use * added protein shakes with each meal (4) Protein-calorie malnutrition, severe: Code(s): E43 - Unspecified severe protein-calorie malnutrition Status: Acute Assessment and Plan: See Above (5) Iron deficiency anemia: Code(s): D50.9 - Iron deficiency anemia, unspecified Status: Acute Assessment and Plan: * Monitor Hgb daily stable at 11.1 no evidence of GIB likely secondary to patient's severe malnutrition * continue patient's iron supplement Plan Code status: Full code per patient DVT prophylaxis: Lovenox Stress ulcer prophylaxis: Protonix 40 daily PT/OT notes: initially set to go to rehab but improved overall will go home with home health Disposition: patient continues admission to the medical unit due to orthostatic hypotension and fall at home initially planned for discharge to rehab but patient improved overall no further dizziness. patient's orthostatic BP had improved however had to initiate Flomax which caused worsening orthostatics. gave a dose of albumin today will monitor for 1 more night however plans to discharge tomorrow home with home health. patient educated on fall precautions. Time Spent With Patient Time with patient: 15 - 25 minutes Subjective Date/time seen: 10/26/24 11:30 Interval history: Patient is a 78-year-old male presents to [facility] ER on 10/17/2024 with a complaint of weakness. Patient lives at home with his granddaughter. He has neurocognitive disorder and is a poor historian. It is reported he has not eaten or drink in in a week. Patient denies nausea vomiting or diarrhea. Denies abdominal pain. Denies tobacco use, alcohol use, illicit drug use. He is not currently sexually active. He felt lightheaded when standing and nearly passed out. He reported no fever chills urinary symptoms cough chest pain shortness a breath. He did report soreness in his left cheek to me. 10/26/2024: Patient in no acute distress and no complaints still worried about his orthostatic blood pressure he does have a significant drop however appears secondary to His malnutrition and medications worsened a little bit with the initiation of Flomax. Educated patient on the need to increase his nutritional intake, continue to wear compression stockings as well as the need to rise slowly from sitting or lying position. patient denied any dizziness with ambulation and was previously set to go to rehab however improved greatly and does not meet for inpatient rehab. Review of Systems Review of Systems: All systems reviewed & are unremarkable except as noted in HPI and below (HPI) Exam Narrative: GENERAL: The patient cachectic HEENT: Nonicteric sclerae, PERRLA CHEST: Chest wall is nontender. HEART: RRR LUNGS: Clear to auscultation bilaterally. ABDOMEN: Soft, positive bowel sounds, non-tender, no organomegaly. SKIN: No rash, no excessive bruising, petechiae, or purpura. NEUROLOGIC: Cranial nerves II-XII intact, alert and oriented x 3, no gross motor deficits EXTREMITIES: no edema, cyanosis or clubbing Objective Data Vital Signs Vital Signs: Vital Signs - 24 hr 10/25/24 12:03 10/25/24 14:00 10/25/24 22:00 Temperature 97.9 F 97.6 F Pulse Rate 61 60 Respiratory Rate 14 16 Blood Pressure 112/59 L 114/62 117/57 L Pulse Oximetry 98 97 10/25/24 22:00 10/25/24 22:03 10/25/24 22:05 Temperature Pulse Rate 60 64 80 Respiratory Rate Blood Pressure 117/57 L 83/51 L 78/49 L Pulse Oximetry 10/26/24 06:00 10/26/24 08:30 10/26/24 08:30 Temperature 98.2 F Pulse Rate 63 78 85 Respiratory Rate 16 14 14 Blood Pressure 103/60 103/54 L 88/54 L Pulse Oximetry 98 97 98 10/26/24 08:40 Temperature Pulse Rate 99 Respiratory Rate 14 Blood Pressure 78/45 L Pulse Oximetry 98 Intake/Output Intake/Output: Intake & Output 10/23/24 10/24/24 10/25/24 10/26/24 23:59 23:59 23:59 23:59 Intake Total 2350 2350 1810 240 Output Total 1695 3075 1900 300 Balance 655 -725 -90 -60 Meds/Results Medications: Active Medications Generic Name Dose Route Start Last Admin Trade Name Freq PRN Reason Stop Dose Admin Benzocaine 1 lozenge 10/22/24 14:22 Benzocaine/Menthol (*Bkc) 18 Ea Lozenge PO PRN PRN Sore Throat Enoxaparin Sodium 40 mg 10/23/24 09:00 10/26/24 09:48 Enoxaparin 40 Mg/0.4 Ml Syringe SUB-Q 40 mg DAILY FERNANDO Administration Ferrous Sulfate 325 mg 10/25/24 12:30 10/26/24 09:37 Ferrous Sulfate [address] PO 325 mg DAILY@0800 FERNANDO Administration Lorazepam 0.5 mg 10/17/24 23:34 10/26/24 00:08 Lorazepam (*Crx) 0.5 Mg Tablet PO 0.5 mg QPM PRN Administration insomnia Magnesium Citrate 150 ml 10/18/24 10:21 10/20/24 17:29 Magnesium Citrate 300 Ml Btl PO 150 ml BID PRN Administration constipation Memantine 5 mg 10/18/24 09:00 10/26/24 09:37 Memantine 5 Mg Tablet PO 5 mg BID FERNANDO Administration Midodrine 10 mg 10/22/24 13:00 10/26/24 09:47 Midodrine Hcl 10 Mg Tablet PO 10 mg TID FERNANDO Administration Montelukast Sodium 10 mg 10/18/24 09:00 10/26/24 09:37 Montelukast Sodium 10 Mg Tablet PO 10 mg DAILY FERNANDO Administration Oxycodone HCl 30 mg 10/19/24 11:00 10/26/24 06:44 Oxycodone Hcl (*Crx) 5 Mg Tab Ir PO 30 mg Q6H PRN Administration Pain Rated 7-10 Polyethylene Glycol 17 gm 10/18/24 17:00 10/26/24 09:37 Polyethylene Glycol 3350 17 Gm Powd.Pack PO 17 gm BID FERNANDO Administration Senna 8.6 mg 10/18/24 21:00 10/25/24 21:13 Sennosides 8.6 Mg Tablet PO 8.6 mg HS FERNANDO Administration Sertraline HCl 50 mg 10/18/24 09:00 10/26/24 09:37 Sertraline Hcl 50 Mg Tablet PO 50 mg DAILY FERNANDO Administration Tamsulosin HCl 0.4 mg 10/26/24 09:00 10/26/24 09:37 Tamsulosin Hcl 0.4 Mg Capsule PO 0.4 mg QAM FERNANDO Administration Radiology Results: ITS Impressions Chest X-Ray 10/17/24 15:51 IMPRESSION: No focal infiltrate or effusion. Face CT 10/18/24 21:55 IMPRESSION: 1. No maxillofacial fractures or other acute osseous abnormality. 2. Moderate spondylosis in the visualized cervical spine. Labs Labs: Laboratory Results - last 24 hr 10/26/24 05:05 WBC 4.8 RBC 3.75 L Hgb 11.1 L Hct 34.8 L MCV 92.8 MCH 29.6 MCHC 31.9 L RDW 13.0 Plt Count 222 MPV 8.8 Sodium 133 L Potassium 4.8 Chloride 99 Carbon Dioxide 29 Anion Gap 5 BUN 18 Creatinine 0.91 Estim Creat Clear Calc 51 Estimated GFR > 60 Glucose 87 Calcium 9.3 Quality VTE Prophylaxis VTE prophylaxis: pharmacologic ordered -Patient's previous records reviewed on admission -ER notes reviewed in detail on admission -discussed all findings and current treatment plan with patient/Family/POA -Consultations reviewed for recommendations -Patient's disposition for safe discharge discussed with shelter case manager Dictation performed by [employer] direct speech recognition software, therefore variety performer variants and typographical errors may occur. Hospitalist MIPS Advance Care Plan I have confirmed that the patient's Advanced Care Plan is present, code status is documented, or surrogate decision maker is listed in patient medical record.: Yes Medication Reconciliation I have utilized all available resources to obtain, update and review the patients current medications (includes all prescriptions, OTC, herbals, cannabis, and nutritional supplements).: Yes The patient is not eligible for med reconciliation; the patient is in a emergent medical situation where delaying treatment would jeopardize the patients health.: No
[2024-10-26] MEDS: SENNOSIDES 8.6 MG TABLET PO (20:56)
[2024-10-27 05:33] LABS: Hematocrit 37.9 % (42.0-52.0); Hemoglobin 11.8 g/dL (14.0-18.0); Mean Corpuscular HGB Conc 31.1 g/dl (32-36); Mean Corpuscular Hemoglobin 29.1 pg (26-34); Mean Corpuscular Volume 93.6 fl (80-100); Platelet Count Result 209 k/mm3 (150-375); Red Blood Count 4.05 M/mm3 (4.6-6.20); White Blood Count 4.4 K/mm3 (4.5-10.0)
[2024-10-27 05:51] LABS: Anion Gap 7 mmol/L (4-12); Blood Urea Nitrogen 23 mg/dL (9-20); Calcium 9.6 mg/dL (8.4-10.2); Carbon Dioxide 25 mmol/L (22-30); Chloride 100 mmol/L (98-107); Estimated CRCL calculation 47 ml/min; Estimated Glomerular Filt Rate > 60; Glucose 106 mg/dL (65-110); Potassium 4.9 mmol/L (3.4-5.0); Sodium 132 mmol/L (137-145)
[2024-10-27 06:00] VITALS: BP 103/60; PULSE 63; RESP 18; TEMP 36.6; O2SAT 100
[2024-10-27] MEDS: oxyCODONE HCL (*CRX) 5 MG TAB IR 30 MG PO ×2 (06:28→12:43)
[2024-10-27] MEDS: TAMSULOSIN HCL 0.4 MG CAPSULE PO (08:31)
[2024-10-27] MEDS: MIDODRINE HCL 10 MG TABLET PO ×2 (08:31→12:30)
[2024-10-27] MEDS: SERTRALINE HCL 50 MG TABLET PO (08:31)
[2024-10-27] MEDS: FERROUS SULFATE 325 MG TABLET DR PO (08:31)
[2024-10-27] MEDS: MEMANTINE 5 MG TABLET PO (08:31)
[2024-10-27] MEDS: MONTELUKAST SODIUM 10 MG TABLET PO (08:31)
[2024-10-27 09:20] VITALS: O2SAT 95
--- NOTE | 2024-10-27 09:39 | P.DS_ITS ---
DS: Admitting Diagnosis Discharge Date 10/27/2024 Admitting Diagnosis orthostatic hypotension/ fall/ failure to thrive/ anemia/ severe malnutrition due to poor caloric and protein intake DS: Discharge Diagnosis Discharge Diagnosis (1) Incomplete bladder emptying: Code(s): R33.9 - Retention of urine, unspecified Status: Acute (2) Adult failure to thrive: Code(s): R62.7 - Adult failure to thrive Status: Acute (3) Protein-calorie malnutrition, severe: Code(s): E43 - Unspecified severe protein-calorie malnutrition Status: Acute (4) Iron deficiency anemia: Code(s): D50.9 - Iron deficiency anemia, unspecified Status: Acute DS: Summary Hospital Course Reason for hospitalization: orthostatic hypotension/ fall/ failure to thrive/ anemia/ severe malnutrition due to poor caloric and protein intake Hospital Course: Admission: Patient was [id number] male presents to [facility] ER on 10/17/2024 with a complaint of weakness. Patient lives at home with his granddaughter. He has neurocognitive disorder and is a poor historian. It is reported he has not eaten or drink in in a week. Patient denies nausea vomiting or diarrhea. Denies abdominal pain. Denies tobacco use, alcohol use, illicit drug use. He is not currently sexually active. He felt lightheaded when standing and nearly passed out. He reported no fever chills urinary symptoms cough chest pain shortness a breath. He did report soreness in his left cheek to me. In the ED: his initial vitals were low with systolic of 81 received 30 mL per kilos fluid bolus in the ER with improvement in blood pressure. Laboratory workup shows a WBC of 4.1 hemoglobin of 10.8 platelet a 177 Chem panel was unremarkable. Lactate was normal at 1.1 LFTs were normal. CRP was less than 0.5. EKG showed sinus rhythm with nonspecific ST-T changes. Urinalysis negative for UTI, Chest x-ray with no focal infiltrate or effusion. CT Chest abdomen pelvis demonstrating 11 x 12 mm indeterminate focus of increased attenuation identified within right lung base with adjacent atelectasis possibly representing around atelectasis. Thyroid gland is heterogeneous a nonspecific finding 13 mm well-circumscribed focus of fluid attenuation within the medial body of the spleen kidneys have innumerable rounded foci of fluid attenuation within the right kidney mural thickening with surrounding inflammatory changes identified within the rectum suggestive of proctitis with fecal stasis within the colon. Hospital Course: patient was admitted to the medical unit for further evaluation and treatment for orthostatic hypotension no signs of infections were evident. Left facial/maxillary area with mild swelling noted. Follow blood cultures. Monitor off antibiotics. CT face/maxilla with no maxillofacial fractures or other acute osseous abnormalities. Was started on zosyn for proctitis and transitioned to oral Augmentin which he completed during his admission, plan for will fu with gi as op basis for colonoscopy evaluation. patient also developed Urinary retention needing intermittent straight catheterization he refused straight catheterization but urology was consulted and patient may follow up with them as needed outpatient. Flomax was added which patient had improvement with urinary retention aware that this was worsening his orthostatic hypotension. an echocardiogram was performed to rule out any cardiac causes orthostatics which showed normal EF and no significant valvular abnormalities. patient continued with orthostatic hypotension but reported dizziness had improved and he no longer had it when working with physical and occupational therapy patient's midodrine was increased to 10 mg t.i.d. I also added compression stockings as well as abdominal binder to assist. I encourage patient to taper his oxycodone IR 5 times a day and how imperative it was for him to increase his nutritional intake during the day patient with severe malnutrition secondary to poor caloric and protein intake. we also added protein shakes with meals as well as adding supplemental iron due to iron deficiency anemia. patient family concerned prior to discharge about patient's fall risk and continued orthostatic hypotension discussed about symptomatic control and fall precautions as well as needs to rise slowly from sitting lying position. patient and family instructed to wear compression stockings with ambulation q.12 hours daily as well as abdominal binder. initially were attempting to have patient placed for rehab services prior to returning home however patient improved back to his baseline so patient was discharged home with home health for continued physical and occupational therapy. Status at Discharge Functional status at discharge: uses cane/walker Overall status at discharge: patient is progressing back to baseline Time Spent with Patient Time attestation: Total time spent providing and/or coordinating discharge services: Time spent: Greater than 30 minutes Exam Narrative: GENERAL: The patient cachectic HEENT: Nonicteric sclerae, PERRLA CHEST: Chest wall is nontender. HEART: RRR LUNGS: Clear to auscultation bilaterally. ABDOMEN: Soft, positive bowel sounds, non-tender, no organomegaly. SKIN: No rash, no excessive bruising, petechiae, or purpura. NEUROLOGIC: Cranial nerves II-XII intact, alert and oriented x 3, no gross motor deficits EXTREMITIES: no edema, cyanosis or clubbing DS: Data Data Completed and Pending Labs on day of discharge: Labs from last 24 hours 10/27/24 05:10 WBC 4.4 L RBC 4.05 L Hgb 11.8 L Hct 37.9 L MCV 93.6 MCH 29.1 MCHC 31.1 L RDW 12.7 Plt Count 209 MPV 9.2 Sodium 132 L Potassium 4.9 Chloride 100 Carbon Dioxide 25 Anion Gap 7 BUN 23 H Creatinine 0.94 Estim Creat Clear Calc 47 Estimated GFR > 60 Glucose 106 Calcium 9.6 Imaging Radiologist's impression: Radiology Results: ITS Impressions Chest X-Ray 10/17/24 15:51 IMPRESSION: No focal infiltrate or effusion. Face CT 10/18/24 21:55 IMPRESSION: 1. No maxillofacial fractures or other acute osseous abnormality. 2. Moderate spondylosis in the visualized cervical spine. Discharge Plan Discharge Attending physician on discharge: [place] Consulting providers: Yessenia Ly; Deanna Galvan Discharging Clinician: Deanna Galvan Anticipated Discharge Date/Time: 10/27/24 09:30 Patient Disposition: Home with Home Health Service Activity: may shower and other - see discharge instructions Diet: regular and other - see discharge instructions Discharge Instructions: 1). Per Care Coordination, patient to discharge with [facility] ([phone]) for PT/OT and group home services. Agency will call to arrange initial visit. 2). Orthostatic Hypotension (Medication and Malnutrition induced) * I have prescribed midodrine which is a medication to increase your blood pressure please take as indicated * continue to wear compression stockings q.12 hours daily with ambulation may remove at night when sleeping if having difficulty putting on compression stockings may also use Kyle wraps * continue to abdominal binder with ambulation this can help with orthostatics * we did initiate Flomax for urinary retention this can cause hypotension as well * recommend reducing or tapering chronic narcotic use this can induce hypotension * please continue with regular diet and protein shakes with each meal even increase to 5 times a day nutritional status can also play a role and hypotension * fall precautions will be busby when you were rising from a lying or sitting position please rise slowly and take a break before ambulating (walking) to allow time for your BP to improve. * recommend removing rugs or objects that may impede your mobility with your walker that are fall risk * continue with good oral hydration with water intake 3). iron deficiency anemia * I have started you on a iron supplement please take as indicated Patient Instructions: Antibiotic Form, Dehydration (GEN), Iron Rich Diet (DC), Malnutrition (DC), Iron Deficiency Anemia (GEN), Hypotension (DC), Hypotension (GEN), Syncope in Older Adults (GEN) Patient Language: Upper Sorbian Stand Alone Forms: General Discharge Information Follow-up/Referrals: Barron,MD Tom [Primary Care Provider] - 2 Weeks Discharge Medications: New ferrous sulfate 325 mg (65 mg iron) Tablet,Delayed Release (Dr/Ec) 325 mg PO DAILY@0800 Qty: 30 0RF tamsulosin 0.4 mg Capsule 0.4 mg PO QAM Qty: 30 0RF midodrine 10 mg Tablet 10 mg PO TID Qty: 90 0RF Continued oxycodone 30 mg tablet 30 mg PO .fives time a day lorazepam 0.5 mg tablet 0.5 mg PO QPM PRN (Reason: insomnia) magnesium citrate Solution 150 ml PO BID PRN (Reason: constipation) Qty: 296 0RF polyethylene glycol 3350 [Miralax] 17 gram powder in packet 17 g PO BID Qty: 30 0RF Rx Instructions: Dissolve in 8 oz of water, do not dilute any further as this will make the medication less effective. senna 8.6 mg capsule 8.6 mg PO HS PRN (Reason: constipation) Qty: 30 0RF memantine 5 mg tablet 5 mg PO BID sertraline 50 mg tablet 50 mg PO DAILY montelukast 10 mg tablet 10 mg PO DAILY Discontinued methadone 10 mg tablet 10 mg PO TID ibuprofen 800 mg tablet 800 mg PO TID PRN (Reason: fever or pain) nortriptyline 75 mg capsule 75 mg PO BID Date of admission: 10/19/24 16:29 Primary Care Provider: Tom Gilmore Admitting Provider: Isela Jama Attending physician on admission: Isela Jama Condition: Improved Quality VTE Prophylaxis VTE prophylaxis: pharmacologic ordered -Patient's previous records reviewed on admission -ER notes reviewed in detail on admission -discussed all findings and current treatment plan with patient/Family/POA -Consultations reviewed for recommendations -Patient's disposition for safe discharge discussed with supervisor pipe finishing Dictation performed by [employer] direct speech recognition software, therefore wheel buffer variants and typographical errors may occur. Hospitalist MIPS Heart Failure (Exclusion) Patient has history of Heart Transplant or Left Ventricular Assistive Device?: No IF YES, STOP HERE Heart Failure (Qualifier) Patient has current or prior documentation of LVEF less than or equal to 40%, or mod/servere depressed LVSF?: No IF NO, STOP HERE
[2024-10-27] MEDS: ENOXAPARIN 40 MG/0.4 ML SYRINGE SUB-Q (09:58)
[2024-10-27 13:45] VITALS: BP 106/56; PULSE 66; RESP 16; TEMP 36.6; O2SAT 98
== END 2024-10-27 14:30 | disposition home health service (06) | DRG 312 ==
LOC: ANHED 18:19 → ANHIMU 19:20 → ANH2MED 10-21 16:05
PROVIDERS: General Practice; Internal Medicine; Admitting Provider Family Medicine; Emergency Provider Emergency Medicine; PCP Internal Medicine; Visit Provider Nurse Practitioner Family
DX: I95.1 Orthostatic hypotension (principal); E43 Unspecified severe protein-calorie malnutrition; Z68.1 Body mass index [BMI] 19.9 or less, adult; E87.1 Hypo-osmolality and hyponatremia; E88.A Wasting disease (syndrome) due to underlying condition; R62.7 Adult failure to thrive; E86.0 Dehydration; R33.9 Retention of urine, unspecified; F03.90 Unspecified dementia, unspecified severity, without behavioral disturbance, psychotic disturbance, mood disturbance, and anxiety; R41.9 Unspecified symptoms and signs involving cognitive functions and awareness; G62.9 Polyneuropathy, unspecified; D64.9 Anemia, unspecified; R19.7 Diarrhea, unspecified; K62.89 Other specified diseases of anus and rectum; D50.9 Iron deficiency anemia, unspecified
CPT/HCPCS: 36415; 70486; 71045; 80048; 80053; 81001; 82533; 83540; 83550; 83605; 83735; 85025; 85027; 85610; 85730; 86140; 87040; 87637; 93005; 93306; 96360; 97110; 97162; 97165; 97530; 97535; 99285; A9270; G0378; J0834; J1650; J2543; J7030; P9047

== ENCOUNTER 2024-11-14 15:53 | Inpatient (IN) | payer MEDICARE, OTHER, SELFPAY ==
[2024-11-14] VITALS (13 sets, daily range): BP systolic 88–154; BP diastolic 53–74; PULSE 62–71; RESP 8–20; TEMP 36.6–36.9; O2SAT 94–99; BMI 19.7
--- NOTE | ~2024-11-14 | XR_ITS ---
EXAMINATION: XR chest 2V 11/15/2024 08:25 INDICATION: Abnormal chest x-ray TECHNIQUE:Frontal and lateral images of the chest were obtained. COMPARISON: 11/14/2024 FINDINGS: Heart size is unchanged. Spinal stimulator is noted. No pneumothorax or pleural effusion. No free air under the diaphragm. No focal pulmonary consolidation identified. IMPRESSION: 1: No acute pulmonary process identified. Reviewed, dictated and finalized at location Q.
--- NOTE | ~2024-11-14 | XR_ITS ---
XR abdomen/kub 1V 11/18/2024 16:35 Indication: Constipation and urinary retention Procedure: KUB Comparison: 08/29/2024 Findings: There is moderate gas throughout the small bowel and colon. Small bowel measures up to 2.8 cm. No transition site identified. There are cholecystectomy clips. Battery pack overlies the left iliac crest with stimulator leads extending into the thoracic spine, incompletely visualized. No abnormal calcifications. Impression: 1: Moderately distended small bowel and colon, consistent with ileus. Reviewed, dictated and finalized at location O. Impression: 1: Moderately distended small bowel and colon, consistent with ileus.
--- NOTE | ~2024-11-14 | XR_ITS ---
EXAMINATION: XR chest 1V portable 11/14/2024 16:54 INDICATION: Syncope TECHNIQUE:Portable AP supine frontal COMPARISON: 10/17/2024 FINDINGS: Spinal stimulator noted. Heart size is stable. No pneumothorax. No pleural effusion. Small interstitial and airspace opacities scattered throughout both lungs. IMPRESSION: 1: Small interstitial and airspace opacities scattered throughout both lungs. Differential includes but is not limited to edema or pneumonia. Follow-up is recommended. Reviewed, dictated and finalized at location Q. IMPRESSION: 1: Small interstitial and airspace opacities scattered throughout both lungs. Differential includes but is not limited to edema or pneumonia. Follow-up is re commended.
--- NOTE | 2024-11-14 15:58 | ECG_ITS ---
Test Date: 2024-11-14 16:13:21 Measurements Intervals [place] Rate: 60 P: 75 AR: 200 QRS: -34 QRSD: 82 T: 77 QT: 408 QTc: 410 Interpretive Statements SINUS RHYTHM LEFT AXIS DEVIATION POSSIBLE RIGHT VENTRICULAR CONDUCTION DELAY VOLTAGE CRITERIA FOR LVH MINIMAL Q WAVES- HIGH LATERAL LEADS PEAKED T WAVES- CONSIDER HYPERKALEMIA BASELINE WANDER- AVR, AVL, AVF ABNORMAL ECG Compared to ECG 10/17/2024 15:23:50 PEAKED T WAVES NOW PRESENT Electronically Signed On 11-14-2024 16:31:43 CDT by Alok Chino D.O.
--- NOTE | 2024-11-14 16:07 | ED.RECABL ---
HPI - Recheck/Abnormal Lab/Rx General Chief Complaint: Recheck/Abnormal Lab/Rx Stated Complaint: ortho hypotension, dizzy Time Seen by Provider: 11/14/24 16:00 Source: patient and EMS Mode of arrival: EMS Limitations: no limitations History of Present Illness HPI narrative: 78 years old white male came to the ED by ambulance from home because syncope. patient is poor historian, Patient is telling me that he got out of bed, then found himself on the floor, loss of consciousness, called his daughter who is in vacation in his pain who call 911 to take patient to the emergency room. Patient is telling me that he had similar symptoms 1 week ago secondary to low blood pressure. Patient currently on midodrine patient is not sure if he have eating today are not. Eight denies any fever, chills, nausea, vomiting, chest pain, shortness of breath, back pain, headache, neck pain or any injury. Patient was discharged from our facility 1 week ago with diagnosis of orthostatic hypotension, fall, failure to thrive, anemia, severe malnutrition due to poor caloric and protein intake Patient is telling me that he is full code, declined going to a long term. Patient is poor historian Related Data Home Medications ?Medication ?Instructions ?Recorded ?Confirmed ?Last Taken ?Type lorazepam 0.5 mg tablet 0.5 mg PO QPM PRN insomnia 04/05/22 11/14/24 Unknown History oxycodone 30 mg tablet 30 mg PO .fives time a day 04/05/22 11/14/24 10/16/24 History memantine 5 mg tablet 5 mg PO BID 10/17/24 11/14/24 10/16/24 History montelukast 10 mg tablet 10 mg PO DAILY 10/17/24 11/14/24 10/16/24 History sertraline 50 mg tablet 50 mg PO DAILY 10/17/24 11/14/24 10/16/24 History gabapentin 800 mg tablet 800 mg PO TID 11/14/24 11/14/24 Unknown History methadone 10 mg tablet 10 mg PO Q8H 11/14/24 11/14/24 Unknown History nortriptyline 75 mg capsule 75 mg PO Q12H 11/14/24 11/14/24 Unknown History Allergies Allergy/AdvReac Type Severity Reaction Status Date / Time No Known Allergies Allergy Verified 10/17/24 20:27 Review of Systems Review of Systems: All systems reviewed & are unremarkable except as noted in HPI and below PMFSH Past Medical History Medical History (Updated 11/15/24 @ 20:40 by Eddie Levin MD) Incomplete bladder emptying Family History Family History Father Diabetes mellitus Mother Cancer Social History Social History Smoking status: Smoker, status unknown Tobacco type: cigarettes and e-cigarettes/vaping Smoking end date: 03/27/74 Alcohol intake: never Substance use: never Substance use type: prescription drug Do You Feel Safe in your Home?: Yes Lack of Transportation: No Lack of Food: Never True Current Housing: I Have Housing Concerned About Future Housing: No Difficulty Paying Gas/Electric Bills: No Difficulty Paying for Meds: No Currently Unemployed: No Education: High School Diploma/GED Difficulty w/ Childcare or Family Care: No Living arrangements: with family Occupation/Education: retired Gender identity (if verbalized by the patient): Male Spiritual care concerns: No Exam Narrative: General appearance: Well-developed, my nausea, looks frail, weak and tired Skin: Normal color Head: Normocephalic, nontraumatic Eyes: Clear conjunctiva ENT: Oropharynx normal, ears normal, nose normal Neck: Supple, nontender Chest and respiratory: Airway patent, no respiratory distress, no accessory muscle use Heart: Regular rate/rhythm Abdomen: Soft, nontender, no organomegaly, quiet bowel sounds Vascular: Normal peripheral pulses, normal capillary refill. Musculoskeletal: Normal range of motion, nontender back Neurologic: Alert and oriented ?3, FACTORY SUPERINTENDENT is normal as tested, no gross motor deficit Course Vital Signs Vital signs: Vital Signs Temperature 36.9 C 11/14/24 15:48 Pulse Rate 62 11/14/24 15:48 Respiratory Rate 16 11/14/24 15:48 Blood Pressure 101/63 11/14/24 15:48 Pulse Oximetry 99 11/14/24 15:48 Oxygen Delivery Room Air 11/14/24 15:48 Temperature 36.2 C L 11/15/24 04:00 Pulse Rate 60 11/15/24 14:42 Respiratory Rate 16 11/15/24 14:42 Blood Pressure 109/59 L 11/15/24 16:09 Pulse Oximetry 98 11/15/24 14:42 Oxygen Delivery Room Air 11/15/24 14:42 MDM - Recheck/Abnormal Lab/Rx MDM Narrative Medical decision making narrative: patient came to the ED by ambulance from home because of syncope secondary to low blood pressure. History of orthostatic hypotension currently on midodrine. patient lives with his daughter who currently in vacation To [facility]. Vital sign showing insignificant abnormality Physical examination showing frail, weak lethargic tired looking patient Blood workup today includes CBC, CMP, troponin showed calcium 7.9 otherwise insignificant abnormality Urinalysis showed no significant abnormality Chest x-ray showed clear line EKG on arrival showed normal sinus rhythm Diagnosis orthostatic hypotension, failure to thrive, unable to take care of himself at home without store assistant Admit to hospitalist Differential Diagnosis Differential diagnosis: Likely other (As above) Medical Records Attestation: I reviewed the patient's medical records. Lab Data Attestation: I reviewed the patient's lab results. 11/15/24 04:17 11/15/24 04:17 Labs: Lab Results 11/14/24 11/14/24 Range/Units 17:00 18:31 WBC 4.4 L (4.5-10.0) K/mm3 RBC 3.15 L (4.6-6.20) M/mm3 Hgb 9.3 L (14.0-18.0) g/dL Hct 29.7 L (42.0-52.0) % MCV 94.3 (80-100) fl MCH 29.5 (26-34) pg MCHC 31.3 L (32-36) g/dl RDW 12.8 (11.5-14.5) % Plt Count 207 (150-375) k/mm3 MPV 9.2 (7.4-10.4) fl Immature Gran % (Auto) 0.2 (0-0.5) % Neut % (Auto) 65.1 (45.5-73.1) % Lymph % (Auto) 18.1 L (18.3-44.2) % [place] % (Auto) 9.5 H (2.6-8.5) % Eos % (Auto) 6.6 H (0-4.4) % Baso % (Auto) 0.5 (0.2-1.2) % Lymph # (Auto) 0.80 L (0.9-3.2) K/mm3 [place] # (Auto) 0.4 (0.1-0.6) K/mm3 Eos # (Auto) 0.3 (0-0.3) K/mm3 Baso # (Auto) 0.0 (0.0-0.1) K/mm3 Abs Immat Gran (auto) 0.01 (0.00-0.031) K/mm3 Absolute Neuts (auto) 2.9 (1.3-6.7) K/mm3 Absolute Nucleated RBC 0.000 (0.0-0.012) K/mm3 Nucleated RBC % 0.0 (0.0-0.2) % PT 13.3 (11.1-14.7) Seconds INR 1.0 APTT 31.2 (22.3-36.8) Seconds Sodium 135 L (137-145) mmol/L Potassium 4.4 (3.4-5.0) mmol/L Chloride 102 (98-107) mmol/L Carbon Dioxide 29 (22-30) mmol/L Anion Gap 4 (4-12) mmol/L BUN 25 H (9-20) mg/dL Creatinine 0.88 (0.7-1.3) mg/dL Estim Creat Clear Calc 55 ml/min Estimated GFR > 60 (59 - ) Glucose 120 H (65-110) mg/dL Calcium 8.3 L (8.4-10.2) mg/dL Total Bilirubin 0.3 (0.2-1.3) mg/dL AST 36 (17-59) U/L ALT 31 (6-50) U/L Alkaline Phosphatase 88 (38-126) U/L Troponin I < 0.012 (0.000-0.034) ng/mL NT-Pro-B Natriuret Pep 525 H (19.9-100) pg/mL Total Protein 5.6 L (6.3-8.2) g/dL Albumin 3.2 L (3.5-5.1) g/dL Urine Color Yellow (Yellow) Urine Appearance Clear (Clear) Urine pH 7.0 (5.0-9.0) Ur Specific [place] 1.016 (1.001-1.035) Urine Protein Negative (Negative) mg/dL Urine Glucose (UA) Negative (Negative) mg/dL Urine Ketones Negative (Negative) mg/dL Ur Blood (Man) Negative (Negative) Urine Nitrate Negative (Negative) Urine Bilirubin Negative (Negative) Urine Urobilinogen 0.2 (<2.0) mg/dL Leukocyte Esterase Rfl Negative (Negative) GERMAN/UL ECG Data EKG #1: Attestation: I personally reviewed and interpreted this ECG as follows: ECG completion date: 11/14/24 Prior ECG tracings: available for review Interpretation: normal sinus rhythm at 60 beats per minute, left axis deviation, right ventricular conduction delay, voltage criteria for LVH, minimal Q-waves -high lateral leads, peaked T-wave -consider hyperkalemia, baseline wander -AVR, aVL, AVF, abnormal EKG, compared to EKG on October 17, 2024 beak to T-wave now present Critical Care Time Critical Care Time Critical Care Time: Yes Total Critical Care Time: 30 Discharge Plan Discharge Clinical Impression: Syncope, Orthostatic hypotension, Adult failure to thrive Patient Disposition: Still a Patient Condition: Guarded Prognosis
[2024-11-14] MEDS: SODIUM CHLORIDE 0.9% IV 1,000 ML 999 ML IV CONT (16:30)
[2024-11-14] MEDS: MIDODRINE HCL 10 MG TABLET PO (17:18)
[2024-11-14 17:19] LABS: Hematocrit 29.7 % (42.0-52.0); Hemoglobin 9.3 g/dL (14.0-18.0); Immature Granulocyte Percent A 0.2 % (0-0.5); Lymphocytes Absolute Auto 0.80 K/mm3 (0.9-3.2); Mean Corpuscular HGB Conc 31.3 g/dl (32-36); Mean Corpuscular Hemoglobin 29.5 pg (26-34); Mean Corpuscular Volume 94.3 fl (80-100); Nucleated Red Blood Cells Absolute Auto 0.000 K/mm3 (0.0-0.012); Nucleated Red Blood Cells Perc 0.0 % (0.0-0.2); Platelet Count Result 207 k/mm3 (150-375); Red Blood Count 3.15 M/mm3 (4.6-6.20); White Blood Count 4.4 K/mm3 (4.5-10.0)
[2024-11-14 17:35] LABS: Alanine Aminotransferase 31 U/L (6-50); Albumin Level 3.2 g/dL (3.5-5.1); Alkaline Phosphatase 88 U/L (38-126); Anion Gap 4 mmol/L (4-12); Aspartate Amino Transferase 36 U/L (17-59); Bilirubin,Total 0.3 mg/dL (0.2-1.3); Blood Urea Nitrogen 25 mg/dL (9-20); Calcium 8.3 mg/dL (8.4-10.2); Carbon Dioxide 29 mmol/L (22-30); Chloride 102 mmol/L (98-107); Estimated CRCL calculation 55 ml/min; Estimated Glomerular Filt Rate > 60; Glucose 120 mg/dL (65-110); Potassium 4.4 mmol/L (3.4-5.0); Sodium 135 mmol/L (137-145); Total Protein 5.6 g/dL (6.3-8.2)
[2024-11-14 17:42] LABS: NT Pro B Type Natriuretic Pept 525 pg/mL (19.9-100); Troponin I < 0.012 ng/mL (0.000-0.034)
[2024-11-14 18:43] LABS: INR 1.0; Prothrombin Time 13.3 Seconds (11.1-14.7)
[2024-11-14 18:44] LABS: Partial Thromboplastin Time 31.2 Seconds (22.3-36.8)
[2024-11-14 18:44] LABS: Add Urine Microscopic? NO; Appearance Urine Clear (Clear); Glucose Urine UA Negative (Negative); Leukocyte Esterase Ur Negative LEU/UL (Negative); Nitrate Urine Negative (Negative); Specific Grav Ur 1.016 (1.001-1.035)
[2024-11-14] MEDS: SODIUM CHLORIDE 0.9% IV 1,000 ML 100 ML IV CONT (19:45)
--- NOTE | 2024-11-14 20:10 | PM.IMHP ---
H&P: HPI History of Present Illness Date/Time: 11/14/24 20:10 Chief Complaint: Syncope Narrative: This is a 78-year-old male who presents to the ED by ambulance from home because of syncope. Patient is a poor historian. Patient states that he got out of bed and immediately passed out on the floor. He regained consciousness and was able to get up reported no obvious injuries and called his daughter who is in vacation in [place]. His daughter called 911 who came to the home and brought the patient to the ER for evaluation. Patient had similar episode in the past. Patient has been placed on midodrine for the same. Patient has not been eating well at home. He was discharged from our facility on 10/27/2024 as he declined to go to a nursing facility. In the ED his blood pressure is borderline otherwise unremarkable vitals. Laboratory workup revealed hemoglobin of 9.3 WBC and a 4.4 platelet count 207. Chem panel showed sodium of 135 potassium 4.4 chloride 102 bicarbonate 29 BUN 25 creatinine 0.8 blood glucose of 120. Troponin was negative BNP was 525. EKG showed normal sinus rhythm with nonspecific ST-T changes with some peaked T waves. Patient admitted in this setting for further treatment and likely alf placement. Review of Systems Review of Systems: - CONSTITUTIONAL: Denies weight loss, fever and chills. - HEENT: Denies changes in vision and hearing - RESPIRATORY: Denies SOB and cough. - CV: Denies palpitations and CP. - GI: Denies abdominal pain, nausea, vomiting and diarrhea. - : Denies dysuria and urinary frequency. - MSK: Denies myalgia and joint pain. - SKIN: Denies rash and pruritus. - NEUROLOGICAL: Denies headache and reports syncope. - PSYCHIATRIC: Denies recent changes in mood. Denies anxiety and depression. [facility] Past Medical History Medical History (Updated 11/14/24 @ 20:25 by Benigno Sutherland MD) Incomplete bladder emptying Family History Family History Father Diabetes mellitus Mother Cancer Social History Social History Smoking status: Current every day smoker Tobacco type: cigarettes and e-cigarettes/vaping Smoking end date: 03/27/74 Alcohol intake: former Substance use: never Substance use type: prescription drug Do You Feel Safe in your Home?: Yes Lack of Transportation: No Lack of Food: Never True Current Housing: I Have Housing Concerned About Future Housing: No Difficulty Paying Gas/Electric Bills: No Difficulty Paying for Meds: No Currently Unemployed: No Education: Decline to Answer Difficulty w/ Childcare or Family Care: No Living arrangements: with family Occupation/Education: retired Gender identity (if verbalized by the patient): Male Spiritual care concerns: No Meds Home Medications and Allergies Home Medications ?Medication ?Instructions ?Recorded ?Confirmed ?Type lorazepam 0.5 mg tablet 0.5 mg PO QPM PRN insomnia 04/05/22 10/17/24 History oxycodone 30 mg tablet 30 mg PO .fives time a day 04/05/22 10/17/24 History magnesium citrate 150 ml PO BID PRN constipation 08/29/24 10/17/24 Rx #296 mL polyethylene glycol 3350 17 gram 17 g PO BID #30 ea 08/29/24 10/17/24 Rx oral powder packet (Miralax) sennosides 8.6 mg capsule (senna) 8.6 mg PO HS PRN constipation #30 08/29/24 10/17/24 Rx caps memantine 5 mg tablet 5 mg PO BID 10/17/24 10/17/24 History montelukast 10 mg tablet 10 mg PO DAILY 10/17/24 10/17/24 History sertraline 50 mg tablet 50 mg PO DAILY 10/17/24 10/17/24 History ferrous sulfate 325 mg (65 mg 325 mg PO DAILY@0800 #30 tabs 10/27/24 Rx iron) tablet,delayed release midodrine 10 mg tablet 10 mg PO TID #90 tabs 10/27/24 Rx tamsulosin 0.4 mg capsule 0.4 mg PO QAM #30 caps 10/27/24 Rx Allergies Allergy/AdvReac Type Severity Reaction Status Date / Time No Known Allergies Allergy Verified 10/17/24 20:27 Vital Signs Vital Signs - 24 hr 11/14/24 15:48 11/14/24 16:05 11/14/24 16:09 Temperature 98.4 F Pulse Rate 62 63 66 Respiratory Rate 16 11 L Blood Pressure 101/63 104/58 L 100/54 L Pulse Oximetry 99 98 Oxygen Delivery Room Air 11/14/24 16:09 11/14/24 16:10 11/14/24 16:11 Temperature Pulse Rate 68 67 69 Respiratory Rate 9 L 15 Blood Pressure 88/58 L 100/54 L 88/58 L Pulse Oximetry 97 99 Oxygen Delivery 11/14/24 16:31 11/14/24 17:01 11/14/24 17:31 Temperature Pulse Rate 66 71 68 Respiratory Rate 13 8 L 8 L Blood Pressure 104/58 L 106/56 L 105/55 L Pulse Oximetry 97 97 97 Oxygen Delivery 11/14/24 18:01 11/14/24 18:30 11/14/24 19:02 Temperature Pulse Rate 69 70 67 Respiratory Rate 8 L 14 16 Blood Pressure 107/58 L 116/58 L 117/64 Pulse Oximetry 97 99 Oxygen Delivery Exam Narrative: General appearance: Thin built, looks frail, weak and tired Skin: Normal color Head: Normocephalic, nontraumatic Eyes: Clear conjunctiva ENT: Oropharynx normal, ears normal, nose normal Neck: Supple, nontender Chest and respiratory: Airway patent, no respiratory distress, no accessory muscle use Heart: Regular rate/rhythm Abdomen: Soft, nontender, no organomegaly, quiet bowel sounds Vascular: Normal peripheral pulses, normal capillary refill. Musculoskeletal: Normal range of motion, nontender back Neurologic: Alert and oriented ?3, BUSINESS INTELLIGENCE DIRECTOR is normal as tested, no gross motor deficit H&P: Results Labs Labs: Short CBC 11/14/24 Range/Units 17:00 WBC 4.4 L (4.5-10.0) K/mm3 Hgb 9.3 L (14.0-18.0) g/dL Hct 29.7 L (42.0-52.0) % Plt Count 207 (150-375) k/mm3 BMP 11/14/24 17:00 Sodium 135 L Potassium 4.4 Chloride 102 Carbon Dioxide 29 BUN 25 H Creatinine 0.88 Glucose 120 H Calcium 8.3 L Cardiac Enzymes 11/14/24 Range/Units 17:00 Troponin I < 0.012 (0.000-0.034) ng/mL Liver Function 11/14/24 Range/Units 17:00 Total Bilirubin 0.3 (0.2-1.3) mg/dL AST 36 (17-59) U/L ALT 31 (6-50) U/L Alkaline Phosphatase 88 (38-126) U/L Albumin 3.2 L (3.5-5.1) g/dL Urine 11/14/24 Range/Units 18:31 Urine Color Yellow (Yellow) Urine Appearance Clear (Clear) Urine pH 7.0 (5.0-9.0) Ur Specific [place] 1.016 (1.001-1.035) Urine Protein Negative (Negative) mg/dL Urine Glucose (UA) Negative (Negative) mg/dL Assessment and Plan Assessment and plan (1) Adult failure to thrive: Code(s): R62.7 - Adult failure to thrive Status: Acute (2) Protein-calorie malnutrition, severe: Code(s): E43 - Unspecified severe protein-calorie malnutrition Status: Acute (3) Iron deficiency anemia: Code(s): D50.9 - Iron deficiency anemia, unspecified Status: Acute (4) Syncope: Code(s): R55 - Syncope and collapse Status: Acute Plan This is a 78-year-old male who presents to the ED by ambulance from home because of syncope. Patient is a poor historian. Patient states that he got out of bed and immediately passed out on the floor. He regained consciousness and was able to get up reports no obvious injuries and called his daughter who is in vacation in [place]. His daughter called 911 who came to the home and brought the patient to the ER for evaluation. Patient had similar episode in the past. Patient has been placed on midodrine for the same. Patient has not been eating well at home. He was discharged from our facility on 10/27/2024 as he declined to go to a nursing facility. In the ED his blood pressure is borderline otherwise unremarkable vitals. Laboratory workup revealed hemoglobin of 9.3 WBC and a 4.4 platelet count 207. Chem panel showed sodium of 135 potassium 4.4 chloride 102 bicarbonate 29 BUN 25 creatinine 0.8 blood glucose of 120. Troponin was negative BNP was 525. EKG showed normal sinus rhythm with nonspecific ST-T changes with some peaked T waves. Chest x-ray with small interstitial and airspace opacities scattered throughout both lungs. Differential includes but not limited to edema or pneumonia. He received some IV fluid bolus in the ER Patient admitted in this setting for further treatment and likely alf placement. Syncope recent echo with normal biventricular size and systolic function EF 55-60%. Recent cosyntropin test was negative Abnormal chest x-ray no respiratory symptoms reported. Will recheck in a.m. follow clinically Recurrent falls Poor p.o. intake Failure to thrive Orthostatic hypotension was added on midodrine with some improvement. Neurology consult Dementia DVT prophylaxis Lovenox Code status full code Disposition PT OT to see likely needs alf placement Hospitalist MIPS Advance Care Plan I have confirmed that the patient's Advanced Care Plan is present, code status is documented, or surrogate decision maker is listed in patient medical record.: Yes Medication Reconciliation I have utilized all available resources to obtain, update and review the patients current medications (includes all prescriptions, OTC, herbals, cannabis, and nutritional supplements).: Yes
--- NOTE | 2024-11-14 20:56 | ADMGEN ---
This patient, Maxi Allred, was admitted to Medical Room 243-01. Patient/family oriented to hospital policies and general routines including ID bracelet, bed and alarms, visiting hours, pain management, procedures, bathroom and other care routines, personal items, smoking policy, room service/diet, and visiting hours. Information on how to activate the Rapid Response Team has been discussed. Patient/Family are encouraged to report perceived risks to care and to ask questions if they do not understand what they are told or what they should do.
[2024-11-15] VITALS (13 sets, daily range): BP systolic 84–113; BP diastolic 47–61; PULSE 60–77; RESP 16–20; TEMP 36.2–36.4; O2SAT 97–100; BMI 19.7
[2024-11-15] MEDS: LORazepam (*CRX) 0.5 MG TABLET PO (04:25)
[2024-11-15] MEDS: SODIUM CHLORIDE 0.9% IV 1,000 ML 100 ML IV CONT (04:29)
[2024-11-15 05:01] LABS: Hematocrit 28.7 % (42.0-52.0); Hemoglobin 8.9 g/dL (14.0-18.0); Immature Granulocyte Percent A 0.4 % (0-0.5); Lymphocytes Absolute Auto 0.91 K/mm3 (0.9-3.2); Mean Corpuscular HGB Conc 31.0 g/dl (32-36); Mean Corpuscular Hemoglobin 29.2 pg (26-34); Mean Corpuscular Volume 94.1 fl (80-100); Nucleated Red Blood Cells Absolute Auto 0.000 K/mm3 (0.0-0.012); Nucleated Red Blood Cells Perc 0.0 % (0.0-0.2); Platelet Count Result 200 k/mm3 (150-375); Red Blood Count 3.05 M/mm3 (4.6-6.20); White Blood Count 4.8 K/mm3 (4.5-10.0)
[2024-11-15 05:14] LABS: Alanine Aminotransferase 27 U/L (6-50); Albumin Level 3.0 g/dL (3.5-5.1); Alkaline Phosphatase 87 U/L (38-126); Anion Gap 0 mmol/L (4-12); Aspartate Amino Transferase 32 U/L (17-59); Bilirubin,Total 0.4 mg/dL (0.2-1.3); Blood Urea Nitrogen 22 mg/dL (9-20); Calcium 7.9 mg/dL (8.4-10.2); Carbon Dioxide 28 mmol/L (22-30); Chloride 105 mmol/L (98-107); Estimated CRCL calculation 59 ml/min; Estimated Glomerular Filt Rate > 60; Glucose 89 mg/dL (65-110); Magnesium 2.2 mg/dL (1.6-2.3); Potassium 4.6 mmol/L (3.4-5.0); Sodium 133 mmol/L (137-145); Total Protein 5.4 g/dL (6.3-8.2)
--- NOTE | 2024-11-15 07:17 | P.PNIM_ITS ---
Progress Note: A&P Assessment and Plan (1) Syncope: Code(s): R55 - Syncope and collapse Status: Acute Assessment and Plan: - initial CXR with small interstitial and airspace opacities scattered throughout the lungs - repeat 2VW CXR no acute process - echo 10/19/24 with normal EF, no significant valvular abnormalities - EKG NSR, no acute ST changes - Recent cosyntropin test was negative - suspect symptoms secondary to orthostatic hypotension. Polypharmacy likely contributing - s/p IV fluids - compression stockings ordered - continue home midodrine - stop Flomax. May need consider weaning down narcotics in the outpatient setting. Will be very difficult as patient has been on these medications for a very long time - PT/OT (2) Adult failure to thrive: Code(s): R62.7 - Adult failure to thrive Status: Acute Assessment and Plan: - reports 30 lbs weight loss over the last year - reports poor appetite - dietitian consulted - PT/OT (3) Protein-calorie malnutrition, severe: Code(s): E43 - Unspecified severe protein-calorie malnutrition Status: Acute Assessment and Plan: - dietitian consulted (4) Iron deficiency anemia: Code(s): D50.9 - Iron deficiency anemia, unspecified Status: Acute Assessment and Plan: - Hgb 8.9 - likely due to poor intake - continue iron supplementation Plan DVT prophylaxis: Lovenox Disposition: PT OT to see likely needs residential placement Subjective Date/time seen: 11/15/24 07:17 Interval history: 78-year-old male who presents to the ED by ambulance from home with syncope. Patient was able to stand this AM without any lightheadedness despite + orthostatics. Denied chest pain or SOB. Admitted to poor PO intake. Review of Systems Review of Systems: All systems reviewed & are unremarkable except as noted in HPI and below Exam Narrative: General: chronically ill-appearing, frail Eyes: EOMI ENT: neck supple Cardiovascular: Regular rate and rhythm Respiratory: Clear to auscultation, respirations even and unlabored on RA Gastrointestinal: Soft, non tender Genitourinary: no suprapubic tenderness Musculoskeletal: No edema Skin: warm, dry Neuro: Alert. Psych: Mood appropriate Objective Data Vital Signs Vital Signs: Vital Signs - 24 hr 11/14/24 15:48 11/14/24 16:05 11/14/24 16:09 Temperature 98.4 F Pulse Rate 62 63 66 Respiratory Rate 16 11 L Blood Pressure 101/63 104/58 L 100/54 L Pulse Oximetry 99 98 Oxygen Delivery Room Air 11/14/24 16:09 11/14/24 16:10 11/14/24 16:11 Temperature Pulse Rate 68 67 69 Respiratory Rate 9 L 15 Blood Pressure 88/58 L 100/54 L 88/58 L Pulse Oximetry 97 99 Oxygen Delivery 11/14/24 16:31 11/14/24 17:01 11/14/24 17:31 Temperature Pulse Rate 66 71 68 Respiratory Rate 13 8 L 8 L Blood Pressure 104/58 L 106/56 L 105/55 L Pulse Oximetry 97 97 97 Oxygen Delivery 11/14/24 18:01 11/14/24 18:30 11/14/24 19:02 Temperature Pulse Rate 69 70 67 Respiratory Rate 8 L 14 16 Blood Pressure 107/58 L 116/58 L 117/64 Pulse Oximetry 97 99 Oxygen Delivery 11/14/24 20:00 11/14/24 21:11 11/14/24 23:51 Temperature 98.4 F 97.9 F Pulse Rate 66 62 Respiratory Rate 20 20 Blood Pressure 154/74 H 100/53 L Pulse Oximetry 94 96 Oxygen Delivery Room Air 11/15/24 00:00 11/15/24 04:00 11/15/24 04:00 Temperature 97.2 F L Pulse Rate 62 62 61 Respiratory Rate 20 Blood Pressure 97/47 L Pulse Oximetry 97 Oxygen Delivery Intake/Output Intake/Output: Intake & Output 11/12/24 11/13/24 11/14/24 11/15/24 23:59 23:59 23:59 23:59 Intake Total 1000 1373.3 Output Total 400 600 Balance 600 773.3 Meds/Results Medications: Active Medications Generic Name Dose Route Start Last Admin Trade Name Freq PRN Reason Stop Dose Admin Acetaminophen 650 mg 11/14/24 18:52 Acetaminophen 650 Mg Suppository RECTAL Q6H PRN Mild Pain (1-3) or Fever Ferrous Sulfate 325 mg 11/15/24 08:00 Ferrous Sulfate [address] PO DAILY@0800 [facility] Gabapentin 800 mg 11/15/24 09:00 Gabapentin 400 Mg Capsule PO TID [facility] Sodium Chloride 1,000 mls @ 100 mls/hr 11/14/24 18:55 11/15/24 04:29 Normal Saline Iv IV CONT 100 mls/hr .Q10H FERNANDO Administration Lorazepam 0.5 mg 11/15/24 03:14 11/15/24 04:25 Lorazepam (*Crx) 0.5 Mg Tablet PO 0.5 mg QPM PRN Administration Insomnia Magnesium Citrate 150 ml 11/15/24 03:14 Magnesium Citrate 300 Ml Btl PO BID PRN Constipation Memantine 5 mg 11/15/24 09:00 Memantine 5 Mg Tablet PO BID FERNANDO Methadone HCl 10 mg 11/15/24 06:00 Methadone Hcl (*Crx) 10 Mg Tablet PO Q8HR FERNANDO Midodrine 10 mg 11/15/24 09:00 Midodrine Hcl 10 Mg Tablet PO TID [facility] Montelukast Sodium 10 mg 11/15/24 09:00 Montelukast Sodium 10 Mg Tablet PO DAILY [facility] Nortriptyline HCl 75 mg 11/15/24 09:00 Nortriptyline Hcl 25 Mg Capsule PO Q12HR [facility] Polyethylene Glycol 17 gm 11/15/24 09:00 Polyethylene Glycol 3350 17 Gm Powd.Pack PO BID [facility] Senna 8.6 mg 11/15/24 03:34 Sennosides 8.6 Mg Tablet PO HS PRN constipation Sertraline HCl 50 mg 11/15/24 09:00 Sertraline Hcl 50 Mg Tablet PO DAILY [facility] Tamsulosin HCl 0.4 mg 11/15/24 09:00 Tamsulosin Hcl 0.4 Mg Capsule PO QAM [facility] Radiology Results: ITS Impressions Chest X-Ray 11/14/24 16:56 IMPRESSION: 1: Small interstitial and airspace opacities scattered throughout both lungs. Differential includes but is not limited to edema or pneumonia. Follow-up is recommended. Labs Labs: Laboratory Results - last 24 hr 11/14/24 11/14/24 11/15/24 17:00 18:31 04:17 WBC 4.4 L 4.8 RBC 3.15 L 3.05 L Hgb 9.3 L 8.9 L Hct 29.7 L 28.7 L MCV 94.3 94.1 MCH 29.5 29.2 MCHC 31.3 L 31.0 L RDW 12.8 12.8 Plt Count 207 200 MPV 9.2 9.1 Immature Gran % (Auto) 0.2 0.4 Neut % (Auto) 65.1 62.1 Lymph % (Auto) 18.1 L 19.2 [place] % (Auto) 9.5 H 10.3 H Eos % (Auto) 6.6 H 7.4 H Baso % (Auto) 0.5 0.6 Lymph # (Auto) 0.80 L 0.91 [place] # (Auto) 0.4 0.5 Eos # (Auto) 0.3 0.4 H Baso # (Auto) 0.0 0.0 Abs Immat Gran (auto) 0.01 0.02 Absolute Neuts (auto) 2.9 3.0 Absolute Nucleated RBC 0.000 0.000 Nucleated RBC % 0.0 0.0 PT 13.3 INR 1.0 APTT 31.2 Sodium 135 L 133 L Potassium 4.4 4.6 Chloride 102 105 Carbon Dioxide 29 28 Anion Gap 4 0 L BUN 25 H 22 H Creatinine 0.88 0.81 Estim Creat Clear Calc 55 59 Estimated GFR > 60 > 60 Glucose 120 H 89 Calcium 8.3 L 7.9 L Magnesium 2.2 Total Bilirubin 0.3 0.4 AST 36 32 ALT 31 27 Alkaline Phosphatase 88 87 Troponin I < 0.012 NT-Pro-B Natriuret Pep 525 H Total Protein 5.6 L 5.4 L Albumin 3.2 L 3.0 L Urine Color Yellow Urine Appearance Clear Urine pH 7.0 Ur Specific [place] 1.016 Urine Protein Negative Urine Glucose (UA) Negative Urine Ketones Negative Ur Blood (Man) Negative Urine Nitrate Negative Urine Bilirubin Negative Urine Urobilinogen 0.2 Leukocyte Esterase Rfl Negative
[2024-11-15] MEDS: FERROUS SULFATE 325 MG TABLET DR PO (09:34)
[2024-11-15] MEDS: MIDODRINE HCL 10 MG TABLET PO ×3 (09:34→16:13)
[2024-11-15] MEDS: NORTRIPTYLINE HCL 25 MG CAPSULE 75 MG PO ×2 (09:34→21:28)
[2024-11-15] MEDS: GABAPENTIN 400 MG CAPSULE 800 MG PO ×3 (09:34→16:12)
[2024-11-15] MEDS: SERTRALINE HCL 50 MG TABLET PO (09:34)
[2024-11-15] MEDS: MEMANTINE 5 MG TABLET PO ×2 (09:35→16:12)
[2024-11-15] MEDS: MONTELUKAST SODIUM 10 MG TABLET PO (09:35)
[2024-11-15] MEDS: methADONE HCL (*CRX) 10 MG TABLET PO ×3 (09:35→21:28)
[2024-11-15] MEDS: TAMSULOSIN HCL 0.4 MG CAPSULE PO (09:35)
--- NOTE | 2024-11-15 11:21 | PC.NURSE ---
RN updated family member and temporary POA, Daylin, after receiving permission from patient.
[2024-11-15] MEDS: oxyCODONE HCL (*CRX) 5 MG TAB IR 30 MG PO ×3 (12:02→21:45)
[2024-11-16] VITALS (16 sets, daily range): BP systolic 54–143; BP diastolic 35–73; PULSE 62–114; RESP 18–20; TEMP 36.1–36.9; O2SAT 94–98
[2024-11-16] MEDS: oxyCODONE HCL (*CRX) 5 MG TAB IR 30 MG PO (04:17)
[2024-11-16 05:00] LABS: Hematocrit 33.5 % (42.0-52.0); Hemoglobin 10.4 g/dL (14.0-18.0); Immature Granulocyte Percent A 0.4 % (0-0.5); Lymphocytes Absolute Auto 0.99 K/mm3 (0.9-3.2); Mean Corpuscular HGB Conc 31.0 g/dl (32-36); Mean Corpuscular Hemoglobin 30.0 pg (26-34); Mean Corpuscular Volume 96.5 fl (80-100); Nucleated Red Blood Cells Absolute Auto 0.000 K/mm3 (0.0-0.012); Nucleated Red Blood Cells Perc 0.0 % (0.0-0.2); Platelet Count Result 237 k/mm3 (150-375); Red Blood Count 3.47 M/mm3 (4.6-6.20); White Blood Count 4.7 K/mm3 (4.5-10.0)
[2024-11-16 05:12] LABS: Anion Gap 5 mmol/L (4-12); Blood Urea Nitrogen 22 mg/dL (9-20); Calcium 8.8 mg/dL (8.4-10.2); Carbon Dioxide 28 mmol/L (22-30); Chloride 103 mmol/L (98-107); Estimated CRCL calculation 52 ml/min; Estimated Glomerular Filt Rate > 60; Glucose 85 mg/dL (65-110); Potassium 4.5 mmol/L (3.4-5.0); Sodium 136 mmol/L (137-145)
[2024-11-16 05:43] LABS: Thyroid Stimulating Hormone Reflex 3.590 uIU/mL (0.465-4.68)
[2024-11-16] MEDS: methADONE HCL (*CRX) 10 MG TABLET PO ×2 (06:12→13:40)
--- NOTE | 2024-11-16 07:21 | P.PNIM_ITS ---
Progress Note: A&P Assessment and Plan (1) Syncope: Code(s): R55 - Syncope and collapse Status: Acute Assessment and Plan: - initial CXR with small interstitial and airspace opacities scattered throughout the lungs - repeat 2VW CXR no acute process - echo 10/19/24 with normal EF, no significant valvular abnormalities - EKG NSR, no acute ST changes - Recent cosyntropin test was negative - suspect symptoms secondary to orthostatic hypotension. Polypharmacy likely contributing to low BP. - s/p IV fluids - compression stockings ordered - continue home midodrine - Hold Flomax. Decrease oxycodone to q8H dosing with hold parameters. Would benefit from continued weaning from narcotics. Will be very difficult as patient has been on these medications for a very long time - PT/OT recs SNF, care coordination following - given persistent severe orthostasis, will consult cardiology. Appreciate recs. (2) Adult failure to thrive: Code(s): R62.7 - Adult failure to thrive Status: Acute Assessment and Plan: - reports 30 lbs weight loss over the last year - reports poor appetite - dietitian consulted - PT/OT (3) Protein-calorie malnutrition, severe: Code(s): E43 - Unspecified severe protein-calorie malnutrition Status: Acute Assessment and Plan: - dietitian consulted (4) Iron deficiency anemia: Code(s): D50.9 - Iron deficiency anemia, unspecified Status: Acute Assessment and Plan: - Hgb 10.4, stable - likely due to poor intake - continue iron supplementation (5) Neuropathy: Code(s): G62.9 - Polyneuropathy, unspecified Status: Acute Assessment and Plan: - managed by pain management. Managed on oxycodone 30 mg q6H PRN, methadone 10mg TID, gabapentin 800 mg TID. - decreasing oxycodone frequency. Needs to follow-up with pain management and consider continued weaning of medications to improve orthostasis Plan DVT prophylaxis: Lovenox Disposition: [facility] Date/time seen: 11/16/24 07:21 Interval history: 78-year-old male who presents to the ED by ambulance from home with syncope. Patient had episode of severe orthostasis this AM with BP dropping to 54/35 upon standing. Patient was apparently minimally symptomatic and maintained consciousness. Patient reports improving appetite and better intake. Patient also reported he choked on his dentures last night. Encouraged to remove dentures prior to sleep. Review of Systems Review of Systems: All systems reviewed & are unremarkable except as noted in HPI and below Exam Narrative: General: chronically ill-appearing, frail Eyes: EOMI ENT: neck supple Cardiovascular: Regular rate and rhythm Respiratory: Clear to auscultation, respirations even and unlabored on RA Gastrointestinal: Soft, non tender Genitourinary: no suprapubic tenderness Musculoskeletal: No edema Skin: warm, dry Neuro: Alert. Psych: Mood appropriate Objective Data Vital Signs Vital Signs: Vital Signs - 24 hr 11/15/24 08:00 11/15/24 08:00 11/15/24 09:02 Temperature Pulse Rate 77 60 Respiratory Rate 18 Blood Pressure 106/53 L Pulse Oximetry 99 Oxygen Delivery Room Air 11/15/24 09:02 11/15/24 09:05 11/15/24 09:09 Temperature Pulse Rate 60 67 67 Respiratory Rate 18 Blood Pressure 106/53 L 99/56 L 84/56 L Pulse Oximetry 99 99 99 Oxygen Delivery 11/15/24 12:00 11/15/24 13:29 11/15/24 14:42 Temperature Pulse Rate 61 Respiratory Rate Blood Pressure 104/53 L Pulse Oximetry Oxygen Delivery Room Air 11/15/24 14:42 11/15/24 16:09 11/15/24 20:00 Temperature 97.6 F Pulse Rate 60 60 Respiratory Rate 16 18 Blood Pressure 103/57 L 109/59 L 113/56 L Pulse Oximetry 98 100 Oxygen Delivery 11/15/24 20:00 11/15/24 20:00 11/15/24 20:00 Temperature 97.6 F Pulse Rate 60 60 Respiratory Rate 18 Blood Pressure 113/56 L Pulse Oximetry 100 Oxygen Delivery Room Air 11/15/24 20:25 11/15/24 20:38 11/16/24 00:00 Temperature 97.4 F L 97.3 F L 97.8 F Pulse Rate 60 69 66 Respiratory Rate 18 18 18 Blood Pressure 105/55 L 90/61 L 109/51 L Pulse Oximetry 100 100 98 Oxygen Delivery 11/16/24 00:00 11/16/24 04:00 11/16/24 04:00 Temperature 97.2 F L Pulse Rate 65 91 81 Respiratory Rate 18 Blood Pressure 125/61 Pulse Oximetry 98 Oxygen Delivery 11/16/24 04:34 11/16/24 06:06 Temperature 98.4 F Pulse Rate 84 64 Respiratory Rate 20 18 Blood Pressure 125/73 95/55 L Pulse Oximetry 97 94 Oxygen Delivery Intake/Output Intake/Output: Intake & Output 11/13/24 11/14/24 11/15/24 11/16/24 23:59 23:59 23:59 23:59 Intake Total 1000 2083.3 Output Total 400 1775 300 Balance 600 308.3 -300 Meds/Results Medications: Active Medications Generic Name Dose Route Start Last Admin Trade Name Freq PRN Reason Stop Dose Admin Acetaminophen 650 mg 11/14/24 18:52 Acetaminophen 650 Mg Suppository RECTAL Q6H PRN Mild Pain (1-3) or Fever Ferrous Sulfate 325 mg 11/15/24 08:00 11/15/24 09:34 Ferrous Sulfate [address] PO 325 mg DAILY@0800 FERNANDO Administration Gabapentin 800 mg 11/15/24 09:00 11/15/24 16:12 Gabapentin 400 Mg Capsule PO 800 mg TID FERNANDO Administration Magnesium Citrate 150 ml 11/15/24 03:14 Magnesium Citrate 300 Ml Btl PO BID PRN Constipation Memantine 5 mg 11/15/24 09:00 11/15/24 16:12 Memantine 5 Mg Tablet PO 5 mg BID FERNANDO Administration Methadone HCl 10 mg 11/15/24 06:00 11/16/24 06:12 Methadone Hcl (*Crx) 10 Mg Tablet PO 10 mg Q8HR FERNANDO Administration Midodrine 10 mg 11/15/24 09:00 11/15/24 16:13 Midodrine Hcl 10 Mg Tablet PO 10 mg TID FERNANDO Administration Montelukast Sodium 10 mg 11/15/24 09:00 11/15/24 09:35 Montelukast Sodium 10 Mg Tablet PO 10 mg DAILY FERNANDO Administration Nortriptyline HCl 75 mg 11/15/24 09:00 11/15/24 21:28 Nortriptyline Hcl 25 Mg Capsule PO 75 mg Q12HR FERNANDO Administration Oxycodone HCl 30 mg 11/15/24 12:15 11/16/24 04:17 Oxycodone Hcl (*Crx) 5 Mg Tab Ir PO 30 mg Q6HR PRN Administration pain Polyethylene Glycol 17 gm 11/15/24 09:00 11/15/24 16:13 Polyethylene Glycol 3350 17 Gm Powd.Pack PO 17 gm BID FERNANDO Administration Senna 8.6 mg 11/15/24 03:34 Sennosides 8.6 Mg Tablet PO HS PRN constipation Sertraline HCl 50 mg 11/15/24 09:00 11/15/24 09:34 Sertraline Hcl 50 Mg Tablet PO 50 mg DAILY FERNANDO Administration Tamsulosin HCl 0.4 mg 11/16/24 21:00 Tamsulosin Hcl 0.4 Mg Capsule PO BEDTIME [facility] Radiology Results: ITS Impressions Chest X-Ray 11/15/24 09:28 IMPRESSION: 1: No acute pulmonary process identified. Labs Labs: Laboratory Results - last 24 hr 11/16/24 04:17 WBC 4.7 RBC 3.47 L Hgb 10.4 L Hct 33.5 L MCV 96.5 MCH 30.0 MCHC 31.0 L RDW 12.9 Plt Count 237 MPV 9.1 Immature Gran % (Auto) 0.4 Neut % (Auto) 62.7 Lymph % (Auto) 21.0 Cocke % (Auto) 7.0 Eos % (Auto) 8.5 H Baso % (Auto) 0.4 Lymph # (Auto) 0.99 [place] # (Auto) 0.3 Eos # (Auto) 0.4 H Baso # (Auto) 0.0 Abs Immat Gran (auto) 0.02 Absolute Neuts (auto) 3.0 Absolute Nucleated RBC 0.000 Nucleated RBC % 0.0 Sodium 136 L Potassium 4.5 Chloride 103 Carbon Dioxide 28 Anion Gap 5 BUN 22 H Creatinine 0.93 Estim Creat Clear Calc 52 Estimated GFR > 60 Glucose 85 Calcium 8.8 TSH (Reflex) 3.590
[2024-11-16] MEDS: NORTRIPTYLINE HCL 25 MG CAPSULE 75 MG PO (08:44)
[2024-11-16] MEDS: MEMANTINE 5 MG TABLET PO (08:44)
[2024-11-16] MEDS: FERROUS SULFATE 325 MG TABLET DR PO (08:44)
[2024-11-16] MEDS: GABAPENTIN 400 MG CAPSULE 800 MG PO ×2 (08:44→12:22)
[2024-11-16] MEDS: MIDODRINE HCL 10 MG TABLET PO ×2 (08:44→12:22)
[2024-11-16] MEDS: MONTELUKAST SODIUM 10 MG TABLET PO (08:44)
[2024-11-16] MEDS: SERTRALINE HCL 50 MG TABLET PO (08:44)
--- NOTE | 2024-11-16 09:47 | PCOTNOTE ---
Attempted to see for OT evaluation. Patient's BP is too low at this time. Hold today.
--- NOTE | 2024-11-16 10:23 | PM.CNCAR ---
Assessment and Plan Assessment and plan (1) Orthostatic hypotension: Code(s): I95.1 - Orthostatic hypotension Status: Acute (2) Syncope: Code(s): R55 - Syncope and collapse Status: Acute (3) Adult failure to thrive: Code(s): R62.7 - Adult failure to thrive Status: Acute Plan -syncope -orthostatic hypotension -failure to thrive Patient presents to the hospital with syncope after standing up from sitting position consistent with vasovagal syncope. He is orthostatic. At home he takes midodrine. BUN to creatinine ratio is elevated consistent with some degree of dehydration. Patient admits that he does not eat or drink well. Agree with IV fluids. Patient need to be reminded at home to drink fluids regularly. If social support is poor consider correction. Continue midodrine. -[place] failure to thrive, workup per primary team to exclude organic versus psychiatric illness that contributes to poor oral intake. History of Present Illness History of Present Illness Consult date/time: Date of service 11/16/24 10:23 Requesting physician: Camryn Cedeno PA Consult reason: Other (Syncope, severe orthostatic hypotension) Reason For Visit: orthostatic hypotension, syncope, rehab placement Narrative: This is 78-year-old patient with history of failure to thrive, orthostatic hypotension on midodrine, memory loss, who apparently got out of bed and then passed out. He called his daughter who was on vacation in [facility] who called EMS and was brought into the ER. His granddaughter lives with him. He does drink 1. Has no appetite. Denies chest pain, shortness of breath, lower extremity edema. BUN 22, creatinine 0.9, hemoglobin 10.4. Echo done September 2024 shows normal LV function. EKG done during this admission reviewed and asthma social was normal sinus rhythm, chest x-ray unremarkable. Review of Systems Review of Systems: All systems reviewed & are unremarkable except as noted in HPI and below Constitutional: Constitutional: Reports fatigue and Reports weakness Comments: Lack of appetite Eyes: Eyes: Denies blurry vision ENT: Denies tinnitus Cardiovascular: Cardiovascular: Denies chest pain Respiratory: Respiratory: Denies chest congestion Gastrointestinal: Gastrointestinal: Denies abdominal pain and Denies vomiting Genitourinary: Genitourinary: Denies urinary urgency Musculoskeletal: Musculoskeletal: Denies back pain Integumentary/Breasts: Skin/Breast: Denies dry skin and Denies pruritus Neurologic: Denies confusion Psychiatric: Psychiatric: Denies confusion Endocrine: Endocrine: Reports fatigue Hematologic/Lymphatic: Hematologic/Lymphatic: Denies easy bleeding Allergic/Immunologic: Allergic/Immunologic: Denies lip swelling PMFSH Past Medical History Medical History Incomplete bladder emptying Family History Family History Father Diabetes mellitus Mother Cancer Social History Social History Smoking status: Smoker, status unknown Tobacco type: cigarettes and e-cigarettes/vaping Smoking end date: 03/27/74 Alcohol intake: never Substance use: never Substance use type: prescription drug Do You Feel Safe in your Home?: Yes Lack of Transportation: No Lack of Food: Never True Current Housing: I Have Housing Concerned About Future Housing: No Difficulty Paying Gas/Electric Bills: No Difficulty Paying for Meds: No Currently Unemployed: No Education: High School Diploma/GED Difficulty w/ Childcare or Family Care: No Living arrangements: with family Occupation/Education: retired Gender identity (if verbalized by the patient): Male Spiritual care concerns: No Meds Home Medications and Allergies Home Medications ?Medication ?Instructions ?Recorded ?Confirmed ?Type lorazepam 0.5 mg tablet 0.5 mg PO QPM PRN insomnia 04/05/22 11/14/24 History oxycodone 30 mg tablet 30 mg PO .fives time a day 04/05/22 11/14/24 History magnesium citrate 150 ml PO BID PRN constipation 08/29/24 11/14/24 Rx #296 mL polyethylene glycol 3350 17 gram 17 g PO BID #30 ea 08/29/24 11/14/24 Rx oral powder packet (Miralax) sennosides 8.6 mg capsule (senna) 8.6 mg PO HS PRN constipation #30 08/29/24 11/14/24 Rx caps memantine 5 mg tablet 5 mg PO BID 10/17/24 11/14/24 History montelukast 10 mg tablet 10 mg PO DAILY 10/17/24 11/14/24 History sertraline 50 mg tablet 50 mg PO DAILY 10/17/24 11/14/24 History ferrous sulfate 325 mg (65 mg 325 mg PO DAILY@0800 #30 tabs 10/27/24 11/14/24 Rx iron) tablet,delayed release midodrine 10 mg tablet 10 mg PO TID #90 tabs 10/27/24 11/14/24 Rx tamsulosin 0.4 mg capsule 0.4 mg PO QAM #30 caps 10/27/24 11/14/24 Rx gabapentin 800 mg tablet 800 mg PO TID 11/14/24 11/14/24 History methadone 10 mg tablet 10 mg PO Q8H 11/14/24 11/14/24 History nortriptyline 75 mg capsule 75 mg PO Q12H 11/14/24 11/14/24 History Allergies Allergy/AdvReac Type Severity Reaction Status Date / Time No Known Allergies Allergy Verified 10/17/24 20:27 Vital Signs Vital Signs - 24 hr 11/15/24 12:00 11/15/24 13:29 11/15/24 14:42 Temperature Pulse Rate 61 Respiratory Rate Blood Pressure 104/53 L Pulse Oximetry Oxygen Delivery Room Air 11/15/24 14:42 11/15/24 16:09 11/15/24 20:00 Temperature 36.4 C Pulse Rate 60 60 Respiratory Rate 16 18 Blood Pressure 103/57 L 109/59 L 113/56 L Pulse Oximetry 98 100 Oxygen Delivery 11/15/24 20:00 11/15/24 20:00 11/15/24 20:00 Temperature 36.4 C Pulse Rate 60 60 Respiratory Rate 18 Blood Pressure 113/56 L Pulse Oximetry 100 Oxygen Delivery Room Air 11/15/24 20:25 11/15/24 20:38 11/16/24 00:00 Temperature 36.3 C L 36.3 C L 36.6 C Pulse Rate 60 69 66 Respiratory Rate 18 18 18 Blood Pressure 105/55 L 90/61 L 109/51 L Pulse Oximetry 100 100 98 Oxygen Delivery 11/16/24 00:00 11/16/24 04:00 11/16/24 04:00 Temperature 36.2 C L Pulse Rate 65 91 81 Respiratory Rate 18 Blood Pressure 125/61 Pulse Oximetry 98 Oxygen Delivery 11/16/24 04:34 11/16/24 06:06 11/16/24 08:00 Temperature 36.9 C Pulse Rate 84 64 70 Respiratory Rate 20 18 Blood Pressure 125/73 95/55 L 95/51 L Pulse Oximetry 97 94 Oxygen Delivery 11/16/24 09:32 11/16/24 09:32 11/16/24 09:55 Temperature 36.3 C L Pulse Rate 70 76 70 Respiratory Rate 18 Blood Pressure 79/47 L 54/35 L 98/52 L Pulse Oximetry 97 Oxygen Delivery Exam Const: Other: Cachectic HENMT: Face/Nose/Sinus: no epistaxis Neck: Neck: no JVD Chest: Other: Will expansion Resp: Auscultation: no crackles Cardio: Rate: regular rate Heart sounds: no murmurs GI: GI Palp: No Tenderness to palpation present (GI) : Male General Exam: No ecchymosis Skin: Rashes: no rashes noted Neuro: Speech: normal speech Extrem: General: no edema Psych: Affect: normal affect Results Labs and Meds 11/16/24 04:17 11/16/24 04:17 Lab results: CBC 11/16/24 Range/Units 04:17 WBC 4.7 (4.5-10.0) K/mm3 RBC 3.47 L (4.6-6.20) M/mm3 Hgb 10.4 L (14.0-18.0) g/dL Hct 33.5 L (42.0-52.0) % Plt Count 237 (150-375) k/mm3 Lymph # (Auto) 0.99 (0.9-3.2) K/mm3 [place] # (Auto) 0.3 (0.1-0.6) K/mm3 Eos # (Auto) 0.4 H (0-0.3) K/mm3 Baso # (Auto) 0.0 (0.0-0.1) K/mm3 Comprehensive Metabolic Panel 11/16/24 Range/Units 04:17 Sodium 136 L (137-145) mmol/L Potassium 4.5 (3.4-5.0) mmol/L Chloride 103 (98-107) mmol/L Carbon Dioxide 28 (22-30) mmol/L BUN 22 H (9-20) mg/dL Creatinine 0.93 (0.7-1.3) mg/dL Glucose 85 (65-110) mg/dL Calcium 8.8 (8.4-10.2) mg/dL Intake and Output 11/15/24 11/16/24 11/16/24 23:59 07:59 15:59 Intake Total 350 240 Output Total 400 300 300 Balance -50 -300 -60 Intake: Oral 350 240 Output: Urine 400 300 300
[2024-11-16] MEDS: LACTATED RINGERS 1,000 ML 500 ML IV CONT (11:30)
[2024-11-16] MEDS: SENNOSIDES 8.6 MG TABLET PO ×2 (11:30→16:34)
--- NOTE | 2024-11-16 13:25 | PC.NURSE ---
RN updated patient's POA on patient's status.
--- NOTE | 2024-11-16 16:21 | WPDNEURCNPN ---
Assessment and Plan Assessment and plan (1) Syncope: Code(s): R55 - Syncope and collapse Status: Acute (2) Orthostatic hypotension: Code(s): I95.1 - Orthostatic hypotension Status: Acute Assessment and Plan: This morning at baseline blood pressure was 98/52 and upon standing dropped down to 54/35. These are significant. The patient is on midodrine 10 mg 3 times a day. His heart rate has ranged from 62-76. When I saw him his blood pressure sitting was 117/50. (3) Acute hypotension: Code(s): I95.9 - Hypotension, unspecified Status: Acute Assessment and Plan: This may be due to the effect from some of the medications he is on. In addition they may also contribute to postural hypertension. (4) Adult failure to thrive: Code(s): R62.7 - Adult failure to thrive Status: Acute (5) Protein-calorie malnutrition, severe: Code(s): E43 - Unspecified severe protein-calorie malnutrition Status: Acute (6) Incomplete bladder emptying: Code(s): R33.9 - Retention of urine, unspecified Status: Acute Assessment and Plan: If the patient has prostate problems associated use of Flomax which causes alpha blockade and opposes the effect of midodrine need to be stopped. Alternate drug such as finasteride or similar other options should be considered. You may also consult a urologist for temporary cancer or ablation of the prostate in the situation. (7) Iron deficiency anemia: Code(s): D50.9 - Iron deficiency anemia, unspecified Status: Acute (8) Neuropathy: Code(s): G62.9 - Polyneuropathy, unspecified Status: Acute Assessment and Plan: He may require some evaluation to confirm this diagnosis and look for the causes and treat were necessary. It seems that he is on lot of medications the treatment. I am not sure if he has undergone a neurological evaluation for this condition elsewhere. That information not available to me at this time. Plan I would suggest to hold off the drugs that may lower the blood pressure and hydrate him and keep him on the midodrine and then if his baseline blood pressure improves and still shows for hypotension other options be considered. I would suggest to stop gabapentin and hold methadone. Nortriptyline can cause postural hypertension and has anticholinergic effect which is also not desirable for patient with prostate problem. I shall be glad to discuss this further with you. Consult date: 11/16/24 HPI: Maxi Allred is a 78 year old male Presented to the hospital with the syncopal episode and fall. Her blood pressure was found be low and her it drops further when he stands up. He lives with his granddaughter. He is also on lot of medications for peripheral neuropathy. His hemoglobin is also low at 8.9. Is getting some IV fluids. If you speak. Denies any other specific neurologic symptoms. The patient was discharged from this facility on 10/27/2024. He has not been eating well at home. He has been on midodrine 10 mg 3 times a day. He is also getting lactated Ringer IV fluids. He is also being evaluated by traffic administrator. EKG shows sinus rhythm. Compression stockings are in place. He has also lost 30 lb weight over the last year. History of poor appetite. Dietitian has been consulted. His thought to have protein calorie malnutrition. Also has iron deficiency anemia. Etiology for his peripheral neuropathy is unclear from the records. I do not see where he has had any EMG nerve can study a neurologic evaluation at this institution before she might have had some testing done elsewhere. He is also on memantine 5 mg b.i.d. and methadone mg 3 times a day as a scheduled pain medication. He is also nortriptyline 75 mg at bedtime besides that his oxycodone 30 mg q.6 hourly. Review of Systems Review of Systems: Patient denies any headache or diplopia or weakness in upper lower limbs. States that he can get around himself. No incontinence of urine. No other specific symptoms reported. No febrile illness. He had some problem with urination and he is on Flomax for prostate problems. All systems reviewed & are unremarkable except as noted in HPI and below PMFSH Past Medical History Medical History Incomplete bladder emptying Family History Family History Father Diabetes mellitus Mother Cancer Social History Social History Smoking status: Smoker, status unknown Tobacco type: cigarettes and e-cigarettes/vaping Smoking end date: 03/27/74 Alcohol intake: never Substance use: never Substance use type: prescription drug Do You Feel Safe in your Home?: Yes Lack of Transportation: No Lack of Food: Never True Current Housing: I Have Housing Concerned About Future Housing: No Difficulty Paying Gas/Electric Bills: No Difficulty Paying for Meds: No Currently Unemployed: No Education: High School Diploma/GED Difficulty w/ Childcare or Family Care: No Living arrangements: with family Occupation/Education: retired Gender identity (if verbalized by the patient): Male Spiritual care concerns: No Meds Home Medications and Allergies Home Medications ?Medication ?Instructions ?Recorded ?Confirmed ?Type lorazepam 0.5 mg tablet 0.5 mg PO QPM PRN insomnia 04/05/22 11/14/24 History oxycodone 30 mg tablet 30 mg PO .fives time a day 04/05/22 11/14/24 History magnesium citrate 150 ml PO BID PRN constipation 08/29/24 11/14/24 Rx #296 mL polyethylene glycol 3350 17 gram 17 g PO BID #30 ea 08/29/24 11/14/24 Rx oral powder packet (Miralax) sennosides 8.6 mg capsule (senna) 8.6 mg PO HS PRN constipation #30 08/29/24 11/14/24 Rx caps memantine 5 mg tablet 5 mg PO BID 10/17/24 11/14/24 History montelukast 10 mg tablet 10 mg PO DAILY 10/17/24 11/14/24 History sertraline 50 mg tablet 50 mg PO DAILY 10/17/24 11/14/24 History ferrous sulfate 325 mg (65 mg 325 mg PO DAILY@0800 #30 tabs 10/27/24 11/14/24 Rx iron) tablet,delayed release midodrine 10 mg tablet 10 mg PO TID #90 tabs 10/27/24 11/14/24 Rx tamsulosin 0.4 mg capsule 0.4 mg PO QAM #30 caps 10/27/24 11/14/24 Rx gabapentin 800 mg tablet 800 mg PO TID 11/14/24 11/14/24 History methadone 10 mg tablet 10 mg PO Q8H 11/14/24 11/14/24 History nortriptyline 75 mg capsule 75 mg PO Q12H 11/14/24 11/14/24 History Allergies Allergy/AdvReac Type Severity Reaction Status Date / Time No Known Allergies Allergy Verified 10/17/24 20:27 Vital Signs Vital Signs - 24 hr 11/15/24 20:00 11/15/24 20:00 11/15/24 20:00 Temperature 97.6 F 97.6 F Pulse Rate 60 60 60 Respiratory Rate 18 18 Blood Pressure 113/56 L 113/56 L Pulse Oximetry 100 100 Oxygen Delivery 11/15/24 20:00 11/15/24 20:25 11/15/24 20:38 Temperature 97.4 F L 97.3 F L Pulse Rate 60 69 Respiratory Rate 18 18 Blood Pressure 105/55 L 90/61 L Pulse Oximetry 100 100 Oxygen Delivery Room Air 11/16/24 00:00 11/16/24 00:00 11/16/24 04:00 Temperature 97.8 F 97.2 F L Pulse Rate 66 65 91 Respiratory Rate 18 18 Blood Pressure 109/51 L 125/61 Pulse Oximetry 98 98 Oxygen Delivery 11/16/24 04:00 11/16/24 04:34 11/16/24 06:06 Temperature 98.4 F Pulse Rate 81 84 64 Respiratory Rate 20 18 Blood Pressure 125/73 95/55 L Pulse Oximetry 97 94 Oxygen Delivery 11/16/24 08:00 11/16/24 09:10 11/16/24 09:10 Temperature Pulse Rate 70 77 Respiratory Rate Blood Pressure 95/51 L Pulse Oximetry Oxygen Delivery Room Air 11/16/24 09:32 11/16/24 09:32 11/16/24 09:55 Temperature 97.4 F L Pulse Rate 70 76 70 Respiratory Rate 18 Blood Pressure 79/47 L 54/35 L 98/52 L Pulse Oximetry 97 Oxygen Delivery 11/16/24 12:00 11/16/24 13:20 Temperature 97.7 F Pulse Rate 62 68 Respiratory Rate 18 Blood Pressure 117/50 L Pulse Oximetry 97 Oxygen Delivery Exam Const: General: cooperative, well developed and alert Orientation/consciousness: oriented to person, oriented to place and oriented to time HENMT: Head: atraumatic Mouth: Yes oropharynx normal Eyes: Alignment and Position: position normal Pupils: Equal, round and reactive pupils present EOM: EOMs intact bilaterally Neck: Neck: supple Resp: Effort & Inspection: normal respiratory effort Skin: General skin exam: normal color Neuro: General: Unable to assess gait Cranial nerves: Yes CN's II-XII intact bilaterally, Yes Equal, round and reactive pupils present, Yes Bilaterally intact EOM present, Yes Nystagmus not present, Yes facial symmetry, Yes Midline tongue present, Yes Symmetric palate elevation present and Yes Ability to bilaterally elevate shoulders present Cognition (Neuro): normal cognition Speech: normal speech Motor exam (neuro): 5/5 motor strength present throughout, Motor fasciculations not present, Normal motor muscle tone present throughout and Motor abnormalities not present Sensory Exam: normal sensation Coordination: [id number] test normal and Normal rapid alternating movements of the distal upper extremity present (Neuro) Results Labs 11/16/24 04:17 11/16/24 04:17 Labs: Short CBC 11/16/24 Range/Units 04:17 WBC 4.7 (4.5-10.0) K/mm3 Hgb 10.4 L (14.0-18.0) g/dL Hct 33.5 L (42.0-52.0) % Plt Count 237 (150-375) k/mm3 [facility] 11/16/24 04:17 Sodium 136 L Potassium 4.5 Chloride 103 Carbon Dioxide 28 BUN 22 H Creatinine 0.93 Glucose 85 Calcium 8.8
--- NOTE | 2024-11-16 16:34 | PC.NURSE ---
MD Torres verbally told RN to not administer any of medications. RN got stool softners okayed. Everything else is being stopped.
[2024-11-16] MEDS: ACETAMINOPHEN 325 MG TABLET PO (21:50)
[2024-11-16] MEDS: KETOROLAC 30 MG/ML VIAL (*BKC) IV PUSH (21:56)
[2024-11-17] VITALS (18 sets, daily range): BP systolic 83–134; BP diastolic 46–65; PULSE 78–98; RESP 16–20; TEMP 36.4–37.1; O2SAT 93–100
--- NOTE | 2024-11-17 07:24 | P.PNIM_ITS ---
Progress Note: A&P Assessment and Plan (1) Syncope: Code(s): R55 - Syncope and collapse Status: Acute Assessment and Plan: - initial CXR with small interstitial and airspace opacities scattered throughout the lungs - repeat 2VW CXR no acute process - echo 10/19/24 with normal EF, no significant valvular abnormalities - EKG NSR, no acute ST changes - Recent cosyntropin test was negative - suspect symptoms secondary to orthostatic hypotension. Polypharmacy likely contributing to low BP. - s/p IV fluids - compression stockings ordered - continue home midodrine - neurology consulted - recommended to wean offending medications. Outpatient work-up for neuropathy. - cardiology consulted - agree with maintaining adequate hydration. No further recs. - Flomax switched to alfuzosin per urology. - confirmed home meds with daughter who administers patient's pills - patient is no longer taking gabapentin, nortriptyline or methadone (even though there are recent fills on PDMP). Patient takes oxycodone 30 mg q6H at home. Will decrease to 15 mg with nursing instructions to hold for SBP <100. - PT/OT recs SNF, care coordination following (2) Adult failure to thrive: Code(s): R62.7 - Adult failure to thrive Status: Acute Assessment and Plan: - reports 30 lbs weight loss over the last year - reports poor appetite - dietitian consulted - PT/OT (3) Protein-calorie malnutrition, severe: Code(s): E43 - Unspecified severe protein-calorie malnutrition Status: Acute Assessment and Plan: - dietitian consulted (4) Iron deficiency anemia: Code(s): D50.9 - Iron deficiency anemia, unspecified Status: Acute Assessment and Plan: - Hgb 10.4, stable - likely due to poor intake - continue iron supplementation (5) Neuropathy: Code(s): G62.9 - Polyneuropathy, unspecified Status: Acute Assessment and Plan: - managed by pain management. Managed on oxycodone 30 mg q6H PRN. No longer taking methadone, nortriptyline or gabapentin. - neurology consulted and suggested medication adjustments as above (6) Urinary retention: Code(s): R33.9 - Retention of urine, unspecified Status: Acute Assessment and Plan: - was seen by urology on last admission and started on Flomax - urology consulted and recommended to switch Flomax to alfuzosin - bladder scan q8h and PRN. Straight cath for >400cc or if symptoms of urinary retention (7) Constipation: Code(s): K59.00 - Constipation, unspecified Status: Acute Assessment and Plan: - in setting of opiate use - continue miralax, added senna. Milk of mag x1 today. PRN suppositories Plan DVT prophylaxis: Lovenox Disposition: [facility] Date/time seen: 11/17/24 07:24 Interval history: 78-year-old male who presents to the ED by ambulance from home with syncope. Patient seen and examined at bedside. Eating better and pushing fluids. Denies lightheadedness. Spoke with patient's daughter on the phone who confirmed patient is no longer taking gabapentin, nortriptyline or methadone. Review of Systems Review of Systems: All systems reviewed & are unremarkable except as noted in HPI and below Exam Narrative: General: chronically ill-appearing, frail Eyes: EOMI ENT: neck supple Cardiovascular: Regular rate and rhythm Respiratory: Clear to auscultation, respirations even and unlabored on RA Gastrointestinal: Soft, non tender Genitourinary: no suprapubic tenderness Musculoskeletal: No edema Skin: warm, dry Neuro: Alert. Psych: Mood appropriate Objective Data Vital Signs Vital Signs: Vital Signs - 24 hr 11/16/24 08:00 11/16/24 09:10 11/16/24 09:10 Temperature Pulse Rate 70 77 Respiratory Rate Blood Pressure 95/51 L Pulse Oximetry Oxygen Delivery Room Air 11/16/24 09:32 11/16/24 09:32 11/16/24 09:55 Temperature 97.4 F L Pulse Rate 70 76 70 Respiratory Rate 18 Blood Pressure 79/47 L 54/35 L 98/52 L Pulse Oximetry 97 Oxygen Delivery 11/16/24 12:00 11/16/24 13:20 11/16/24 16:00 Temperature 97.7 F Pulse Rate 62 68 67 Respiratory Rate 18 Blood Pressure 117/50 L Pulse Oximetry 97 Oxygen Delivery 11/16/24 20:00 11/16/24 20:00 11/16/24 20:00 Temperature 97.3 F L Pulse Rate 79 68 Respiratory Rate 18 Blood Pressure 136/59 L Pulse Oximetry 96 Oxygen Delivery Room Air 11/16/24 21:03 11/16/24 22:00 11/16/24 22:05 Temperature 97.3 F L 97.0 F L Pulse Rate 79 75 Respiratory Rate 18 18 Blood Pressure 136/59 L 143/71 H Pulse Oximetry 98 96 96 Oxygen Delivery Room Air 11/16/24 22:08 11/17/24 00:00 11/17/24 02:12 Temperature 97.2 F L 97.6 F Pulse Rate 114 H 89 89 Respiratory Rate 18 16 Blood Pressure 117/72 133/56 L Pulse Oximetry 98 94 Oxygen Delivery 11/17/24 04:00 Temperature Pulse Rate 85 Respiratory Rate Blood Pressure Pulse Oximetry Oxygen Delivery Intake/Output Intake/Output: Intake & Output 11/14/24 11/15/24 11/16/24 11/17/24 23:59 23:59 23:59 23:59 Intake Total 1000 2083.3 720 Output Total 400 1775 2700 Balance 600 308.3 -1980 Meds/Results Medications: Active Medications Generic Name Dose Route Start Last Admin Trade Name Freq PRN Reason Stop Dose Admin Acetaminophen 650 mg 11/14/24 18:52 Acetaminophen 650 Mg Suppository RECTAL Q6H PRN Mild Pain (1-3)/FEVER IF NPO Acetaminophen 325 mg 11/16/24 21:09 11/16/24 21:50 Acetaminophen 325 Mg Tablet PO 325 mg Q6H PRN Administration Mild Pain (1-3) or Fever Ferrous Sulfate 325 mg 11/15/24 08:00 11/16/24 08:44 Ferrous Sulfate [address] PO 325 mg DAILY@0800 FERNANDO Administration Hydroxyzine HCl 25 mg 11/16/24 21:20 11/16/24 21:56 Hydroxyzine Hcl 25 Mg Tablet PO 25 mg Q6H PRN Administration Anxiety Ketorolac Tromethamine 30 mg 11/16/24 21:08 11/16/24 21:56 Ketorolac 30 Mg/Ml Vial (*Bkc) IV PUSH 30 mg Q6H PRN Administration Pain Rated 4-6 Lidocaine 1 patch 11/17/24 09:00 Lidocaine 5% Patch TRANSDERM DAILY FERNANDO Magnesium Citrate 150 ml 11/15/24 03:14 Magnesium Citrate 300 Ml Btl PO BID PRN Constipation Memantine 5 mg 11/15/24 09:00 11/16/24 16:33 Memantine 5 Mg Tablet PO Not Given BID FERNANDO Midodrine 10 mg 11/15/24 09:00 11/16/24 16:33 Midodrine Hcl 10 Mg Tablet PO Not Given TID [facility] Miscellaneous Information 0 each 11/16/24 00:01 Lidocaine Patch Please Add Site Of Use XX 12/16/24 00:00 CLARIFY FERNANDO Montelukast Sodium 10 mg 11/15/24 09:00 11/16/24 08:44 Montelukast Sodium 10 Mg Tablet PO 10 mg DAILY FERNANDO Administration Polyethylene Glycol 17 gm 11/15/24 09:00 11/16/24 16:32 Polyethylene Glycol 3350 17 Gm Powd.Pack PO 17 gm BID FERNANDO Administration Senna 8.6 mg 11/16/24 10:00 11/16/24 16:34 Sennosides 8.6 Mg Tablet PO 8.6 mg BID FERNANDO Administration Sertraline HCl 50 mg 11/15/24 09:00 11/16/24 08:44 Sertraline Hcl 50 Mg Tablet PO 50 mg DAILY FERNANDO Administration Radiology Results: ITS Impressions Chest X-Ray 11/15/24 09:28 IMPRESSION: 1: No acute pulmonary process identified. Quality VTE Prophylaxis VTE prophylaxis: pharmacologic ordered
[2024-11-17] MEDS: LIDOCAINE 5% PATCH 1 PATCH TRANSDERM (09:52)
[2024-11-17] MEDS: MIDODRINE HCL 10 MG TABLET PO ×3 (09:53→16:33)
[2024-11-17] MEDS: [UNRECOGNIZED DRUG - REMARK] XX ×2 (09:54→09:55)
[2024-11-17] MEDS: MONTELUKAST SODIUM 10 MG TABLET PO (09:54)
[2024-11-17] MEDS: FERROUS SULFATE 325 MG TABLET DR PO (09:54)
[2024-11-17] MEDS: ACETAMINOPHEN 325 MG TABLET PO (09:54)
[2024-11-17] MEDS: SERTRALINE HCL 50 MG TABLET PO (09:54)
[2024-11-17] MEDS: MEMANTINE 5 MG TABLET PO ×2 (09:54→16:33)
[2024-11-17] MEDS: SENNOSIDES 8.6 MG TABLET PO ×2 (09:54→16:33)
[2024-11-17] MEDS: methADONE HCL (*CRX) 10 MG TABLET PO (09:57)
--- NOTE | 2024-11-17 10:45 | PC.NURSE ---
RN received call from urologist Lexie about patient's hesitancy, hypotension, and use/stop of flomax. Lexie told RN to bladder scan patient post void every time patient goes pee, keep checking BP, and put in a order for Alfuzosin. RN immediately assisted patient with urinal and patient voided 500 mL out and bladder scan showed 569 mL post void. RN called urologist Lexie and told him and he stated he would be there later to check him out and thought the issue was chronic. RN told GENARO Cowan about issues. RN just had another incident where patient urinated in the urinal again but only 100 mL and post void bladder scan was 573 mL. Patient states they are symptomatic now and feel like they need to go, but cannot.
--- NOTE | 2024-11-17 11:07 | PC.NURSE ---
RN updated patient's daughter about patient's satus.
[2024-11-17] MEDS: MAGNESIUM HYDROXIDE SUSP 30 ML UDC PO (11:52)
[2024-11-17] MEDS: GABAPENTIN 300 MG CAPSULE PO (11:52)
[2024-11-17] MEDS: oxyCODONE HCL (*CRX) 5 MG TAB IR 15 MG PO (20:16)
[2024-11-17 23:58] LABS: IFOB Positive Control Positive; Immunochemical Fecal Occult Bl Negative (N)
[2024-11-18] VITALS (11 sets, daily range): BP systolic 60–123; BP diastolic 35–59; PULSE 61–88; RESP 16–18; TEMP 36.1–36.9; O2SAT 91–98
--- NOTE | 2024-11-18 07:06 | P.PNIM_ITS ---
Progress Note: A&P Assessment and Plan (1) Syncope: Code(s): R55 - Syncope and collapse Status: Acute Assessment and Plan: - echo 10/19/24 with normal EF, no significant valvular abnormalities - EKG NSR, no acute ST changes - Recent cosyntropin test was negative - suspect symptoms secondary to orthostatic hypotension. Polypharmacy likely contributing to low BP. - s/p IV fluids - compression stockings ordered - continue home midodrine - neurology consulted - recommended to wean offending medications. Outpatient work-up for neuropathy. - cardiology consulted - agree with maintaining adequate hydration. No further recs. - Flomax switched to alfuzosin per urology. - confirmed home meds with daughter who administers patient's pills - patient is no longer taking gabapentin, nortriptyline or methadone (even though there are recent fills on PDMP). Patient takes oxycodone 30 mg q6H at home. Will decrease oxycodone to 15 mg with nursing instructions to hold for SBP <100. - PT/OT recs SNF, care coordination following (2) Urinary retention: Code(s): R33.9 - Retention of urine, unspecified Status: Acute Assessment and Plan: - was seen by urology on last admission and started on Flomax - opiates, constipation likely contributing - urology consulted and recommended to switch Flomax to alfuzosin due to orthostasis - persistent bladder scans >500cc. Jarquin catheter placed 11/17. - appreciate urology recs - continue bowel regimen (3) Adult failure to thrive: Code(s): R62.7 - Adult failure to thrive Status: Acute Assessment and Plan: - reports 30 lbs weight loss over the last year - reports poor appetite - dietitian consulted - PT/OT (4) Protein-calorie malnutrition, severe: Code(s): E43 - Unspecified severe protein-calorie malnutrition Status: Acute Assessment and Plan: - dietitian consulted - continue PO supplements (5) Iron deficiency anemia: Code(s): D50.9 - Iron deficiency anemia, unspecified Status: Acute Assessment and Plan: - Hgb 10.4, stable - likely due to poor intake - continue iron supplementation (6) Neuropathy: Code(s): G62.9 - Polyneuropathy, unspecified Status: Acute Assessment and Plan: - managed by pain management. Managed on oxycodone 30 mg q6H PRN. No longer taking methadone, nortriptyline or gabapentin. - neurology consulted and suggested medication adjustments as above. Outpatient work-up for neuropathy. (7) Constipation: Code(s): K59.00 - Constipation, unspecified Status: Acute Assessment and Plan: - in setting of opiate use - continue miralax, senna. PRN suppositories. +BM 11/18 Plan DVT prophylaxis: Lovenox Disposition: [facility] Date/time seen: 11/18/24 07:06 Interval history: 78-year-old male who presents to the ED by ambulance from home with syncope. Patient seen and examined at bedside. Noted + orthos this AM, but taken before AM meds. Patient denied associated lightheadedness. Review of Systems Review of Systems: All systems reviewed & are unremarkable except as noted in HPI and below Exam Narrative: General: chronically ill-appearing, frail Eyes: EOMI ENT: neck supple Cardiovascular: Regular rate and rhythm Respiratory: Clear to auscultation, respirations even and unlabored on RA Gastrointestinal: Soft, non tender Genitourinary: no suprapubic tenderness Musculoskeletal: No edema Skin: warm, dry Neuro: Alert. Psych: Mood appropriate Objective Data Vital Signs Vital Signs: Vital Signs - 24 hr 11/17/24 08:00 11/17/24 08:00 11/17/24 09:20 Temperature Pulse Rate 96 Respiratory Rate Blood Pressure Pulse Oximetry Pulse Oximetry [At Rest After Therapy Session] 100 Oxygen Delivery Room Air Room Air 11/17/24 10:40 11/17/24 12:00 11/17/24 15:10 Temperature 97.9 F 98.4 F Pulse Rate 81 87 78 Respiratory Rate 18 18 Blood Pressure 134/56 L 120/58 L Pulse Oximetry 100 98 Pulse Oximetry [At Rest After Therapy Session] Oxygen Delivery 11/17/24 15:10 11/17/24 15:13 11/17/24 15:17 Temperature 98.4 F 98.7 F 98.1 F Pulse Rate 78 80 90 Respiratory Rate 18 18 18 Blood Pressure 120/58 L 108/56 L 83/46 L Pulse Oximetry 98 100 100 Pulse Oximetry [At Rest After Therapy Session] Oxygen Delivery 11/17/24 16:00 11/17/24 20:00 11/17/24 20:00 Temperature 98.2 F Pulse Rate 78 85 Respiratory Rate 17 Blood Pressure 134/65 Pulse Oximetry 99 Pulse Oximetry [At Rest After Therapy Session] Oxygen Delivery Room Air 11/17/24 20:00 11/17/24 20:08 11/17/24 20:12 Temperature 98.2 F 98.2 F Pulse Rate 98 81 87 Respiratory Rate 17 17 Blood Pressure 134/65 122/56 L Pulse Oximetry 99 98 Pulse Oximetry [At Rest After Therapy Session] Oxygen Delivery 11/17/24 20:15 11/17/24 21:18 11/17/24 23:31 Temperature 98.2 F 98.1 F Pulse Rate 85 82 84 Respiratory Rate 17 20 17 Blood Pressure 95/48 L 131/61 Pulse Oximetry 93 98 98 Pulse Oximetry [At Rest After Therapy Session] Oxygen Delivery Room Air 11/18/24 00:00 11/18/24 03:42 11/18/24 04:00 Temperature 98.5 F Pulse Rate 73 71 70 Respiratory Rate 16 Blood Pressure 123/53 L Pulse Oximetry 98 Pulse Oximetry [At Rest After Therapy Session] Oxygen Delivery Intake/Output Intake/Output: Intake & Output 11/15/24 11/16/24 11/17/24 11/18/24 23:59 23:59 23:59 23:59 Intake Total 2083.3 720 1800 250 Output Total 0160 3110 2500 425 Balance 308.3 -1980 -700 -175 Meds/Results Medications: Active Medications Generic Name Dose Route Start Last Admin Trade Name Freq PRN Reason Stop Dose Admin Acetaminophen 650 mg 11/14/24 18:52 Acetaminophen 650 Mg Suppository RECTAL Q6H PRN Mild Pain (1-3)/FEVER IF NPO Acetaminophen 325 mg 11/16/24 21:09 11/17/24 09:54 Acetaminophen 325 Mg Tablet PO 325 mg Q6H PRN Administration Mild Pain (1-3) or Fever Alfuzosin HCl 10 mg 11/18/24 08:00 Alfuzosin 10 Mg Er Tablet PO DAILY@0800 FERNANDO Bisacodyl 10 mg 11/17/24 09:37 Bisacodyl 10 Mg Suppository RECTAL QAM PRN Constipation Ferrous Sulfate 325 mg 11/15/24 08:00 11/17/24 09:54 Ferrous Sulfate [address] PO 325 mg DAILY@0800 FERNANDO Administration Hydroxyzine HCl 25 mg 11/16/24 21:20 11/17/24 20:17 Hydroxyzine Hcl 25 Mg Tablet PO 25 mg Q6H PRN Administration Anxiety Ketorolac Tromethamine 15 mg 11/17/24 09:52 Ketorolac 15 Mg/Ml Vial (*Bkc) IV PUSH 11/18/24 09:00 Q6H PRN Pain Rated 4-6 Lidocaine 1 patch 11/17/24 09:00 11/17/24 09:52 Lidocaine 5% Patch TRANSDERM 1 patch DAILY FERNANDO Administration Magnesium Citrate 150 ml 11/15/24 03:14 Magnesium Citrate 300 Ml Btl PO BID PRN Constipation Memantine 5 mg 11/15/24 09:00 11/17/24 16:33 Memantine 5 Mg Tablet PO 5 mg BID FERNANDO Administration Midodrine 10 mg 11/15/24 09:00 11/17/24 16:33 Midodrine Hcl 10 Mg Tablet PO 10 mg TID FERNANDO Administration Montelukast Sodium 10 mg 11/15/24 09:00 11/17/24 09:54 Montelukast Sodium 10 Mg Tablet PO 10 mg DAILY FERNANDO Administration Oxycodone HCl 15 mg 11/17/24 12:23 11/17/24 20:16 Oxycodone Hcl (*Crx) 5 Mg Tab Ir PO 15 mg Q6H PRN Administration Pain Rated 6-10 Polyethylene Glycol 17 gm 11/15/24 09:00 11/17/24 16:33 Polyethylene Glycol 3350 17 Gm Powd.Pack PO 17 gm BID FERNANDO Administration Senna 8.6 mg 11/16/24 10:00 11/17/24 16:33 Sennosides 8.6 Mg Tablet PO 8.6 mg BID FERNANDO Administration Sertraline HCl 50 mg 11/15/24 09:00 11/17/24 09:54 Sertraline Hcl 50 Mg Tablet PO 50 mg DAILY FERNANDO Administration Radiology Results: ITS Impressions Chest X-Ray 11/15/24 09:28 IMPRESSION: 1: No acute pulmonary process identified. Labs Labs: Laboratory Results - last 24 hr 11/17/24 23:16 Stl Occult Blood (IFOB) Negative
[2024-11-18 08:22] LABS: Hematocrit 31.5 % (42.0-52.0); Hemoglobin 10.0 g/dL (14.0-18.0); Immature Granulocyte Percent A 0.3 % (0-0.5); Lymphocytes Absolute Auto 0.67 K/mm3 (0.9-3.2); Mean Corpuscular HGB Conc 31.7 g/dl (32-36); Mean Corpuscular Hemoglobin 29.6 pg (26-34); Mean Corpuscular Volume 93.2 fl (80-100); Nucleated Red Blood Cells Absolute Auto 0.000 K/mm3 (0.0-0.012); Nucleated Red Blood Cells Perc 0.0 % (0.0-0.2); Platelet Count Result 192 k/mm3 (150-375); Red Blood Count 3.38 M/mm3 (4.6-6.20); White Blood Count 5.8 K/mm3 (4.5-10.0)
[2024-11-18 08:48] LABS: Anion Gap 5 mmol/L (4-12); Blood Urea Nitrogen 21 mg/dL (9-20); Calcium 8.6 mg/dL (8.4-10.2); Carbon Dioxide 29 mmol/L (22-30); Chloride 100 mmol/L (98-107); Estimated CRCL calculation 56 ml/min; Estimated Glomerular Filt Rate > 60; Glucose 90 mg/dL (65-110); Potassium 3.8 mmol/L (3.4-5.0); Sodium 134 mmol/L (137-145)
[2024-11-18] MEDS: MONTELUKAST SODIUM 10 MG TABLET PO (08:55)
[2024-11-18] MEDS: SERTRALINE HCL 50 MG TABLET PO (08:55)
[2024-11-18] MEDS: SENNOSIDES 8.6 MG TABLET PO ×2 (08:55→17:34)
[2024-11-18] MEDS: FERROUS SULFATE 325 MG TABLET DR PO (08:55)
[2024-11-18] MEDS: MIDODRINE HCL 10 MG TABLET PO ×3 (08:55→17:34)
[2024-11-18] MEDS: MEMANTINE 5 MG TABLET PO ×2 (08:56→17:34)
[2024-11-18] MEDS: LIDOCAINE 5% PATCH 1 PATCH TRANSDERM (08:58)
[2024-11-18] MEDS: ACETAMINOPHEN 325 MG TABLET PO (11:32)
--- NOTE | 2024-11-18 11:50 | P.PNNEUR_ITS ---
Progress Note: A&P Assessment and Plan (1) Orthostatic hypotension: Code(s): I95.1 - Orthostatic hypotension Status: Acute (2) Acute hypotension: Code(s): I95.9 - Hypotension, unspecified Status: Acute Time Spent With Patient Time: according to the literature the effect of alpha blockade by uroxatral or still be a far blockade and could slightly worse the Flomax. I had discussion with the hospitalist and advised to see if this stroke can be removed and discuss with the urologist about alternate treatment and if necessary urinary catheter since the blood pressure recordings certainly very concerning. I suggested Toradol or anti-inflammatory drugs or even steroids to deal with his pain while we continue to hydrate him to maintain good fluid balance. The patient told me that he has prostate surgery but I do not know for sure about that and this should be considered urologist. Alternate drug such as finasteride or similar have been recommended that could avoid postural hypotension. Subjective Date/time seen: 11/18/24 11:50 Interval history: Patient 78-year-old with history of baseline and postural hypotension currently on midodrine 10 mg 3 times a day. He has been on pain medications as well as Flomax. Flomax was changed over to Uroxatral. He is off gabapentin and nortriptyline. he has been on methadone and oxycodone. . Current list of medications reviewed. Blood pressure this morning was recorded supine at 99/50 and standing was 60/35. Patient has a urinary catheter for convenience and not in drooling has trigger told. He is restless and constantly moving his legs. He could be withdrawing from the some of the medication. Review of Systems Review of Systems: The patient states that he was diagnosed to have peripheral neuropathy 2 years ago by a pain doctor and started on some of the medications include Neurontin and methadone and OxyContin. He thinks he may have seen a neurologist in the past but does not remember. We do not have any record of any testing done at this hospital however it may have been done elsewhere For neuropathy. Exam Narrative: Fully conscious alert oriented to self time and person. He appears to be anxious. His frequently moving his right leg back and forth in his Bed. Exam showed cranial nerves and motor system was unremarkable. No involuntary movements are seen Objective Data Vital Signs Vital Signs: Vital Signs - 24 hr 11/17/24 12:00 11/17/24 15:10 11/17/24 15:10 Temperature 98.4 F 98.4 F Pulse Rate 87 78 78 Respiratory Rate 18 18 Blood Pressure 120/58 L 120/58 L Pulse Oximetry 98 98 Oxygen Delivery 11/17/24 15:13 11/17/24 15:17 11/17/24 16:00 Temperature 98.7 F 98.1 F Pulse Rate 80 90 78 Respiratory Rate 18 18 Blood Pressure 108/56 L 83/46 L Pulse Oximetry 100 100 Oxygen Delivery 11/17/24 20:00 11/17/24 20:00 11/17/24 20:00 Temperature 98.2 F Pulse Rate 85 98 Respiratory Rate 17 Blood Pressure 134/65 Pulse Oximetry 99 Oxygen Delivery Room Air 11/17/24 20:08 11/17/24 20:12 11/17/24 20:15 Temperature 98.2 F 98.2 F 98.2 F Pulse Rate 81 87 85 Respiratory Rate 17 17 17 Blood Pressure 134/65 122/56 L 95/48 L Pulse Oximetry 99 98 93 Oxygen Delivery 11/17/24 21:18 11/17/24 23:31 11/18/24 00:00 Temperature 98.1 F Pulse Rate 82 84 73 Respiratory Rate 20 17 Blood Pressure 131/61 Pulse Oximetry 98 98 Oxygen Delivery Room Air 11/18/24 03:42 11/18/24 04:00 11/18/24 08:00 Temperature 98.5 F 97.5 F L Pulse Rate 71 70 82 Respiratory Rate 16 18 Blood Pressure 123/53 L 99/50 L Pulse Oximetry 98 98 Oxygen Delivery 11/18/24 08:00 11/18/24 09:00 11/18/24 09:14 Temperature Pulse Rate 79 82 Respiratory Rate Blood Pressure 99/50 L Pulse Oximetry Oxygen Delivery Room Air 11/18/24 09:14 11/18/24 09:14 11/18/24 11:04 Temperature Pulse Rate 83 88 61 Respiratory Rate Blood Pressure 95/42 L 60/35 L 89/53 L Pulse Oximetry Oxygen Delivery 11/18/24 11:05 Temperature Pulse Rate 73 Respiratory Rate Blood Pressure 75/41 L Pulse Oximetry Oxygen Delivery Intake/Output Intake/Output: Intake & Output 11/15/24 11/16/24 11/17/24 11/18/24 23:59 23:59 23:59 23:59 Intake Total 2083.3 720 1800 490 Output Total 1778 4430 5321 1776 Balance 308.3 -1980 -700 -1285 Meds/Results Medications: Active Medications Generic Name Dose Route Start Last Admin Trade Name Freq PRN Reason Stop Dose Admin Acetaminophen 650 mg 11/18/24 11:40 Acetaminophen 325 Mg Tablet PO Q6H PRN Pain 1-3 Bisacodyl 10 mg 11/17/24 09:37 Bisacodyl 10 Mg Suppository RECTAL QAM PRN Constipation Ferrous Sulfate 325 mg 11/15/24 08:00 11/18/24 08:55 Ferrous Sulfate [address] PO 325 mg DAILY@0800 FERNANDO Administration Hydroxyzine HCl 25 mg 11/16/24 21:20 11/17/24 20:17 Hydroxyzine Hcl 25 Mg Tablet PO 25 mg Q6H PRN Administration Anxiety Lactated Ringer's 1,000 mls @ 500 mls/hr 11/18/24 11:36 Lr - Lactated Ringers Iv IV CONT 11/18/24 13:35 .Q2H STA Ibuprofen 600 mg 11/18/24 11:38 Ibuprofen 600 Mg Tablet PO Q8H PRN Pain 4-5 Lidocaine 1 patch 11/17/24 09:00 11/18/24 08:58 Lidocaine 5% Patch TRANSDERM 1 patch DAILY FERNANDO Administration Magnesium Citrate 150 ml 11/15/24 03:14 Magnesium Citrate 300 Ml Btl PO BID PRN Constipation Memantine 5 mg 11/15/24 09:00 11/18/24 08:56 Memantine 5 Mg Tablet PO 5 mg BID FERNANDO Administration Midodrine 10 mg 11/15/24 09:00 11/18/24 08:55 Midodrine Hcl 10 Mg Tablet PO 10 mg TID FERNANDO Administration Montelukast Sodium 10 mg 11/15/24 09:00 11/18/24 08:55 Montelukast Sodium 10 Mg Tablet PO 10 mg DAILY FERNANDO Administration Oxycodone HCl 15 mg 11/17/24 12:23 11/17/24 20:16 Oxycodone Hcl (*Crx) 5 Mg Tab Ir PO 15 mg On Hold: 11/18/24 11:38 Q6H PRN Administration Pain Rated 6-10 Polyethylene Glycol 17 gm 11/15/24 09:00 11/18/24 08:57 Polyethylene Glycol 3350 17 Gm Powd.Pack PO 17 gm BID FERNANDO Administration Senna 8.6 mg 11/16/24 10:00 11/18/24 08:55 Sennosides 8.6 Mg Tablet PO 8.6 mg BID FERNANDO Administration Sertraline HCl 50 mg 11/15/24 09:00 11/18/24 08:55 Sertraline Hcl 50 Mg Tablet PO 50 mg DAILY FERNANDO Administration Radiology Results: ITS Impressions Chest X-Ray 11/15/24 09:28 IMPRESSION: 1: No acute pulmonary process identified. Labs Labs: Laboratory Results - last 24 hr 11/17/24 11/18/24 23:16 08:17 WBC 5.8 RBC 3.38 L Hgb 10.0 L Hct 31.5 L MCV 93.2 MCH 29.6 MCHC 31.7 L RDW 13.2 Plt Count 192 MPV 8.6 Immature Gran % (Auto) 0.3 Neut % (Auto) 72.7 Lymph % (Auto) 11.7 L [place] % (Auto) 8.2 Eos % (Auto) 6.8 H Baso % (Auto) 0.3 Lymph # (Auto) 0.67 L [place] # (Auto) 0.5 Eos # (Auto) 0.4 H Baso # (Auto) 0.0 Abs Immat Gran (auto) 0.02 Absolute Neuts (auto) 4.2 Absolute Nucleated RBC 0.000 Nucleated RBC % 0.0 Sodium 134 L Potassium 3.8 Chloride 100 Carbon Dioxide 29 Anion Gap 5 BUN 21 H Creatinine 0.86 Estim Creat Clear Calc 56 Estimated GFR > 60 Glucose 90 Calcium 8.6 Stl Occult Blood (IFOB) Negative
[2024-11-18] MEDS: LACTATED RINGERS 1,000 ML 500 ML IV CONT (13:16)
--- NOTE | 2024-11-18 13:49 | WPDURCON ---
Assessment and Plan Assessment and plan (1) BPH w urinary obs/LUTS: Code(s): N40.1 - Benign prostatic hyperplasia with lower urinary tract symptoms; N13.8 - Other obstructive and reflux uropathy Status: Chronic (2) Urinary retention: Code(s): R33.9 - Retention of urine, unspecified Status: Acute (3) Constipation: Qualifiers: Constipation type: unspecified constipation type Qualified Code(s): K59.00 - Constipation, unspecified Code(s): K59.00 - Constipation, unspecified Status: Chronic (4) Orthostatic hypotension: Code(s): I95.1 - Orthostatic hypotension Status: Acute Plan Mr. Allred is an 78-year-old male with urinary retention in the setting of severe orthostatic hypotension, constipation, weakness, and chronic opioid use. His prostate is not enlarged on recent imaging, and his symptoms are likely multifactorial, exacerbated by his significant blood pressure instability which precludes the use of alpha-blockers. An indwelling Jarquin catheter is currently in place for bladder drainage. - Maintain indwelling Jarquin catheter for bladder drainage while the medical team addresses blood pressure stabilization. - Hold all alpha-blockers (tamsulosin, alfuzosin) and other bladder/prostate medications due to severe orthostatic hypotension. - An abdominal x-ray is planned to evaluate for constipation. - Agree with scheduled bowel regimen to address constipation, a likely contributor to his urinary retention. Case discussed with Dr. Oseguera, who is the on-call Urology MD for today. . Urology Consult Note HPI Date Seen: 11/18/24 Requesting Physician: Benigno Sutherland MD Primary Care Provider: Tom MartMD Consult Narrative Reason for consult: Urinary retention Narrative: Mr. Allred is an 78 year old male admitted on 11/14/2024 with syncope secondary to orthostatic hypotension. Urology was consulted for evaluation of recurrent urinary retention. Indwelling Jarquin was placed overnight for PVR bladder scans between 569-573mL. He has a remote history of a simple suprapubic prostatectomy in July 2002. His last urology clinic visit was with Dr. Collins in January 2009 for BPH, prostatism and post-prostatectomy urethral stricture. The patient reports feeling weak and has not had a bowel movement in approximately one week. His home medications include oxycodone, but tamsulosin was discontinued due to orthostatic hypotension, and a trial of alfuzosin was also discontinued due to persistent severe orthostatic hypotension. PERTINENT LABS: 11/18/2024 - WBC 5.8, HGB 10, Cr 0.86 11/14/2024 - Urinalysis: Negative for blood and infection. PERTINENT IMAGIN10/16/2024 CT chest abdomen pelvis w con ([facility]) - Mural thickening and surrounding inflammatory change within the rectum, findings suggesting proctitis. Fecal stasis within the remainder of the colon. The prostate gland is not enlarged. The bladder is minimally distended and otherwise unremarkable. Review of Systems Constitutional: Constitutional: Reports fatigue and Reports weakness Cardiovascular: Cardiovascular: Denies chest pain Respiratory: Respiratory: Denies dyspnea Gastrointestinal: Gastrointestinal: Reports as per HPI Genitourinary: Genitourinary: Reports as per HPI [facility] Past Medical History Medical History Incomplete bladder emptying Family History Family History Father Diabetes mellitus Mother Cancer Social History Social History Smoking status: Smoker, status unknown Tobacco type: cigarettes and e-cigarettes/vaping Smoking end date: 03/27/74 Alcohol intake: never Substance use: never Substance use type: prescription drug Do You Feel Safe in your Home?: Yes Lack of Transportation: No Lack of Food: Never True Current Housing: I Have Housing Concerned About Future Housing: No Difficulty Paying Gas/Electric Bills: No Difficulty Paying for Meds: No Currently Unemployed: No Education: High School Diploma/GED Difficulty w/ Childcare or Family Care: No Living arrangements: with family Occupation/Education: retired Gender identity (if verbalized by the patient): Male Spiritual care concerns: No Meds Home Medications and Allergies Home Medications ?Medication ?Instructions ?Recorded ?Confirmed ?Type lorazepam 0.5 mg tablet 0.5 mg PO QPM PRN insomnia 04/05/22 11/14/24 History oxycodone 30 mg tablet 30 mg PO .fives time a day 04/05/22 11/14/24 History magnesium citrate 150 ml PO BID PRN constipation 08/29/24 11/14/24 Rx #296 mL polyethylene glycol 3350 17 gram 17 g PO BID #30 ea 08/29/24 11/14/24 Rx oral powder packet (Miralax) sennosides 8.6 mg capsule (senna) 8.6 mg PO HS PRN constipation #30 08/29/24 11/14/24 Rx caps memantine 5 mg tablet 5 mg PO BID 10/17/24 11/14/24 History montelukast 10 mg tablet 10 mg PO DAILY 10/17/24 11/14/24 History sertraline 50 mg tablet 50 mg PO DAILY 10/17/24 11/14/24 History ferrous sulfate 325 mg (65 mg 325 mg PO DAILY@0800 #30 tabs 10/27/24 11/14/24 Rx iron) tablet,delayed release midodrine 10 mg tablet 10 mg PO TID #90 tabs 10/27/24 11/14/24 Rx tamsulosin 0.4 mg capsule 0.4 mg PO QAM #30 caps 10/27/24 11/14/24 Rx Allergies Allergy/AdvReac Type Severity Reaction Status Date / Time No Known Allergies Allergy Verified 10/17/24 20:27 Vital Signs Vital Signs - 24 hr 11/17/24 15:10 11/17/24 15:10 11/17/24 15:13 Temperature 98.4 F 98.4 F 98.7 F Pulse Rate 78 78 80 Respiratory Rate 18 18 18 Blood Pressure 120/58 L 120/58 L 108/56 L Pulse Oximetry 98 98 100 Oxygen Delivery 11/17/24 15:17 11/17/24 16:00 11/17/24 20:00 Temperature 98.1 F 98.2 F Pulse Rate 90 78 85 Respiratory Rate 18 17 Blood Pressure 83/46 L 134/65 Pulse Oximetry 100 99 Oxygen Delivery 11/17/24 20:00 11/17/24 20:00 11/17/24 20:08 Temperature 98.2 F Pulse Rate 98 81 Respiratory Rate 17 Blood Pressure 134/65 Pulse Oximetry 99 Oxygen Delivery Room Air 11/17/24 20:12 11/17/24 20:15 11/17/24 21:18 Temperature 98.2 F 98.2 F Pulse Rate 87 85 82 Respiratory Rate 17 17 20 Blood Pressure 122/56 L 95/48 L Pulse Oximetry 98 93 98 Oxygen Delivery Room Air 11/17/24 23:31 11/18/24 00:00 11/18/24 03:42 Temperature 98.1 F 98.5 F Pulse Rate 84 73 71 Respiratory Rate 17 16 Blood Pressure 131/61 123/53 L Pulse Oximetry 98 98 Oxygen Delivery 11/18/24 04:00 11/18/24 08:00 11/18/24 08:00 Temperature 97.5 F L Pulse Rate 70 82 79 Respiratory Rate 18 Blood Pressure 99/50 L Pulse Oximetry 98 Oxygen Delivery 11/18/24 09:00 11/18/24 09:14 11/18/24 09:14 Temperature Pulse Rate 82 83 Respiratory Rate Blood Pressure 99/50 L 95/42 L Pulse Oximetry Oxygen Delivery Room Air 11/18/24 09:14 11/18/24 11:04 11/18/24 11:05 Temperature Pulse Rate 88 61 73 Respiratory Rate Blood Pressure 60/35 L 89/53 L 75/41 L Pulse Oximetry Oxygen Delivery 11/18/24 12:00 Temperature 98.1 F Pulse Rate 74 Respiratory Rate 18 Blood Pressure 104/50 L Pulse Oximetry 95 Oxygen Delivery Exam Narrative: General: The patient is well-developed in no acute distress. Comfortable on exam. HEENT: Normocephalic, normal ear and nose structures Skin: Warm, dry, with no lesions seen on visible skin Lungs: Normal respiratory effort Heart: Appears well perfused Abdomen: Nondistended Suprapubic area: Nondistended Genitourinary: Jarquin with clear output Extremities: Upper with no deformities. Lower - no edema Neurologic: The patient is oriented to person, place and time. Normal mood and affect. Results Labs 11/18/24 08:17 11/18/24 08:17 Labs: Short CBC 11/18/24 Range/Units 08:17 WBC 5.8 (4.5-10.0) K/mm3 Hgb 10.0 L (14.0-18.0) g/dL Hct 31.5 L (42.0-52.0) % Plt Count 192 (150-375) k/mm3 BMP 11/18/24 08:17 Sodium 134 L Potassium 3.8 Chloride 100 Carbon Dioxide 29 BUN 21 H Creatinine 0.86 Glucose 90 Calcium 8.6
[2024-11-18] MEDS: IBUPROFEN 600 MG TABLET PO (20:14)
[2024-11-19] VITALS (8 sets, daily range): BP systolic 67–140; BP diastolic 41–69; PULSE 68–96; RESP 16–20; TEMP 36.3–37.1; O2SAT 93–99
--- NOTE | 2024-11-19 07:02 | P.PNIM_ITS ---
Progress Note: A&P Assessment and Plan (1) Syncope: Code(s): R55 - Syncope and collapse Status: Acute Assessment and Plan: - echo 10/19/24 with normal EF, no significant valvular abnormalities - EKG NSR, no acute ST changes - Recent cosyntropin test was negative - suspect symptoms secondary to orthostatic hypotension. Polypharmacy likely contributing to low BP. - s/p IV fluids, multiple fluid boluses - compression stockings ordered - continue home midodrine - neurology consulted - recommended to wean offending medications. Outpatient work-up for neuropathy. - cardiology consulted - agree with maintaining adequate hydration. No further recs. - alpha-blockers for urinary retention stopped - confirmed home meds with daughter who administers patient's pills - patient is no longer taking gabapentin, nortriptyline or methadone (even though there are recent fills on PDMP). Patient takes oxycodone 30 mg q6H at home. Oxycodone is currently on hold and patient has shown no signs of withdrawal. Neurology recommended short course of NSAIDs and Tylenol for pain control until BP improves. - PT/OT recs SNF, care coordination following. - patient is persistently orthostatic, but asymptomatic and orthostatic vitals are not being always being obtained correctly (I.e. obtaining BP immediately upon standing). Education provided to nursing moving forward. - start Florinef and monitor response (2) Urinary retention: Code(s): R33.9 - Retention of urine, unspecified Status: Acute Assessment and Plan: - was seen by urology on last admission and started on Flomax. Not tolerating due to severe orthostasis. - opiates, constipation likely contributing - persistent bladder scans >500cc. Jarquin catheter placed 11/17. - urology consulted - recommended maintain Jarquin catheter, hold alpha blockers, maintain bowel regimen (3) Constipation: Qualifiers: Constipation type: unspecified constipation type Qualified Code(s): K59.00 - Constipation, unspecified Code(s): K59.00 - Constipation, unspecified Status: Chronic Assessment and Plan: - in setting of opiate use - KUB showed possible ileus, but patient with no abdominal pain and is having bowel movements - continue Miralax, senna. PRN suppositories. +BM 11/19 (4) Adult failure to thrive: Code(s): R62.7 - Adult failure to thrive Status: Acute Assessment and Plan: - reports 30 lbs weight loss over the last year - reports poor appetite - dietitian consulted - PT/OT (5) Protein-calorie malnutrition, severe: Code(s): E43 - Unspecified severe protein-calorie malnutrition Status: Acute Assessment and Plan: - dietitian consulted - continue PO supplements (6) Iron deficiency anemia: Code(s): D50.9 - Iron deficiency anemia, unspecified Status: Acute Assessment and Plan: - Hgb 10.4, stable - likely due to poor intake - continue iron supplementation (7) Neuropathy: Code(s): G62.9 - Polyneuropathy, unspecified Status: Acute Assessment and Plan: - managed by pain management. Has spinal stimulator. Managed on oxycodone 30 mg q6H PRN. No longer taking methadone, nortriptyline or gabapentin. - patient's pain management physician has been notified of patient's multiple admissions and BP issues. - neurology consulted and suggested medication adjustments as above. Outpatient work-up for neuropathy. Plan DVT prophylaxis: Lovenox Disposition: SNF. If BP stable tomorrow after starting Florinef, likely can start auth. Will likely need peer to peer. Subjective Date/time seen: 11/19/24 07:02 Interval history: 78-year-old male who presents to the ED by ambulance from home with syncope. Patient and seen and examined at bedside. I was present during orthostatic vital signs this AM and he was not symptomatic depsite large drop. Standing BP was also obtained immediately upon standing. Review of Systems Review of Systems: All systems reviewed & are unremarkable except as noted in HPI and below Exam Narrative: General: chronically ill-appearing, frail Eyes: EOMI ENT: neck supple Cardiovascular: Regular rate and rhythm Respiratory: Clear to auscultation, respirations even and unlabored on RA Gastrointestinal: Soft, non tender Genitourinary: no suprapubic tenderness Musculoskeletal: No edema Skin: warm, dry Neuro: Alert. Psych: Mood appropriate Objective Data Vital Signs Vital Signs: Vital Signs - 24 hr 11/18/24 08:00 11/18/24 08:00 11/18/24 09:00 Temperature 97.5 F L Pulse Rate 82 79 Respiratory Rate 18 Blood Pressure 99/50 L Pulse Oximetry 98 Oxygen Delivery Room Air 11/18/24 09:14 11/18/24 09:14 11/18/24 09:14 Temperature Pulse Rate 82 83 88 Respiratory Rate Blood Pressure 99/50 L 95/42 L 60/35 L Pulse Oximetry Oxygen Delivery 11/18/24 11:04 11/18/24 11:05 11/18/24 12:00 Temperature 98.1 F Pulse Rate 61 73 74 Respiratory Rate 18 Blood Pressure 89/53 L 75/41 L 104/50 L Pulse Oximetry 95 Oxygen Delivery 11/18/24 12:00 11/18/24 16:00 11/18/24 16:00 Temperature 98.1 F Pulse Rate 77 68 72 Respiratory Rate 18 Blood Pressure 114/59 L Pulse Oximetry 97 Oxygen Delivery 11/18/24 20:00 11/18/24 20:00 11/18/24 22:34 Temperature 97.0 F L Pulse Rate 73 Respiratory Rate 18 Blood Pressure 101/43 L Pulse Oximetry 91 Oxygen Delivery Room Air Room Air 11/18/24 22:59 11/19/24 00:00 11/19/24 00:00 Temperature 97.7 F Pulse Rate 78 77 78 Respiratory Rate 18 Blood Pressure 121/53 L Pulse Oximetry 93 Oxygen Delivery 11/19/24 04:00 11/19/24 04:00 Temperature 97.3 F L Pulse Rate 75 68 Respiratory Rate 18 Blood Pressure 140/69 Pulse Oximetry 97 Oxygen Delivery Intake/Output Intake/Output: Intake & Output 11/16/24 11/17/24 11/18/24 11/19/24 23:59 23:59 23:59 23:59 Intake Total 720 1800 970 Output Total 4936 6379 2085 850 [facility] -1980 -700 -2605 -850 Meds/Results Medications: Active Medications Generic Name Dose Route Start Last Admin Trade Name Freq PRN Reason Stop Dose Admin Acetaminophen 650 mg 11/18/24 11:40 Acetaminophen 325 Mg Tablet PO Q6H PRN Pain 1-3 Bisacodyl 10 mg 11/17/24 09:37 Bisacodyl 10 Mg Suppository RECTAL QAM PRN Constipation Ferrous Sulfate 325 mg 11/15/24 08:00 11/18/24 08:55 Ferrous Sulfate [address] PO 325 mg DAILY@0800 FERNANDO Administration Hydroxyzine HCl 25 mg 11/16/24 21:20 11/18/24 20:15 Hydroxyzine Hcl 25 Mg Tablet PO 25 mg Q6H PRN Administration Anxiety Ibuprofen 600 mg 11/18/24 11:38 11/18/24 20:14 Ibuprofen 600 Mg Tablet PO 600 mg Q8H PRN Administration Pain 4-5 Lidocaine 1 patch 11/17/24 09:00 11/18/24 08:58 Lidocaine 5% Patch TRANSDERM 1 patch DAILY FERNANDO Administration Magnesium Citrate 150 ml 11/15/24 03:14 Magnesium Citrate 300 Ml Btl PO BID PRN Constipation Memantine 5 mg 11/15/24 09:00 11/18/24 17:34 Memantine 5 Mg Tablet PO 5 mg BID FERNANDO Administration Midodrine 10 mg 11/15/24 09:00 11/18/24 17:34 Midodrine Hcl 10 Mg Tablet PO 10 mg TID FERNANDO Administration Montelukast Sodium 10 mg 11/15/24 09:00 11/18/24 08:55 Montelukast Sodium 10 Mg Tablet PO 10 mg DAILY FERNANDO Administration Oxycodone HCl 15 mg 11/17/24 12:23 11/17/24 20:16 Oxycodone Hcl (*Crx) 5 Mg Tab Ir PO 15 mg On Hold: 11/18/24 11:38 Q6H PRN Administration Pain Rated 6-10 Polyethylene Glycol 17 gm 11/15/24 09:00 11/18/24 17:35 Polyethylene Glycol 3350 17 Gm Powd.Pack PO 17 gm BID FERNANDO Administration Senna 8.6 mg 11/16/24 10:00 11/18/24 17:34 Sennosides 8.6 Mg Tablet PO 8.6 mg BID FERNANDO Administration Sertraline HCl 50 mg 11/15/24 09:00 11/18/24 08:55 Sertraline Hcl 50 Mg Tablet PO 50 mg DAILY FERNANDO Administration Radiology Results: ITS Impressions Chest X-Ray 11/15/24 09:28 IMPRESSION: 1: No acute pulmonary process identified. Labs Labs: Laboratory Results - last 24 hr 11/18/24 08:17 WBC 5.8 RBC 3.38 L Hgb 10.0 L Hct 31.5 L MCV 93.2 MCH 29.6 MCHC 31.7 L RDW 13.2 Plt Count 192 MPV 8.6 Immature Gran % (Auto) 0.3 Neut % (Auto) 72.7 Lymph % (Auto) 11.7 L [place] % (Auto) 8.2 Eos % (Auto) 6.8 H Baso % (Auto) 0.3 Lymph # (Auto) 0.67 L [place] # (Auto) 0.5 Eos # (Auto) 0.4 H Baso # (Auto) 0.0 Abs Immat Gran (auto) 0.02 Absolute Neuts (auto) 4.2 Absolute Nucleated RBC 0.000 Nucleated RBC % 0.0 Sodium 134 L Potassium 3.8 Chloride 100 Carbon Dioxide 29 Anion Gap 5 BUN 21 H Creatinine 0.86 Estim Creat Clear Calc 56 Estimated GFR > 60 Glucose 90 Calcium 8.6 Quality VTE Prophylaxis VTE prophylaxis: pharmacologic ordered
[2024-11-19] MEDS: FERROUS SULFATE 325 MG TABLET DR PO (08:36)
[2024-11-19] MEDS: MIDODRINE HCL 10 MG TABLET PO ×3 (08:36→17:31)
[2024-11-19] MEDS: MONTELUKAST SODIUM 10 MG TABLET PO (08:37)
[2024-11-19] MEDS: SERTRALINE HCL 50 MG TABLET PO (08:37)
[2024-11-19] MEDS: MEMANTINE 5 MG TABLET PO ×2 (08:37→17:31)
[2024-11-19] MEDS: SENNOSIDES 8.6 MG TABLET PO ×2 (08:37→17:31)
[2024-11-19] MEDS: LIDOCAINE 5% PATCH 1 PATCH TRANSDERM (08:39)
[2024-11-19] MEDS: FLUDROCORTISONE ACETATE 0.1 MG TABLET PO (12:51)
[2024-11-19] MEDS: IBUPROFEN 600 MG TABLET PO (17:32)
[2024-11-19] MEDS: ACETAMINOPHEN 325 MG TABLET 650 MG PO (20:32)
--- NOTE | 2024-11-19 23:49 | PC.NURSE ---
Pt is becoming increasingly agitated due to not getting his home pain medication due to his low BP, cussing at staff and threatening to leave AMA. Education was provided about the risks and consequences about his unstable state and possible life endangerment. Pt then proceeded to tell the RN I am not going to take this pain anymore, call the flight security specialist cause I'm fixing to knock my way out of here. Provider was notified and an order for Zyprexa was obtained for his agitated state.
[2024-11-20] VITALS (14 sets, daily range): BP systolic 90–138; BP diastolic 54–69; PULSE 65–107; RESP 14–20; TEMP 36.3–36.8; O2SAT 97–100
[2024-11-20] MEDS: OLANZapine 5 MG, WATER, STERILE FOR INJECTION 2.1 ML IM (00:06)
[2024-11-20] MEDS: IBUPROFEN 600 MG TABLET PO ×2 (01:11→08:36)
[2024-11-20] MEDS: oxyCODONE HCL (*CRX) 5 MG TAB IR 10 MG PO (01:15)
--- NOTE | 2024-11-20 01:49 | PC.NURSE ---
Pt has made increasing complaints of 10/10 pain in his whole right side and continuously paces in the room despite being a fall risk and refusing to heed RN instructions. PT is tachycardic in the low 100s and makes unsteady movements and abnormal movements. The hospitalist Matt Dewey was notified and after investigating his situation ordered 10mg of oxycodone. Pt made complaints that the dosage wasn't near enough but took the 10mg of oxycodone. Pt continued to pace and make complaints being very unsafe in ambulation. An update call was made to Matt Dewey the hospitalist and he decided to come see the pt to decide if there were any other interventions possible for the pt's situation. After speaking with the hospitalist the pt seemed to be a little more cooperative and agreed to get into the bed. RN will continue to monitor for rest of shift.
[2024-11-20] MEDS: ACETAMINOPHEN 325 MG TABLET 650 MG PO ×2 (02:46→08:35)
[2024-11-20] MEDS: ALBUMIN HUMAN 5% 250 ML IV CONT (04:03)
[2024-11-20] MEDS: oxyCODONE HCL (*CRX) 5 MG TAB IR PO (04:04)
[2024-11-20 08:28] LABS: Hematocrit 30.2 % (42.0-52.0); Hemoglobin 9.6 g/dL (14.0-18.0); Immature Granulocyte Percent A 0.5 % (0-0.5); Lymphocytes Absolute Auto 0.75 K/mm3 (0.9-3.2); Mean Corpuscular HGB Conc 31.8 g/dl (32-36); Mean Corpuscular Hemoglobin 29.3 pg (26-34); Mean Corpuscular Volume 92.1 fl (80-100); Nucleated Red Blood Cells Absolute Auto 0.000 K/mm3 (0.0-0.012); Nucleated Red Blood Cells Perc 0.0 % (0.0-0.2); Platelet Count Result 205 k/mm3 (150-375); Red Blood Count 3.28 M/mm3 (4.6-6.20); White Blood Count 5.6 K/mm3 (4.5-10.0)
[2024-11-20] MEDS: SERTRALINE HCL 50 MG TABLET PO (08:35)
[2024-11-20] MEDS: SENNOSIDES 8.6 MG TABLET PO ×2 (08:35→17:28)
[2024-11-20] MEDS: MIDODRINE HCL 10 MG TABLET PO ×3 (08:35→17:28)
[2024-11-20] MEDS: MONTELUKAST SODIUM 10 MG TABLET PO (08:36)
[2024-11-20] MEDS: MEMANTINE 5 MG TABLET PO ×2 (08:37→17:28)
[2024-11-20] MEDS: FLUDROCORTISONE ACETATE 0.1 MG TABLET PO (08:37)
[2024-11-20] MEDS: FERROUS SULFATE 325 MG TABLET DR PO (08:37)
[2024-11-20] MEDS: LIDOCAINE 5% PATCH 1 PATCH TRANSDERM (08:37)
[2024-11-20 08:53] LABS: Alanine Aminotransferase 31 U/L (6-50); Albumin Level 3.7 g/dL (3.5-5.1); Alkaline Phosphatase 158 U/L (38-126); Anion Gap 6 mmol/L (4-12); Aspartate Amino Transferase 36 U/L (17-59); Bilirubin,Total 0.4 mg/dL (0.2-1.3); Blood Urea Nitrogen 26 mg/dL (9-20); Calcium 9.0 mg/dL (8.4-10.2); Carbon Dioxide 29 mmol/L (22-30); Chloride 99 mmol/L (98-107); Estimated CRCL calculation 54 ml/min; Estimated Glomerular Filt Rate > 60; Glucose 119 mg/dL (65-110); Potassium 3.7 mmol/L (3.4-5.0); Sodium 134 mmol/L (137-145); Total Protein 6.4 g/dL (6.3-8.2)
--- NOTE | 2024-11-20 09:47 | PCNFU ---
Nutrition Follow-Up Complete: Severe protein calorie malnutrition related to chronic loss of appetite as evidenced by intakes <75% needs > month; severe muscle wasting and fat loss. Goal: Intakes >75% Patient is meeting goal. No new goal. Pt current nutrition is Regular with Diet supplements BID. Last recorded weight is 65.9 kg, no new weight to report. Bowel Motility:Last reported BM 11/18 Labs Reviewed: Hct 30.2, Hgb 9.6 Meds Noted:Senokot, Miralax Skin: WNL Additional Notes: Patient remains on a regular diet. Oral Intake has been > 75% of meals. Diet supplements are providing an additional 350 kcal and 20 gm protein. Agree with diet orders. Monitoring intakes, weights, labs, supplement tolerance, plan of care Follow up in 7 days
[2024-11-20] MEDS: oxyCODONE HCL (*CRX) 5 MG TAB IR 15 MG PO ×3 (10:34→20:55)
--- NOTE | 2024-11-20 14:35 | P.PNIM_ITS ---
Progress Note: A&P Assessment and Plan (1) Syncope: Code(s): R55 - Syncope and collapse Status: Acute Assessment and Plan: - echo 10/19/24 with normal EF, no significant valvular abnormalities - EKG NSR, no acute ST changes - Recent cosyntropin test was negative - suspect symptoms secondary to orthostatic hypotension. Polypharmacy likely contributing to low BP. - s/p IV fluids, multiple fluid boluses - compression stockings ordered - continue home midodrine - neurology consulted - recommended to wean offending medications. Outpatient work-up for neuropathy. - cardiology consulted - agree with maintaining adequate hydration. No further recs. - alpha-blockers for urinary retention stopped - confirmed home meds with daughter who administers patient's pills - patient is no longer taking gabapentin, nortriptyline or methadone (even though there are recent fills on PDMP). Patient takes oxycodone 30 mg q6H at home. Oxycodone is currently on hold and patient has shown no signs of withdrawal. Neurology recommended short course of NSAIDs and Tylenol for pain control until BP improves. - PT/OT recs SNF, care coordination following. - patient is persistently orthostatic, but asymptomatic and orthostatic vitals are not being always being obtained correctly (I.e. obtaining BP immediately upon standing). Education provided to nursing moving forward. - start Florinef and monitor response - BPs have been in the 120s/60s throughout today - Oxycodone 15mg restarted with strict BP measures (2) Urinary retention: Code(s): R33.9 - Retention of urine, unspecified Status: Acute Assessment and Plan: - was seen by urology on last admission and started on Flomax. Not tolerating due to severe orthostasis. - opiates, constipation likely contributing - persistent bladder scans >500cc. Jaqruin catheter placed 11/17. - urology consulted - recommended maintain Jarquin catheter, hold alpha blockers, maintain bowel regimen (3) Constipation: Qualifiers: Constipation type: unspecified constipation type Qualified Code(s): K59.00 - Constipation, unspecified Code(s): K59.00 - Constipation, unspecified Status: Chronic Assessment and Plan: - in setting of opiate use - KUB showed possible ileus, but patient with no abdominal pain and is having bowel movements - continue Miralax, senna. PRN suppositories. + 11/19 (4) Adult failure to thrive: Code(s): R62.7 - Adult failure to thrive Status: Acute Assessment and Plan: - reports 30 lbs weight loss over the last year - reports poor appetite - dietitian consulted - PT/OT (5) Protein-calorie malnutrition, severe: Code(s): E43 - Unspecified severe protein-calorie malnutrition Status: Acute Assessment and Plan: - dietitian consulted - continue PO supplements (6) Iron deficiency anemia: Code(s): D50.9 - Iron deficiency anemia, unspecified Status: Acute Assessment and Plan: - Hgb 10.4, stable - likely due to poor intake - continue iron supplementation (7) Neuropathy: Code(s): G62.9 - Polyneuropathy, unspecified Status: Acute Assessment and Plan: - managed by pain management. Has spinal stimulator. Managed on oxycodone 30 mg q6H PRN. No longer taking methadone, nortriptyline or gabapentin. - patient's pain management physician has been notified of patient's multiple admissions and BP issues. - neurology consulted and suggested medication adjustments as above. Outpatient work-up for neuropathy. Plan DVT prophylaxis: Lovenox Disposition: SNF. If BP stable tomorrow after starting Florinef, likely can start auth. Will likely need peer to peer. Subjective Date/time seen: 11/20/24 14:35 Interval history: 78-year-old male who presents to the ED by ambulance from home with syncope. 11/20/2024 Patient and seen and examined at bedside. Blood pressures have been stable throughout today. Florinef started yesterday with good response. Oxy 15 mg restarted with strict BP parameters and will continue to monitor. Daughter was concerned regarding complete stoppage of Oxycodone as patient has been in extre me pain for the past several days. Will monitor pain and BP on 15mg Oxycodone with hopeful discharge tomorrow. Review of Systems Review of Systems: - CONSTITUTIONAL: Denies weight loss, fe narayan and chills. - HEENT: Denies changes in vision and he aring - RESPIRATORY: Denies SOB and cough. - CV: Denies palpitations and CP. - GI: Denies abdominal pain, nausea, vom iting and diarrhea. - : Denies dysuria and urinary frequen cy. - MSK: Denies myalgia and joint pain. - SKIN: Denies rash and pruritus. - NEUROLOGICAL: Denies headache and repo rts syncope. - PSYCHIATRIC: Denies recent changes in mood. Denies anxiety and depression. All systems reviewed & are unremarkable except as noted in HPI and below Exam Narrative: General: chronically ill-appearing, frail Eyes: EOMI ENT: neck supple Cardiovascular: Regular rate and rhythm Respiratory: Clear to auscultation, respirations even and unlabored on RA Gastrointestinal: Soft, non tender Genitourinary: no suprapubic tenderness Musculoskeletal: No edema Skin: warm, dry Neuro: Alert. Psych: Mood appropriate Objective Data Vital Signs Vital Signs: Vital Signs - 24 hr 11/19/24 16:00 11/19/24 16:00 11/19/24 20:00 Temperature 98.8 F 98.6 F Pulse Rate 70 69 73 Respiratory Rate 18 18 Blood Pressure 126/63 138/68 Pulse Oximetry 98 97 Oxygen Delivery 11/19/24 20:00 11/19/24 20:00 11/19/24 20:14 Temperature 98.3 F Pulse Rate 73 91 Respiratory Rate 18 Blood Pressure 91/55 L Pulse Oximetry 96 Oxygen Delivery Room Air 11/19/24 20:14 11/20/24 00:00 11/20/24 00:00 Temperature 98.4 F 97.4 F L Pulse Rate 80 90 107 H Respiratory Rate 18 18 Blood Pressure 96/56 L Pulse Oximetry 98 100 Oxygen Delivery 11/20/24 00:58 11/20/24 03:31 11/20/24 04:00 Temperature Pulse Rate 93 Respiratory Rate Blood Pressure 98/58 L 90/59 L Pulse Oximetry Oxygen Delivery 11/20/24 04:00 11/20/24 06:09 11/20/24 08:00 Temperature 97.4 F L 97.6 F 97.9 F Pulse Rate 82 78 69 Respiratory Rate 18 18 18 Blood Pressure 131/69 133/66 115/54 L Pulse Oximetry 97 98 100 Oxygen Delivery 11/20/24 08:00 11/20/24 08:40 11/20/24 09:11 Temperature Pulse Rate 69 72 Respiratory Rate 18 18 Blood Pressure 115/54 L 112/59 L Pulse Oximetry 100 99 Oxygen Delivery Room Air 11/20/24 09:11 11/20/24 12:00 11/20/24 12:44 Temperature 97.6 F Pulse Rate 79 69 80 Respiratory Rate 20 18 Blood Pressure 96/61 L 120/57 L Pulse Oximetry 99 97 Oxygen Delivery Intake/Output Intake/Output: Intake & Output 11/17/24 11/18/24 11/19/24 11/20/24 23:59 23:59 23:59 23:59 Intake Total 0004 744 0716 480 Output Total 5965 9005 0997 850 Klhlwni -249 -2605 -1180 -370 Meds/Results Medications: Active Medications Generic Name Dose Route Start Last Admin Trade Name Freq PRN Reason Stop Dose Admin Acetaminophen 650 mg 11/18/24 11:40 11/20/24 08:35 Acetaminophen 325 Mg Tablet PO 650 mg Q6H PRN Administration Pain 1-3 Bisacodyl 10 mg 11/17/24 09:37 Bisacodyl 10 Mg Suppository RECTAL QAM PRN Constipation Ferrous Sulfate 325 mg 11/15/24 08:00 11/20/24 08:37 Ferrous Sulfate [address] PO 325 mg DAILY@0800 FERNANDO Administration Fludrocortisone Acetate 0.1 mg 11/19/24 12:15 11/20/24 08:37 Fludrocortisone Acetate 0.1 Mg Tablet PO 0.1 mg DAILY@0800 FERNANDO Administration Hydroxyzine HCl 25 mg 11/16/24 21:20 11/19/24 22:13 Hydroxyzine Hcl 25 Mg Tablet PO 25 mg Q6H PRN Administration Anxiety Ibuprofen 600 mg 11/18/24 11:38 11/20/24 08:36 Ibuprofen 600 Mg Tablet PO 600 mg Q8H PRN Administration Pain 4-5 Lidocaine 1 patch 11/17/24 09:00 11/20/24 08:37 Lidocaine 5% Patch TRANSDERM 1 patch DAILY FERNANDO Administration Magnesium Citrate 150 ml 11/15/24 03:14 Magnesium Citrate 300 Ml Btl PO BID PRN Constipation Memantine 5 mg 11/15/24 09:00 11/20/24 08:37 Memantine 5 Mg Tablet PO 5 mg BID FERNANDO Administration Midodrine 10 mg 11/15/24 09:00 11/20/24 12:12 Midodrine Hcl 10 Mg Tablet PO 10 mg TID FERNANDO Administration Montelukast Sodium 10 mg 11/15/24 09:00 11/20/24 08:36 Montelukast Sodium 10 Mg Tablet PO 10 mg DAILY FERNANDO Administration Oxycodone HCl 15 mg 11/17/24 12:23 11/20/24 10:34 Oxycodone Hcl (*Crx) 5 Mg Tab Ir PO 15 mg Q6H PRN Administration Pain Rated 6-10 Polyethylene Glycol 17 gm 11/15/24 09:00 11/20/24 08:37 Polyethylene Glycol 3350 17 Gm Powd.Pack PO 17 gm BID FERNANDO Administration Senna 8.6 mg 11/16/24 10:00 11/20/24 08:35 Sennosides 8.6 Mg Tablet PO 8.6 mg BID FERNANDO Administration Sertraline HCl 50 mg 11/15/24 09:00 11/20/24 08:35 Sertraline Hcl 50 Mg Tablet PO 50 mg DAILY FERNANDO Administration Radiology Results: ITS Impressions Chest X-Ray 11/15/24 09:28 IMPRESSION: 1: No acute pulmonary process identified. Abdomen X-Ray 11/19/24 09:45 Impression: 1: Moderately distended small bowel and colon, consistent with ileus. Labs Labs: Laboratory Results - last 24 hr 11/20/24 08:23 WBC 5.6 RBC 3.28 L Hgb 9.6 L Hct 30.2 L MCV 92.1 MCH 29.3 MCHC 31.8 L RDW 13.1 Plt Count 205 MPV 8.6 Immature Gran % (Auto) 0.5 Neut % (Auto) 73.7 H Lymph % (Auto) 13.3 L [place] % (Auto) 6.6 Eos % (Auto) 5.5 H Baso % (Auto) 0.4 Lymph # (Auto) 0.75 L [place] # (Auto) 0.4 Eos # (Auto) 0.3 Baso # (Auto) 0.0 Abs Immat Gran (auto) 0.03 Absolute Neuts (auto) 4.2 Absolute Nucleated RBC 0.000 Nucleated RBC % 0.0 Sodium 134 L Potassium 3.7 Chloride 99 Carbon Dioxide 29 Anion Gap 6 BUN 26 H Creatinine 0.90 Estim Creat Clear Calc 54 Estimated GFR > 60 Glucose 119 H Calcium 9.0 Total Bilirubin 0.4 AST 36 ALT 31 Alkaline Phosphatase 158 H Total Protein 6.4 Albumin 3.7 Quality VTE Prophylaxis VTE prophylaxis: pharmacologic ordered
--- NOTE | 2024-11-20 16:54 | P.PNUR_ITS ---
Progress Note: A&P Assessment and Plan (1) BPH w urinary obs/LUTS: Code(s): N40.1 - Benign prostatic hyperplasia with lower urinary tract symptoms; N13.8 - Other obstructive and reflux uropathy Status: Chronic (2) Urinary retention: Code(s): R33.9 - Retention of urine, unspecified Status: Acute (3) Constipation: Qualifiers: Constipation type: unspecified constipation type Qualified Code(s): K59.00 - Constipation, unspecified Code(s): K59.00 - Constipation, unspecified Status: Chronic (4) Orthostatic hypotension: Code(s): I95.1 - Orthostatic hypotension Status: Acute Plan Mr. Allred is an 78-year-old male with urinary retention in the setting of severe orthostatic hypotension, constipation, weakness, and chronic opioid use. His prostate is not enlarged on recent imaging, and his symptoms are likely multifactorial, exacerbated by his significant blood pressure instability which precludes the use of alpha-blockers. An indwelling Jarquin catheter is currently in place for bladder drainage. - Maintain indwelling Jarquin catheter for bladder drainage -voiding trial before discharge. . - Hold all alpha-blockers (tamsulosin, alfuzosin) and other bladder/prostate medications due to severe orthostatic hypotension. - Agree with scheduled bowel regimen to address constipation, a likely contributor to his urinary retention. . Subjective Subjective Date/Time Seen: 11/20/24 16:54 Interval history: patient reports he is doing well and feeling pretty decent today. Review of Systems Constitutional: Constitutional: Reports fatigue and Reports weakness Cardiovascular: Cardiovascular: Denies chest pain and Denies dyspnea Respiratory: Respiratory: Denies dyspnea Gastrointestinal: Gastrointestinal: Reports as per HPI Genitourinary: Genitourinary: Reports as per HPI Neurologic: Reports weakness Endocrine: Endocrine: Reports fatigue Exam Narrative: General: The patient is well-developed in no acute distress. Comfortable on exam. HEENT: Normocephalic, normal ear and nose structures Skin: Warm, dry, with no lesions seen on visible skin Lungs: Normal respiratory effort Heart: Appears well perfused Abdomen: Nondistended Suprapubic area: Nondistended Genitourinary: Jarquin with clear output Extremities: Upper with no deformities. Lower - no edema Neurologic: The patient is oriented to person, place and time. Normal mood and affect. Objective Data Vital Signs Vital Signs: Vital Signs - 24 hr 11/19/24 20:00 11/19/24 20:00 11/19/24 20:00 Temperature 98.6 F Pulse Rate 73 73 Respiratory Rate 18 Blood Pressure 138/68 Pulse Oximetry 97 Oxygen Delivery Room Air 11/19/24 20:14 11/19/24 20:14 11/20/24 00:00 Temperature 98.3 F 98.4 F Pulse Rate 91 80 90 Respiratory Rate 18 18 Blood Pressure 91/55 L 96/56 L Pulse Oximetry 96 98 Oxygen Delivery 11/20/24 00:00 11/20/24 00:58 11/20/24 03:31 Temperature 97.4 F L Pulse Rate 107 H Respiratory Rate 18 Blood Pressure 98/58 L 90/59 L Pulse Oximetry 100 Oxygen Delivery 11/20/24 04:00 11/20/24 04:00 11/20/24 06:09 Temperature 97.4 F L 97.6 F Pulse Rate 93 82 78 Respiratory Rate 18 18 Blood Pressure 131/69 133/66 Pulse Oximetry 97 98 Oxygen Delivery 11/20/24 08:00 11/20/24 08:00 11/20/24 08:40 Temperature 97.9 F Pulse Rate 69 69 Respiratory Rate 18 18 Blood Pressure 115/54 L 115/54 L Pulse Oximetry 100 100 Oxygen Delivery Room Air 11/20/24 09:11 11/20/24 09:11 11/20/24 12:00 Temperature 97.6 F Pulse Rate 72 79 69 Respiratory Rate 18 20 18 Blood Pressure 112/59 L 96/61 L 120/57 L Pulse Oximetry 99 99 97 Oxygen Delivery 11/20/24 12:44 Temperature Pulse Rate 80 Respiratory Rate Blood Pressure Pulse Oximetry Oxygen Delivery Intake/Output Intake/Output: Intake & Output 11/17/24 11/18/24 11/19/24 11/20/24 23:59 23:59 23:59 23:59 Intake Total 7016 794 7983 480 Output Total 1359 1985 3000 850 Balance -700 -2605 -1180 -370 Meds/Results Medications: Active Medications Generic Name Dose Route Start Last Admin Trade Name Freq PRN Reason Stop Dose Admin Acetaminophen 650 mg 11/18/24 11:40 11/20/24 08:35 Acetaminophen 325 Mg Tablet PO 650 mg Q6H PRN Administration Pain 1-3 Bisacodyl 10 mg 11/17/24 09:37 Bisacodyl 10 Mg Suppository RECTAL QAM PRN Constipation Ferrous Sulfate 325 mg 11/15/24 08:00 11/20/24 08:37 Ferrous Sulfate [address] PO 325 mg DAILY@0800 FERNANDO Administration Fludrocortisone Acetate 0.1 mg 11/19/24 12:15 11/20/24 08:37 Fludrocortisone Acetate 0.1 Mg Tablet PO 0.1 mg DAILY@0800 FERNANDO Administration Hydroxyzine HCl 25 mg 11/16/24 21:20 11/19/24 22:13 Hydroxyzine Hcl 25 Mg Tablet PO 25 mg Q6H PRN Administration Anxiety Ibuprofen 600 mg 11/18/24 11:38 11/20/24 08:36 Ibuprofen 600 Mg Tablet PO 600 mg Q8H PRN Administration Pain 4-5 Lidocaine 1 patch 11/17/24 09:00 11/20/24 08:37 Lidocaine 5% Patch TRANSDERM 1 patch DAILY FERNANDO Administration Magnesium Citrate 150 ml 11/15/24 03:14 Magnesium Citrate 300 Ml Btl PO BID PRN Constipation Memantine 5 mg 11/15/24 09:00 11/20/24 08:37 Memantine 5 Mg Tablet PO 5 mg BID FERNANDO Administration Midodrine 10 mg 11/15/24 09:00 11/20/24 12:12 Midodrine Hcl 10 Mg Tablet PO 10 mg TID FERNANDO Administration Montelukast Sodium 10 mg 11/15/24 09:00 11/20/24 08:36 Montelukast Sodium 10 Mg Tablet PO 10 mg DAILY FERNANDO Administration Oxycodone HCl 15 mg 11/17/24 12:23 11/20/24 15:14 Oxycodone Hcl (*Crx) 5 Mg Tab Ir PO 15 mg Q6H PRN Administration Pain Rated 6-10 Polyethylene Glycol 17 gm 11/15/24 09:00 11/20/24 08:37 Polyethylene Glycol 3350 17 Gm Powd.Pack PO 17 gm BID FERNANDO Administration Senna 8.6 mg 11/16/24 10:00 11/20/24 08:35 Sennosides 8.6 Mg Tablet PO 8.6 mg BID FERNANDO Administration Sertraline HCl 50 mg 11/15/24 09:00 11/20/24 08:35 Sertraline Hcl 50 Mg Tablet PO 50 mg DAILY FERNANDO Administration Radiology Results: ITS Impressions Chest X-Ray 11/15/24 09:28 IMPRESSION: 1: No acute pulmonary process identified. Abdomen X-Ray 11/19/24 09:45 Impression: 1: Moderately distended small bowel and colon, consistent with ileus. Labs Labs: Laboratory Results - last 24 hr 11/20/24 08:23 WBC 5.6 RBC 3.28 L Hgb 9.6 L Hct 30.2 L MCV 92.1 MCH 29.3 MCHC 31.8 L RDW 13.1 Plt Count 205 MPV 8.6 Immature Gran % (Auto) 0.5 Neut % (Auto) 73.7 H Lymph % (Auto) 13.3 L [place] % (Auto) 6.6 Eos % (Auto) 5.5 H Baso % (Auto) 0.4 Lymph # (Auto) 0.75 L [place] # (Auto) 0.4 Eos # (Auto) 0.3 Baso # (Auto) 0.0 Abs Immat Gran (auto) 0.03 Absolute Neuts (auto) 4.2 Absolute Nucleated RBC 0.000 Nucleated RBC % 0.0 Sodium 134 L Potassium 3.7 Chloride 99 Carbon Dioxide 29 Anion Gap 6 BUN 26 H Creatinine 0.90 Estim Creat Clear Calc 54 Estimated GFR > 60 Glucose 119 H Calcium 9.0 Total Bilirubin 0.4 AST 36 ALT 31 Alkaline Phosphatase 158 H Total Protein 6.4 Albumin 3.7
[2024-11-21] VITALS (9 sets, daily range): BP systolic 81–146; BP diastolic 53–65; PULSE 65–80; RESP 16–18; TEMP 36.4–36.7; O2SAT 96–98
[2024-11-21] MEDS: oxyCODONE HCL (*CRX) 5 MG TAB IR 15 MG PO ×4 (03:11→20:42)
[2024-11-21] MEDS: SERTRALINE HCL 50 MG TABLET PO (08:38)
[2024-11-21] MEDS: MEMANTINE 5 MG TABLET PO ×2 (08:38→16:23)
[2024-11-21] MEDS: FLUDROCORTISONE ACETATE 0.1 MG TABLET PO (08:38)
[2024-11-21] MEDS: MIDODRINE HCL 10 MG TABLET PO ×3 (08:38→16:23)
[2024-11-21] MEDS: MONTELUKAST SODIUM 10 MG TABLET PO (08:38)
[2024-11-21] MEDS: FERROUS SULFATE 325 MG TABLET DR PO (08:38)
[2024-11-21] MEDS: LIDOCAINE 5% PATCH 1 PATCH TRANSDERM (08:39)
[2024-11-21] MEDS: SENNOSIDES 8.6 MG TABLET PO ×2 (08:39→16:23)
[2024-11-21] MEDS: ACETAMINOPHEN 325 MG TABLET 650 MG PO (09:53)
--- NOTE | 2024-11-21 10:57 | P.PNIM_ITS ---
Progress Note: A&P Assessment and Plan (1) Syncope: Code(s): R55 - Syncope and collapse Status: Acute Assessment and Plan: - echo 10/19/24 with normal EF, no significant valvular abnormalities - EKG NSR, no acute ST changes - Recent cosyntropin test was negative - suspect symptoms secondary to orthostatic hypotension. Polypharmacy likely contributing to low BP. - s/p IV fluids, multiple fluid boluses - compression stockings ordered - continue home midodrine - neurology consulted - recommended to wean offending medications. Outpatient work-up for neuropathy. - cardiology consulted - agree with maintaining adequate hydration. No further recs. - alpha-blockers for urinary retention stopped - confirmed home meds with daughter who administers patient's pills - patient is no longer taking gabapentin, nortriptyline or methadone (even though there are recent fills on PDMP). Patient takes oxycodone 30 mg q6H at home. Oxycodone is currently on hold and patient has shown no signs of withdrawal. Neurology recommended short course of NSAIDs and Tylenol for pain control until BP improves. - PT/OT recs SNF, care coordination following. - patient is persistently orthostatic, but asymptomatic and orthostatic vitals are not being always being obtained correctly (I.e. obtaining BP immediately upon standing). Education provided to nursing moving forward. - start Florinef and monitor response - BPs have been in the 120s/60s throughout today - Oxycodone 15mg restarted with strict BP measures - maintaining on 15 mg oxycodone q.6 hours - 11/21: BPs have been in the 110s/60s - Pending insurance auth (2) Urinary retention: Code(s): R33.9 - Retention of urine, unspecified Status: Acute Assessment and Plan: - was seen by urology on last admission and started on Flomax. Not tolerating due to severe orthostasis. - opiates, constipation likely contributing - persistent bladder scans >500cc. Jarquin catheter placed 8/24. - urology consulted - recommended maintain Jarquin catheter, hold alpha blockers, maintain bowel regimen (3) Constipation: Qualifiers: Constipation type: unspecified constipation type Qualified Code(s): K59.00 - Constipation, unspecified Code(s): K59.00 - Constipation, unspecified Status: Chronic Assessment and Plan: - in setting of opiate use - KUB showed possible ileus, but patient with no abdominal pain and is having bowel movements - continue Miralax, senna. PRN suppositories. +BM 11/19 (4) Adult failure to thrive: Code(s): R62.7 - Adult failure to thrive Status: Acute Assessment and Plan: - reports 30 lbs weight loss over the last year - reports poor appetite - dietitian consulted - PT/OT (5) Protein-calorie malnutrition, severe: Code(s): E43 - Unspecified severe protein-calorie malnutrition Status: Acute Assessment and Plan: - dietitian consulted - continue PO supplements (6) Iron deficiency anemia: Code(s): D50.9 - Iron deficiency anemia, unspecified Status: Acute Assessment and Plan: - Hgb 10.4, stable - likely due to poor intake - continue iron supplementation (7) Neuropathy: Code(s): G62.9 - Polyneuropathy, unspecified Status: Acute Assessment and Plan: - managed by pain management. Has spinal stimulator. Managed on oxycodone 30 mg q6H PRN. No longer taking methadone, nortriptyline or gabapentin. - patient's pain management physician has been notified of patient's multiple admissions and BP issues. - neurology consulted and suggested medication adjustments as above. Outpatient work-up for neuropathy. Plan DVT prophylaxis: Lovenox Disposition: SNF. Pending auth. Will likely need peer to peer. Subjective Date/time seen: 11/21/24 10:57 Interval history: 78-year-old male who presents to the ED by ambulance from home with syncope. 11/21/2024 Patient and seen and examined at bedside. Blood pressures have been stable today. Waiting on insurance authorization at this point. Pt has been maintaining on Oxycodone 15mg q6hrs with adequate pain control and no drop in BP. Otherwise states he feels good today and has no complaints or concerns. Review of Systems Review of Systems: - CONSTITUTIONAL: Denies weight loss, fe narayan and chills. - HEENT: Denies changes in vision and he aring - RESPIRATORY: Denies SOB and cough. - CV: Denies palpitations and CP. - GI: Denies abdominal pain, nausea, vom iting and diarrhea. - : Denies dysuria and urinary frequen cy. - MSK: Denies myalgia and joint pain. - SKIN: Denies rash and pruritus. - NEUROLOGICAL: Denies headache and repo rts syncope. - PSYCHIATRIC: Denies recent changes in mood. Denies anxiety and depression. All systems reviewed & are unremarkable except as noted in HPI and below Exam Narrative: General: chronically ill-appearing, frail Eyes: EOMI ENT: neck supple Cardiovascular: Regular rate and rhythm Respiratory: Clear to auscultation, respirations even and unlabored on RA Gastrointestinal: Soft, non tender Genitourinary: no suprapubic tenderness Musculoskeletal: No edema Skin: warm, dry Neuro: Alert. Psych: Mood appropriate Objective Data Vital Signs Vital Signs: Vital Signs - 24 hr 11/20/24 12:00 11/20/24 12:44 11/20/24 16:00 Temperature 97.6 F 98.3 F Pulse Rate 69 80 76 Respiratory Rate 18 18 Blood Pressure 120/57 L 138/63 Pulse Oximetry 97 100 Oxygen Delivery 11/20/24 17:24 11/20/24 20:45 11/20/24 21:25 Temperature 98.3 F 98.2 F Pulse Rate 65 Respiratory Rate 14 Blood Pressure 130/57 L Pulse Oximetry 99 Oxygen Delivery Room Air 11/20/24 21:25 11/20/24 21:28 11/20/24 21:31 Temperature Pulse Rate 65 76 84 Respiratory Rate Blood Pressure 130/57 L 120/63 91/60 L Pulse Oximetry Oxygen Delivery 11/21/24 00:50 11/21/24 06:33 11/21/24 08:00 Temperature 98.1 F 97.6 F 97.8 F Pulse Rate 65 68 80 Respiratory Rate 16 16 16 Blood Pressure 146/65 H 112/62 109/53 L Pulse Oximetry 98 97 96 Oxygen Delivery Intake/Output Intake/Output: Intake & Output 11/18/24 11/19/24 11/20/24 11/21/24 23:59 23:59 23:59 23:59 Intake Total 970 1820 2470 830 Output Total 3575 3000 850 50 Balance -2605 -1180 1620 780 Meds/Results Medications: Active Medications Generic Name Dose Route Start Last Admin Trade Name Freq PRN Reason Stop Dose Admin Acetaminophen 650 mg 11/18/24 11:40 11/21/24 09:53 Acetaminophen 325 Mg Tablet PO 650 mg Q6H PRN Administration Pain 1-3 Bisacodyl 10 mg 11/17/24 09:37 Bisacodyl 10 Mg Suppository RECTAL QAM PRN Constipation Ferrous Sulfate 325 mg 11/15/24 08:00 11/21/24 08:38 Ferrous Sulfate [address] PO 325 mg DAILY@0800 [facility] Administration Fludrocortisone Acetate 0.1 mg 11/19/24 12:15 11/21/24 08:38 Fludrocortisone Acetate 0.1 Mg Tablet PO 0.1 mg DAILY@0800 [facility] Administration Hydroxyzine HCl 25 mg 11/16/24 21:20 11/20/24 20:55 Hydroxyzine Hcl 25 Mg Tablet PO 25 mg Q6H PRN Administration Anxiety Ibuprofen 600 mg 11/18/24 11:38 11/20/24 08:36 Ibuprofen 600 Mg Tablet PO 600 mg Q8H PRN Administration Pain 4-5 Lidocaine 1 patch 11/17/24 09:00 11/21/24 08:39 Lidocaine 5% Patch TRANSDERM 1 patch DAILY [facility] Administration Magnesium Citrate 150 ml 11/15/24 03:14 Magnesium Citrate 300 Ml Btl PO BID PRN Constipation Memantine 5 mg 11/15/24 09:00 11/21/24 08:38 Memantine 5 Mg Tablet PO 5 mg BID [facility] Administration Midodrine 10 mg 11/15/24 09:00 11/21/24 08:38 Midodrine Hcl 10 Mg Tablet PO 10 mg TID [facility] Administration Montelukast Sodium 10 mg 11/15/24 09:00 11/21/24 08:38 Montelukast Sodium 10 Mg Tablet PO 10 mg DAILY [facility] Administration Oxycodone HCl 15 mg 11/17/24 12:23 11/21/24 08:43 Oxycodone Hcl (*Crx) 5 Mg Tab Ir PO 15 mg Q6H PRN Administration Pain Rated 6-10 Polyethylene Glycol 17 gm 11/15/24 09:00 11/21/24 08:39 Polyethylene Glycol 3350 17 Gm Powd.Pack PO Not Given BID FERNANDO Senna 8.6 mg 11/16/24 10:00 11/21/24 08:39 Sennosides 8.6 Mg Tablet PO 8.6 mg BID FERNANDO Administration Sertraline HCl 50 mg 11/15/24 09:00 11/21/24 08:38 Sertraline Hcl 50 Mg Tablet PO 50 mg DAILY FERNANDO Administration Radiology Results: ITS Impressions Chest X-Ray 11/15/24 09:28 IMPRESSION: 1: No acute pulmonary process identified. Abdomen X-Ray 11/19/24 09:45 Impression: 1: Moderately distended small bowel and colon, consistent with ileus. Quality VTE Prophylaxis VTE prophylaxis: pharmacologic ordered
[2024-11-22] MEDS: oxyCODONE HCL (*CRX) 5 MG TAB IR 15 MG PO ×3 (02:25→15:36)
[2024-11-22 03:52] VITALS: BP 132/69; PULSE 64; RESP 18; TEMP 36.4; O2SAT 96
[2024-11-22 07:53] LABS: Hematocrit 32.4 % (42.0-52.0); Hemoglobin 10.3 g/dL (14.0-18.0); Immature Granulocyte Percent A 0.4 % (0-0.5); Lymphocytes Absolute Auto 0.93 K/mm3 (0.9-3.2); Mean Corpuscular HGB Conc 31.8 g/dl (32-36); Mean Corpuscular Hemoglobin 29.3 pg (26-34); Mean Corpuscular Volume 92.3 fl (80-100); Nucleated Red Blood Cells Absolute Auto 0.000 K/mm3 (0.0-0.012); Nucleated Red Blood Cells Perc 0.0 % (0.0-0.2); Platelet Count Result 271 k/mm3 (150-375); Red Blood Count 3.51 M/mm3 (4.6-6.20); White Blood Count 5.3 K/mm3 (4.5-10.0)
[2024-11-22 08:00] VITALS: BP 115/61; PULSE 67; RESP 16; TEMP 36.6; O2SAT 99
[2024-11-22 08:15] LABS: Alanine Aminotransferase 24 U/L (6-50); Albumin Level 3.6 g/dL (3.5-5.1); Alkaline Phosphatase 128 U/L (38-126); Anion Gap 6 mmol/L (4-12); Aspartate Amino Transferase 31 U/L (17-59); Bilirubin,Total 0.4 mg/dL (0.2-1.3); Blood Urea Nitrogen 26 mg/dL (9-20); Calcium 9.1 mg/dL (8.4-10.2); Carbon Dioxide 27 mmol/L (22-30); Chloride 102 mmol/L (98-107); Estimated CRCL calculation 59 ml/min; Estimated Glomerular Filt Rate > 60; Glucose 85 mg/dL (65-110); Potassium 4.2 mmol/L (3.4-5.0); Sodium 135 mmol/L (137-145); Total Protein 6.5 g/dL (6.3-8.2)
[2024-11-22] MEDS: ACETAMINOPHEN 325 MG TABLET 650 MG PO (08:52)
[2024-11-22] MEDS: FLUDROCORTISONE ACETATE 0.1 MG TABLET PO (08:53)
[2024-11-22] MEDS: FERROUS SULFATE 325 MG TABLET DR PO (08:53)
[2024-11-22] MEDS: MEMANTINE 5 MG TABLET PO ×2 (08:53→16:07)
[2024-11-22] MEDS: SERTRALINE HCL 50 MG TABLET PO (08:53)
[2024-11-22 08:54] VITALS: RESP 16; O2SAT 99
[2024-11-22] MEDS: MIDODRINE HCL 10 MG TABLET PO ×3 (08:54→16:07)
[2024-11-22] MEDS: SENNOSIDES 8.6 MG TABLET PO (08:54)
[2024-11-22] MEDS: MONTELUKAST SODIUM 10 MG TABLET PO (08:54)
[2024-11-22 12:00] VITALS: BP 106/52; PULSE 62; RESP 16; TEMP 36.7; O2SAT 96
[2024-11-22] MEDS: IBUPROFEN 600 MG TABLET PO (12:19)
--- NOTE | 2024-11-22 14:28 | P.DS_ITS ---
DS: Admitting Diagnosis Discharge Date 11/22/2024 Admitting Diagnosis Syncope, Orthostatic hypotension DS: Discharge Diagnosis Discharge Diagnosis (1) Syncope: Code(s): R55 - Syncope and collapse Status: Acute Assessment and Plan: - echo 10/19/24 with normal EF, no significant valvular abnormalities - EKG NSR, no acute ST changes - Recent cosyntropin test was negative - suspect symptoms secondary to orthostatic hypotension. Polypharmacy likely contributing to low BP. - s/p IV fluids, multiple fluid boluses - compression stockings ordered - continue home midodrine - neurology consulted - recommended to wean offending medications. Outpatient work-up for neuropathy. - cardiology consulted - agree with maintaining adequate hydration. No further recs. - alpha-blockers for urinary retention stopped - confirmed home meds with daughter who administers patient's pills - patient is no longer taking gabapentin, nortriptyline or methadone (even though there are recent fills on PDMP). Patient takes oxycodone 30 mg q6H at home. Oxycodone is currently on hold and patient has shown no signs of withdrawal. Neurology recommended short course of NSAIDs and Tylenol for pain control until BP improves. - PT/OT recs SNF, care coordination following. - patient is persistently orthostatic, but asymptomatic and orthostatic vitals are not being always being obtained correctly (I.e. obtaining BP immediately upon standing). Education provided to nursing moving forward. - start Florinef and monitor response - BPs have been in the 120s/60s throughout today - Oxycodone 15mg restarted with strict BP measures - maintaining on 15 mg oxycodone q.6 hours - 11/21: BPs have been in the 110s/60s - Pending insurance auth (2) Urinary retention: Code(s): R33.9 - Retention of urine, unspecified Status: Acute Assessment and Plan: - was seen by urology on last admission and started on Flomax. Not tolerating due to severe orthostasis. - opiates, constipation likely contributing - persistent bladder scans >500cc. Jarquin catheter placed 11/17. - urology consulted - recommended maintain Jarquin catheter, hold alpha blockers, maintain bowel regimen (3) Constipation: Qualifiers: Constipation type: unspecified constipation type Qualified Code(s): K59.00 - Constipation, unspecified Code(s): K59.00 - Constipation, unspecified Status: Chronic Assessment and Plan: - in setting of opiate use - KUB showed possible ileus, but patient with no abdominal pain and is having bowel movements - continue Miralax, senna. PRN suppositories. +BM 11/19 (4) Adult failure to thrive: Code(s): R62.7 - Adult failure to thrive Status: Acute Assessment and Plan: - reports 30 lbs weight loss over the last year - reports poor appetite - dietitian consulted - PT/OT (5) Protein-calorie malnutrition, severe: Code(s): E43 - Unspecified severe protein-calorie malnutrition Status: Acute Assessment and Plan: - dietitian consulted - continue PO supplements (6) Iron deficiency anemia: Code(s): D50.9 - Iron deficiency anemia, unspecified Status: Acute Assessment and Plan: - Hgb 10.4, stable - likely due to poor intake - continue iron supplementation (7) Neuropathy: Code(s): G62.9 - Polyneuropathy, unspecified Status: Acute Assessment and Plan: - managed by pain management. Has spinal stimulator. Managed on oxycodone 30 mg q6H PRN. No longer taking methadone, nortriptyline or gabapentin. - patient's pain management physician has been notified of patient's multiple admissions and BP issues. - neurology consulted and suggested medication adjustments as above. Outpatient work-up for neuropathy. Plan DVT prophylaxis: Lovenox Disposition: SNF. Pending auth. Will likely need peer to peer. DS: Summary Hospital Course Reason for hospitalization: Syncope Hospital Course: This is a 78-year-old male who presents to the ED by ambulance from home because of syncope. Patient is a poor historian. Patient states that he got out of bed and immediately passed out on the floor. He regained consciousness and was able to get up reported no obvious injuries and called his daughter who is in vacation in [place]. His daughter called 911 who came to the home and brought the patient to the ER for evaluation. Patient had similar episode in the past. Patient has been placed on midodrine for the same. Patient has not been eating well at home. He was discharged from our facility on 10/27/2024 as he declined to go to a nursing facility. In the ED his blood pressure is borderline otherwise unremarkable vitals. Laboratory workup revealed hemoglobin of 9.3 WBC and a 4.4 platelet count 207. Chem panel showed sodium of 135 potassium 4.4 chloride 102 bicarbonate 29 BUN 25 creatinine 0.8 blood glucose of 120. Troponin was negative BNP was 525. EKG showed normal sinus rhythm with nonspecific ST-T changes with some peaked T waves. Patient admitted in this setting for further treatment and likely custodial placement. Cardiology consulted regarding syncopal episode/orthostatic hypotension. He takes midodrine at home. Agree that BUN/Cr ratio likely 2/2 to dehydration/poor oral intake. Recommend continuing midodrine and high fluid intake to maintain BP. Neurology consulted regarding possible causes of above stated problems. They initially recommended holding off on the drugs that may lower the blood pressure and hydrate him and keep him on the midodrine and then if his baseline blood pressure improves and still shows for hypotension other options be considered. Also recommends stopping gabapentin and holding methadone. Urology consulted regarding BPH/Urinary retention - Recommend maintaining indwelling catheter for the time being for bladder drainage and holding all Alpha-blockers and bladder/prostate medications due to severe orthostatic hypotension - prostate not enlarged on recent imaging. Symptoms likely multifactorial and exacerbated by BP instability, which supersedes use of alpha blockers. Throughout visit, we attempted to manage BP altering medications, including narcotics. Patient has been using Oxycodone 30mg q6hr for an extended period of time. During this hospitalization, we attempted to hold Oxy in order to manage postural hypotension but patient was endorsing extreme pain and inability to sleep so his Oxycodone was increased to 15mg and he was monitored for the next 2 days for pain levels and BP measurements. His BP remained stabled throughout the next few days and his pain levels were very manageable per the pt. Care coordination had been working on placement to SNF as PT/OT tomasa recommended [facility] placement but pt was denied per insurance and eventually was placed with Home with home health. Pt amenable to this plan and otherwise hemodynamically stable for discharge. He will be instructed to follow up with his pain management provider, as well as his urologist to manage his BPH medications further but as of this time is voiding without difficulty and has stable BPs. He and his daughter have been educated on the importance of using his abdominal binder that was provided last hospitalization and ensuring proper caution with postural changes. Plan for discharge home w/ home health at this time. Status at Discharge Functional status at discharge: uses cane/walker Overall status at discharge: patient is progressing back to baseline Time Spent with Patient Time attestation: Total time spent providing and/or coordinating discharge services: 45 Exam Narrative: General: chronically ill-appearing, frail Eyes: EOMI ENT: neck supple Cardiovascular: Regular rate and rhythm Respiratory: Clear to auscultation, respirations even and unlabored on RA Gastrointestinal: Soft, non tender Genitourinary: no suprapubic tenderness Musculoskeletal: No edema Skin: warm, dry Neuro: Alert. Psych: Mood appropriate DS: Data Data Completed and Pending Labs on day of discharge: Labs from last 24 hours 11/22/24 07:18 WBC 5.3 RBC 3.51 L Hgb 10.3 L Hct 32.4 L MCV 92.3 MCH 29.3 MCHC 31.8 L RDW 13.2 Plt Count 271 MPV 9.0 Immature Gran % (Auto) 0.4 Neut % (Auto) 66.5 Lymph % (Auto) 17.4 L Daniels % (Auto) 8.4 Eos % (Auto) 6.9 H Baso % (Auto) 0.4 Lymph # (Auto) 0.93 Daniels # (Auto) 0.5 Eos # (Auto) 0.4 H Baso # (Auto) 0.0 Abs Immat Gran (auto) 0.02 Absolute Neuts (auto) 3.6 Absolute Nucleated RBC 0.000 Nucleated RBC % 0.0 Sodium 135 L Potassium 4.2 Chloride 102 Carbon Dioxide 27 Anion Gap 6 BUN 26 H Creatinine 0.81 Estim Creat Clear Calc 59 Estimated GFR > 60 Glucose 85 Calcium 9.1 Total Bilirubin 0.4 AST 31 ALT 24 Alkaline Phosphatase 128 H Total Protein 6.5 Albumin 3.6 Discharge Plan Discharge Attending physician on discharge: Brayan Dave Consulting providers: Camryn Cedeno; Aria Perez; Kylah Holley; Juan Alberto Owen; Dani Cruz Discharging Clinician: Hopwood,Dani R. Anticipated Discharge Date/Time: 11/22/24 14:19 Patient Disposition: Home with Home Health Service Activity: no straining and as tolerated Diet: heart healthy Discharge Instructions: Per Care [place]: Patient to have [facility] for RN/PT/OT services and office will call patient to set up initial appointment. Office ph#[phone]. Thanks. Discharge disposition: Home with Home Health Take medications as prescribed. Discontinue taking your Flomax as this is likely contributory to your orthostatic hypotension. I also recommend continuing the dose of 15mg of your Oxycodone. Monitor blood pressures Take caution while standing, rising, or moving Change positions slowly taking a break between each position change If you standing feel dizzy sit back down and take a break Encouraged to continue with yearly vaccinations Return to the emergency department if he developed sudden shortness of breath, chest pain, nausea, vomiting, upset stomach or intractable diarrhea Return to the emergency department if you develop fever greater than 101.5 Follow-up with the primary care physician within 1-2 weeks Thank you for choosing [facility] for your healthcare needs Patient Instructions: Antibiotic Form, Jarquin Catheter Placement and Care (GEN) Patient Language: Uzbek Stand Alone Forms: General Discharge Information Follow-up/Referrals: Barron,MD Tom [Primary Care Provider] Discharge Medications: New fludrocortisone 0.1 mg Tablet 0.1 mg PO DAILY@0800 14 Days Qty: 14 0RF Continued lorazepam 0.5 mg tablet 0.5 mg PO QPM PRN (Reason: insomnia) magnesium citrate Solution 150 ml PO BID PRN (Reason: constipation) Qty: 296 0RF polyethylene glycol 3350 [Miralax] 17 gram powder in packet 17 g PO BID Qty: 30 0RF Rx Instructions: Dissolve in 8 oz of water, do not dilute any further as this will make the medication less effective. senna 8.6 mg capsule 8.6 mg PO HS PRN (Reason: constipation) Qty: 30 0RF memantine 5 mg tablet 5 mg PO BID sertraline 50 mg tablet 50 mg PO DAILY montelukast 10 mg tablet 10 mg PO DAILY ferrous sulfate 325 mg (65 mg iron) Tablet,Delayed Release (Dr/Ec) 325 mg PO DAILY@0800 Qty: 30 0RF midodrine 10 mg Tablet 10 mg PO TID Qty: 90 0RF Changed oxycodone 30 mg tablet 15 mg PO .fives time a day Qty: 1 0RF Discontinued tamsulosin 0.4 mg Capsule 0.4 mg PO QAM Qty: 30 0RF No Action oxycodone 30 mg tablet 30 mg PO .fives time a day Date of admission: 11/16/24 17:31 Primary Care Provider: CarmenTom Admitting Provider: Benigno Sutherland Attending physician on admission: Benigno Sutherland Condition: Stable Quality VTE Prophylaxis VTE prophylaxis: pharmacologic ordered
== END 2024-11-22 17:45 | disposition home health service (06) | DRG 312 ==
LOC: ANHED 17:49 → ANH2MED 19:59
PROVIDERS: Physician Assistant; Admitting Provider Internal Medicine; Emergency Provider Emergency Medicine; PCP Internal Medicine; Visit Provider Physician Assistant
DX: I95.1 Orthostatic hypotension (principal); E43 Unspecified severe protein-calorie malnutrition; N13.8 Other obstructive and reflux uropathy; D50.9 Iron deficiency anemia, unspecified; E86.0 Dehydration; F17.210 Nicotine dependence, cigarettes, uncomplicated; F03.90 Unspecified dementia, unspecified severity, without behavioral disturbance, psychotic disturbance, mood disturbance, and anxiety; G62.9 Polyneuropathy, unspecified; K59.00 Constipation, unspecified; N40.1 Benign prostatic hyperplasia with lower urinary tract symptoms; R29.6 Repeated falls; R62.7 Adult failure to thrive; R33.9 Retention of urine, unspecified
CPT/HCPCS: 36415; 71045; 71046; 74018; 80048; 80053; 81003; 82274; 83735; 83880; 84443; 84484; 85025; 85610; 85730; 93005; 96360; 97110; 97162; 97165; 97530; 97535; 99285; A9270; G0378; J1885; J2359; J7030; J7120; P9041